=== PATIENT | male | born 1935 | race Caucasian/White ===

== ENCOUNTER → 2021-02-06 10:14 | Outpatient (BNVA) | payer MEDICARE, SELFPAY | PROVIDERS: PCP Family Medicine; Visit Provider Hospitalist | DX: R13.10 Dysphagia, unspecified (principal); J96.11 Chronic respiratory failure with hypoxia; J41.8 Mixed simple and mucopurulent chronic bronchitis; R05 Cough | CPT/HCPCS: 99212 ==

== ENCOUNTER 2021-02-11 14:02 | Outpatient (REF) | payer MEDICARE, SELFPAY ==
--- NOTE | ~2021-02-11 | FL_ITS ---
EXAMINATION: XR BARIUM SWALLOW CLINICAL INFORMATION: Dysphagia COMPARISON: None TECHNIQUE: Fluoroscopic guidance was provided for modified barium swallow performed by the speech and hearing department. FINDINGS: There is penetration seen in the larynx with liquids. There is no aspiration or penetration seen with honey consistency or solid food mixed with barium. There is retention in the vallecula with multiple media. FLUOROSCOPY TIME: 1.4 DOSE AREA PRODUCT: 2.5 carrear per centimeter squared. 1 saved fluoroscopic image. FL/FL barium swallow modified IMPRESSION: Fluoroscopy guidance for modified barium swallow performed by the speech and hearing department. Penetration seen larynx with liquids.
--- NOTE | 2021-02-15 14:54 | MHC.SL.IMP ---
Date of Plan of Treatment: 02/11/21 Onset of Symptoms/Illness: 02/11/21 Date Treatment Started: 02/11/21 Admitting Diagnosis: COPD, CAD status post CABG, chronic respiratory failure, cough, dysphagia Primary Speech & Language Diagnosis: R13.12 Oropharyngeal Phase Dysphagia Reason for Today's Visit: 13874 Modified Barium Swallow Study Pre-evaluation Dietary Consistencies: Regular Pre-evaluation Liquid Consistency: Thin Pre-evaluation Medication Administration: Whole with Liquid Medical History: Modified Barium Swallow Study Fluoroscopic Evaluation of Swallowing Function CPT Code 89233 Evaluation Year: 2020 Reason for Study: Patient displays overt s/s of aspiration. Referring Physician: Miguel Shea M.D. Evaluating Clinician: Selena Acosta M.A., CCC-EDUCATIONAL DIRECTOR Study Number: 1 Patient Name: Status: Outpatient, Wheelchair Age: 85 Gender: Male MEDICAL HISTORY: Primary (admitting) Diagnosis: COPD Year of Onset or Diagnosis: 2020 Comorbidities: CAD status post CABG Chronic respiratory failure Cough Dysphagia Current (pre-evaluation) Intake/Diet: Route: PO Diet Grade: Regular Liquid Consistencies: Thin Pre-Study Functional Oral Intake Scale (FOIS): 6- Total oral intake with no special preparation, but must avoid specific foods or liquid items Pain: None reported at time of study Subjective: Patient is an 85 year old man with underlying conditions COPD and CAD. He is followed by his ict security specialist. Per documentation from ict security specialist, patient presents with cough bringing up white phlegm and difficulty expectorating sputum. Patient also presents with post-nasal drip and wheezing. Patient was recently hospitalized at [facility] for worsening respiratory symptoms. Patient was reported to be hypoxic and required 3L nasal cannula at that time. Chest x-ray from [facility] showed hypoexpansion of the lungs with some interstitial reticular changes primarily at the bases on 03/27/20. He has continued with respiratory therapy. Patient complains now of coughing when eating/drinking. Oral Motor Exam Facial Symmetry: Symmetrical Mouth Occlusion: Normal Oral-Facial Lip Pucker Description: Normal Oral-Facial Smile (Lips) Description: Normal Oral-Facial Puff Cheeks Description: Reduced Strength Tongue Size: Normal Tongue Frenum Length: Normal Tongue Excursion Description: Normal Tongue Range of Movement Description: Normal Tongue Speed of Movement Description: Reduced Tongue Strength of Movement (against opposing pressure): Reduced Tongue Movement Characteristics: Normal/Absent Is patient able to manage secretions?: Yes Is patient able to produce volitional cough?: Food and Liquid Trials: Oral Impairment: Lip Closure: 0=No labial escape Oral Impairment: Tongue Control During Bolus Hold: 3=Posterior escape of greater than half of bolus Oral Impairment: Bolus Preparation/Mastication: 1=Slow prolonged chewing/mashing with complete re-collection Oral Impairment: Bolus Transport/Lingual Motion: 3=Repetitive/disorganized tongue motion Oral Impairment: Oral Residue: 1=Trace residue lining oral structures Oral Impairment:Initiation of Pharyngeal Swallow: 3=Bolus head in pyriforms Pharyngeal Impairment: Soft Palate Elevation: 0=No bolus between soft palate (SP)/pharyngeal wall (PW) Pharyngeal Impairment: Laryngeal Elevation: 1=Partial thyroid cartilage/arytenoids to epiglottic petiole movement Pharyngeal Impairment: Anterior Hyoid Excursion: 1=Partial anterior movement Pharyngeal Impairment: Epiglottic Movement: 1=Partial inversion Pharyngeal Impairment: Laryngeal Vestibular Closure:: 1=Incomplete: narrow column air/contrast in laryngeal vestibule Pharyngeal Impairment: Pharyngeal Stripping Wave: 2=Absent Pharyngeal Impairment: Pharyngeal Contraction: Did not test Pharyngeal Impairment: Pharyngoesophageal Segment Openin=Complete distension and complete duration: no obstruction of flow Pharyngeal Impairment: Tongue Base (TB) Retraction: 3=Wide column of contrast/air between TB and posterior PW Pharyngeal Impairment: Pharyngeal Residue: 1=Trace residue within or on pharyngeal structures Pharyngeal Impairment: Esophageal Clearance Upright Position: Did not test Impressions and Recommendations Clinical Observations: OBJECTIVE: Time-out: performed at 02:45 Evaluation Start: 02:30; Stop: 02:40 Patient Positioning: Seated 70-90 degrees Viewing Planes: LATERAL ONLY Contrast: MBSImP? Standardized Protocol using commercially prepared, standardized Barium viscosities, including: Varibar? THIN LIQUID (40% w/v, <15 cps) , Varibar? NECTAR (40% w/v, <150-450 cps) , Varibar? THIN HONEY (40% w/v, <800-1800 cps) , 1/2 Shortbread Cookie (1 x1 x.25 ) MBSImP ID: [id number] MBSImP Results: Lip closure for intraoral bolus containment resulted in no labial escape. Tongue control during bolus hold allowed posterior escape of greater than half of the bolus. Bolus preparation and mastication resulted in slow, prolonged chewing/mashing but with complete re-collection. Bolus transport/lingual motion was with repetitive/disorganized motion of the tongue. Oral residue was a trace, lining oral structures. Initiation of the pharyngeal swallow occurred when the bolus head was in the pyriform sinuses. Soft palate elevation resulted in no bolus between the soft palate and the pharyngeal wall. Laryngeal elevation was decreased, with partial superior movement of the thyroid cartilage/partial approximation of the arytenoids to the epiglottic petiole. Anterior hyoid excursion demonstrated partial anterior movement. Epiglottic movement resulted in partial inversion. Laryngeal vestibular closure was incomplete, with a narrow column of air/contrast noted within the laryngeal vestibule at the height of the swallow. Pharyngeal stripping wave was absent. Pharyngeal contraction could not be determined due to logistical reasons not related to physiologic impairment. Pharyngoesophageal segment opening was completely distended for complete duration with no obstruction of bolus flow. Tongue base retraction allowed a wide column of contrast or air between the retracted tongue base and the posterior pharyngeal wall. Pharyngeal residue was a trace within or on pharyngeal structures. Esophageal clearance in the upright position could not be assessed due to logistical reasons not related to physiologic impairment. Oral Impairment Score: 10 Pharyngeal Impairment Score: 9 (absence of score, component 13) Esophageal Impairment Score: --- (absence of score, component 17) Laryngeal Penetration and Aspiration: Penetration was observed in today's study. [place]-thick, Thin Contrast entered the airway, contacted the vocal folds, and were ejected from the airway. ASSESSMENT: This exam was conducted by radiologist and speech-language pathologist. Patient was seated upright at optimal 90 degree position for lateral view only. Patient trialed the following liquid and solid consistencies: -thin liquid -nectar thick liquid -honey thick liquid -pureed solid (applesauce mixed with barium paste) -ground solid (chicken salad mixed with barium paste) -regular solid (An Doone cookie coated in barium paste) Patient displayed moderate oropharyngeal phase dysphagia characterized by impairments in the following components of swallow physiology: ORAL PHASE: -prior to initiation of pharyngeal swallow trigger, premature posterior escape of bolus with both solids and liquids- greater than 50% of bolus, which collected in valleculae prior to initiation of swallow trigger -prolonged mastication -repetitive posterior tongue movement -trace oral residue -delayed pharyngeal swallow trigger when bolus head reached pyriforms PHARYNGEAL PHASE: -partial superior movement of thyroid cartilage with partial anterior hyoid movement and partial epiglottic inversion -incomplete laryngeal vestibular closure resulting in episodes of penetration with liquids -absent pharyngeal stripping wave -reduced tongue base retraction -mild pharyngeal retention in valleculae which subsequently cleared. Evidence of deep penetration during the swallow when drinking thin liquids and nectar thick liquids, which spontaneously ejected. No cough response to penetration of liquids. No evidence of aspiration or penetration with honey thick liquids and solids. Posterior escape of bolus with both solids and liquids. Material collected in vallecular space before initiation of swallow trigger. Delayed pharyngeal swallow trigger. Retention in vallecular space subsequently cleared. Patient history with the following compensatory strategies is unknown. When employed during today's study, these strategies improved swallowing function: Honey-thick Liquid eliminated Penetration Rate of Ingestion Change decreased Oral Residue, Pharyngeal Residue Liquid Intake Recommendation: Honey Thick Liquid Intake Strategies: Small Sips No Straws Dietary Recommendations: Chopped/Advanced (NDD3) Medication Administration: Whole with Puree Compensatory Strategies Recommended: Sitting Upright (90 deg) Double Swallow No Straw Small Bites and Sips Alternate Liquids/Solids Rate of Ingestion Change Avoid Specific Foods Supervision during eating and or drinking: Total Supervision (1:1) Recommended Treatments: Base of Tongue Exercises Pharyngeal Resistive Exer Compens. Strategy Educat. Vocal Cord Adduction Exer Recommendation for Speech Therapy: Speech Therapy through [facility] Text Comment: Intake Recommendations: Route: PO Diet Grade: Chopped/Advanced (NDD3) solids ? Please refer to National Dysphagia Level 3 Liquid Consistencies: Honey Post-Study Functional Oral Intake Scale (FOIS): 5- Total oral intake of multiple consistencies requiring special preparation Evidence of deep penetration with thin liquid and nectar thick liquid. Noted premature posterior escape of bolus, delayed swallow trigger, and incomplete laryngeal elevation. Patient is at risk for aspiration. Recommend CHOPPED/ADVANCED (NATIONAL DYSPHAGIA LEVEL 3 NDD3) and HONEY THICK liquids with pills WHOLE or CRUSHED in PUREE. Food to be cut into small bite size pieces and served with sauce/gravy. Recommend avoid certain foods, such as tough foods, sticky foods, and mixed consistencies. Recommend close monitoring for any overt s/s of aspiration. Following precautions are recommended: -chew food well -take small bites, one bite at a time, clearing oral cavity before taking more bites -alternate bite of food with sip of liquid -small, individual sips -avoid ?chugging? or taking consecutive sips -avoid use of straws due to delay in pharyngeal swallow trigger -upright 90 degree position during PO intake and for at least 30 minutes afterwards -frequent oral care at least 4 times daily Recommend continue speech therapy through [facility] to provide supports for modified diet, compensatory strategy, and to trial pharyngeal strengthening exercises. Therapy Recommendations: Therapy will be initiated Frequency per Week: 1 Number of Weeks: 6 The following compensatory strategies and/or therapeutic exercises will be part of the upcoming therapy/management plan: Honey-thick Liquid Bolus Volume Change Rate of Ingestion Change Effortful Swallow Lou Maneuver Shaker Head Lifts Genny Maneuver Prognosis for Improvement: The prognosis for the patient to meet nutritional needs by mouth is fair based on degree of impairment. Eyelet Machine Operator Goals: ? The patient will tolerate the least restrictive diet with a safe/efficient swallow to maintain adequate nutrition and hydration. ? The patient and/or family will participate in further education for swallowing goals. Short Term Goals: ? Diet - The patient will tolerate a chopped/advanced (NDD3) diet with honey thick liquids without signs or symptoms of penetration/aspiration 100% of the time. - The patient will participate in therapeutic PO trials with the EDUCATIONAL DIRECTOR. ? Guidelines - The patient will comply with/recall the following guidelines/strategies 100% of the time with moderate cuing: Honey-thick Liquid, Bolus Volume Change, Rate of Ingestion Change, Additional Swallow(s) per Bolus, No Straws. ? Independent Home Exercise - The patient will perform 10 repetitions of the Effortful Swallow, Lou Maneuver, Shaker Head Lifts, Genny Maneuver 3 times a day with 100% accuracy and moderate cuing as part of a home exercise program. ? Structured Therapy - The patient will demonstrate 100% accuracy and require moderate cuing in structured swallowing therapy with the EDUCATIONAL DIRECTOR using the following exercises/therapy approaches and therapy assisted devices: Effortful Swallow, Lou Maneuver, Shaker Head Lifts, Genny Maneuver, . ? Education - The patient, family, caregiver will verbalize/demonstrate understanding of the results of this evaluation, the above recommendations, and the swallowing guidelines. Frequency/Duration: 1x weekly x 6 weeks Clinician - Supplemental, Miscellaneous Communication: It is important to note that MBSS objective studies are snapshots in time and patient function might vary with factors such as time of day or concomitant medical conditions. For this reason, the final treatment plan for this patient should rest with their medical care team. Additional recommendations should be considered with the totality of the patient in mind. Thank you for the opportunity to participate in the care of this patient. If you have any questions about the content of this report, please contact the [facility] at [facility]. Education: Education regarding findings from today's study and plans for therapy were provided to Patient and family/caregiver through Verbal Instruction. Understanding was expressed by the Patient and family/caregiver. Sensitizer Clinician/Clinical Fellow: No Supervisory Statement: N/A Speech Language Pathologist: Selena Acosta M.A., CCC-EDUCATIONAL DIRECTOR
== END 2021-02-11 14:03 | disposition home or self-care (01) ==
LOC: HO.XRAY 14:02
PROVIDERS: Visit Provider Hospitalist
DX: R13.10 Dysphagia, unspecified (principal)
CPT/HCPCS: 74230; 92611

== ENCOUNTER → 2021-05-08 10:44 | Outpatient (BNVA) | payer MEDICARE, SELFPAY | PROVIDERS: PCP Family Medicine; Visit Provider Hospitalist | DX: R13.10 Dysphagia, unspecified (principal); J96.11 Chronic respiratory failure with hypoxia; J41.8 Mixed simple and mucopurulent chronic bronchitis; R05 Cough | CPT/HCPCS: 99212 ==

== ENCOUNTER → 2022-01-22 10:43 | Outpatient (BNVA) | payer MEDICARE, SELFPAY | PROVIDERS: PCP Family Medicine; Visit Provider Hospitalist | DX: J96.11 Chronic respiratory failure with hypoxia (principal); J41.8 Mixed simple and mucopurulent chronic bronchitis; R13.10 Dysphagia, unspecified | CPT/HCPCS: 99212 ==

== ENCOUNTER → 2022-05-28 10:52 | Outpatient (BNVA) | payer MEDICARE, SELFPAY | PROVIDERS: PCP Family Medicine; Visit Provider Hospitalist | DX: J96.11 Chronic respiratory failure with hypoxia (principal); R13.10 Dysphagia, unspecified; J41.8 Mixed simple and mucopurulent chronic bronchitis; L08.9 Local infection of the skin and subcutaneous tissue, unspecified; R05.9 Cough, unspecified | CPT/HCPCS: 99212 ==

== ENCOUNTER → 2022-11-19 11:03 | Outpatient (BNVA) | payer MEDICARE, SELFPAY | PROVIDERS: PCP Family Medicine; Visit Provider Hospitalist | DX: J96.11 Chronic respiratory failure with hypoxia (principal); J41.8 Mixed simple and mucopurulent chronic bronchitis; R13.10 Dysphagia, unspecified | CPT/HCPCS: 99212 ==

== ENCOUNTER 2023-07-10 11:39 | Outpatient (AMB) | payer MEDICARE, SELFPAY ==
[2023-07-10 15:08] VITALS: BP 110/60; PULSE 71; O2SAT 88
--- NOTE | 2023-07-10 15:08 | A.OFFVIS_ITS ---
Intake Vital Signs 07/10/23 15:08 BP 110/60 Blood Pressure Location Lt brachial Position Sitting Pulse 71 Pulse Source Pulse Oximeter Pulse Oximetry (%) 88 L Oxygen Delivery Method Room Air Intake Visit Reasons: 6 Mins Walk Evaluation Allergies No Known Allergies Allergy (Verified 07/10/23 15:08) [facility] Medical History (Updated 12/30/22 @ 09:52 by Miguel Shea MD) Atelectasis Infection of scalp Dysphagia Abnormal chest x-ray Chronic respiratory failure COPD (chronic obstructive pulmonary disease) Cough Social History (Updated 02/06/21 @ 10:35 by LUCIA You) Patient Tobacco Use Status: Former Tobacco user Tobacco use type: Cigarette Years Smoked: 40 years Office Procedures 6 Minute Walk Time:: 11:30 SPO2 % at rest: 88 Pulse at rest: 71 Distance in yards walked: 0 Performance Observations:: Julián is non-ambulatory in a wheel chair. His SPO2 on room air was 88% O2 started at 2 lpm and was increased to 3 lpm his SPO2 recovered to 94%. 3 lpm continuous O2 needed to keep his SPO2 above 88%. 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
[2023-07-10 15:11] VITALS: PULSE 71; O2SAT 88
== END 2023-07-10 14:04 | disposition home or self-care (01) ==
PROVIDERS: PCP Family Medicine; Visit Provider Hospitalist
DX: J41.8 Mixed simple and mucopurulent chronic bronchitis (principal)
CPT/HCPCS: 94618

== ENCOUNTER → 2023-07-10 11:39 | Outpatient (BNVA) | payer MEDICARE, SELFPAY | PROVIDERS: PCP Family Medicine; Visit Provider Hospitalist | DX: J41.8 Mixed simple and mucopurulent chronic bronchitis (principal) | CPT/HCPCS: 94618; 99211 ==

== ENCOUNTER 2023-08-06 10:07 | Outpatient (AMB) | payer MEDICARE, SELFPAY ==
--- OUTSIDE RECORDS SUMMARY | 2023-08-06 10:09 | XMS_ITS | Continuity of Care Document ---
Author Name Unknown Organization [facility] ter Address [address] [place] [id number]- Care Team Providers Care Belt Back Operator Name Role Phone Arjun Hampton DO Primary Care Physician Encounter [facility] Date(s): 07/17/23 - 07/30/[address] [address]- Encounter Diagnosis Acute on chronic respiratory failure with hypoxia(Final) - 07/17/23 Pulmonary embolism(Final) - 07/17/23 Hypernatremia(Final) - 07/17/23 Dysphagia(Final) - 07/27/23 Discharge Disposition: A-D/C Home Attending Physician: Tova DSOUZA, Bri Draper Admitting Physician: Janina DSOUZA, Ramana Referring Physician: Not on Staff, Referring MD Allergies, Adverse Reactions, Alerts No Known Allergies Immunizations Given and Recorded Vaccine Date Status Refusal Reason influenza virus vaccine, inactivated 06/22/23 Give n influenza virus vaccine, inactivated 07/23/22 Christian rded influenza virus vaccine, inactivated 06/03/21 Christian rded influenza virus vaccine, inactivated 05/16/20 Christian rded influenza virus vaccine, inactivated 05/25/19 Christian rded influenza virus vaccine, inactivated 07/29/18 Give n influenza virus vaccine, inactivated 05/28/18 Christian rded influenza virus vaccine, inactivated 06/11/17 Christian rded influenza virus vaccine, inactivated 05/23/16 Christian rded SARS-CoV-2 (COVID-19) mRNA BNT-162b2 vac 06/26/21 Recorded SARS-CoV-2 (COVID-19) mRNA BNT-162b2 vac 10/31/20 Recorded SARS-CoV-2 (COVID-19) mRNA BNT-162b2 vac 10/10/20 Recorded Influenza Virus Vaccine (oldterm) 06/08/19 Recorde d pneumococcal 13-valent vaccine 07/29/18 Given tetanus/diphtheria/pertussis, acel(Tdap) 04/15/18 Given pneumococcal 23-valent vaccine 1 08/04/14 Recorded 1Result Comment: [id number] Medications albuterol-ipratropium 3 mg-0.5 mg/3 ml inhalation solution 3 mL, Inhalation, 4 times a day, # 30 each, 0 Refills, Maintenance, 03/27/20 21:59:00 EDT, Solution Start Date: 03/27/20 Status: Ordered allopurinol 300 mg oral tablet 300 mg, 1, tablet, By Mouth, Daily, # 30 tablet, Refills 0, Maintenance, 03/27/20 21:58:00 EDT Start Date: 03/27/20 Status: Ordered ammonium lactate 12% topical lotion See Instructions, APPLY TOPICALLY DAILY TO THE LEGS DIREDTED, # 225 mL, 0 Refills, [id number], 20, APPLY TOPICALLY DAILY TO THE LEGS DIREDTED, 180, cm, 01/29/22 10:46:00 EDT, Height Start Date: 02/18/22 Status: Ordered apixaban 5 mg oral tablet = 5 mg, G Tube, 2 times a day, # 60 tablet, 0 Refills, Maintenance, 07/29/23 15:38:00 EST, Tablet, [facility], Partial fill upon patient request if the prescription is for a schedule IIopioid drug., 180, cm, 07/28/23 20:49:00 EST, Carla... Start Date: 07/29/23 Status: Ordered atorvastatin 80 mg oral tablet 1 tablet = 80 mg, By Mouth, Daily, # 30 tablet, 0 Refills, Maintenance, 03/27/20 21:57:00 EDT, Tablet Start Date: 03/27/20 Status: Ordered Basaglar KwikPen 100 units/mL subcutaneous solution See Instructions, INJECT 10 UNITS SUBCUTANEOUSLY DAILY AT BEDTIME, # 15 Unknown, 1 Refills, 07/10/22 6:58:00 EST, [facility]/pharmacy #[id number], 180, cm, 04/18/22 11:39:00 EDT, Height Start Date: 07/10/22 Status: Ordered benzonatate 200 mg oral capsule 1 capsule = 200 mg, By Mouth, 3 times a day, PRN as needed for cough, # 30 capsule, 0 Refills, Maintenance, 03/27/20 21:58:00 EDT, Capsule Start Date: 03/27/20 Status: Ordered budesonide 0.5 mg/2 mL inhalation suspension 0.5 mg, 2, mL, Neb, 2 times a day, # 120 mL, Refills 0, Maintenance, 03/27/20 21:57:00 EDT, Suspension Start Date: 03/27/20 Status: Ordered carvedilol 3.125 mg oral tablet 3.125 mg, By Mouth, 2 times a day, # 30 tablet, Refills 0, Tot. Refills 0, Maintenance, 05/16/23 9:38:00 EDT, Route to Pharmacy Electronically, [facility]/pharmacy #[id number], Partial fill upon patient request if the prescription is for a schedule II opioid drug.... Start Date: 05/16/23 Stop Date: 06/15/23 Status: Ordered carvedilol 3.125 mg oral tablet 3.125 mg, Tablet, By Mouth, 07/29/23 21:00:00 EST Start Date: 07/29/23 Stop Date: 07/29/23 Status: Completed carvedilol 3.125 mg oral tablet 3.125 mg, Tablet, By Mouth, 07/30/23 9:00:00 EST Start Date: 07/30/23 Stop Date: 07/30/23 Status: Completed Claritin 10 mg oral tablet 10 mg, 1, tablet, By Mouth, Daily, Refills 0, Maintenance, 11/23/18 10:33:45 EDT Start Date: 11/23/18 Status: Ordered Dakins Half Strength 0.25% topical solution See Instructions, Use for dressing changes as directed, # 473 mL, 0 Refills, Maintenance, 09/11/22 7:42:00 EST, [facility]/pharmacy #[id number], Partial fill upon patient request if the prescription is for a schedule II opioid drug., Use for dressing changes as di... Start Date: 09/11/22 Status: Ordered docusate sodium 150 mg/15 ml oral liquid 10 mL = 100 mg, By Mouth, 2 times a day, # 600 mL, 0 Refills, Maintenance, 07/29/23 15:38:00 EST, Liquid, [facility], Partial fill upon patient request if the prescription is for a schedule II opioid drug., 180, cm, 07/28/23 20:49:00 EST... Start Date: 07/29/23 Status: Ordered fluticasone 50 mcg/inh nasal spray 2 sprays, Nares, Both, Daily in AM, 0 Refills, Maintenance, 03/27/20 21:59:00 EDT, [place] Start Date: 03/27/20 Status: Ordered Lasix 20 mg oral tablet 20 mg, By Mouth, Daily, Refills 0, Maintenance, 05/16/23 9:39:00 EDT, Partial fill upon patient request if the prescription is for a schedule II opioid drug. Start Date: 05/16/23 Status: Ordered levothyroxine 0.05 mg oral tablet See Instructions, 1 tablet By Mouth Thursday-Thursday 2 tabs po Thu-Thursday, # 90 tablet, 1 Refills, 05/19/23 11:42:00 EDT, [facility]/pharmacy #[id number], 183, cm, 05/16/23 8:59:00 EDT, Height, 83.6, kg, 05/13/23 23:00:00 EDT, Dry Weight Start Date: 05/19/23 Status: Ordered NOVOFINE AUTOCOVER 30G NEEDLE NOVOFINE AUTOCOVER 30G NEEDLE, 0 Refills, Maintenance, 06/29/23 13:21:00 EST Start Date: 06/29/23 Status: Ordered omeprazole 20 mg oral tablet, disintegrating, delayed release = 40 mg, By Mouth, Daily, # 60 tablet, 0 Refills, Maintenance, 07/29/23 16:00:00 EST, [facility], Partial fill upon patient request if the prescription is for a schedule II opioid drug., 180, cm, 07/28/23 20:49:00 EST, Height, 73, kg, 11... Start Date: 07/29/23 Status: Ordered SilvaSorb 1 applicator, Topically, Daily, 0 Refills, Maintenance, 06/07/23 12:13:00 EDT, Gel, Partial fill upon patient request if the prescription is for a schedule II opioid drug. 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 Benign essential hypertension Confirmed Active Chronic hypoxemic respiratory failure Confirmed Active Chronic obstructive lung disease Confirmed Active Chronic respiratory failure, unspecified whether with hypoxia or hypercapnia 1 Confirmed Active Coronary atherosclerosis 2 Confirmed Active COVID-19 3 Confirmed 05/16/23 Active Ischemic cardiomyopathy Confirmed Active Gout Confirmed Active H/O: Deep vein thrombosis Confirmed Active H/O: pulmonary embolus Confirmed Active Alta's thyroiditis Confirmed Active Hemiparesis affecting right side as late effect of cerebrovascular accident 4 Confirmed Active Hypercholesterolemia Confirmed Active Hyperlipidemia Confirmed Active Hypernatremia Confirmed Active Acute kidney injury Confirmed Active Abnormal LFTs Confirmed Active Patent foramen ovale Confirmed Active Encounter for annual wellness visit (AWV) in Medicare patient Confirmed Active Neuropathy, peripheral 5 Confirmed 02/06/15 Active Peripheral vascular disease 6 Confirmed Active Pulmonary embolism Confirmed Active Troponin level elevated Confirmed Active Recurrent coronary arteriosclerosis after percutaneous transluminal coronary angioplasty Confirmed Active Right homonymous hemianopsia Confirmed Active 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 Taveras Procedures Procedure Date Related Diagnosis Body Site Status PEG - Percutaneous endoscopi c gastrostomy 07/27/23 Completed Results Orders for Microbiology Reports Name Date Blood Culture 07/17/23 Blood Culture #2 07/17/23 Microbiology Reports TEST:Blood Culture, Second Order STATUS:Auth (Verified) BODY SITE: SOURCE:Blood COLLECTED DATE/TIME:07/17/23 11:26 AM Blood Culture, Second Order SPECIMEN DESCRIPTION : BLOOD NO SITE SPECIAL REQUESTS : NONE CULTURE : NO GROWTH 5 DAYS. REPORT STATUS : FINAL 07/22/2023 TEST:Blood Culture STATUS:Auth (Verified) BODY SITE: SOURCE:Blood COLLECTED DATE/TIME:07/17/23 10:45 AM Blood Culture SPECIMEN DESCRIPTION : BLOOD NO SITE SPECIAL REQUESTS : NONE CULTURE : NO GROWTH 5 DAYS. REPORT STATUS : FINAL 07/22/2023 Radiology Reports * Exam Date Time Procedure Performing Provider Status 07/25/23 5:14 PM Chest Portable Lois Rm; Alejandrina (Ve rified) Notes: (Chest Portable) Reason For Exam: Line Placement RESULT: Chest Portable Chest Portable Reason: Line Placement; COMPARISON: Earlier today and yesterday FINDINGS: LINES AND TUBES: Right jugular Port-A-Cath and NG tube remain in good position. LUNGS AND PLEURA: Unchanged dense consolidation of the lower half of the left lung with laterally tracking pleural effusion. Unchanged small right pleural effusion. Clear right lung without edema. No pneumothorax. HEART, MEDIASTINUM AND ARELIS: Cardiac borders are partially obscured but grossly unchanged. BONES AND SOFT TISSUES: No acute abnormality. IMPRESSION: 1. Line and tube in good position. 2. Unchanged effusions and extensive left basilar consolidation. WSN: [id number] Ordering Physician: Charissa Coy Dictated By: Crow Shepard MD Dictated Date/Time: 07/25/23 6:33 pm Reviewed By: Crow Shepard MD Signed By: Crow Shepard MD Signed Date/Time: 07/25/23 6:33 pm Transcribed By: ANGELA Transcribed Date/Time: 07/25/23 6:31 pm * Exam Date Time Procedure Performing Provider Status 07/25/23 3:55 PM Chest Portable Alma Rosa Mancera; Alejandrina ( Verified) Notes: (Chest Portable) Reason For Exam: Line Placement RESULT: Chest Portable AP upright portable chest dated July 25, 2023. Comparison films are from July 24, 2023. HISTORY: Line placement. FINDINGS: The cardiac silhouette is mildly increased in size and unchanged. Mural calcifications are present in the aorta. A nasogastric tube is present extending into the left upper quadrant. The tip is distal to the EG junction region. The sidehole is at the level of the EG junction. This could be advanced 2 cm for more optimal positioning. A CT Port-A-Cath is noted on the right. Using a jugular approach, the tip of the catheter overlies the mid SVC. No pneumothorax is seen. There is significant opacity noted in the left mid and lower lung consistent with effusion, atelectasis, pneumonia, or any combination. There is a minimal right pleural effusion. The patient is status post median sternotomy. IMPRESSION: Interval placement of a nasogastric tube. This could be advanced 2 cm for more optimal positioning.Otherwise, no significant interval change. Examination 78414. Thank you for allowing me to participate in the care of this patient. IMPRESSION: WSN: [id number] Ordering Physician: Charissa Coy Dictated By: Saleem Rick MD Dictated Date/Time: 07/25/23 4:13 pm Reviewed By: Saleem Rick MD Signed By: Saleem Rick MD Signed Date/Time: 07/25/23 4:13 pm Transcribed By: ANGELA Transcribed Date/Time: 07/25/23 4:13 pm * Exam Date Time Procedure Performing Provider Status 07/24/23 4:04 PM Modified Barium Swal low W/ Speech (Radio Mancera , Alma Rosa; Auth (Verified) Notes: (Modified Barium Swallow W/ Speech (Radio) Reason For Exam: Dysphagia RESULT: Modified Barium Swallow W/ Speech (Radio Modified Barium Swallow WITH SPEECH PATHOLOGY CLINICAL INDICATION: Reason: Dysphagia; Clinical Question(s): Aspiration; Order Comment: Modified Barium Swallow W Speech (Radiology) Prep COMPARISON: None Technique: Lateral cine-videofluoroscopy was performed during the oral administration of various barium containing consistencies, as described below. Fluoroscopic imaging provided by Rober Gardner PA-C Pulsed fluoroscopy time: 2.3 minutes Dose Area Product (DAP): 128.5 uGy*m2 Findings: Honey, applesauce, nectar, and thin barium consistencies were tested. Mason subglottic aspiration not prompting cough response was seen with nectar consistency. Deep laryngeal penetration not clearing with cued cough was appreciated with thin honey and puree consistencies Significant vallecular and piriform residuals were appreciated with all tested consistencies. IMPRESSION: Silent aspiration, laryngeal penetration, and residuals as described. For dietary concerns or recommendations, please refer to speech pathologist report. By undersigning and finalizing the report, the attending radiologist confirms he/she has personallyreviewed and interpreted the images and agrees with the description of the findings. I have personally reviewed the images and I agree with this report. WSN: [id number] Ordering Physician: Charissa Coy Dictated By: Agusto Chand Dictated Date/Time: 07/24/23 3:24 pm Reviewed By: Roman Mike MD, V Signed By: Roman Mike MD, V Signed Date/Time: 07/24/23 3:29 pm Transcribed By: ANGELA Transcribed Date/Time: 07/24/23 2:51 pm * Exam Date Time Procedure Performing Provider Status 07/24/23 9:42 AM Chest Portable Flaquita Cardona (Verified) Notes: (Chest Portable) Reason For Exam: CHF RESULT: Chest Portable Chest Portable Reason: CHF; Clinical Question(s): CHF COMPARISON: 07/17/2023 FINDINGS: LINES AND TUBES: Right-sided chest port tip is in the area of the low SVC LUNGS AND PLEURA: Diffuse pulmonary opacities with perihilar and basilar predominance and also seen layering small tomoderate left and trace to small right pleural effusion No pneumothorax. HEART, MEDIASTINUM AND ARELIS: Unchanged cardiomegaly. Postsurgical changes the mediastinum. Aortic atherosclerosis BONES AND SOFT TISSUES: No acute abnormality. Prior median sternotomy. IMPRESSION: Increased pulmonary edema. WSN: [id number] Ordering Physician: Charissa Coy Dictated By: Kemi Dodd MD Dictated Date/Time: 07/24/23 9:46 am Reviewed By: Kemi Dodd MD Signed By: Kemi Dodd MD Signed Date/Time: 07/24/23 9:46 am Transcribed By: ANGELA Transcribed Date/Time: 07/24/23 9:45 am * Exam Date Time Procedure Performing Provider Status 07/19/23 10:43 AM US Liver Concha Armendariz; Alejandrina (Verified) Notes: (US Liver) Reason For Exam: abnormal LFT;Other: RESULT: US Liver US Liver Reason: Other:; abnormal LFT; Clinical Question(s): Choledocholithiasis COMPARISON: 12/24/2022. IMAGING TECHNIQUE: Grayscale and color Doppler ultrasound examination of the liver. senior cytotechnologist noted that the study was technically difficult due to overlying bowel gas and patient's inability to hold breath. FINDINGS: Liver: Coarse hepatic echotexture. No suspicious lesion. Smooth hepatic contour. Main portal vein patent with normal hepatopetal direction of flow. Biliary Tree: No intrahepatic or extrahepatic bile duct dilation is identified. Common duct: 0.5 cm. IMPRESSION: Coarse hepatic echotexture likely due to underlying hepatocellular disease. No suspicious lesion. WSN: [id number] Ordering Physician: Marcello Rowe Dictated By: Saravanan Iniguez MD Dictated Date/Time: 07/19/23 4:21 pm Reviewed By: Saravanan Iniguez MD Signed By: Saravanan Iniguez MD Signed Date/Time: 07/19/23 4:21 pm Transcribed By: ANGELA Transcribed Date/Time: 07/19/23 4:20 pm * Exam Date Time Procedure Performing Provider Status 07/19/23 10:43 AM US Retroperitoneum Comp Geoff Armendariz; Auth (Verified) Notes: (US Retroperitoneum Comp) Reason For Exam: acute kidney injury;Other: RESULT: US Retroperitoneum Comp US Retroperitoneum Comp Reason: Other:; acute kidney injury; Clinical Question(s): Renal Obstruction; COMPARISON: None. FINDINGS: Right kidney: 11.0 cm in length. No hydronephrosis. Increased parenchymal echogenicity. No stones. No suspicious mass. Few simple cysts, largest measuring 2 x 1.8 cm in the upper pole. Left kidney: 10.3 cm in length. No hydronephrosis. Increased parenchymal echogenicity. No stones. No suspicious mass. Few simple cysts, largest measuring 4.2 x 5 cm in the upper pole. Urinary bladder: Incompletely distended, but no evidence of stone, mass or debris. IMPRESSION: Echogenic kidneys likely representing medical renal disease. Bilateral renal cysts. WSN: [id number] Ordering Physician: Marcello Rowe Dictated By: Saravanan Iniguez MD Dictated Date/Time: 07/19/23 4:19 pm Reviewed By: Saravanan Iniguez MD Signed By: Saravanan Iniguez MD Signed Date/Time: 07/19/23 4:19 pm Transcribed By: ANGELA Transcribed Date/Time: 07/19/23 4:17 pm * Exam Date Time Procedure Performing Provider Status 07/17/23 3:[address] Angio Chest Soo Mcnamara; Auth (Verified) Notes: (CT Angio Chest) Reason For Exam: PE suspected, Intermediate prob, positive D-dimer,;Other: RESULT: CT Angio Chest EXAMINATION: CT Angio Chest INDICATION: Reason: Other:; PE suspected, Intermediate prob, positive D-dimer,; Clinical Question(s): Pulmonary Embolism; Order Comment: TECHNIQUE: Spiral CTA of the chest was performed after rapid IV contrast administration without cardiac gating, triggered by an HENRI on the main pulmonary artery. Images are formatted in multiple planes using 2-D multiplanar and 3-D maximum intensity projection. 72 cc of Omnipaque 300 was administered intravenously. Weight-based protocol using automatic tube modulation was used to optimize exposure parameters. CTDIvol Body: 16.13 mGy, DLP Body: 511 mGy*cm. COMPARISONS: None. ANGIOGRAPHIC FINDINGS: Positive exam for acute bilateral pulmonary thromboembolism with branching thrombus seen in the lobar pulmonary artery to segmentally and the right upper lobe, eccentrically to centrally in the left lower lobe lobar pulmonary artery and segmentally in the left upper lobe. There is no enlargement of the main pulmonary artery. No straightening of the intraventricular septum or other evidence of right heart strain. Thoracic aorta is nonaneurysmal. There is moderate arch and descending thoracic aortic atherosclerosis without acute dissection within the limitations of this exam. NON-ANGIOGRAPHIC FINDINGS: Door Hanger View Findings, Lines and Tubes: There is a chest port terminating at the low SVC Trachea and Airways: Moderate motion artifact and expiratory appearance of the trachea. Lungs and Pleura: Evaluation of the lungs is limited by degree of motion artifact. There is severe upper lung emphysema. Groundglass opacity present in the left upper lung on series 401 image 38 and consolidative opacities in the lower lungs, left greater than right with air bronchograms and also component of atelectasis of nearly the entire left lower lobe. There is a small left pleural effusion. No pneumothorax. The degree of motion artifact on this exam along with acute pulmonary findings greatly limits evaluation for chronic pulmonary nodules, with several nodules seen for example on series 401 image 16 and image 29 which could relate to infection as well as in the superior segment of the right lower lobe at series 401 image 48 measuring 7 mm. Mediastinum and arelis: Limited evaluation due to motion. There are small mediastinal lymph nodes, for example right paratracheal and series 401 image 23 measuring up to 5 to 6 mm and small subcarinal lymph node. No adenopathy. No mediastinal mass or fluid collection. Patulous fluid-filled esophagus. Heart: Heart size is enlarged with left ventricular enlargement and also left ventricular hypertrophy. There are postsurgical changes of coronary artery bypass grafting with severe galena vessel atherosclerosis. No pericardial effusion. Chest Wall Soft Tissues: No acute abnormality. Minimal gynecomastia. Diaphragm and upper abdomen: No acute abnormality. Hepatic steatosis, partially seen. Bones: Prior median sternotomy. Bones are osteopenic. Contiguous osteophytosis at the midthoracic spine. No acute osseous abnormality. IMPRESSION: Positive exam for acute bilateral pulmonary thromboembolism. No evidence for right heart strain. Atelectasis of the left lower lung, nearly complete. Concomitant basilar consolidative opacities and small focal opacity in the left upper lung, suspicious for infection. Consider aspiration etiology. Small left pleural effusion. Cardiomegaly and coronary artery atherosclerosis with postsurgical changes of coronary artery bypass grafting. Result of positive exam for acute pulmonary thromboembolism was given to Dr. Horan at 1601 on day of exam. WSN: [id number] Ordering Physician: Adal Horan Dictated By: Kemi Dodd MD Dictated Date/Time: 07/17/23 4:04 pm Reviewed By: Kemi Dodd MD Signed By: Kemi Dodd MD Signed Date/Time: 07/17/23 4:04 pm Transcribed By: ANGELA Transcribed Date/Time: 07/17/23 3:59 pm * Exam Date Time Procedure Performing Provider Status 07/17/23 12:[address] Head/Brain W/O Contrast Shira Hodgson i; Alejandrina (Verified) Notes: (CT Head/Brain W/O Contrast) Reason For Exam: AMS, progressive lethargy;Behavior Problem RESULT: CT Head/Brain W/O Contrast CT Head/Brain W/O Contrast INDICATION: Hx of Present Illness: pt from [facility], per service captain pt has been altyered ongoing 2 days, found hypoxic to 70s on at home 2L O2, also reports poor po intake and changes in speech; Reason: Behavior Problem; AMS, progressive lethargy; Clinical Question(s): Infarction; Order Comment: TECHNIQUE: Noncontrast head CT using axial technique and reconstructed in axial and coronal planes.Iterative reconstruction techniques are used to optimize dose and image quality. CTDIvol Head: 48.30 mGy, DLP Head: 773 mGy*cm. COMPARISON: 06/06/2023 FINDINGS: Door Hanger view findings, lines and tubes: None. BRAIN AND EXTRA-AXIAL SPACES: No parenchymal hemorrhage, midline shift, or mass effect. Henry-white matter differentiation is wellpreserved. Unchanged bifrontal encephalomalacia, left more than right. Unchanged cerebellar infarcts. No acute infarct. Moderate prominence of the ventricles and sulci consistent with parenchymal volume loss. Moderate low-density white matter changes. No subarachnoid hemorrhage. No subdural or epidural collection. CALVARIUM, SKULL BASE, AND SOFT TISSUES: No fracture. Unchanged postoperative findings in the calvarium. Small amount of fluid in the left maxillary sinus. Status-post bilateral lens extraction. The extracranial soft tissues are unremarkable. IMPRESSION: 1. No evidence of acute intracranial abnormality. 2. No evidence of acute fracture or dislocation of the cervical spine. WSN: [id number] Ordering Physician: Adal Horan Dictated By: Sulaiman Arrieta MD Dictated Date/Time: 07/17/23 12:44 p Reviewed By: Sulaiman Arrieta MD Signed By: Sulaiman Arrieta MD Signed Date/Time: 07/17/23 12:44 pm Transcribed By: ANGELA Transcribed Date/Time: 07/17/23 12:41 pm * Exam Date Time Procedure Performing Provider Status 07/17/23 11:13 AM Chest Portable Ciera Ronquillo; Aut h (Verified) Notes: (Chest Portable) Reason For Exam: Shortness of Breath RESULT: Chest Portable Chest Portable Hx of Present Illness: pt from [facility], per service captain pt has been altyered ongoing 2 days, found hypoxic to 70s on at home 2L O2, also reports poor po intake and changes in speech; Reason: Shortness ofBreath; Clinical Question(s): Pneumonia COMPARISON: 05/30/2023 FINDINGS: LINES AND TUBES: Right-sided chest port with tip at the mid SVC. LUNGS AND PLEURA: Enlarged central pulmonary arteries. This is unchanged. Small bilateral pleural effusions, left greater than right. Basilar atelectasis. Mild prominence of the interstitium which is seen at the right mid lung, for example. No pleural effusion. No pneumothorax. HEART, MEDIASTINUM AND ARELIS: Heart is normal in size. Postsurgical changes in the mediastinum. Aortic arch atherosclerosis. BONES AND SOFT TISSUES: No acute abnormality. IMPRESSION: Bilateral small pleural effusions, not significantly changed. Mild pulmonary edema. Lower lung atelectasis. WSN: [id number] Ordering Physician: Frank Landa Dictated By: Kemi Dodd MD Dictated Date/Time: 07/17/23 11:16 a Reviewed By: Kemi Dodd MD Signed By: Kemi Dodd MD Signed Date/Time: 07/17/23 11:16 am Transcribed By: ANGELA Transcribed Date/Time: 07/17/23 11:15 am Vital Signs Most recent to oldest [Reference Range]: 1 2 3 Height 180 cm (07/28/23 8:49 PM) 180 cm (07/27/23 7:18 AM) 180 cm (07/25/23 7:41 AM) Weight 73.0 kg (07/27/23 7:18 AM) 73.0 kg (07/18/23 4:07 AM) 74.3 kg (07/17/23 9:55 PM) Oxygen Saturation [94-100 %] 93 % *L* (07/30/23 8:00 AM) 97 % (07/29/23 8:00 PM) 100 % (07/29/23 8:00 AM) Pulse Rate [55-90 bpm] 85 bpm (07/30/23 10:28 AM) 88 bpm (07/30/23 8:00 AM) 98 bpm *H* (07/29/23 9:21 PM) Body Mass Index [18.5-24.99 kg/m2] 22.53 kg/m2 (07/27/23 7:18 AM) 22.93 kg/m2 (07/17/23 9:55 PM) Blood Pressure [90-138/55-84 mm Hg] 140/71mm Hg *H* (07/30/23 10:28 AM) 138/79mm Hg (07/30/23 8:00 AM) 164/94mm Hg *H* (07/29/23 9:21 PM) Respiratory Rate [16-30 br/min] 18 br/min (07/30/23 8:00 AM) 20 br/min (07/29/23 8:00 PM) 18 br/min (07/29/23 8:00 AM) Temperature [96.8-100.4 DegF] 98.9 DegF (07/30/23 8:00 AM) 97.8 DegF (07/29/23 8:00 PM) 98.1 DegF (07/29/23 8:00 AM) Liters per Minute 2 L/min (07/30/23 8:00 AM) 2 L/min (07/29/23 8:00 PM) 2 L/min (07/29/23 8:00 AM) Mode of Delivery (Oxygen) Nasal cannula (07/30/23 8:00 AM) Nasal cannula (07/29/23 8:00 PM) Nasal cannula (07/29/23 8:00 AM) Blood pressure sites Arm, left (07/30/23 8:00 AM) Arm, left (07/29/23 8:00 PM) Arm, left (07/29/23 8:00 AM) Temperature Route Axillary (07/30/23 8:00 AM) Oral (07/29/23 8:00 PM) Axillary (07/29/23 8:00 AM) Dry Weight 73.0 kg (07/18/23 4:07 AM) 74.3 kg (07/17/23 9:55 PM) Social History Social History Type Response Smoking Status Former smoker entered on: 09/23/15 Sex Consult note * Tana Khan MD: PERFORM Event Display: Consult Authored Date: Patient: ??GISELL, JENNIFER ? Age:??88 Years?Sex:??Male?:??1935?? Chief Complaint/Reason for Consult Gastrostomy tube placement History of Present Illness Patient is an 88-year-old male with past medical history significant for coronary artery disease status post CABG in 2016,??pulmonary emboli,??DVT, type 2 diabetes??who has had a previous stroke??with significant residual right-sided weakness??and expressive aphasia??with associated dysphagia.?? Hehas failed??recurrent??swallow evaluations??and had a barium swallow??on??07/24/2023??which was positive for aspiration.?? He has since been n.p.o.??with a soft??feeding tube placed for enteral access.?? General surgery was consulted for possible G-tube. ?? On examination??the patient is awake upright in bed.?? While he is unable to form words he does nod and shake his head appropriately to questions.?? The possibility of a feeding tube??had been discussed with both him and his family at length by his primary team??prior to our evaluation.?? We rediscussed??that possibility??to which he still expressed??interest. ??His family was not at bedside at the time of our evaluation. ??He has remote history of CABG in 2016??with his most recent??echo [id number] showing an ejection fraction of 45 to 50%.?? His abdominal surgical history is remarkable onlyfor??what appears to be a laparoscopic umbilical hernia repair.?? There is evidence of laparoscopicscar sites on his abdomen and record of an umbilical hernia repair however we do not have that operative report,??unable to determine if mesh was placed.?? His last dose of apixaban??was 07/24/2023.??He is currently on a heparin drip??for appropriate anticoagulation.?? Overall his abdomen is soft, nontender, nondistended.?? He has no??current infectious signs or symptoms. Review of Systems Limited??due to patient's aphasia Physical Exam Vitals & Measurements T:??97.7?F?? HR:??81??(Peripheral)?? RR:??19?? BP:??148/71?? SpO2:??100%?? HT:??180??cm?? WT:??73.0??kg?? BMI:??22.93?? General appearance: No apparent distress, appears stated age, well developed. Head: Normocephalic, atraumatic. Cardiac: RRR, no murmurs or gallops. Respiratory: Clear to auscultation bilaterally. Abdomen: Soft, nontender, nondistended. No guarding or rebound. No palpable mass. Faint, well-healed laparoscopic surgical sites Extremities: Right sided weakness and contraction. Warm and well perfused. Neurologic status: Alert, nods and shakes head appropriately to questions. Assessment/Plan Patient is an 88-year-old male with right-sided??deficits status post cerebrovascular accident??with recurrent episodes??of aspiration??and failed barium swallow.?? He and his family wish to proceed with??surgical feeding access.?? He has a history??of an umbilical hernia repair??and is on anticoagu lation for prior??DVTs.?? His last dose of apixaban was on 07/24/2023??and was subsequently transitioned to a heparin drip pending his possible surgical intervention.?? At this time would recommend ongoing??enteral feeds via his soft feeding tube,??holding apixaban, with plans for??OR Thursday at the earliest??as the effects of the apixaban wane. ?? Recommendations: Ongoing feeds via NG tube Hold apixaban.?? Okay for heparin drip pending OR OR??Thursday at the earliest for PEG, will continue to follow ?[place] [phone] with any questions or concerns ?Plan discussed with??Dr. 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 Hypercholesterolemia Hyperlipidemia Hypernatremia Ischemic cardiomyopathy Neuropathy, peripheral Patent foramen ovale Peripheral vascular disease Pulmonary embolism Recurrent coronary arteriosclerosis after percutaneous transluminal coronary angioplasty 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 Tremor Troponin level elevated Type 2 diabetes mellitus with insulin therapy Type 2 diabetes with nephropathy Procedure/Surgical History Craniotomy: 05/24/18 Endoscopy abnormal: 09/03/16 History of Treatment Of Foot Fracture History of Umbilical Hernia Repair Unknown Home Medications Albuterol/Ipratropium: 3 mL, Inhalation, 4 times a day Allopurinol: 300 mg = 1 tablet, By Mouth, Daily Ammonium Lactate 12%: See Instructions, APPLY TOPICALLY DAILY TO THE LEGS DIREDTED Aspirin: 81 mg = 1 tablet, By Mouth, Daily Atorvastatin: 80 mg = 1 tablet, By Mouth, Daily Benzonatate: 200 mg = 1 capsule, By Mouth, 3 times a day, PRN (as needed for cough) Budesonide: 0.5 mg = 2 mL, Neb, 2 times a day Carvedilol: 3.125 mg, By Mouth, 2 times a day Cholecalciferol: 1,000 International_Units = 1 tablet, By Mouth, Daily Docusate: 100 mg = 10 mL, By Mouth, 2 times a day Fluticasone Nasal: 2 sprays, Nares, Both, Daily in AM Furosemide: 20 mg, By Mouth, Daily Gabapentin: 200 mg = 2 capsule, By Mouth, 3 times a day Insulin Glargine: See Instructions, INJECT 10 UNITS SUBCUTANEOUSLY DAILY AT BEDTIME Levothyroxine: See Instructions, 1 tablet By Mouth Thursday-Thursday2 tabs po Thu-Thursday Loratadine: 10 mg = 1 tablet, By Mouth, Daily Miscellaneous Rx (NOVOFINE AUTOCOVER 30G NEEDLE) Multivitamin: 1 tab, By Mouth, Daily [place]-3 Polyunsaturated Fatty Acids: 1,000 mg = 1 capsule, By Mouth, Daily Omeprazole: 40 mg = 1 capsule, By Mouth, Daily Primidone: 100 mg = 2 tablet, By Mouth, 3 times a day silver topical: 1 applicator, Topically, Daily Sodium Hypochlorite Topical: See Instructions, Use for dressing changes as directed Sucralfate: 1 Gm = 1 tablet, By Mouth, 2 times a day Tamsulosin: 0.4 mg = 1 capsule, By Mouth, Daily Thiamine: 100 mg, By Mouth, Daily Triamcinolone Topical: 1 application, Topically, 3 times a day, apply a thin filmto affected area Ubiquinone: 100 mg, By Mouth, Daily Allergies NKA Social History Alcohol Use: Never. Electronic Cigarette/Vaping Electronic Cigarette Use: Never. Employment/School Status: Retired. Exercise Self assessment: Fair condition. Home/Environment Living situation: Home/Independent. Lives with: Spouse. Nutrition/Health Diet: Regular. Tobacco Former smoker Family History No family history recorded. Lab Results Labs Last 24 Hours BLOOD COUNT & DIFF ? Event Name?? Event Result?? Date/Time?? WBC 4.3 k/mm3 07/25/23 11:52:00 RBC 3.69 m/mm3??Low 07/25/23 11:52:00 Hgb 9.6 Gm/dL??Low 07/25/23 11:52:00 Hct 32.2 %??Low 07/25/23 11:52:00 MCV 87.3 femtoliters 07/25/23 11:52:00 MCH 26 pg??Low 07/25/23 11:52:00 MCHC 29.8 g/dL??Low 07/25/23 11:52:00 Platelet Count 313 k/mm3 07/25/23 11:52:00 MPV 10.2 femtoliters 07/25/23 11:52:00 Nucleated RBC (Automated) 0 #/100 WBC'S 07/25/23 11:52:00 ? COAG ? Event Name?? Event Result?? Date/Time?? APTT 169.4 seconds??Critical 07/25/23 14:21:00 ? CHEM GENERAL ? Event Name?? Event Result?? Date/Time?? Sodium 144 mmol/L 07/25/23 11:55:00 Chloride 112 mmol/L??High 07/25/23 11:55:00 Bicarbonate Level 24 mmol/L 07/25/23 11:55:00 Anion Gap 8 07/25/23 11:55:00 BUN 11 mg/dL 07/25/23 11:55:00 Creatinine-Blood 0.7 mg/dL 07/25/23 11:55:00 Phosphorus 3.6 mg/dL 07/25/23 11:55:00 Magnesium 1.7 mg/dL 07/25/23 11:55:00 Alkaline Phosphatase 194 units/L??High 07/25/23 11:55:00 AST (SGOT) 60 units/L??High 07/25/23 11:55:00 ALT (SGPT) 38 units/L 07/25/23 11:55:00 Bilirubin, Total 0.2 mg/dL 07/25/23 11:55:00 Bilirubin, Direct <0.2 07/25/23 11:55:00 Bilirubin, Indirect Direct bilirubin is less than the measureable limit. Therefore, indirect 07/25/23 11:55:00 ? * Nelson DSOUZA, Kami: PERFORM Event Display: Consult Authored Date: Attending attestation: Patient??seen and examined by me on date of service, and??all pertinent labs and imaging reviewed. The??patient was discussed with the resident/PA. I agree with the findings and plan as documented inthis note. * Gene JONES, Na Portillo: PERFORM, MODIFY Event Display: Consultation Note Authored Date: [id number] Patient: ??JENNIFER RODAS ? Age:??88 Years?Sex:??Male?:??1935?? Chief Complaint pt from [facility], per service captain pt has been altyered ongoing 2 days, found hypoxic to 70s on at home 2L O2, also reports poor po intake and changes in speech Lower extremity wound Reason for Consultation Lower extremity wound History of Present Illness Patient is a 88-year-old male seen at the request of the medical service for evaluation of lower extremity wound. ??Patient was admitted on 07/17??for AMS with hypoxemia. HPI obtained from chart review??due to patient's decreased verbal status.?? Family member at bedside??who provides limited??HPI.??Patient with wound to anterior LLE??with no known trauma/injury;??family member??states?? he always has wounds??to his legs. ??I think that is??chronic but I am not sure . ??Patient able to answer yes/no questions with head nodding; denies??pain to LLE. ?? 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 PSH: Craniotomy,??umbilical hernia repair,??percutaneous transluminal coronary??angioplasty ?? Social Hx:??No history of drug??or alcohol use; former nicotine use; chart reviewed ?? FMH:??No pertinent??FMH; chart reviewed Review of Systems Limited ROS due to pt's decreased ability to verbally communicate Musculoskeletal:??See HPI Skin:??See HPI Physical Exam Vitals & Measurements T:??98.7?F?? TMIN:??98.7?F?? TMAX:??99.2?F?? HR:??75??(Peripheral)?? RR:??18?? BP:??102/56?? SpO2:??95%?? Constitutional:??WD/WN male??in no distress. Mental Status:??Alert/awake; unable to assess if patient is oriented to person place or time??due to patient's decreased ability to communicate verbally??at baseline Head: Normocephalic. Cardiac: RRR, +S1/S2. No murmur, rub, gallop. Respiratory: Unlabored breathing; on O2 via??mask.??Lungs equal/clear to auscultation. Gastrointestinal: Abdomen soft, non-tender, +bowel sounds, protuberant. Neurologic: No independent movement noted??to all extremities x4. ??Nonverbal at baseline Skin: Warm, pink dry. ??Scattered light brown??dry raised lesions??to??extremities. ??Intact dressing covering scalp.?? Musculoskeletal: No cyanosis or clubbing. Extremities:??unable to palpate dorsalis pedis or posterior tibial pulses bilaterally; cool skin tobilateral feet. ??Superficial ulcer to anterior??LLE measuring approximate 1.8 x 1.2 x 0.2??cm with??slightly reddish-pink wound bed; biofilm??and scant amount of fibrinous exudate present.?? Dry dark brown drainage to periwound and surrounding area.?? Dark brown dry scab eschar??proximal to ulcer.??No point tenderness??or erythema noted Psychiatric:??Euthymic mood, normal affect. 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 ?? Peripheral vascular disease (I73.9):??diminished distal peripheral pulses; sharp debridement deferred ?? 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 Non-pressure chronic ulcer left lower leg, limited to breakdown skin (L97.921):??recommend routine dressing changes and wound care w/Xeroform; order placed -sharp debridement is not medically necessary at this time ?? Discharge Planning:??recommend pt resume routine f/u w/[facility] upon discharge for wound/ulcer management ? Please re-consult wound care MD/WALKER for deterioration in wound/skin status. ?? 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 Thank you for allowing me to participate in the care of this patient,??I appreciate the opportunity to assist??in management. My assessment and??all recommendations??have been communicated??to the patient's primary team via this documentation. Please??feel free to reach out with any??concerns??or questions. 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 Hypercholesterolemia Hyperlipidemia Hypernatremia Ischemic cardiomyopathy Neuropathy, peripheral Patent foramen ovale Peripheral vascular disease Pulmonary embolism Recurrent coronary arteriosclerosis after percutaneous transluminal coronary angioplasty 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 Tremor Troponin level elevated Type 2 diabetes mellitus with insulin therapy Type 2 diabetes with nephropathy Procedure/Surgical History ???Craniotomy (05/24/2018)???Endoscopy abnormal (09/03/2016)???History of Treatment Of Foot Fracture???History of Umbilical Hernia Repair???Unknown Medications Inpatient Albuterol 0.083% inhalation chana, 2.5 mg= 3 mL, BAND Nebulizer, 4 times a day Atrovent 0.02% inhalation chana, 0.5 mg= 2.5 mL, BAND Nebulizer, 4 times a day budesonide 0.25 mg/2 mL inhalation suspension, 0.25 mg= 2 mL, BAND Nebulizer, 2 times a day Ceftriaxone Inj, 1 Gm, IVPB, Every 24 hours D5%/LR 1,000 mL, 1000 mL, IV Infusion Dextrose 50% Inj Syringe (25Gm), 12.5 Gm, IV Push Slowly, Every 20 minutes, PRN Dextrose 50% Inj Syringe (25Gm), 25 Gm, IV Push Slowly, Every 15 minutes, PRN Docusate Sodium Capsule, 100 mg= 1 capsule, By Mouth, 2 times a day, PRN Glucagon Inj, 1 mg, Intramuscular, Once, PRN Glucose Gel, 15 Gm, By Mouth, Every 20 minutes, PRN Glucose Gel, 30 Gm, By Mouth, Every 20 minutes, PRN Heparin 25,000 units in 250 mL Premix 57664 units [10 units/kg/hr] + D5%W Premixed IV 250 mL Heparin Flush 100 units/mL Inj, 500 units= 5 mL, IV Push Slowly, Chemo To Be Scheduled, PRN Insulin LISPRO Sliding Scale, 2-10 units, Subcutaneous Injection, Every 6 hours Lantus Inj, 10 units= 0.1 mL, Subcutaneous Injection, Daily at bedtime Melatonin Tablet, 3 mg, By Mouth, Daily at bedtime, PRN MiraLax Powder, 17 Gm= 1 pack/packet, By Mouth, Daily, PRN NaCL 0.9% Flush, 3 mL, IV Push, Every 8 hours NaCL 0.9% Flush, 3 mL, IV Push, Every 8 hours, PRN Pantoprazole Inj, 40 mg, IV Push Slowly, Every 12 hours Robitussin DM Liquid, 10 mL, By Mouth, Every 4 hours, PRN Senna Tablet, 8.6 mg= 1 tablet, By Mouth, 2 times a day, PRN Simethicone Tablet, 80 mg, Chew, 3 times a day, PRN Tylenol Supp, 650 mg, Rectally, Every 4 hours, PRN Home albuterol-ipratropium 3 mg-0.5 mg/3 ml inhalation solution, 3 mL, Inhalation, 4 times a day allopurinol 300 mg oral tablet, 300 mg= 1 tablet, By Mouth, Daily ammonium lactate 12% topical lotion, See Instructions aspirin 81 mg oral tablet, 81 mg= 1 tablet, By Mouth, Daily atorvastatin 80 mg oral tablet, 80 mg= 1 tablet, By Mouth, Daily Basaglar KwikPen 100 units/mL subcutaneous solution, See Instructions, 1 refills benzonatate 200 mg oral capsule, 200 mg= 1 capsule, By Mouth, 3 times a day, PRN budesonide 0.5 mg/2 mL inhalation suspension, 0.5 mg= 2 mL, Neb, 2 times a day carvedilol 3.125 mg oral tablet, 3.125 mg, By Mouth, 2 times a day Claritin 10 mg oral tablet, 10 mg= 1 tablet, By Mouth, Daily Co Q-10, 100 mg, By Mouth, Daily Dakins Half Strength 0.25% topical solution, See Instructions docusate sodium 150 mg/15 ml oral liquid, 100 mg= 10 mL, By Mouth, 2 times a day Fish Oil 1000 mg oral capsule, 1000 mg= 1 capsule, By Mouth, Daily fluticasone 50 mcg/inh nasal spray, 2 sprays, Nares, Both, Daily in AM gabapentin 100 mg oral capsule, 200 mg= 2 capsule, By Mouth, 3 times a day Lasix 20 mg oral tablet, 20 mg, By Mouth, Daily levothyroxine 0.05 mg oral tablet, See Instructions, 1 refills Multivitamin, 1 tab, By Mouth, Daily NOVOFINE AUTOCOVER 30G NEEDLE omeprazole 40 mg oral enteric coated capsule, 40 mg= 1 capsule, By Mouth, Daily primidone 50 mg oral tablet, 100 mg= 2 tablet, By Mouth, 3 times a day SilvaSorb, 1 applicator, Topically, Daily sucralfate 1 gm oral tablet, 1 Gm= 1 tablet, By Mouth, 2 times a day tamsulosin 0.4 mg oral capsule, 0.4 mg= 1 capsule, By Mouth, Daily Thiamine, 100 mg, By Mouth, Daily triamcinolone 0.1% topical cream, 1 application, Topically, 3 times a day, 2 refills Vitamin D3 1000 intl units oral tablet, 1000 International_Units= 1 tablet, By Mouth, Daily Allergies NKA Social History Alcohol Use: Never. Electronic Cigarette/Vaping Electronic Cigarette Use: Never. Employment/School Status: Retired. Exercise Self assessment: Fair condition. Home/Environment Living situation: Home/Independent. Lives with: Spouse. Nutrition/Health Diet: Regular. Tobacco Former smoker Immunizations Vaccine Date Status influenza virus vaccine, inactivated 06/22/2023 Given influenza virus vaccine, inactivated 07/23/2022 Recorded SARS-CoV-2 (COVID-19) mRNA BNT-162b2 vac 06/26/2021 Recorded influenza virus vaccine, inactivated 06/03/2021 Recorded SARS-CoV-2 (COVID-19) mRNA BNT-162b2 vac 10/31/2020 Recorded SARS-CoV-2 (COVID-19) mRNA BNT-162b2 vac 10/10/2020 Recorded influenza virus vaccine, inactivated 05/16/2020 Recorded Influenza Virus Vaccine (oldterm) 06/08/2019 Recorded influenza virus vaccine, inactivated 05/25/2019 Recorded pneumococcal 13-valent vaccine 07/29/2018 Given influenza virus vaccine, inactivated 07/29/2018 Given influenza virus vaccine, inactivated 05/28/2018 Recorded tetanus/diphtheria/pertussis, acel(Tdap) 04/15/2018 Given influenza virus vaccine, inactivated 06/11/2017 Recorded influenza virus vaccine, inactivated 05/23/2016 Recorded pneumococcal 23-valent vaccine 08/04/2014 Recorded Comments : [id number] Images LLE LLE * Lorenzo DSOUZA, Lars: PERFORM, MODIFY Event Display: Consultation Note Authored Date: [id number] Patient: ??GISELL, JENNIFER ? Age:??88 Years?Sex:??Male?:??1935?? Reason for Consult/Visit concern for ICI induced hepatotoxicity Requesting Physician Charissa Coy MD Primary Oncologist Dr. Carty Hematology/Oncology History 88-year-old man with history of hypertension, hyperlipidemia, diabetes mellitus, hypothyroidism, coronary artery disease status post coronary artery bypass graft, ischemic cardiomyopathy/heart failure with reduced ejection fraction, peripheral artery disease (non-healing infected left 2nd and 3rd toes wound - on doxycycline), cerebrovascular accident and intracranial hemorrhage (with residual right side weakness - bedbound, dysarthria with limited ability to communicate/nonverbal, and dysphagiawith recurrent aspiration), chronic obstructive pulmonary disease, chronic hypoxic respiratory failure on 2 L of supplemental O2 at home,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 C8D1 on 07/10/2023.?? Patient presented with altered mental status and was found to have acute hypoxic respiratory failure with newly found acute bilateral pulmonary embolus.?? CT angio of the chest also shows Concomitant basilar consolidative opacities and s mall focal opacity in the left upper lung concerning for aspiration pneumonia.?? Acute on chronic hypoxic respiratory failure is thought to be secondary to acute PE and aspiration pneumonia.?? Patient is started on ceftriaxone and vancomycin and is on heparin drip for PE.?? On presentation he was also found to have RUPERTO likely secondary to prerenal which is improved with hydration.?? He was also fo und to have elevated LFTs with alk phos 188, AST 224, ALT 140 and normal total bili of 0.3.?? LFTs downtrending yesterday.?? Patient had normal LFTs in May. we are consulted for concerning for ICI indued hepatotoxicity. ?? Saw patient at bedside accompanied by his?? and his daughter.?? He was sleeping??for the whole??duration of our visit. ??As per??his family??he is sleeping most of the time??and he has no changesin??his mental status.?? He has no complaints and his??breathing on oxygen requirement has improved.?? He has not been complaining of??abdominal pain, nausea or vomiting. 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 ?? THERAPY: cemiplimab C1D1 on 01/14/2023. C8D1 on 07/10/2023.? 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 FAMILY HISTORY: Noncontributory ?? SOCIAL HISTORY: The patient lives with his who does most of his care. ??He is generally sedentary but is able to sit up during the day and with assistance walk short distances in the house. ??He stopped smokingcigarettes 45 years ago. Review of Systems All other systems were reviewed and are negative except for the ones mentioned above. ? 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 Hypercholesterolemia Hyperlipidemia Hypernatremia Ischemic cardiomyopathy Neuropathy, peripheral Patent foramen ovale Peripheral vascular disease Pulmonary embolism Recurrent coronary arteriosclerosis after percutaneous transluminal coronary angioplasty 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 Electronic Cigarette/Vaping Electronic Cigarette Use: Never. Employment/School Status: Retired. Exercise Self assessment: Fair condition. Home/Environment Living situation: Home/Independent. Lives with: Spouse. Nutrition/Health Diet: Regular. Tobacco Former smoker Allergies NKA Medications Inpatient Acetaminophen Tablet, 650 mg, By Mouth, Every 8 hours, PRN Albuterol 0.083% inhalation chana, 2.5 mg= 3 mL, BAND Nebulizer, 4 times a day Atrovent 0.02% inhalation chana, 0.5 mg= 2.5 mL, BAND Nebulizer, 4 times a day budesonide 0.25 mg/2 mL inhalation suspension, 0.25 mg= 2 mL, BAND Nebulizer, 2 times a day Ceftriaxone Inj, 1 Gm, IVPB, Every 24 hours D5%/NaCl 0.45% 1000 mL, 1000 mL, IV Infusion Docusate Sodium Capsule, 100 mg= 1 capsule, By Mouth, 2 times a day, PRN Heparin 25,000 units in 250 mL Premix 25,000 units [13 units/kg/hr] + D5%W Premixed IV 250 mL Heparin Flush 100 units/mL Inj, 500 units= 5 mL, IV Push Slowly, Chemo To Be Scheduled, PRN Insulin LISPRO Sliding Scale, 2-10 units, Subcutaneous Injection, Every 6 hours Lantus Inj, 10 units= 0.1 mL, Subcutaneous Injection, Daily at bedtime Melatonin Tablet, 3 mg, By Mouth, Daily at bedtime, PRN MiraLax Powder, 17 Gm= 1 pack/packet, By Mouth, Daily, PRN NaCL 0.9% Flush, 3 mL, IV Push, Every 8 hours NaCL 0.9% Flush, 3 mL, IV Push, Every 8 hours, PRN Pantoprazole Inj, 40 mg, IV Push Slowly, Every 12 hours Robitussin DM Liquid, 10 mL, By Mouth, Every 4 hours, PRN Senna Tablet, 8.6 mg= 1 tablet, By Mouth, 2 times a day, PRN Simethicone Tablet, 80 mg, Chew, 3 times a day, PRN Home albuterol-ipratropium 3 mg-0.5 mg/3 ml inhalation solution, 3 mL, Inhalation, 4 times a day allopurinol 300 mg oral tablet, 300 mg= 1 tablet, By Mouth, Daily ammonium lactate 12% topical lotion, See Instructions aspirin 81 mg oral tablet, 81 mg= 1 tablet, By Mouth, Daily atorvastatin 80 mg oral tablet, 80 mg= 1 tablet, By Mouth, Daily Basaglar KwikPen 100 units/mL subcutaneous solution, See Instructions, 1 refills benzonatate 200 mg oral capsule, 200 mg= 1 capsule, By Mouth, 3 times a day, PRN budesonide 0.5 mg/2 mL inhalation suspension, 0.5 mg= 2 mL, Neb, 2 times a day carvedilol 3.125 mg oral tablet, 3.125 mg, By Mouth, 2 times a day Claritin 10 mg oral tablet, 10 mg= 1 tablet, By Mouth, Daily Co Q-10, 100 mg, By Mouth, Daily Dakins Half Strength 0.25% topical solution, See Instructions docusate sodium 150 mg/15 ml oral liquid, 100 mg= 10 mL, By Mouth, 2 times a day Fish Oil 1000 mg oral capsule, 1000 mg= 1 capsule, By Mouth, Daily fluticasone 50 mcg/inh nasal spray, 2 sprays, Nares, Both, Daily in AM gabapentin 100 mg oral capsule, 200 mg= 2 capsule, By Mouth, 3 times a day Lasix 20 mg oral tablet, 20 mg, By Mouth, Daily levothyroxine 0.05 mg oral tablet, See Instructions, 1 refills Multivitamin, 1 tab, By Mouth, Daily NOVOFINE AUTOCOVER 30G NEEDLE omeprazole 40 mg oral enteric coated capsule, 40 mg= 1 capsule, By Mouth, Daily primidone 50 mg oral tablet, 100 mg= 2 tablet, By Mouth, 3 times a day SilvaSorb, 1 applicator, Topically, Daily sucralfate 1 gm oral tablet, 1 Gm= 1 tablet, By Mouth, 2 times a day tamsulosin 0.4 mg oral capsule, 0.4 mg= 1 capsule, By Mouth, Daily Thiamine, 100 mg, By Mouth, Daily triamcinolone 0.1% topical cream, 1 application, Topically, 3 times a day, 2 refills Vitamin D3 1000 intl units oral tablet, 1000 International_Units= 1 tablet, By Mouth, Daily Physical Exam Vitals & Measurements T:??97.9?F?? TMIN:??97.8?F?? TMAX:??98.7?F?? HR:??91??(Peripheral)?? RR:??18?? BP:??112/68?? SpO2:??100%?? General: Patient in no apparent distress, sleeping comfortably on bed?? Head: dressing over the SCC of the scalp. Cardiac: S1, S2 heard; No mrg, Regular rate and rhythm. Respiratory: clear breath sounds bilaterally GI: Soft, non tender, bowel sounds heard; no organomegaly Extremities: No edema, small abrasion over the left ceballos Lab Results/Pathology CBC?? CMP?? Coag?? Abs. NRBC: 0 k/mm3 (07/19/23 02:34:00) AG Ratio: 0.9 (07/17/23 12:19:00) APTT:??107.5 seconds??Critical (07/19/23 02:34:00) Hct:??33.7 %??Low (07/19/23 02:34:00) Alkaline Phosphatase:??178 units/L??High (07/18/23 11:16:00) D-Dimer:??20.8 mg/L FEU??High (07/17/23 13:38:00) Nucleated RBC (Automated): 0 #/100 WBC'S (07/19/23 02:34:00) ALT (SGPT):??107 units/L??High (07/18/23 11:16:00) INR:??1.3??High (07/17/23 21:19:00) RBC:??3.79 m/mm3??Low (07/19/23 02:34:00) Anion Gap: 12 (07/19/23 02:34:00) Protime (PT):??13.3 seconds??High (07/17/23 21:19:00) RDW-SD:??53.9 femtoliters??High (07/19/23 02:34:00) AST (SGOT):??164 units/L??High (07/18/23 11:16:00) ?? WBC: 8.6 k/mm3 (07/19/23 02:34:00) Bicarbonate Level: 24 mmol/L (07/19/23 02:34:00) ? Bilirubin, Total: 0.2 mg/dL (07/18/23 11:16:00) ? BUN:??53 mg/dL??High (07/19/23 02:34:00) ? Calcium:??8.3 mg/dL??Low (07/19/23 02:34:00) ? Chloride:??112 mmol/L??High (07/19/23 02:34:00) ? Creatinine-Blood: 1.2 mg/dL (07/19/23 02:34:00) ? Estimated GFR Creatinine: 61 ML/MIN/1.73 M2 (07/19/23 02:34:00) ? Glucose Level:??182 mg/dL??High (07/19/23 02:34:00) ? Potassium: 3.7 mmol/L (07/19/23 02:34:00) ? Protein, Total:??6.1 Gm/dL??Low (07/18/23 11:16:00) ? Sodium:??148 mmol/L??High (07/19/23 02:34:00) ?? 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 Patient presented with altered mental status and was found tohave acute hypoxic respiratory failure with newly found acute bilateral pulmonary embolus.??Acute on chronic hypoxic respiratory failure is thought to be secondary to acute PE and aspiration pneumonia.?? Patient is started on ceftriaxone and vancomycin and is on heparin drip for PE.?? On presentation he was also found to have RUPERTO likely secondary to prerenal which is improved with hydration.?? Hewas also found to have elevated LFTs with alk phos 188, AST 224, ALT 140 and normal total bili of 0.3.?? LFTs downtrending yesterday.?? Patient had normal LFTs in May. we are consulted for concerning for ICI indued hepatotoxicity. ?? LFTs are downtrending and although it is possible that patient had ICI induced hepatotoxicity??but it is more likely that??this was??secondary to??hepatic hypoperfusion, the same process that likely??caused RUPERTO.?? Recommend continue to monitor??LFTs??and monitor patient clinically.?? If he continues to improve??no??need for??steroids.?? We will follow-up outpatient in clinic??and evaluated??if resumption of??immunotherapy??is??indicated. ?? For acute pulmonary embolism??patient is currently on??heparin drip.?? Since??acute PE developed inthe setting of??underlying active malignancy??he would require lifelong??anticoagulation.?? When heis clinically stable??he can??be started on??DOACs such as Eliquis. ??If he is not??clear by speech therapy??for swallowing??by the time of discharge??Lovenox can be considered for anticoagulation. ?? Patient was seen and discussed with Dr. Mina. ?? Lars Ventura MD, MPH, PGY4 Hematology and Oncology Fellow * hCris Mina MD: PERFORM Event Display: Consultation Note Authored Date: I saw and evaluated the patient. I reviewed the fellow's note and agree with their history, findings and recommendations * Brent Payan: SIGN Brent Payan: SIGN, VERIFY Brent Payan: VERIFY, PERFORM Brent Payan: PERFORM, SIGN Event Display: Consultation Note Authored Date: Patient: JENNIFER RODAS Age: 88 years Sex: Male : 1935 Associated Diagnoses: None Author: Brent Payan [facility] Inpatient Nephrology Consultation Note Requesting Provider: Christopher Paiz MD Reason for Consult: Hypernatremia / RUPERTO History of Present Illness Jennifer Rodas is an 88-year-old male patient with extensive medical history including hypertension, hyperlipidemia, diabetes mellitus, hypothyroidism, coronary artery disease status post coronary artery bypass graft, ischemic cardiomyopathy/heart failure with reduced ejection fraction, peripheral artery disease (non-healing infected left 2nd and 3rd toes wound - on doxycycline), cerebrovascular accident and intracranial hemorrhage (with residual right side weakness - bedbound, dysarthria with limited ability to communicate/nonverbal, and dysphagia with recurrent aspiration), ? history of pulmonary embolism, chronic obstructive pulmonary disease, chronic hypoxic respiratory failure on 2 L of supplemental O2 at home, locally advanced squamous cell carcinoma of skin on cemiplimab who presentedto the ED 07/17/2023 for evaluation of lethargy, decrease PO intake, and increasing O2 requirement. Apparently patient is bed bound - does not communicate and sleeping 80% of the time per HCP. He wasin his usual state of health till 2 to 3 days ago when he started having decreased oral intake, andappears more somnolent. Yesterday he has increase O2 requirement to 4 L. Patient himself is somnolent, wakes up to sensory and verbal stimuli, shakes his head with no for pain or SOB. In the ED, he was afebrile and hemodynamically stable, requiring 3-4 L of O2 to maintain O2 saturation above 90%. Labs were significant for stable anemia with hemoglobin of 11.1 g/dl, acute kidney injury with creatinine of 1.1- 1.2 mg/dl and BUN of 52, hypernatremia with sodium of 150, elevated transaminases (AST/ALT 224/140) and alkaline phosphatase of 188. He also has elevated D-dimer of 20, elevated stable troponin of 98 and elevated proBNP of 1971. CT head and neck with no acute intracranial abnormality. CXR with small bilateral pleural effusion and mild pulmonary edema. CT angiogram showed bilateral pulmonary thromboembolism with no evidence of right heart strain. He was given 500 cc of LR and started on therapeutic Lovenox and being admitted for further management. On my assessment, patient is resting comfortably in bed. He is currently on 5 L NC. He has dysarthria with limited ability to communicate at baseline but shakes his head yes and no. He denies shortness of breath. He is currently NPO. Sodium remains 150 and creatinine is up t 1.4mg/dL today from 1.2mg/dL yesterday. 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 Benign essential hypertension Chronic hypoxemic respiratory failure Chronic obstructive lung disease Chronic respiratory failure, unspecified whether with hypoxia or hypercapnia Coronary atherosclerosis Encounter for annual wellness visit (AWV) in Medicare patient Gout H/O: Deep vein thrombosis H/O: pulmonary embolus 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 Hypercholesterolemia Hyperlipidemia Hypernatremia Ischemic cardiomyopathy Patent foramen ovale Peripheral vascular disease Pulmonary embolism Recurrent coronary arteriosclerosis after percutaneous transluminal coronary angioplasty 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 Tremor Troponin level elevated Type 2 diabetes mellitus with insulin therapy Type 2 diabetes with nephropathy Medications: Albuterol/Ipratropium (albuterol-ipratropium 3 mg-0.5 mg/3 ml inhalation solution) 3 Milliliter Inhalation 4 times a day Allopurinol (allopurinol 300 mg oral tablet) 300 Milligram 1 tablet By Mouth Daily Ammonium Lactate 12% (ammonium lactate 12% topical lotion) See Instructions APPLY TOPICALLY DAILY TO THE LEGS DIREDTED Aspirin (aspirin 81 mg oral tablet) 1 tab(s) 81 Milligram By Mouth Daily Atorvastatin (atorvastatin 80 mg oral tablet) 1 tab(s) 80 Milligram By Mouth Daily Benzonatate (benzonatate 200 mg oral capsule) 1 capsule 200 Milligram By Mouth 3 times a day as needed as needed for cough Budesonide (budesonide 0.5 mg/2 mL inhalation suspension) 0.5 Milligram Neb 2 times a day Carvedilol (carvedilol 3.125 mg oral tablet) 3.125 Milligram By Mouth 2 times a day for 30 Days Cholecalciferol (Vitamin D3 1000 intl units oral tablet) 1 tab(s) 1,000 International Unit By MouthDaily Docusate (docusate sodium 150 mg/15 ml oral liquid) 10 Milliliter 100 Milligram By Mouth 2 times a day Fluticasone Nasal (fluticasone 50 mcg/inh nasal spray) 2 spray(s) Nares, Both Daily in AM Furosemide (Lasix 20 mg oral tablet) 20 Milligram By Mouth Daily Gabapentin (gabapentin 100 mg oral capsule) 200 Milligram 2 capsule By Mouth 3 times a day Insulin Glargine (Basaglar KwikPen 100 units/mL subcutaneous solution) See Instructions INJECT 10 UNITS SUBCUTANEOUSLY DAILY AT BEDTIME Levothyroxine (levothyroxine 0.05 mg oral tablet) See Instructions 1 tablet By Mouth Thursday-[id number] po Thu-Thursday Loratadine (Claritin 10 mg oral tablet) 10 Milligram 1 tablet By Mouth Daily Multivitamin 1 tab By Mouth Daily [place]-3 Polyunsaturated Fatty Acids (Fish Oil 1000 mg oral capsule) 1 capsule 1,000 Milligram By Mouth Daily Omeprazole (omeprazole 40 mg oral enteric coated capsule) 1 capsule 40 Milligram By Mouth Daily Primidone (primidone 50 mg oral tablet) 100 Milligram 2 tablet By Mouth 3 times a day silver topical (SilvaSorb) 1 applicator Topically Daily Sodium Hypochlorite Topical (Dakins Half Strength 0.25% topical solution) See Instructions Use for dressing changes as directed Sucralfate (sucralfate 1 gm oral tablet) 1 gram 1 tablet By Mouth 2 times a day Tamsulosin (tamsulosin 0.4 mg oral capsule) 0.4 Milligram 1 capsule By Mouth Daily Thiamine 100 Milligram By Mouth Daily Triamcinolone Topical (triamcinolone 0.1% topical cream) 1 walker Topically 3 times a day apply a thinfilmto affected area Ubiquinone (Co Q-10) 100 Milligram By Mouth Daily Social History: Alcohol Details: Use: Never. Employment/School Details: Status: Retired. Exercise Details: Self assessment: Fair condition. Home/Environment Details: Living situation: Home/Independent. Lives with: Spouse. Nutrition/Health Details: Diet: Regular. Tobacco Details: Former smoker Electronic Cigarette/Vaping Details: Electronic Cigarette Use: Never. Family History: No family history recorded. Physical Examination Temperature 98.2 (07:32) Systolic Blood Pressure 103 (07:32) Diastolic Blood Pressure 56 (07:32) Pulse 89 (07:32) SpO2 94 (07:32) Respiratory Rate 16 (07:32) General: No acute distress HEENT: Dry mucous membranes CV: Regular rate and rhythm Respiratory: CTAB Abdominal: Soft Extremities: No peripheral edema Skin: No rashes Results Review General results Today's results 07/18/2023 3:04 EST WBC 10.4 k/mm3 RBC 4.10 m/mm3 L Hgb 10.6 Gm/dL L Hct 36.6 % L MCV 89.3 femtoliters MCH 25.9 pg L MCHC 29.0 g/dL L Platelet Count 295 k/mm3 RDW-SD 54.2 femtoliters H MPV 10.5 femtoliters Nucleated RBC (Automated) 0.0 #/100 WBC'S Abs. NRBC 0.0 k/mm3 APTT 31.3 seconds Sodium 150 mmol/L H Potassium 5.1 mmol/L Chloride 110 mmol/L H Bicarbonate Level 23 mmol/L Anion Gap 17 Glucose Level 160 mg/dL H BUN 55 mg/dL H Creatinine-Blood 1.2 mg/dL Estimated GFR Creatinine 57 ML/MIN/1.73 M2 Calcium 9.0 mg/dL Protein, Total 6.4 Gm/dL Albumin 2.7 Gm/dL L Alkaline Phosphatase 184 units/L H AST (SGOT) 180 units/L H ALT (SGPT) 124 units/L H Bilirubin, Total 0.3 mg/dL Bilirubin, Direct <0.2 mg/dL Bilirubin, Indirect Direct bilirubin is less than the measureable limit. Therefore, indirect mg/dL Impression and Plan Jennifer Rodas is an 88-year-old male patient with extensive medical history including hypertension, hyperlipidemia, diabetes mellitus, hypothyroidism, coronary artery disease status post coronary artery bypass graft, ischemic cardiomyopathy/heart failure with reduced ejection fraction, peripheral artery disease (non-healing infected left 2nd and 3rd toes wound - on doxycycline), cerebrovascular accident and intracranial hemorrhage (with residual right side weakness - bedbound, dysarthria with limited ability to communicate/nonverbal, and dysphagia with recurrent aspiration), ? 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 1. Hypernatremia Sodium 150 in the setting of poor PO intake Free water deficit of 2.6 liters 2. RUPERTO Creatinine 1.4mg/dL (baseline 0.7mg/dL) RUPERTO most likely pre-renal in the setting of poor PO intake. Post-renal obstruction also being considered. U/A is bland and does not raise suspicion for GN or AIN. Plan - Increase IVF rate to 125mL/hr (no need to worry about overcorrection in hypernatremia) - Monitor I/O's - Bladder scan every shift (Vyas for > 350mL) - Follow-up renal ultrasound - Watch for delayed recovery as patient received IV contrast on 07/17 - Avoid nephrotoxins - Daily renal panel Thank you for the courtesy of this consult, RTANE will continue monitoring the patient along with you. Please do not hesitate to call us with any further questions. Brent Jasso PA-C [facility] [address], [address] Available by [facility] RENAL ATTENDING KEANU: I have seen and evaluated this patient. I have discussed the case and its management with the resident/team as documented in the resident/team note on the day of service. The details of the case including pertinent labs and clinical findings were confirmed by me. The plan was formulated with the student/resident/fellow/PA/[employer] as outlined above. Mahesh Jj MD. Admission evaluation note * Jae DSOUZA, Marcello Paz: MODIFY, PERFORM, MODIFY Event Display: Admission Note Authored Date: [id number] Patient: ??JENNIFER RODAS ? Age:??88 Years?Sex:??Male?:??1935?? Chief Complaint/Reason for Consultation Patient was brought to ED for evaluation of hypoxia and low PO intake. History of Present Illness History is limited due to the patient's ability to communicate and somnolence - History is obtainedfrom medical chart and calling the HCP Scarlett Rodas at [phone]. ?? 88-year-old male patient with extensive medical history including hypertension, hyperlipidemia, diabetes mellitus, hypothyroidism, coronary artery disease status post coronary artery bypass graft, ischemic cardiomyopathy/heart failure with reduced ejection fraction, peripheral artery disease (non-healing infected left 2nd and 3rd toes wound - on doxycycline),??cerebrovascular accident??and intracranial hemorrhage (with residual right side weakness - bedbound, dysarthria with limited ability to communicate/nonverbal, and dysphagia with recurrent aspiration), ? 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 ?? Apparently patient is bed bound - does not communicate and sleeping 80% of the time per HCP. He wasin his usual state of health till??2 to 3 days ago??when he started having decreased??oral intake, and appears more somnolent. Yesterday he has increase O2 requirement to 4 L. Patient himself is somnolent, wakes up to sensory and verbal stimuli, shakes his head with no for pain or SOB. ?? In the emergency department he was afebrile and hemodynamically stable, requiring 3-4 L of O2 tomaintain O2 saturation above 90%. Labs were significant for stable anemia with hemoglobin of 11.1 g/dl, acute kidney injury with creatinine of 1.1- 1.2 mg/dl and BUN of 52, hypernatremia with sodium of 150, elevated transaminases (AST/ALT 224/140) and alkaline phosphatase of 188. He also has elevated D-dimer of 20, elevated stable troponin of 98 and elevated proBNP of 1971. CT head and neck with no acute intracranial abnormality. CXR with small bilateral pleural effusion and mild pulmonary edema. CT angiogram showed bilateral pulmonary with no evidence of right heart strain. He was given 500 cc of LR and started on therapeutic??Lovenox and being admitted for further management. Review of Systems Unobtainable. Objective Vital Signs?? Temperature: 98 DegF (07/17/23 16:01:00) Temperature Route: Axillary (07/17/23 16:01:00) Pulse Rate:??94 bpm??High (07/17/23 17:41:00) Respiratory Rate: 25 br/min (07/17/23 17:41:00) Systolic Blood Pressure: 114 mm Hg (07/17/23 17:41:00) Diastolic Blood Pressure: 62 mm Hg (07/17/23 17:41:00) Blood pressure sites: Arm, right (07/17/23 17:41:00) Mean Arterial Pressure: 92 mm Hg (07/17/23 16:01:00) Pulse Pressure: 25 mm Hg (07/17/23 16:01:00) Oxygen Saturation: 94 % (07/17/23 17:41:00) Liters per Minute: 4 L/min (07/17/23 17:41:00) Mode of Delivery (Oxygen): Nasal cannula (07/17/23 17:41:00) Early Warning Score: 7 (07/17/23 17:42:09) ? Physical Exam Constitutional: somnolent, wakes up to sensory and verbal stimuli, shakes his head for some yes or no questions, in no acute distress. Head: Has scalp lesion covered with dressing Eyes: Pupils are equal, round and reactive to light. unable to examine??Extraocular muscles movement. Ear, Nose and Throat: mucous membranes dry. Ears and nose - no obvious deformities. Neck: No JVD or bruits. Respiratory:??Clear to auscultation. No wheezing or rhonchi.??No use of accessory muscles. No tactile fremitus.?? Cardiovascular:??S1 S2 regular. No murmurs, rubs or gallops. Gastrointestinal:??Abdomen soft, non-tender, non-distended. Extremities: No lower extremity pitting edema. No cyanosis or clubbing. Neurologic: wakes up to sensory and verbal stimuli, shakes his head for some yes or no questions,??no facial droop. unable to examine motor function properly.?? Musculoskeletal:??No gross deformities on inspection. Skin: bilateral superficial leg skin ulcers, no erythema Psychiatric: Normal mood and affect. Assessment/Plan 88-year-old male patient with extensive medical history including hypertension, hyperlipidemia, diabetes mellitus, hypothyroidism, coronary artery disease status post coronary artery bypass graft, ischemic cardiomyopathy/heart failure with reduced ejection fraction, peripheral artery disease (non-healing infected left 2nd and 3rd toes wound - on doxycycline),??cerebrovascular accident??and intracranial hemorrhage (with residual right side weakness - bedbound, dysarthria with limited ability to communicate/nonverbal, and dysphagia with recurrent aspiration), ? 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 ?? Diagnoses 1. ??Chronic hypoxemic respiratory failure ??(J96.11) 2. ??Acute on chronic respiratory failure with hypoxia ??(J96.21) 3. ??Chronic obstructive lung disease ??(J44.9) 4. ??H/O: pulmonary embolus ??(Z86.711) 5. ??H/O: Deep vein thrombosis ??(Z86.718) 6. ??Pulmonary embolism ??(I26.99) 6. ??Pulmonary embolism ??(I26.99) 7. ??Acute kidney injury ??(N17.9) 8. ??Hypernatremia ??(E87.0) 8. ??Hypernatremia ??(E87.0) 9. ??Abnormal LFTs ??(R79.89) 10. ??Troponin level elevated ??(R77.8) 11. ??Anemia ??(D64.9) 12. 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 ??Benign essential hypertension ??(I10) 14. ??Coronary atherosclerosis ??(I25.10) 15. ??Gout ??(M10.9) 16. ??Hypercholesterolemia ??(E78.00) 17. ??Hyperlipidemia ??(E78.5) 18. ??Ischemic cardiomyopathy ??(I25.5) 19. ??Peripheral vascular disease ??(I73.9) 20. ??Type 2 diabetes with nephropathy ??(E11.21) 21. ??Squamous cell carcinoma of scalp ??(C44.42) 22. ??Hemiparesis affecting right side as late effect of cerebrovascular accident ??(I69.351) ?? Chronic hypoxemic respiratory failure (J96.11):??- Acute on chronic respiratory failure with hypoxia (J96.21):??- Chronic obstructive lung disease (J44.9):??- H/O: pulmonary embolus (Z86.711):??- H/O: Deep vein thrombosis (Z86.718):??- ??Pulmonary embolism (I26.99):?? 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 head and neck with no acute intracranial abnormality. CXR with small bilateral pleural effusion and mild pulmonary edema. CT angiogram showed bilateralpulmonary with no evidence of right heart strain. He was given 500 cc of LR and started on therapeutic Lovenox. - Discontinue lovenox and start heparin drip in AM given RUPERTO (no heparin boluses given history of intracranial bleed). - Does not appear to be in COPD exacerbation - holding off steroid for now. - No evidence of pneumonia - holding off antibiotic for now. - Continue albuterol, budesonide, and ipratropium inhalers. - keep NPO for now - speech and swallow evaluation in AM. ?? Acute kidney injury (N17.9):??Baseline creatinine 0.7 - creatinine today 1.2 mg/dl - likely pre-renal in setting of decreased PO intake - received 500 cc of LR. - 1 L of D5 1/2 NS - renal US to rule out obstruction. - monitor kidney function ?? Hypernatremia (E87.0):??in setting of poor PO intake - Water deficit 3.6 L - received 500 cc of LR. - 1 L of D5 1/2 NS - monitor sodium. ?? Abnormal LFTs (R79.89):??likely due to hypoperfusion - Monitor Liver biochemical profile. - RUQ US. ?? Troponin level elevated (R77.8):??likely type II NSTEMI in setting of RUPERTO and PE - repeat troponin down trending - EKG with no acute ischemic changes. ?? Benign essential hypertension (I10):??- Hypercholesterolemia (E78.00):??- Coronary atherosclerosis (I25.10):??- Ischemic cardiomyopathy (I25.5):?? On ASA, statin, carvedilol and Lasix at home. - hold PO medication given NPO until speech and swallow evaluation. - hold blood pressure medications given normal low blood pressure. - hold lasix given dehydration and acute kidney injury. ?? Anemia (D64.9):??No sign of active bleeding, H/H stable. - monitor H/H ?? 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 ?? Gout (M10.9):??hold allopurinol given NPO status ?? Peripheral vascular disease (I73.9) with infected lower extremity wound on 6 weeks doxycycline??- 2days remaining by his HCP. - can give??2 doses of doxycycline tomorrow??orally of cleared by??speech therapist to have PO intake otherwise??can give IV. - wound care consult. ?? Type 2 diabetes with nephropathy (E11.21):??- Lantus 10 units daily and insulin sliding scale. ?? Squamous cell carcinoma of scalp (C44.42):??Per most recent hem/Onc clinic note: The patient also has a lesion on his??right??upper outer??arm??that is now bleeding.?? This was biopsied in the hospital and the results were??indeterminate but they were told that this is most likely squamous cell??aswell. ??He has an appointment with his plastic surgeon Dr. Ibrahim??in June??to discuss??treatment.?? 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 VTE Prophylaxis:??on therapeutic anticoagulation ?VTE Prophylaxis Assessment:??Excluded from VTE prophylaxis measure ?? Code Status:??OK for CPR - no intubation (confirmed with HCP) ?Order Code Status:??Code Status Ordered ? Histories Allergies Allergies ?(Active and Proposed Allergies Only) NKA? (Severity: Unknown severity, Onset: Unknown) ? 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 Past Surgical History Craniotomy: 05/24/18 Endoscopy abnormal: 09/03/16 History of Treatment Of Foot Fracture History of Umbilical Hernia Repair Unknown ? Social History Alcohol Details:??Use: Never. Employment/School Details:??Status: Retired. Exercise Details:??Self assessment: Fair condition. Home/Environment Details:??Living situation: Home/Independent. ??Lives with: Spouse. Nutrition/Health Details:??Diet: Regular. Tobacco Details:??Former smoker Electronic Cigarette/Vaping Details:??Electronic Cigarette Use: Never. ? Family History No family history recorded. ? Medications Home Medications Albuterol/Ipratropium (albuterol-ipratropium 3 mg-0.5 mg/3 ml inhalation solution)?3?Milliliter?Inhalation?4 times a day Allopurinol (allopurinol 300 mg oral tablet)?300?Milligram?1?tablet?By Mouth?Daily Ammonium Lactate 12% (ammonium lactate 12% topical lotion)?See Instructions?APPLY TOPICALLY DAILY TO THE LEGS DIREDTED Aspirin (aspirin 81 mg oral tablet)?1?tab(s)?81?Milligram?By Mouth?Daily Atorvastatin (atorvastatin 80 mg oral tablet)?1?tab(s)?80?Milligram?By Mouth?Daily Benzonatate (benzonatate 200 mg oral capsule)?1?capsule?200?Milligram?By Mouth?3 times a day?as needed?as needed for cough Budesonide (budesonide 0.5 mg/2 mL inhalation suspension)?0.5?Milligram?Neb?2 times a day Carvedilol (carvedilol 3.125 mg oral tablet)?3.125?Milligram?By Mouth?2 times a day?for 30?Days Cholecalciferol (Vitamin D3 1000 intl units oral tablet)?1?tab(s)?1,000?International Unit?By Mouth?Daily Docusate (docusate sodium 150 mg/15 ml oral liquid)?10?Milliliter?100?Milligram?By Mouth?2 times a day Fluticasone Nasal (fluticasone 50 mcg/inh nasal spray)?2?spray(s)?Nares, Both?Daily in AM Furosemide (Lasix 20 mg oral tablet)?20?Milligram?By Mouth?Daily Gabapentin (gabapentin 100 mg oral capsule)?200?Milligram?2?capsule?By Mouth?3 times a day Insulin Glargine (Basaglar KwikPen 100 units/mL subcutaneous solution)?See Instructions?INJECT 10 UNITS SUBCUTANEOUSLY DAILY AT BEDTIME Levothyroxine (levothyroxine 0.05 mg oral tablet)?See Instructions?1 tablet By Mouth Thursday-Thursday2 tabs po Thu-Thursday Loratadine (Claritin 10 mg oral tablet)?10?Milligram?1?tablet?By Mouth?Daily Multivitamin?1 tab?By Mouth?Daily [place]-3 Polyunsaturated Fatty Acids (Fish Oil 1000 mg oral capsule)?1?capsule?1,000?Milligram?By Mouth?Daily Omeprazole (omeprazole 40 mg oral enteric coated capsule)?1?capsule?40?Milligram?By Mouth?Daily Primidone (primidone 50 mg oral tablet)?100?Milligram?2?tablet?By Mouth?3 times aday silver topical (SilvaSorb)?1?applicator?Topically?Daily Sodium Hypochlorite Topical (Dakins Half Strength 0.25% topical solution)?See Instructions?Use for dressing changes as directed Sucralfate (sucralfate 1 gm oral tablet)?1?gram?1?tablet?By Mouth?2 times a day Tamsulosin (tamsulosin 0.4 mg oral capsule)?0.4?Milligram?1?capsule?By Mouth?Daily Thiamine?100?Milligram?By Mouth?Daily Triamcinolone Topical (triamcinolone 0.1% topical cream)?1?walker?Topically?3 times a day?apply a thin filmto affected area Ubiquinone (Co Q-10)?100?Milligram?By Mouth?Daily ? Results Recent Labs BLOOD COUNT & DIFF WBC 8.7 k/mm3 ()?? 07/17/2023 10:45 RBC 4.18 m/mm3 (Low)?? 07/17/2023 10:45 Hgb 11.1 Gm/dL (Low)?? 07/17/2023 10:45 Hct 37.5 % (Low)?? 07/17/2023 10:45 MCV 89.7 femtoliters ()?? 07/17/2023 10:45 MCH 26.6 pg (Low)?? 07/17/2023 10:45 MCHC 29.6 g/dL (Low)?? 07/17/2023 10:45 Platelet Count 279 k/mm3 ()?? 07/17/2023 10:45 RDW-SD 54.4 femtoliters (High)?? 07/17/2023 10:45 MPV 10.7 femtoliters ()?? 07/17/2023 10:45 Nucleated RBC (Automated) 0.0 #/100 WBC'S ()?? 07/17/2023 10:45 Abs. NRBC 0.0 k/mm3 ()?? 07/17/2023 10:45 Abs. Neut 6.5 k/mm3 ()?? 07/17/2023 10:45 Abs. Lymph 1.1 k/mm3 ()?? 07/17/2023 10:45 Abs. [place] 1.0 k/mm3 ()?? 07/17/2023 10:45 Abs. Eo 0.1 k/mm3 ()?? 07/17/2023 10:45 Abs. Baso 0.0 k/mm3 ()?? 07/17/2023 10:45 Neut % 75.1 % ()?? 07/17/2023 10:45 Lymph % 12.1 % (Low)?? 07/17/2023 10:45 [place] % 11.1 % (High)?? 07/17/2023 10:45 Eos % 0.7 % ()?? 07/17/2023 10:45 Baso % 0.5 % ()?? 07/17/2023 10:45 Hemoglobin (POC) POC Cartridge 11.9 Gm/dL (Low)?? 07/17/2023 10:35 Hematocrit (POC) POC Cartridge 35 % (Low)?? 07/17/2023 10:35 Imm Gran 0.5 % ()?? 07/17/2023 10:45 Abs. Imm Gran 0.0 k/mm3 ()?? 07/17/2023 10:45 ?? BLOOD GAS pH Venous (POC) POC Cartridge 7.51 (High)?? 07/17/2023 10:35 pCO2 Venous (POC) POC Cartridge 35.9 mm Hg (Low)?? 07/17/2023 10:35 pO2 Venous (POC) POC Cartridge 24 mm Hg (Low)?? 07/17/2023 10:35 Est Bicarbonate (POC) POC Cartridge 28.7 mmol/L ()?? 07/17/2023 10:35 % O2 Sat Venous (POC) POC Cartridge 50 ()?? 07/17/2023 10:35 Base Excess (POC) POC Cartridge 6 ()?? 07/17/2023 10:35 Specimen Type - Blood Gas VENOUS ()?? 07/17/2023 10:35 ?? CARDIAC Nt-Probnp 1971 pg/mL (High)?? 07/17/2023 10:45 High Sensitivity Troponin (HSTnT) 79 ng/L (Critical)?? 07/17/2023 15:39 ?? CHEM GENERAL Sodium 150 mmol/L (High)?? 07/17/2023 12:19 Potassium 4.5 mmol/L ()?? 07/17/2023 12:19 Chloride 110 mmol/L (High)?? 07/17/2023 12:19 Bicarbonate Level 25 mmol/L ()?? 07/17/2023 12:19 Anion Gap 15 ()?? 07/17/2023 12:19 Sodium (POC) POC Cartridge 145 mmol/L ()?? 07/17/2023 10:35 Potassium (POC) POC Cartridge 4.9 mmol/L ()?? 07/17/2023 10:35 Glucose Level 170 mg/dL (High)?? 07/17/2023 12:19 Glucose (POC) POC Cartridge 152 (High)?? 07/17/2023 10:35 Glucose, POC 186 mg/dL (High)?? 07/17/2023 10:26 BUN 52 mg/dL (High)?? 07/17/2023 12:19 Creatinine-Blood 1.2 mg/dL ()?? 07/17/2023 12:19 Estimated GFR Creatinine 59 ML/MIN/1.73 M2 ()?? 07/17/2023 12:19 Calcium 9.3 mg/dL ()?? 07/17/2023 12:19 Ionized Calcium (POC) POC Cartridge 1.06 mmol/L (Low)?? 07/17/2023 10:35 Phosphorus HEMOLYZED mg/dL ()?? 07/17/2023 10:45 Magnesium 2.6 mg/dL (High)?? 07/17/2023 10:45 Protein, Total 6.3 Gm/dL ()?? 07/17/2023 12:19 Albumin 2.9 Gm/dL (Low)?? 07/17/2023 12:19 AG Ratio 0.9 ()?? 07/17/2023 12:19 Alkaline Phosphatase 188 units/L (High)?? 07/17/2023 12:19 AST (SGOT) 224 units/L (High)?? 07/17/2023 12:19 ALT (SGPT) 140 units/L (High)?? 07/17/2023 12:19 Bilirubin, Total 0.3 mg/dL ()?? 07/17/2023 12:19 Lactate 2.1 mmol/L ()?? 07/17/2023 12:19 ?? COAG D-Dimer 20.80 mg/L FEU (High)?? 07/17/2023 13:38 ?? UA/URINALYSIS Appear/Color, Urine YELLOW ()?? 07/17/2023 10:58 Specific [employer], Urine 1.017 ()?? 07/17/2023 10:58 pH, Urine 6.5 ()?? 07/17/2023 10:58 Albumin, Urine 1+ (Abnormal)?? 07/17/2023 10:58 Glucose, Urine NEGATIVE ()?? 07/17/2023 10:58 Ketones, Urine NEGATIVE ()?? 07/17/2023 10:58 Bilirubin, Urine NEGATIVE ()?? 07/17/2023 10:58 Hemoglobin, Urine NEGATIVE ()?? 07/17/2023 10:58 Nitrite, Urine NEGATIVE ()?? 07/17/2023 10:58 Leukocyte, Urine NEGATIVE ()?? 07/17/2023 10:58 Urobilinogen NORMAL mg/dL ()?? 07/17/2023 10:58 WBC's, Urine <1 /HPF ()?? 07/17/2023 10:58 RBC's, Urine 1 /HPF ()?? 07/17/2023 10:58 Hyaline Cast 1 LPF ()?? 07/17/2023 10:58 Hold Urine Culture Testing available 48 hours from time of collection. ()?? 07/17/2023 10:58 ? EKG study * Event Display: ECG 12-Lead Authored Date: Please click on pdf link to open report * Event Display: ECG 12-Lead Authored Date: Ventricular Rate: 80 BPM Atrial Rate: 80 BPM P-R Interval: 172 ms QRS Duration: 138 ms Q-T Interval: 412 ms QTC Calculation(Bazett): 475 ms P Steele: 46 degrees R Steele: -1 degrees T Steele: 104 degrees Normal sinus rhythm Non-specific intra-ventricular conduction block Nonspecific ST and T wave abnormality Cannot rule out Anterior infarct Abnormal ECG When compared with ECG of 30-MAY-2023 10:39, T wave inversion no longer evident in Lateral leads Confirmed by OSKAR DSOUZA, RADHA ([id number]) on 07/23/2023 10:52:13 AM [place]: OSKAR DSOUZA,[facility] [place] Progress note * Adelina Morgan: PERFORM, SIGN, VERIFY Event Display: Progress Note Hospital Authored Date: Patient: JENNIFER RODAS Age: 88 years Sex: Male : 1935 Associated Diagnoses: None Author: Adelina Morgan Findings Narrative/Incidental Pt sent home with discharge notes/instructions. Pt unable to understand teaching, family not present. Put MOLST in pt's discharge packet. . * Juma Nieto RN: PERFORM, SIGN, VERIFY Event Display: Progress Note Hospital Authored Date: Patient: JENNIFER RODAS Age: 88 years Sex: Male : 1935 Associated Diagnoses: None Author: Juma Nieto RN Findings Problem Related to Alteration in Integumentary : Alteration in Integumentary/new 07/30/2023 3:00 EST Alteration in Integumentary Related to Stage I, Stage II, Unstageable Goals & Outcomes, Integumentary Nutritional intake is adequate for metabolic needs, Pt will maintain adequate fluid & nutritional balance, Pt will maintain intact skin integrity, Wound will progress towards healing Interventions, Integumentary Cleanse all wounds with Normal Saline, Consult Wound Care as needed for further interventions, Encourage & assist pt to change position frequently, Encourage family participation in pt's care as they are able, Ensure relief modes are on mattress surface & utilized, Keep linen clean, dry and wrinkle free, Keep skin clean & dry, Minimize friction, shear and m oisture, Relieve pressure off bony areas, Teach Pt/caregiver s/s of infection BH Goals/Interventions, Integumentary Yes Integumentary, Problem Start 07/29/2023 8:28 Reviewed plan with, Integumentary Patient Patient Progression, Integumentary Pt progressing according to plan . Alteration in Neurological : Alteration in Neurological Function/new 07/30/2023 3:00 EST Alteration in Neuro status Related to Other: S/P CVA Accident with recurrent episode of Aspiration and failed Swallow Goals & Outcomes, Neurological Lab studies/diagnostic tests within pt specific limits, Pt will maintain intact skin integrity, Pt will state importance of adhering to medication regime, Pt/caregiver will state understanding aspiration precautions, Pt/caregiver will state understanding dietary modifications, Pt/caregiver will state understanding of disease process Interventions, Neurological Assess/monitor neurologic status, Call/Report variances in assessments to provider, Keep patient's head & body in good alignment, Maintain HOB at least 30 deg, MonitorFluid & Electrolytes, Serum Osmolarity, Provide emotional support to Pt/caregiver, Teach & encourage deep breath & cough exercises, Teach pt/caregiver on plan of care, treatment, s/s & meds, Elevate HOB & keep head midline in sniffing position, Minimize neuro stimulation BH Goals/Interventions, Neurological Yes Neurological, Problem Start 07/26/2023 6:49 Reviewed plan with, Neurological Patient Patient Progression, Neurological Pt progressing according to plan . Nursing Data Gastrointestinal Data. : Gastrointestinal Data. 07/29/2023 21:00 EST Abdomen Soft, Non-tender Bowel Sounds LUQ Present Bowel Sounds RUQ Present Bowel Sounds LLQ Present Bowel Sounds RLQ Present Gastric tube present Yes Gastric Tube Type G-Tube GI WNL except Normal Bowel Pattern Daily . Neurological Data. : Neurological Data. 07/29/2023 21:00 EST Tongue Disposition Midline Neurological Symptoms Lack of coordination, Tremors, Weakness or loss of muscle strength Level of Consciousness Full Consciousness Orientated to person, place, time Person, Place, Time Hallucinations None Facial Symmetry Intact Strength LUE 3-Active movement against gravity Strength RUE 3-Active movement against gravity Strength LLE 3-Active movement against gravity Strength RLE 3-Active movement against gravity Tone LUE Normal Tone RUE Normal Tone LLE Normal Tone RLE Normal Sensation LUE Diminished, Intact Sensation RUE Diminished, Intact Sensation LLE Diminished, Intact Sensation RLE Diminished, Intact Movement LUE To command Movement RUE To command Movement LLE Flexes to pain Movement RLE Flexes to pain Gait Unable to assess Response Eye Opening To voice Motor Response-Adult Obeys commands Verbal Response-Adult Oriented and converses Natalia Coma Score 14 Neuro WNL except Corneal/Blink Reflex Intact right, Intact left Eyes and Movements Conjugate gaze: Move in same direction at same speed Memory Intact . Respiratory/Pulmonary Data. : Respiratory/Pulmonary Data. 07/29/2023 21:00 EST Respiratory Symptoms None Respiratory effort Unlabored Chest expansion Symmetrical Accessory Muscles use No Upper Airway Diminished Left Upper Lobe Breath Sounds Diminished Right Upper Lobe Breath Sounds Diminished Right Middle Lobe Breath Sounds Diminished Left Lower Lobe Breath Sounds Diminished Right Lower Lobe Breath Sounds Diminished Respiratory distress None Respiratory Treatment(s) Cough and deep breathe Respiratory Treatment(s) Cough and deep breathe Tracheostomy/tracheal device present No Respiratory WNL except . Narrative/Incidental Shift Review: Patient alert and oriented, non verbal at baseline. Denies pain. Nods in response to questions and directions. Medicated as ordered with good effect.Bedfast for this shift. Tube feeds tolerated well at a goal of 55mls/hr. Call lopez in reach and bed in low position. Wound dressings C/D/I. See further assessment and documentation. Continue with plan of care.. . Discharge Information Case Management Discharge Plan : Case Management Discharge Plan Data 07/29/2023 10:09 EST Discharge Level of Care at Discharge Homehealth/VNA Discharge VNA/Hospice/Home Care [facility] Discharge [employer] [place] Discharge Transportation Arranged [facility] [address] [facility] [phone] Mode of Transportation Arranged Ambulance Name of Agency #1 [facility] #[facility] admissions Service Categories #1 G-tube feeds, Infusion pump, Physical Therapy, Group Home Service Comments #1 Tube feeds/supplies by [facility] 07/29/2023 10:01 EST Discharge Level of Care at Discharge Homehealth/VNA Discharge VNA/Hospice/Home Care [facility] [phone] Discharge Transportation Arranged [facility] [address] [facility] [id number] [phone] Mode of Transportation Arranged Ambulance Name of Agency #1 In Error (In Error) Agency [facility] #1 admissions Service Categories #1 G-tube feeds, Hospital bed, Infusion pump, Group Home Service Comments #1 Feeds to be provided by [facility] * Jacklyn Fernandez DO: PERFORM Event Display: Progress Note Hospital Authored Date: Patient: ??KEERY, JENNIFER ? Age:??88 Years?Sex:??Male?:??1935?? Subjective No acute events overnight. Nods no to any chest pain, shortness of??breath, abdominal pain or pain near G tube site.?? Let patient know that things are looking much better and he will likely go home tomorrow.?? updated and aware of plan for discharge tomorrow; script for hospital bed filled, plan for feed deliveries tonight and bed delivery tomorrow. Review of Systems limited due??to baseline status. Objective Vital Signs?? Temperature: 98.1 DegF (07/29/23 08:00:00) Temperature Route: Axillary (07/29/23 08:00:00) Pulse Rate: 81 bpm (07/29/23 09:25:00) Respiratory Rate: 18 br/min (07/29/23 08:00:00) Systolic Blood Pressure:??156 mm Hg??High (07/29/23 09:25:00) Diastolic Blood Pressure: 69 mm Hg (07/29/23 09:25:00) Blood pressure sites: Arm, left (07/29/23 08:00:00) Mean Arterial Pressure: 89 mm Hg (07/28/23 20:49:00) Pulse Pressure: 87 mm Hg (07/29/23 08:00:00) Oxygen Saturation: 100 % (07/29/23 08:00:00) Liters per Minute: 2 L/min (07/29/23 08:00:00) Mode of Delivery (Oxygen): Nasal cannula (07/29/23 08:00:00) Early Warning Score: 0 (07/29/23 13:16:51) ? Intake/Output? 07/17 15:21 07/29 07:00 07/28 07:00 07/27 07:00 12 07:00 ?? 07/29 13:52 07/29 13:52 07/29 06:59 07/28 06:59 07/27 06:59 Intake ? 9811.5 ? 90 ? 1740 ? 1146.4 ?722.6 Output ?36991 ?500 ? 1870 ?600 ?650 Net Total ?-1958.5 ? -410 ? -130 ?546.4 ? 72.6 ? Urine Count ?1 ?0 ?0 ?0 ?0 Diaper Count ?4 ?0 ?2 ?0 ?1 ? Physical Exam Constitutional: alert, no acute distress, laying in bed HEENT: Normocephalic. Moist mucous membranes. Respiratory: Clear to auscultation. No wheezing, rales or rhonchi. Cardiovascular: S1 S2 regular. No murmurs, rubs or gallops. Gastrointestinal: Abdomen soft, non-tender, non-distended. G??tube??site??w/o erythema Skin: No rashes or lesions. _ Inpatient Medications Medications (31) Active SCHEDULED: (16) Albuterol/Ipratropium Inhalation Chana 3mL (Duoneb Inhalation Solution) ??1 vials, BAND Nebulizer, 4 times a day Allopurinol 300 mg Tablet (allopurinol 300 mg oral tablet) ??300 mg, By Mouth, Daily Apixaban 5 mg Tablet (Apixaban Tablet) ??10 mg, By Mouth, 2 times a day Apixaban 5 mg Tablet (Apixaban Tablet) ??5 mg, By Mouth, 2 times a day Atorvastatin 80 mg Tablet (atorvastatin 80 mg oral tablet) ??80 mg, By Mouth, Daily Budesonide 0.5 mg/ 2 mL Inhalation Susp (budesonide 0.5 mg/2 mL inhalation suspension) ??0.5 mg 2 mL, Neb, 2 times a day Carvedilol 3.125 mg Tablet (carvedilol 3.125 mg oral tablet) ??3.125 mg, By Mouth, 2 times a day Furosemide 20 mg Tablet (Lasix 20 mg oral tablet) ??20 mg, By Mouth, Daily Insulin Glargine 100 units/mL Inj (Insulin Glargine Inj) ??5 units 0.05 mL, Subcutaneous Injection,Daily at bedtime Insulin Lispro 100 units/mL Inj (3mL) (Insulin LISPRO Sliding Scale) ??2-10 units, Subcutaneous Injection, Every 6 hours Levothyroxine 25 mcg Tablet (levothyroxine 0.025 mg oral tablet) ??0.05 mg, Nasogastric Tube, EveryThursday and Thursday Levothyroxine 25 mcg Tablet (levothyroxine 0.025 mg oral tablet) ??0.05 mg, Nasogastric Tube, Daily NaCl 0.9% Flush 3ml (NaCL 0.9% Flush) ??3 mL, IV Push, Every 8 hours Pantoprazole 40 mg Inj (Pantoprazole Inj) ??40 mg, IV Push Slowly, Daily Tamsulosin 0.4 mg Capsule (tamsulosin 0.4 mg oral capsule) ??0.4 mg, By Mouth, Daily Thiamine 100 mg Tablet (thiamine 100 mg oral tablet) ??100 mg, By Mouth, Daily CONTINUOUS: (0) PRN: (15) Acetaminophen 650 mg Suppository (Tylenol Supp) ??650 mg, Rectally, Every 4 hours Benzonatate 100 mg Capsule (benzonatate 100 mg oral capsule) ??200 mg, By Mouth, 3 times a day Dextromethorphan-Guaifenesin 20 mg-200 mg/10 mL Liqu UD (Robitussin DM Liquid) ??10 mL, By Mouth, Every 4 hours Dextrose Inj Syringe (Dextrose 50% Inj Syringe (25Gm)) ??12.5 Gm, IV Push Slowly, Every 20 minutes Dextrose Inj Syringe (Dextrose 50% Inj Syringe (25Gm)) ??25 Gm, IV Push Slowly, Every 15 minutes Docusate Sodium 100 mg Capsule (Docusate Sodium Capsule) ??100 mg 1 capsule, By Mouth, 2 times a day Glucagon 1 mg Inj (Glucagon Inj) ??1 mg, Intramuscular, Once Glucose 40% Gel (15 Gm) (Glucose Gel) ??15 Gm, By Mouth, Every 20 minutes Glucose 40% Gel (15 Gm) (Glucose Gel) ??30 Gm, By Mouth, Every 20 minutes Melatonin 3 mg Tablet (Melatonin Tablet) ??3 mg, By Mouth, Daily at bedtime NaCl 0.9% Flush 3ml (NaCL 0.9% Flush) ??3 mL, IV Push, Every 8 hours nalOXONE ??400mcg/mL Inj (nalOXONE Inj) ??0.04 mg 0.1 mL, IV Push, Every 5 minutes Polyethylene Glycol 17 Gm Powder (MiraLax Powder) ??17 Gm 1 pack/packet, By Mouth, Daily Senna Tablet ??8.6 mg 1 tablet, By Mouth, 2 times a day Simethicone 80 mg Chewable Tablet (Simethicone Tablet) ??80 mg, Chew, 3 times a day ? Results Recent Labs BLOOD COUNT & DIFF WBC 6.2 k/mm3 ()?? 07/28/2023 05:53 RBC 3.32 m/mm3 (Low)?? 07/28/2023 05:53 Hgb 8.7 Gm/dL (Low)?? 07/28/2023 05:53 Hct 28.6 % (Low)?? 07/28/2023 05:53 MCV 86.1 femtoliters ()?? 07/28/2023 05:53 MCH 26.2 pg (Low)?? 07/28/2023 05:53 MCHC 30.4 g/dL (Low)?? 07/28/2023 05:53 Platelet Count 278 k/mm3 ()?? 07/28/2023 05:53 RDW-SD 53.1 femtoliters (High)?? 07/28/2023 05:53 MPV 10.2 femtoliters ()?? 07/28/2023 05:53 Nucleated RBC (Automated) 0.0 #/100 WBC'S ()?? 07/28/2023 05:53 Abs. NRBC 0.0 k/mm3 ()?? 07/28/2023 05:53 ?? CHEM GENERAL Sodium 141 mmol/L ()?? 07/28/2023 05:53 Potassium 3.8 mmol/L ()?? 07/28/2023 05:53 Chloride 109 mmol/L (High)?? 07/28/2023 05:53 Bicarbonate Level 25 mmol/L ()?? 07/28/2023 05:53 Anion Gap 7 ()?? 07/28/2023 05:53 Glucose Level 133 mg/dL (High)?? 07/28/2023 05:53 Glucose, POC 239 mg/dL (High)?? 07/29/2023 11:51 BUN 15 mg/dL ()?? 07/28/2023 05:53 Creatinine-Blood 0.6 mg/dL (Low)?? 07/28/2023 05:53 Estimated GFR Creatinine 92 ML/MIN/1.73 M2 ()?? 07/28/2023 05:53 Calcium 8.2 mg/dL (Low)?? 07/28/2023 05:53 Phosphorus 2.5 mg/dL ()?? 07/28/2023 05:53 Magnesium 1.6 mg/dL ()?? 07/28/2023 05:53 Protein, Total 4.9 Gm/dL (Low)?? 07/28/2023 05:53 Albumin 2.1 Gm/dL (Low)?? 07/28/2023 05:53 AG Ratio 0.8 ()?? 07/28/2023 05:53 Alkaline Phosphatase 176 units/L (High)?? 07/28/2023 05:53 GGTP 255 units/L (High)?? 07/28/2023 05:53 AST (SGOT) 51 units/L (High)?? 07/28/2023 05:53 ALT (SGPT) 31 units/L ()?? 07/28/2023 05:53 Bilirubin, Total 0.2 mg/dL ()?? 07/28/2023 05:53 ? Microbiology ?? Blood Culture?? Completed?? Source: Blood Body Site: ?? Collected Dt/Tm: 07/17/2023 10:45 Last Updated Dt/Tm: 07/17/2023 10:26 ?SPECIMEN DESCRIPTION : BLOOD NO SITESPECIAL REQUESTS : NONECULTURE : NO GROWTH 5 DAYS.REPORT STATUS : FINAL 07/22/2023 Blood Culture #2?? Completed?? Source: Blood Body Site: ?? Collected Dt/Tm: 07/17/2023 10:45 Last Updated Dt/Tm: 07/17/2023 10:26 ?SPECIMEN DESCRIPTION : BLOOD NO SITESPECIAL REQUESTS : NONECULTURE : NO GROWTH 5 DAYS.REPORT STATUS : FINAL 07/22/2023 ? Assessment/Plan Mr. 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 Admitted for management of acute on chronic hypoxic respiratory failure secondary to bilateral pulmonary thromboembolism with superimposed aspiration pneumonia as well as acute kidney injury and transaminitis.?? Patient is s/p PEG tube placement 07/27, now on tube feeds per nutrition recs. He is medically stable ready for discharge tomorrow after delivery of feeds/hospital bed. ?? Acute on chronic hypoxemic respiratory failure Bilateral pulmonary thromboembolism Aspiration pneumonia COPD??(2L NC baseline) Presented with increasing O2 requirements at home, lethargy/AMS, temp to 100.2. CT 07/17: Acute bilateral pulmonary thromboembolism, concomitant basilar consolidative opacities and small focal opacity in left upper lung, suspicious for infection. No evidence R heart strain. Atelectasis of left lower lung, nearly complete. Small left pleural effusion. MRSA swab negative vancomycin d/c 07/19 Completed 5 day course ceftriaxone 07/23 Etiology: bilateral pulmonary thromboembolism likely secondary to malignancy, superimposed aspiration pneumonia, possible COPD exacerbation contribution. He has been breathing comfortably on home settings ?? Plan: ?Continue eliquis ??? continue PEG tube feedings per nutrition recs ??? Continue albuterol, budesonide, and ipratropium inhalers ?? Acute on Chronic Oropharyngeal Dysphagia CVA (2008) complicated by intracranial hemorrhage with residual deficits: Hypernatremia, resolving Currently close to baseline mental status per family, baseline neurological deficits (per HCP baseline bedbound, sleeping 80% of time, R homonymous hemianopsia, dysarthria and dysphagia with recurrent aspiration). Was eating pureed diet at home 1:1 with . At least 6 months of progressive worsening of swallow with recurrent aspirations. CT non con negative for acute intracranial pathologies at admission. Modified barium swallow was performed and resulted in??severe swallowing difficulty. ??Therefore,??strict NPO. ?? Plan: ??? Strict??NPO as modified barium swallow showed severe double swallowing difficulty ??? C/w PEG feedings as above ?? Benign essential hypertension Hypercholesterolemia CAD s/p CABG Ischemic cardiomyopathy HFrEF (30-35%) ?? Plan: ??? Hold aspirin while on anticoagulation ??? continue statin,??carvedilol, furosemide ?? Acute kidney injury - resolved Etiology: multifactorial, most likely prerenal from poor oral intake / dehydration, possible contribution of CODY from contrast for CT chest, obstruction Status 07/24: Stable. Clinically euvolemic, Cr 0.6 (down from peak 1.4) Renal US 07/19: no hydronephrosis, increased parenchymal echogenicity, no stones, no suspicious mass, few simple cysts bilaterally RTANE consulted + signed off, appreciate recs 07/22 bladder scan 363, straight cath, drained 250mL urine 07/29 bladder scan w/ residual of 321, required striaght cath ?? Plan: ??? continue primafit draining urine, bladder scans q shift ?? Squamous cell carcinoma of scalp Followed by heme/onc outpatient, on cemiplimab Heme/Onc consulted, appreciate recs ?? Plan: ??? f/u heme/onc and dermatology outpatient ??? f/u plastic surgery outpatient (Dr. Ibrahim) ?? Peripheral vascular disease Non-pressure chronic ulcer left lower leg, limited to breakdown skin. Left 2nd and 3rd Toe Wound, S/p course of doxycycline Status 07/23: improving from previous photos, no erythema, some tenderness. blood cultures negative Wound care consulted, sharp debridement deferred, appreciate recs ? Plan: ??? Routine dressing changes and wound care w/ Xeroform per wound care recs ??? Monitor clinically ??? F[facility]u with [facility] outpatient ?? Abnormal LFTs - resolved Etiology: hypoperfusion vs secondary to SCC ICI treatment US Liver 07/19: Coarse hepatic echotexture likely due to underlying hepatocellular disease, no suspicious lesions Per heme/onc more likely hypoperfusion rather than side effect of ICI. Continuing to downtrend. ?? Plan: ??? continue to monitor ?? Chronic normocytic anemia - stable Etiology: anemia of chronic disease vs hypothyroidism vs dilutional from IVF Baseline Hgb 9-11 in past year. ? Plan -continue to monitor H&H ?? 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 Plan: -will give 7 units tonight and reassess glucose control in AM -C/w insulin sliding scale -Hypoglycemia protocol -POC glucose q6 ? 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 BPH:??C/w??tamsulosin?? Hypothyroidism: Continue levothyroxine 0.05mg Essential Tremor: Discussed discontinuing primidone in setting of eliquis use ?? QM VTE Prophylaxis??- Heparin gtt and transitioning to Eliquis Diet??- Tube feeds Code??-?? DNI, ok for resuscitation, as clarified on 07/27 ?? Jacklyn Fernandez, [place] Med/Peds PGY [address] [place] [id number] ?? Patient seen and discussed with attending Dr. Bernardo * Tova DSOUZA, Bri Draper: PERFORM Event Display: Progress Note Hospital Authored Date: Attending Attestation:??I have seen and evaluated this patient.?I have discussed the case and its management with the resident and agree with the findings and plan as documented in the resident???s note except where modified. ?? Bri Bernardo MD Note * Adelina Morgan: PERFORM Event Display: Discharge/Transfer Note Hospital Authored Date: Nursing Discharge Note Entered On: 07/30/2023 12:05 EST Performed On: 07/30/2023 12:05 EST by Adelina Morgan Nursing Discharge Note 2 Discharge Time : 07/30/2023 12:03 EST Discharge Level of Care at Discharge : Homehealth/VNA Discharge VNA/Hospice/Home Care(v001) : [facility] Nurse association Discharge Medical Equ[employer] Companies(v001) : Rodney Floyd Patient Left Unit Via : Ambulance Patient Accompanied Off Unit with : Ambulance/Chair Van Personnel Handover Given to Transport Personnel : Yes DC Instructions Provided & Signed by Pt : Unable Patient Understands D/C Instructions : Unable Patient Instructions Discharge Signed : Yes Did Pt have Specialty Bed or Wound Vac : No Adelina Morgan - 07/30/2023 12:05 EST * Jacklyn Fernandez DO: PERFORM Jacklyn Fernandez DO: PERFORM Event Display: Discharge/Transfer Note Hospital Authored Date: [id number] Patient: ??JENNIFER RODAS ? Age:??88 Years?Sex:??Male?:??1935?? 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 _ Discharge Medications ?? ALL MEDICATIONS LISTED BY MOUTH AT HOME??SHOULD NOW BE GIVEN VIA G TUBE Albuterol/Ipratropium (albuterol-ipratropium 3 mg-0.5 mg/3 ml inhalation solution)?3?Milliliter?Inhalation?4 times a day Allopurinol (allopurinol 300 mg oral tablet)?300?Milligram?1?tablet?By??G tube?Daily Ammonium Lactate 12% (ammonium lactate 12% topical lotion)?See Instructions?APPLY TOPICALLY DAILY TO THE LEGS DIREDTED apixaban (apixaban 5 mg oral tablet)?5?Milligram?G Tube?2 times a day Atorvastatin (atorvastatin 80 mg oral tablet)?1?tab(s)?80?Milligram?By??G tube?Daily Benzonatate (benzonatate 200 mg oral capsule)?1?capsule?200?Milligram?By Mouth?3 times a day?as needed?as needed for cough Budesonide (budesonide 0.5 mg/2 mL inhalation suspension)?0.5?Milligram?Neb?2 times a day Carvedilol (carvedilol 3.125 mg oral tablet)?3.125?Milligram?By??G Tube?2 times a day?for 30?Days Docusate (docusate sodium 150 mg/15 ml oral liquid)?10?Milliliter?100?Milligram?By??G Tube?2 times a day Fluticasone Nasal (fluticasone 50 mcg/inh nasal spray)?2?spray(s)?Nares, Both?in AM Furosemide (Lasix 20 mg oral tablet)?20?Milligram?By??G Tube??Daily Insulin Glargine (Basaglar KwikPen 100 units/mL subcutaneous solution)?See Instructions?INJECT 10 UNITS SUBCUTANEOUSLY DAILY AT BEDTIME Levothyroxine (levothyroxine 0.05 mg oral tablet)?See Instructions?1 tablet By Mouth Thursday-Thursday2 tabs??by G tube??Thu-Thursday Loratadine (Claritin 10 mg oral tablet)?10?Milligram?1?tablet?By??G Tube?Daily Omeprazole (omeprazole 20 mg oral tablet, disintegrating, delayed release)?40?Milligram??By??G Tube?Daily silver topical (SilvaSorb)?1?applicator?Topically?Daily Sodium Hypochlorite Topical (Dakins Half Strength 0.25% topical solution)?See Instructions?Use for dressing changes as directed Tamsulosin (tamsulosin 0.4 mg oral capsule)?0.4?Milligram?1?capsule?By??G Tube?Daily Thiamine?100?Milligram?By??G Tube?Daily Medications Started apixaban (apixaban 5 mg oral tablet)?5?Milligram?G Tube?2 times a day Medications Discontinued Vitamins except thiamine??were HELD until discussion with PCP or nutrition to determine compatibility with Gtube or if they are needed with tube feeds Gabapentin--- this was HELD due to 's preference??(it needs to be a liquid to be given by G tube, but this is what we would recommend if you decide to continue use at home - Gabapentin (gabapentin 250 mg/5 mL oral solution)?4?Milliliter?200?Milligram?G Tube?3 times a day?for 30?Days Aspirin was STOPPED when apixaban was started, this should be discussed with PCP or life sciences manager before resuming Sucralfate was STOPPED because it is not G tube compatible, alternatives should be discussed with PCP Primidone was STOPPED because of a contraindication with apixaban, alternatives should be discussedwith PCP if needed Doses Changed Omeprazole (omeprazole 20 mg oral tablet, disintegrating, delayed release)?40?Milligram?ByMouth?Daily --- this is the same dose but was changed to a disintegrating tablet to be G tube compatible Docusate (docusate sodium 150 mg/15 ml oral liquid)?10?Milliliter?100?Milligram?By??G Tube?2 times a day ---- this was changed to a liquid form Allergies Allergies ?(Active and Proposed Allergies Only) NKA? (Severity: Unknown severity, Onset: Unknown) ? PCP Follow-Up/Heads-Up Please follow up within a week ?? Please follow up about above medication changes ?? He required straight catheterization a few times throughout his admission but for the most part wasvoiding spontaneously, please monitor for urinary retention. ?? He requires some follow up labs as below including monitoring his anemia, electrolytes, and transaminitis which has been improved but should be monitored Future Appointments Thursday 10:20 AM EST ?? With: Emerson Ibrahim MD Where: [facility] Plastic Surgery [address] [place] [id number]- Status: Pending Hospital Course Mr. 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 Admitted for management of acute on chronic hypoxic respiratory failure secondary to bilateral pulmonary thromboembolism with superimposed aspiration pneumonia as well as acute kidney injury and transaminitis. Patient is now s/pPEG tube placement 07/27, now on tube feeds per nutrition recs. Transitioned to eliquis for PEs. Back to baseline home oxygen requirements and ready for discharge home with services. ?? Acute on chronic hypoxemic respiratory failure Bilateral pulmonary thromboembolism Aspiration pneumonia COPD (2L NC baseline) Presented with increasing O2 requirements at home, lethargy/AMS, temp to 100.2. CT 07/17: Acute bilateral pulmonary thromboembolism, concomitant basilar consolidative opacities and small focal opacity in left upper lung, suspicious for infection. No evidence R heart strain. Atelectasis of left lower lung, nearly complete. Small left pleural effusion. Etiology: bilateral pulmonary thromboembolism likely secondary to malignancy/ bedbound status,??superimposed aspiration pneumonia. Treatment: Sp abx for??aspiration pneumonia. Started on heparin drip then transitioned to eliquis for PEs. Now back on home oxygen settings ?? Recommendations: ??? Continue eliquis 5mg BID indefinitely ??? continue PEG tube feedings per nutrition recs, feeds ordered and sent to home ??? Continue albuterol, budesonide, and ipratropium inhalers ??? Continue home 2L NC ?? 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 Was eating pureed diet at home 1:1 with . At least 6 months of progressive worsening of swallow with recurrent aspirations. CT non con negative for acute intracranial pathologies at admission. modified barium swallow was performed and resulted in severe swallowing difficulty. Therefore, strict NPO. G tube placed on 07/27 Final nutrition recs: ??Continue TF of the following via GT: ??Discussed with MD Bernardo and RN ? - Jevity 1.2 fiber formula with new goal of 55mL/hr over 22 hours. ??Hold for one hour pre and post administration of levothyroxine ??- provides 1452 lake, 67 g PRO, 977 ml H20 ? - 2 protein packets BID (4 total) (6g protein, 25kcal, each) ? - TF + Protein will provide 1552kcal, 91g protein, 1217mL free H2O ? - 50mL water flushes Q4h or per MD ? Recommendations: ??? Strict NPO as modified barium swallow showed severe double swallowing difficulty ??? C/w PEG feedings as above ?? Benign essential hypertension Hypercholesterolemia CAD s/p CABG Ischemic cardiomyopathy HFrEF (30-35%) ?? Appeared euvolemic throughout admission. Continued on home meds once enteral access obtained. ?? Recommendations: ??? Hold aspirin while on anticoagulation, discuss with outpatient life sciences manager ??? continue statin, carvedilol, furosemide -- patient??should follow up with his life sciences manager ?? Urinary Retention Intermittently required straight catheterization during admission however for most part voiding spontaneously. Continues on flomax. No hydronephrosis on MARYLU to suggest obstructive uropathy. ?? Recommendations: -- continue to monitor UOP at home, if showing signs obstruction recommend outpatient urology eval ?? Acute kidney injury - resolved Etiology: multifactorial, most likely prerenal from poor oral intake / dehydration, possible contribution of CODY from contrast for CT chest, obstruction Renal US 07/19: no hydronephrosis, increased parenchymal echogenicity, no stones, no suspicious mass, few simple cysts bilaterally ? Squamous cell carcinoma of scalp Followed by heme/onc outpatient, on cemiplimab ??Heme/Onc consulted, appreciate recs ? Recommendations: ??? f/u heme/onc and dermatology outpatient ??? f/u plastic surgery outpatient (Dr. Ibrahim) ? Peripheral vascular disease Non-pressure chronic ulcer left lower leg, limited to breakdown skin. Left 2nd and 3rd Toe Wound, S/p course of doxycycline Wound care consulted, sharp debridement deferred ? Recommendations: ??? Routine dressing changes and wound care w/ Xeroform per wound care recs ??? Monitor clinically ??? F/u with [facility] outpatient ?? Abnormal LFTs - resolved Etiology: hypoperfusion vs secondary to SCC ICI treatment US Liver 07/19: Coarse hepatic echotexture likely due to underlying hepatocellular disease, no suspicious lesions Per heme/onc more likely hypoperfusion rather than side effect of ICI. Downtrended. ?? Recommendations: ??? would??repeat with PCP ?? Chronic normocytic anemia - stable Etiology: anemia of chronic disease vs hypothyroidism vs dilutional from IVF Baseline Hgb 9-11 in past year - PCP to continue to monitor ? 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 Recommendations: - continue home 10 units glargine at bedtime ?? Elevated troponin: HsTNT??98 to 79 on presentation likely type II NSTEMI in setting of RUPERTO and PE -EKG with no acute ischemic changes. ?? Goals of care CODE STATUS confirmed with HCP : DNI ok for resuscitation.??Did discuss that in case of respiratory arrest if unable to secure an airway,??CPR will be futile however she would??still like to try.MOLST completed and scanned, original provided to patient on discharge??(old??MOLST scanned illegible and reports she never received a copy). ? 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 Objective Vital Signs?? Temperature: 97.8 DegF (07/29/23 20:00:00) Temperature Route: Oral (07/29/23 20:00:00) Pulse Rate:??98 bpm??High (07/29/23 21:21:00) Respiratory Rate: 20 br/min (07/29/23 20:00:00) Systolic Blood Pressure:??164 mm Hg??High (07/29/23 21:21:00) Diastolic Blood Pressure:??94 mm Hg??High (07/29/23 21:21:00) Blood pressure sites: Arm, left (07/29/23 20:00:00) Pulse Pressure: 70 mm Hg (07/29/23 20:00:00) Oxygen Saturation: 97 % (07/29/23 20:00:00) Liters per Minute: 2 L/min (07/29/23 20:00:00) Mode of Delivery (Oxygen): Nasal cannula (07/29/23 20:00:00) Early Warning Score: 2 (07/30/23 05:56:48) ? . Physical Exam Constitutional: alert, no acute distress, laying in bed, nonverbal at baseline but nods yes HEENT: Normocephalic. Moist mucous membranes. Respiratory: Clear to auscultation. No wheezing, rales or rhonchi. Cardiovascular: S1 S2 regular. No murmurs, rubs or gallops. Gastrointestinal: Abdomen soft, non-tender, non-distended. G tube site clean, dry, no surrounding erythema Surgical Procedures Insertion Percutaneous Endoscopic Gastro 07/27/2023 07:54 Consultants Hematology/Oncology Surgery Wound Care Pending Results None Patient Education Titles Apixaban Oral Tablet?? Pulmonary Embolism (PE)?? Discharge Instructions: Flushing Your Feeding Tube?? Taking Medicine Through a Feeding Tube?? Understanding PEG Tube Placement?? Discharge Instructions: Caring for Your Gastrostomy Tube (G-Tube)?? Follow-Up Appointments Added Follow Up ?Time Frame ?Comments Memo LISA, Arjun Nieves?Within one week Patient Instructions You were admitted to [facility] for concern of??increasing oxygen requirements and confusion due to??blood clots in??your lungs??as??well as pneumonia due to aspiration. Your pneumonia was treated with antibiotics, and has resolved, and you were started on a blood thinner for the bloodclots.??You had tests done which showed a lot of difficulty with swallowing and concern of breathing in things you were swallowing. For this reason you had a procedure to place a G-tube, which you will receive??your feeds and medications through. For this reason, some of your medications have changed as outlined below. It will also be very important to follow up with your primary care provider (PCP) and outpatient specialists after you leave the hospital.? You will go home with the following NEW medications: -?Apixaban 5 mg twice??a day (this is the blood thinner) ?? The following medications were CHANGED or STOPPED: -?In general, all of your medications should be given through your Gtube from now on -?Your gabapentin and docusate (Colace) were CHANGED to a??liquid form to take through your G tube -?Your omeprazole was also CHANGED to a disintegrating tablet which can also be given through your G tube -?Your aspirin was STOPPED due to starting the blood thinner. You should discuss this with yourcardiologist or primary care provider??before restarting -?Your sucralfate was STOPPED because it cannot be given via G tube, please discuss with your PCP or GI provider if you have concerns -?Your primidone was STOPPED because of an interaction with the blood thinner. You should discuss other options with your PCP -?You should discuss??your home vitamins (multivitamin, vitamin D, ubiquinone, omega fatty acids)??with your primary care provider or nutrition before continuing. These were HELD and will not appear on your Med List. ?? What you should do when you leave??the hospital: -?? Please call your PCP to schedule follow up within a week. -?? You should keep an eye on his urine output and make sure he is peeing regularly and not uncomfortable. While he was in the hospital he required a catheter because of retaining some urine. As longas he is urinating regularly and is comfortable this should not be a problem and is likely normal for him, however if he is urinating less often than normal or has discomfort in his abdomen, you should discuss this more with your primary care provider for further workup. -?Restrictions in your diet: You will start tube feeds as recommended by the recreation attendant. Thesewere ordered through them and will be delivered to your home.?? -?Wound care: You were noted to have a wound on your leg which should have routine dressing changes and wound care with Xeroform. Your VNA services should help and you have been referred to??our outpatient wound clinic.? Reasons to immediately return to the emergency room or call 911: - You have worsening shortness of breath again,??you are spiking fevers of >100.4, you have any severe redness or pain at the G tube site, you lose consciousness or??become very confused again, you develop diarrhea or vomiting and cannot keep down enough liquids to stay hydrated - You have any other concerns that you think require emergency management Post Discharge Care -?Restrictions in your diet: You will start tube feeds as recommended by the recreation attendant. Thesewere ordered through them and will be delivered to your home.?? -?Wound care: You were noted to have a wound on your leg which should have routine dressing changes and wound care with Xeroform. Your VNA services should help and you have been referred to??our outpatient wound clinic.?? -?? Activity: Bed bound at baseline -?? Code status was reviewed with HCP: attempt resuscitation with compressions/shocks, but no intubation. MOLST completed 07/30/23 with witness. Home Health Face to Face *Denotes mandatory velasquez ?? *I certify that this patient is under my care and that I or an allowed non- physician working with me had a face to face encounter with the patient on this date:??07/30/2023 10:17 ?? 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 *Select the indications for the discipline/s that are being arranged for this patient. Nursing (select all that apply): [_] None [x_] Medication management (reconciliation, teaching)?? [x_] Chronic disease management?? [x_] Wound care and treatment?? [_] Home safety evaluation [_] Administer SQ/IM/IV medications?? [_] Cath care?? [_] Drain care?? [x_] GT care?? Other Occupation Therapy (select all that apply): [_] None [_] ADL Management [_] Fall prevention training [_] Energy conservation [_] Cognitive training Other _ Physical Therapy (select all that apply): [_] None [_] Functional mobility training [_] Home exercise program to strengthen [_] Increase ROM?? [_] Falls prevention training [_] Home maintenance program for chronic disease Other _ Speech Therapy (select all that apply): [_] None [_] Swallow evaluation and training [_] Speech and language training [_] Cognitive training to process, organize, and/or recall information Other _ ? *Homebound due to (select all that apply): [X] Inability to leave home without assistance/supervision [X] Inability to ambulate without assistance [_] Pain [_] Decreased strength and endurance [_] Unsteady gait [_] Severe SOB and fatigue [_] Impaired transfers [_] Inability to negotiate stairs [_] Limited weight bearing [_] Mental status change? *Physician Signature:??Jacklyn Fernandez, DO ?? *By signing this, I certify that I have personally evaluated the patient and agree with the findings and recommendations as documented above. ? Results Discharge Labs BACTERIOLOGY MRSA PCR Result Negative, MRSA target DNA not detected. ()?? 07/18/2023 18:25 S Aureus ??PCR Result Negative, SA target DNA not detected. ()?? 07/18/2023 18:25 ?? BLOOD COUNT & DIFF WBC 6.2 k/mm3 ()?? 07/28/2023 05:53 RBC 3.32 m/mm3 (Low)?? 07/28/2023 05:53 Hgb 8.7 Gm/dL (Low)?? 07/28/2023 05:53 Hct 28.6 % (Low)?? 07/28/2023 05:53 MCV 86.1 femtoliters ()?? 07/28/2023 05:53 MCH 26.2 pg (Low)?? 07/28/2023 05:53 MCHC 30.4 g/dL (Low)?? 07/28/2023 05:53 Platelet Count 278 k/mm3 ()?? 07/28/2023 05:53 RDW-SD 53.1 femtoliters (High)?? 07/28/2023 05:53 MPV 10.2 femtoliters ()?? 07/28/2023 05:53 Nucleated RBC (Automated) 0.0 #/100 WBC'S ()?? 07/28/2023 05:53 Abs. NRBC 0.0 k/mm3 ()?? 07/28/2023 05:53 Abs. Neut 2.6 k/mm3 ()?? 07/25/2023 11:52 Abs. Lymph 1.2 k/mm3 ()?? 07/25/2023 11:52 Abs. [place] 0.5 k/mm3 ()?? 07/25/2023 11:52 Abs. Eo 0.0 k/mm3 ()?? 07/25/2023 11:52 Abs. Baso 0.0 k/mm3 ()?? 07/25/2023 11:52 Neut % 59.6 % ()?? 07/25/2023 11:52 Lymph % 26.8 % ()?? 07/25/2023 11:52 [place] % 11.7 % (High)?? 07/25/2023 11:52 Eos % 0.7 % ()?? 07/25/2023 11:52 Baso % 0.7 % ()?? 07/25/2023 11:52 Hemoglobin (POC) POC Cartridge 11.9 Gm/dL (Low)?? 07/17/2023 10:35 Hematocrit (POC) POC Cartridge 35 % (Low)?? 07/17/2023 10:35 Imm Gran 0.5 % ()?? 07/25/2023 11:52 Abs. Imm Gran 0.0 k/mm3 ()?? 07/25/2023 11:52 ?? BLOOD GAS pH Venous (POC) POC Cartridge 7.51 (High)?? 07/17/2023 10:35 pCO2 Venous (POC) POC Cartridge 35.9 mm Hg (Low)?? 07/17/2023 10:35 pO2 Venous (POC) POC Cartridge 24 mm Hg (Low)?? 07/17/2023 10:35 Est Bicarbonate (POC) POC Cartridge 28.7 mmol/L ()?? 07/17/2023 10:35 % O2 Sat Venous (POC) POC Cartridge 50 ()?? 07/17/2023 10:35 Base Excess (POC) POC Cartridge 6 ()?? 07/17/2023 10:35 Specimen Type - Blood Gas VENOUS ()?? 07/17/2023 10:35 ? CARDIAC Nt-Probnp 1971 pg/mL (High)?? 07/17/2023 10:45 High Sensitivity Troponin (HSTnT) 79 ng/L (Critical)?? 07/17/2023 15:39 ?? CHEM GENERAL Sodium 141 mmol/L ()?? 07/28/2023 05:53 Potassium 3.8 mmol/L ()?? 07/28/2023 05:53 Chloride 109 mmol/L (High)?? 07/28/2023 05:53 Bicarbonate Level 25 mmol/L ()?? 07/28/2023 05:53 Anion Gap 7 ()?? 07/28/2023 05:53 Sodium (POC) POC Cartridge 145 mmol/L ()?? 07/17/2023 10:35 Potassium (POC) POC Cartridge 4.9 mmol/L ()?? 07/17/2023 10:35 Glucose Level 133 mg/dL (High)?? 07/28/2023 05:53 Glucose (POC) POC Cartridge 152 (High)?? 07/17/2023 10:35 Glucose, POC 174 mg/dL (High)?? 07/30/2023 05:53 BUN 15 mg/dL ()?? 07/28/2023 05:53 Creatinine-Blood 0.6 mg/dL (Low)?? 07/28/2023 05:53 Estimated GFR Creatinine 92 ML/MIN/1.73 M2 ()?? 07/28/2023 05:53 Calcium 8.2 mg/dL (Low)?? 07/28/2023 05:53 Ionized Calcium (POC) POC Cartridge 1.06 mmol/L (Low)?? 07/17/2023 10:35 Phosphorus 2.5 mg/dL ()?? 07/28/2023 05:53 Magnesium 1.6 mg/dL ()?? 07/28/2023 05:53 Protein, Total 4.9 Gm/dL (Low)?? 07/28/2023 05:53 Albumin 2.1 Gm/dL (Low)?? 07/28/2023 05:53 AG Ratio 0.8 ()?? 07/28/2023 05:53 Alkaline Phosphatase 176 units/L (High)?? 07/28/2023 05:53 GGTP 255 units/L (High)?? 07/28/2023 05:53 AST (SGOT) 51 units/L (High)?? 07/28/2023 05:53 ALT (SGPT) 31 units/L ()?? 07/28/2023 05:53 Bilirubin, Total 0.2 mg/dL ()?? 07/28/2023 05:53 Bilirubin, Direct <0.2 mg/dL ()?? 07/25/2023 11:55 Bilirubin, Indirect Direct bilirubin is less than the measureable limit. Therefore, indirect mg/dL ()?? 07/25/2023 11:55 Lactate 1.6 mmol/L ()?? 07/19/2023 02:34 ?? COAG INR 1.3 (High)?? 07/17/2023 21:19 Protime (PT) 13.3 seconds (High)?? 07/17/2023 21:19 APTT 168.9 seconds (Critical)?? 07/27/2023 00:10 D-Dimer 20.80 mg/L FEU (High)?? 07/17/2023 13:38 ?? ENDOCRINE/TUMOR MARKER Cortisol Level 32.6 ??g/dL ()?? 07/18/2023 03:04 ? MISC. CHEMISTRY Hold Gel Top SPECIMEN DISCARDED AFTER 1 WEEK ()?? 07/25/2023 11:52 ? UA/URINALYSIS Appear/Color, Urine YELLOW ()?? 07/17/2023 10:58 Specific [employer], Urine 1.017 ()?? 07/17/2023 10:58 pH, Urine 6.5 ()?? 07/17/2023 10:58 Albumin, Urine 1+ (Abnormal)?? 07/17/2023 10:58 Glucose, Urine NEGATIVE ()?? 07/17/2023 10:58 Ketones, Urine NEGATIVE ()?? 07/17/2023 10:58 Bilirubin, Urine NEGATIVE ()?? 07/17/2023 10:58 Hemoglobin, Urine NEGATIVE ()?? 07/17/2023 10:58 Nitrite, Urine NEGATIVE ()?? 07/17/2023 10:58 Leukocyte, Urine NEGATIVE ()?? 07/17/2023 10:58 Urobilinogen NORMAL mg/dL ()?? 07/17/2023 10:58 WBC's, Urine <1 /HPF ()?? 07/17/2023 10:58 RBC's, Urine 1 /HPF ()?? 07/17/2023 10:58 Hyaline Cast 1 LPF ()?? 07/17/2023 10:58 Hold Urine Culture Testing available 48 hours from time of collection. ()?? 07/17/2023 10:58 ? URINE OTHER Creatinine, Urine Random 94.7 mg/dL ()?? 07/18/2023 16:02 Sodium, Urine Random 29 mmol/L ()?? 07/18/2023 16:02 Osmolality, Urine Random 481 mOsm/kg ()?? 07/18/2023 16:02 Est Creatinine Clearance 91.25 mL/min ()?? 07/27/2023 02:01 ? Microbiology ?? Blood Culture?? Completed?? Source: Blood Body Site: ?? Collected Dt/Tm: 07/17/2023 10:45 Last Updated Dt/Tm: 07/17/2023 10:26 ?SPECIMEN DESCRIPTION : BLOOD NO SITESPECIAL REQUESTS : NONECULTURE : NO GROWTH 5 DAYS.REPORT STATUS : FINAL 07/22/2023 Blood Culture #2?? Completed?? Source: Blood Body Site: ?? Collected Dt/Tm: 07/17/2023 10:45 Last Updated Dt/Tm: 07/17/2023 10:26 ?SPECIMEN DESCRIPTION : BLOOD NO SITESPECIAL REQUESTS : NONECULTURE : NO GROWTH 5 DAYS.REPORT STATUS : FINAL 07/22/2023 ? 50??minutes spent on discharge ?? Jacklyn Fernandez, DO Med/Peds PGY 2 [place] [id number] ?? Patient seen and discussed with attending Dr. Bernardo * Tova DSOUZA, Bri Draper: PERFORM Event Display: Discharge/Transfer Note Hospital Authored Date: Attending Attestation:??I have seen and evaluated this patient.?I have discussed the case and its management with the resident and agree with the findings and plan as documented in the resident???s note except where modified. ? Bri Bernardo MD * Event Display: Discharge/Transfer Note Hospital Authored Date: * Adelina Morgan: PERFORM Event Display: Patient Education/Instruction Authored Date: Inpatient Adult Discharge Instructions [address] [address] Name: JENNIFER RODAS : 1935 Visit: 07/17/2023 15:21:00 Current Date: 07/30/2023 11:35 Account: [id number] Inpatient Adult Discharge Instructions We would like to thank you for allowing us to assist you with your healthcare needs. The following includes patient education materials and information regarding your injury/illness. Our entire staffstrives to provide an excellent experience for our patients and their families. PLEASE ENSURE YOU FOLLOW-UP PER THE INSTRUCTIONS BELOW! ?? YOUR OPINION IS IMPORTANT TO US! Please complete the survey you may receive by mail or email. Your feedback will be used to make improvements to the healthcare experiences of our patients and their families. Surveys are administered by [employer] ?? If further treatment with your primary care physician or another doctor is recommended, it is important for you to keep the appointment. Call your primary care physician or return to the Emergency Department immediately if your condition worsens, fails to improve, or new symptoms develop. If you need to find a doctor, you can call [facility] Link for a referral at [phone] or toll free at [phone] or log in to [email or web address].. ?? [facility], in keeping with [facility] guidance, no longer requires face masks for staff, patientsor visitors in most situations. Similiar to time spent indoors at other locations, there is the chance that you were exposed to repiratory viruses during your time with us (such as flu or COVID-19). If you develop symptoms concerning for a viral respiratory infection, please seek testing (and treatment if indicated) from your medical provider or home test kit. ?? You can view and manage your care through the patient portal or by using a health care walker of your choosing. [employer] is a website that allows you to securely view your medical information including your hospital discharge summary, office visit summaries, medications and follow-up visits. You can also request appointments, renew medications, and request access to your medical information using a health care walker of your choosing, or just ask a question. You can enroll at [email or web address] or register during your next office visit. You have been discharged from [facility], Patient Care Unit: D6B. If you have any questions regarding these instructions after you leave, please call us and we will be happy to assist you. [facility] Your Care Team Attending Physician Tova DSOUZA, Bri Draper Consulting Providers Анна DSOUZA, Mahesh; Chencho DSOUZA, Christopher Discharging Providers Jacklyn Fernandez DO Reason for Admission pt from [facility], per service captain pt has been altyered ongoing 2 days, found hypoxic to 70s on at home 2L O2, also reports poor po intake and changes in speech Your Diagnosis Acute on chronic respiratory failure with hypoxia Pulmonary embolism Hypernatremia Chronic hypoxemic respiratory failure Chronic obstructive lung disease H/O: pulmonary embolus H/O: Deep vein thrombosis Pulmonary embolism Acute kidney injury Hypernatremia Abnormal LFTs Troponin level elevated Anemia Stepehns's esophagus Benign essential hypertension Coronary atherosclerosis Gout Hypercholesterolemia Hyperlipidemia Ischemic cardiomyopathy Peripheral vascular disease 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 You may have had other tests and procedures not included in this list. Please discuss all test results with your provider. Albumin Level Alk Phos ALT AST BASE EXCESS POC CARTRIDGE Basic Metabolic Panel Bilirubin Total + Direct BUN CALCIUM IONIZED POC CART CBC CBC w/ Differential Comprehensive Metabolic Panel CORTISOL Creatinine D Dimer Electrolytes GGT GLUCOSE POC GLUCOSE POC CARTRIDGE HEMATOCRIT POC CARTRIDGE HEMOGLOBIN POC CARTRIDGE HEPATIC FUNCTION PANEL High??Sensitivity??Troponin T HOLD GEL TUBE INR Lactate Level LFT's Liver Function Panel MAGNESIUM Mg Level MRSA PCR Nasal Swab PHOSPHORUS POTASSIUM POC CARTRIDGE ProBNP PTT SODIUM POC CARTRIDGE Total Protein Troponin T, High Sensitivity Urinalysis w/hold for Urine Culture Urine Creatinine Urine Osmolality Urine Sodium VBG POC CARTRIDGE CT Angio Chest CT Head/Brain W/O Contrast CXR Portable US Liver US Renal Comp XR Modified Barium Swallow W/ Speech RAD Primary Care Provider Arjun aHmpton DO Advance Directive Health Care Proxy on File Yes - Health Care Proxy Yes - MOLST Discharge Vitals Temperature: 98.9 DegF Height: 180 cm Pulse Rate: 85 bpm Weight: 73 kg Respiratory Rate: 18 br/min Body Mass Index: 22.53 kg/m2 Systolic Blood Pressure:??140 mm Hg??High Body surface area: 1.91 Diastolic Blood Pressure: 71 mm Hg ?? Oxygen Saturation:??93 %??Low ?? Studies Pending All tests and labs ordered during this hospital stay have been completed unless listed below. Please discuss all pending results with your provider listed above in these instructions. ?? Add On Lab Order What to do next Instructions From Your Doctor You were admitted to [facility] for concern of??increasing oxygen requirements and confusion due to??blood clots in??your lungs??as??well as pneumonia due to aspiration. Your pneumonia was treated with antibiotics, and has resolved, and you were started on a blood thinner for the bloodclots.??You had tests done which showed a lot of difficulty with swallowing and concern of breathing in things you were swallowing. For this reason you had a procedure to place a G-tube, which you will receive??your feeds and medications through. For this reason, some of your medications have changed as outlined below. It will also be very important to follow up with your primary care provider (PCP) and outpatient specialists after you leave the hospital.? You will go home with the following NEW medications: -?Apixaban 5 mg twice??a day (this is the blood thinner) ?? The following medications were CHANGED or STOPPED: -?In general, all of your medications should be given through your Gtube from now on -?Your gabapentin and docusate (Colace) were CHANGED to a??liquid form to take through your G tube -?Your omeprazole was also CHANGED to a disintegrating tablet which can also be given through your G tube -?Your aspirin was STOPPED due to starting the blood thinner. You should discuss this with yourcardiologist or primary care provider??before restarting -?Your sucralfate was STOPPED because it cannot be given via G tube, please discuss with your PCP or GI provider if you have concerns -?Your primidone was STOPPED because of an interaction with the blood thinner. You should discuss other options with your PCP -?You should discuss??your home vitamins (multivitamin, vitamin D, ubiquinone, omega fatty acids)??with your primary care provider or nutrition before continuing. These were HELD and will not appear on your Med List. ?? What you should do when you leave??the hospital: -?? Please call your PCP to schedule follow up within a week. -?? You should keep an eye on his urine output and make sure he is peeing 2-3 times/day??and not uncomfortable.?If he is urinating less often than normal or has discomfort in his abdomen, you should discuss this more with your primary care provider for further workup. -?Restrictions in your diet: You will start tube feeds as recommended by the recreation attendant. Thesewere ordered through them and will be delivered to your home.?? -?Wound care: You were noted to have a wound on your leg which should have routine dressing changes and wound care with Xeroform. Your VNA services should help and you have been referred to??our outpatient wound clinic.? Reasons to immediately return to the emergency room or call 911: - You have worsening shortness of breath again,??you are spiking fevers of >100.4, you have any severe redness or pain at the G tube site, you lose consciousness or??become very confused again, you develop diarrhea or vomiting and cannot keep down enough liquids to stay hydrated - You have any other concerns that you think require emergency management Discharge Orders Scheduled Follow-Up Appointments Thursday 10:20 AM EST ?? With: Patrice DSOUZA, Emerson Schaefer Where: [facility] Plastic Surgery [address] [place] [address]- Status: Pending You Need to Schedule the Following Appointments Follow Up with??Arjun Hampton DO When:??Within Within one week Where: ?? Discharge Medications JENNIFER RODAS :1935 Visit Date:07/17/2023 Medications: Please continue your medications until treatment is completed or stopped by your provider. Medications not listed below should be discontinued. Discuss any questions related to medications with your provider. What How Much When Instructions Next Dose New apixaban (apixaban 5 mg oral tablet) 5 Milligram Gastrostomy/PEG Tube Twice a day Pickup at [facility] 3 07/30 @ 5pm Changed Omeprazole (omeprazole 20 mg oral tablet, disintegrating, delayed release) 40 Milligram Oral Daily Pickup at [facility] 3 07/31 @ 9am Unchanged Albuterol/ Ipratropium (albuterol-ipratropium 3 mg-0.5 mg/ 3 ml inhalation solution) 3 Milliliter Inhalation 4 times a day as needed Unchanged Allopurinol (allopurinol 300 mg oral tablet) 1 tab(s) Oral Daily 07/31?? @ 9am Unchanged Ammonium Lactate 12% (ammonium lactate 12% topical lotion) See instructions APPLY TOPICALLY DAILY TO THE LEGS DIREDTED ?? per instructions Unchanged Atorvastatin (atorvastatin 80 mg oral tablet) 1 tab(s) Oral Daily 07/31 @ 9am Unchanged Benzonatate (benzonatate 200 mg oral capsule) 1 capsule Oral 3 times a day as needed for as needed for cough as needed Unchanged Budesonide (budesonide 0.5 mg/ 2 mL inhalation suspension) 2 Milliliter Nebulized inhalation Twice a day as needed Unchanged Carvedilol (carvedilol 3.125 mg oral tablet) 3.125 Milligram Oral Twice a day Duration: 30 Days 12 @ 9pm Unchanged Docusate (docusate sodium 150 mg/ 15 ml oral liquid) 10 Milliliter Oral Twice a day Pickup at [facility] 3 as needed Unchanged Fluticasone Nasal (fluticasone 50 mcg/ inh nasal spray) 2 spray(s) Nares, Both Daily in the morning 07/31 @ 9am Unchanged Furosemide (Lasix 20 mg oral tablet) 20 Milligram Oral Daily 07/31 @ 9am Unchanged Insulin Glargine (Basaglar KwikPen 100 units/ mL subcutaneous solution) See instructions INJECT 10 UNITS SUBCUTANEOUSLY DAILY AT BEDTIME ?? 07/30 @ 9pm Unchanged Levothyroxine (levothyroxine 0.05 mg oral tablet) See instructions 1 tablet By Mouth Thursday-Thursday 2 tabs po Thu-Thursday ?? 12 @ 7am Unchanged Loratadine (Claritin 10 mg oral tablet) 1 tab(s) Oral Daily 07/31 @ 9am Unchanged Miscellaneous Rx (NOVOFINE AUTOCOVER 30G NEEDLE) Unchanged silver topical (SilvaSorb) 1 applicator Topically Daily as needed Unchanged Sodium Hypochlorite Topical (Dakins Half Strength 0.25% topical solution) See instructions Use for dressing changes as directed ?? per instructions Unchanged Tamsulosin (tamsulosin 0.4 mg oral capsule) 1 capsule Oral Daily 07/31 @ 9am Unchanged Thiamine 100 Milligram Oral Daily 07/31 @ 9am Pharmacy Information [facility] 3: [address], [place] [id number] [phone] ?? What How Much When Comments Stop Taking Aspirin (aspirin 81 mg oral tablet) 1 tab(s) Oral Daily Stop Taking Cholecalciferol (Vitamin D3 1000 intl units oral tablet) 1 tab(s) Oral Daily Stop Taking Gabapentin (gabapentin 100 mg oral capsule) 2 capsule Oral 3 times a day Stop Taking Multivitamin 1 tab Oral Daily Stop Taking [place]-3 Polyunsaturated Fatty Acids (Fish Oil 1000 mg oral capsule) 1 capsule Oral Daily Stop Taking Primidone (primidone 50 mg oral tablet) 2 tab(s) Oral 3 times a day Stop Taking Sucralfate (sucralfate 1 gm oral tablet) 1 tab(s) Oral Twice a day Stop Taking Ubiquinone (Co Q-10) 100 Milligram Oral Daily Test Results Below is a partial list of the most recent Laboratory test results done prior to this discharge. You may have had other tests and procedures not included in this list. Please discuss all test resultswith your provider. Est Creatinine Clearance - 91.25 mL/min (07/27/2023) Albumin Level (07/18/2023) ???Albumin - 2.5 Gm/dL Alk Phos (07/18/2023) ???Alkaline Phosphatase - 178 units/L ALT (07/18/2023) ???ALT (SGPT) - 107 units/L AST (07/18/2023) ???AST (SGOT) - 164 units/L BASE EXCESS POC CARTRIDGE (07/17/2023) ???Base Excess (POC) POC Cartridge - 6 Basic Metabolic Panel (07/20/2023) ???Sodium - 142 mmol/L???Potassium - 3.5 mmol/L???Chloride - 108 mmol/L???Bicarbonate Level - 24 mmol/L???Anion Gap - 10???Glucose Level - 131 mg/dL???BUN - 34 mg/dL???Creatinine-Blood - 0.9 mg/dL???Estimated GFR Creatinine - 83 ML/MIN/1.73 M2???Calcium - 8.1 mg/dL Bilirubin Total + Direct (07/18/2023) ? ?Bilirubin, Total - 0.2 mg/dL? ?Bilirubin, Direct - <0.2 mg/dL? ?Bilirubin, Indirect - Direct bilirubin is less than the measureable limit. Therefore, indirect BUN (07/25/2023) ???BUN - 11 mg/dL CALCIUM IONIZED POC CART (07/17/2023) ???Ionized Calcium (POC) POC Cartridge - 1.06 mmol/L CBC (07/28/2023) ???WBC - 6.2 k/mm3???RBC - 3.32 m/mm3???Hgb - 8.7 Gm/dL???Hct - 28.6 %???MCV - 86.1 femtoliters???MCH - 26.2 pg???MCHC - 30.4 g/dL???Platelet Count - 278 k/mm3???RDW-SD - 53.1 femtoliters???MPV - 10.2 femtoliters???Nucleated RBC (Automated) - 0.0 #/100 WBC'S???Abs. NRBC - 0.0 k/mm3 CBC w/ Differential (07/25/2023) ???WBC - 4.3 k/mm3???RBC - 3.69 m/mm3???Hgb - 9.6 Gm/dL???Hct - 32.2 %???MCV - 87.3 femtoliters???MCH - 26.0 pg???MCHC - 29.8 g/dL???Platelet Count - 313 k/mm3???RDW-SD - 52.0 femtoliters???MPV - 10.2 femtoliters???Nucleated RBC (Automated) - 0.0 #/100 WBC'S???Abs. NRBC - 0.0 k/mm3???Abs. Neut - 2.6 k/mm3???Abs. Lymph - 1.2 k/mm3???Abs. [place] - 0.5 k/mm3???Abs. Eo - 0.0 k/mm3???Abs. Baso - 0.0 k/mm3???Neut % - 59.6 %???Lymph % - 26.8 %???[place] % - 11.7 %???Eos % - 0.7 %???Baso % - 0.7 %???Imm Gran - 0.5 %???Abs. Imm Gran - 0.0 k/mm3 Comprehensive Metabolic Panel (07/28/2023) ???Sodium - 141 mmol/L???Potassium - 3.8 mmol/L???Chloride - 109 mmol/L???Bicarbonate Level - 25 mmol/L???Anion Gap - 7???Glucose Level - 133 mg/dL???BUN - 15 mg/dL???Creatinine-Blood - 0.6 mg/dL???Estimated GFR Creatinine - 92 ML/MIN/1.73 M2???Calcium - 8.2 mg/dL???Protein, Total - 4.9 Gm/dL???[place]bu min - 2.1 Gm/dL???AG Ratio - 0.8???Alkaline Phosphatase - 176 units/L???AST (SGOT) - 51 units/L???ALT (SGPT) - 31 units/L???Bilirubin, Total - 0.2 mg/dL CORTISOL (07/18/2023) ???Cortisol Level - 32.6 ??g/dL Creatinine (07/25/2023) ???Creatinine-Blood - 0.7 mg/dL???Estimated GFR Creatinine - 91 ML/MIN/1.73 M2 D Dimer (07/17/2023) ???D-Dimer - 20.80 mg/L FEU Electrolytes (07/25/2023) ???Sodium - 144 mmol/L???Potassium - 4.1 mmol/L???Chloride - 112 mmol/L???Bicarbonate Level - 24 mmol/L???Anion Gap - 8 GGT (07/28/2023) ???GGTP - 255 units/L GLUCOSE POC (07/30/2023) ???Glucose, POC - 174 mg/dL GLUCOSE POC CARTRIDGE (07/17/2023) ???Glucose (POC) POC Cartridge - 152 HEMATOCRIT POC CARTRIDGE (07/17/2023) ???Hematocrit (POC) POC Cartridge - 35 % HEMOGLOBIN POC CARTRIDGE (07/17/2023) ???Hemoglobin (POC) POC Cartridge - 11.9 Gm/dL HEPATIC FUNCTION PANEL (07/19/2023) ???Protein, Total - 5.6 Gm/dL???Albumin - 2.5 Gm/dL???Alkaline Phosphatase - 171 units/L???AST (SGOT) - 130 units/L? ?ALT (SGPT) - 91 units/L? ?Bilirubin, Total - 0.2 mg/dL? ?Bilirubin, Direct - <0.2 mg/dL???Bilirubin, Indirect - Direct bilirubin is less than the measureable limit. Therefore, indirect High??Sensitivity??Troponin T (07/17/2023) ???High Sensitivity Troponin (HSTnT) - 98 ng/L HOLD GEL TUBE (07/25/2023) ???Hold Gel Top - SPECIMEN DISCARDED AFTER 1 WEEK INR (07/17/2023) ???INR - 1.3???Protime (PT) - 13.3 seconds Lactate Level (07/19/2023) ???Lactate - 1.6 mmol/L LFT's (07/20/2023) ???Protein, Total - 5.4 Gm/dL???Albumin - 2.4 Gm/dL???Alkaline Phosphatase - 164 units/L???AST (SGOT) - 80 units/L? ?ALT (SGPT) - 64 units/L? ?Bilirubin, Total - 0.2 mg/dL? ?Bilirubin, Direct - <0.2 mg/dL???Bilirubin, Indirect - Direct bilirubin is less than the measureable limit. Therefore, indirect Liver Function Panel (07/25/2023) ???Protein, Total - 5.0 Gm/dL???Albumin - 2.0 Gm/dL???Alkaline Phosphatase - 194 units/L???AST (SGOT) - 60 units/L? ?ALT (SGPT) - 38 units/L? ?Bilirubin, Total - 0.2 mg/dL? ?Bilirubin, Direct - <0.2 mg/dL???Bilirubin, Indirect - Direct bilirubin is less than the measureable limit. Therefore, indirect MAGNESIUM (07/28/2023) ???Magnesium - 1.6 mg/dL Mg Level (07/27/2023) ???Magnesium - 1.6 mg/dL MRSA PCR Nasal Swab (07/18/2023) ???MRSA PCR Result - Negative, MRSA target DNA not detected.???S Aureus PCR Result - Negative, SA target DNA not detected. PHOSPHORUS (07/28/2023) ???Phosphorus - 2.5 mg/dL POTASSIUM POC CARTRIDGE (07/17/2023) ???Potassium (POC) POC Cartridge - 4.9 mmol/L ProBNP (07/17/2023) ???Nt-Probnp - 1971 pg/mL PTT (07/27/2023) ???APTT - 168.9 seconds SODIUM POC CARTRIDGE (07/17/2023) ???Sodium (POC) POC Cartridge - 145 mmol/L Total Protein (07/18/2023) ???Protein, Total - 6.1 Gm/dL Troponin T, High Sensitivity (07/17/2023) ???High Sensitivity Troponin (HSTnT) - 79 ng/L Urinalysis w/hold for Urine Culture (07/17/2023) ???Appear/Color, Urine - YELLOW???Specific [employer], Urine - 1.017???pH, Urine - 6.5???Albumin, Urine - 1+???Glucose, Urine - NEGATIVE???Ketones, Urine - NEGATIVE???Bilirubin, Urine - NEGATIVE???Hemoglobin, Urine - NEGATIVE???Nitrite, Urine - NEGATIVE???Leukocyte, Urine - NEGATIVE???Urobilinogen - NORMAL? ?WBC's, Urine - <1 /HPF? ?RBC's, Urine - 1 /HPF? ?Hyaline Cast - 1 LPF? ?Hold Urine Culture - Testing available 48 hours from time of collection. Urine Creatinine (07/18/2023) ???Creatinine, Urine Random - 94.7 mg/dL Urine Osmolality (07/18/2023) ???Osmolality, Urine Random - 481 mOsm/kg Urine Sodium (07/18/2023) ???Sodium, Urine Random - 29 mmol/L VBG POC CARTRIDGE (07/17/2023) ???pH Venous (POC) POC Cartridge - 7.51???pCO2 Venous (POC) POC Cartridge - 35.9 mm Hg???pO2 Venous(POC) POC Cartridge - 24 mm Hg???Est Bicarbonate (POC) POC Cartridge - 28.7 mmol/L???% O2 Sat Venous (POC) POC Cartridge - 50???Specimen Type - Blood Gas - VENOUS Allergies (NKA means No Known Allergies) NKA Problems Active Problems??(32) Abnormal LFTs?? Acute kidney injury?? Anemia?? At high risk for fall?? 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 Benign essential hypertension?? Chronic hypoxemic respiratory failure?? Chronic obstructive lung disease?? Chronic respiratory failure, unspecified whether with hypoxia or hypercapnia?? Coronary atherosclerosis?? COVID-19?? Encounter for annual wellness visit (AWV) in Medicare patient?? Gout?? H/O: Deep vein thrombosis?? H/O: pulmonary embolus?? Alta's thyroiditis?? Hemiparesis affecting right side as late effect of cerebrovascular accident?? Hypercholesterolemia?? Hyperlipidemia?? Hypernatremia?? Ischemic cardiomyopathy?? Neuropathy, peripheral?? Patent foramen ovale?? Peripheral vascular disease?? Pulmonary embolism?? 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 Right homonymous hemianopsia?? Squamous cell carcinoma of scalp?? Tremor?? Troponin level elevated?? Type 2 diabetes mellitus with insulin therapy?? Type 2 diabetes with nephropathy?? Education Materials Below is the list of Educational Leaflet Providered with your Discharge Instructions. Apixaban Oral Tablet?? Pulmonary Embolism (PE)?? Discharge Instructions: Flushing Your Feeding Tube?? Taking Medicine Through a Feeding Tube?? Understanding PEG Tube Placement?? Discharge Instructions: Caring for Your Gastrostomy Tube (G-Tube)?? Valuables and Belongings I fully understand and agree that [facility] accepts no responsibility for all my personal property including clothing, toilet articles, radios, jewelry, dentures, hearing aids, rings, money, or any other property that is in my possession or is brought to me after admission. I understand certain valuables may be placed in a hospital safe for a short period of time. I understand that the hospital is not liable for loss or damage due to accident, fire, or other natural occurrence while said property is in the safe. I accept full responsibility for any personal property that I keep with me, and will not hold the hospital responsible in case of loss or disappearance. I acknowledge that i have been encouraged to send valuables and belongings home. ?? No Valuables/Belongings: No valuables/belongings present Review of Valuable and Belonging List: With family Date for Pt to Sign Valuables/Belongings: 07/18/23 05:49:00 ?? Other Discharge Information ?? Wound Assessment?? Wound Assessment?? Wound Location I: Head Wound Type I: Skin Tear Wound Location II: Leg, left lower Wound Type II: Skin Tear ?? Case Management Discharge Plan?? Discharge Plan?? Discharge Agency Information?? Discharge Level of Care at Discharge: Homehealth/VNA Name of Agency #1: [facility] Discharge Transportation Arranged: [facility] [address] [facility] [id number] [phone] Agency [facility] #1: admissions Mode of Transportation Arranged: Ambulance Service Categories #1: G-tube feeds, Infusion pump, Physical Therapy, Group Home Discharge VNA/Hospice/Home Care: [facility] Service Comments #1: Tube feeds/supplies by [facility] Discharge Medical Equipment Companies: [employer] ? Pulmonary Rehab Status?? Pulmonary Rehab Discharge Status?? Respiratory Rate: 18 br/min Discharge Medical Equipment Companies: [employer] ? Common Emergency Awareness Tips IS IT A STROKE? Act FAST and Check for these signs: FACE Does the face look uneven? ARM Does one arm drift down? SPEECH Does their speech sound strange? TIME Call at any sign of stroke ?? Heart Attack Signs Chest discomfort: Most heart attacks involve discomfort in the center of the chest and lasts more than a few minutes, or goes away and comes back. It can feel like uncomfortable pressure, squeezing, fullness or pain. Discomfort in upper body: Symptoms can include pain or discomfort in one or both arms, back, neck, jaw or stomach. Shortness of breath: With or without discomfort. Other signs: Breaking out in a cold sweat, nausea, or lightheaded. Remember, MINUTES DO MATTER. If you experience any of these heart attack warning signs, call to get immediate medical attention! ?? Smoking can increase your chances of developing chronic health problems and can cause harmful effects to other family members in your house. If you smoke, you are strongly encouraged to quit. Please call [facility] at [phone] or [phone] ([phone]) or log in to [email or web address] for referrals to smoking cessation programs. ?? 533 Suicide & Crisis Lifeline is available 16/03 if you or someone you know needs to find a reason to keep living. By calling 707 you'll be connected to a skilled, trained counselor at a crisis center in your area. INPATIENT DISCHARGE INSTRUCTIONS SIGNATURE PAGE JENNIFER RODAS Location:[facility] Registration Date and Time:07/17/2023 15:21 EST Primary Care Physician: Arjun Hampton DO, Attending Physician: Bri Bernardo MD, I JENNIFER RODAS, have received the above patient education materials/instructions and have verbalized understanding. If ambulance or transport services are being used I further acknowledge being givena choice of service. ?? If you need to contact me, please call me at this number: . Patient/Rn Training Name: Patient/Rn Training Signature: Relationship to Patient: Witness Name/Signature: Date: * Jacklyn Fernandez DO: PERFORM Event Display: Patient Education Leaflets Authored Date: [id number] Apixaban Oral Tablet ?? [id number] Apixaban Oral Tablet Brands: Eliquis Uses This medicine is used for the following purposes: ??? blood disorder ??? prevent blood clots ??? treatment of blood clots ??? blood clot ?? Instructions This medicine may be taken with or without food. This medicine will work best if you take it at about the same time every day. Store at room temperature away from heat, light, and moisture. Do not keep in the bathroom. It is important that you keep taking each dose of this medicine on time even if you are feeling well. If you forget to take a dose on time, take it as soon as you remember. If it is almost time for thenext dose, do not take the missed dose. Return to your normal schedule. Do not take 2 doses at one time. Drug interactions can change how medicines work or increase risk for side effects. Tell your healthcare providers about all medicines taken. Include prescription and krwb-ptn-[id number] medicines, vitamins, and herbal medicines. Speak with your doctor or pharmacist before starting or stopping any medicine. Talk to your doctor before taking other medicines, including aspirins and ibuprofen containing products. Speak to your doctor about which medicines are safe to use while you are on this medicine. It is very important that you follow your doctor's instructions for all blood tests. ?? Cautions This medicine may cause serious bleeding problems in patients taking blood thinner medications. Follow your doctor's instructions carefully to monitor your blood lab tests if you are on blood thinners. Tell your doctor and pharmacist if you ever had an allergic reaction to a medicine. This medicine may cause serious bleeding from the stomach or bowels. Stop this medicine and call your doctor immediately if you see any signs of bleeding. Bleeding can cause pain in the stomach, vomiting up liquid that looks like coffee grounds, and red or dark tarry stools. There is an increased risk of bleeding while on this medicine, please tell your doctor or nurse if you notice any excessive bleeding or bruising. Do not use the medication any more than instructed. Please check with your doctor before drinking alcohol while on this medicine. Do not breastfeed while on this medicine. This medicine can hurt a new baby in the womb. If you become while on this medicine, tell your doctor immediately. Your doctor may switch you to a different medicine. Do not take Ennis's wort while on this medicine. Do not share this medicine with anyone who has not been prescribed this medicine. Some patients have serious side effects from this medicine. Ask your pharmacist to show you the information from the Food and Drug Administration (FDA) and discuss it with you. Always refill this medicine before it runs out. ?? Side Effects The following is a list of some common side effects from this medicine. Please speak with your doctor about what you should do if you experience these or other side effects. ??? nosebleeds Call your doctor or get medical help right away if you notice any of these more serious side effects: ??? bleeding or bruising ??? coughing up blood or vomit that looks like coffee grounds ??? fainting??? numbness or tingling in hands and feet ??? severe or persistent headache ??? sudden leg pain, swelling, warmth or redness ??? loss of movement anywhere on the body ??? shortness of breath ??? bloody or dark, tarry stools ??? symptoms of stroke (such as one-sided weakness, slurred speech, confusion) ??? difficulty swallowing ??? unusual or unexplained tiredness or weakness ??? blood in urine ??? blurring or changes of vision A few people may have an allergic reaction to this medicine. Symptoms can include difficulty breathing, skin rash, itching, swelling, or severe dizziness. If you notice any of these symptoms, seek medical help quickly. ?? Extra Please speak with your doctor, nurse, or pharmacist if you have any questions about this medicine. ?? [email or web address] IMPORTANT NOTE: This document tells you briefly how to take your medicine, but it does not tell youall there is to know about it. Your doctor or pharmacist may give you other documents about your medicine. Please talk to them if you have any questions. Always follow their advice. There is a more complete description of this medicine available in Maldivian. Scan this code on your smartphone or tablet or use the web address below. You can also ask your pharmacist for a printout. If you have any questions, please ask your pharmacist. The display and use of this drug information is subject to Terms of Use. Copyright(c) 2022 [employer]. ?? [employer]. All rights reserved. This information is not intended as a substitute for professional medical care. Always follow your healthcare professional's instructions. ?? * Jacklyn Fernandez DO: PERFORM Event Display: Patient Education Leaflets Authored Date: [id number] Pulmonary Embolism (PE) ?? 16976 Pulmonary Embolism (PE) A pulmonary embolus is most often due to a blood clot that develops in a deep vein of the leg (deepvein thrombosis). If that clot breaks loose and travels to the lung, it's called a pulmonary embolism (PE). This can cut off blood flow in the lungs. A blood clot in the lungs is a medical emergency and may cause .?? Healthcare providers use the term??venous thromboembolism (VTE)??to describe these 2 conditions: deep vein thrombosis and??pulmonary embolism.??They use the term VTE because the 2 conditions are veryclosely linked. And because their prevention and treatment are also closely linked.?? A pulmonary embolism occurs when a blood clot forms in a vein and travels to the lungs. How is pulmonary embolism diagnosed? Your healthcare provider examines you and asks about your??symptoms and health history. You may also have one or more of the following: ??? Blood tests??to check for blood clotting or other problems ??? Imaging tests??to??look for clots in the veins or lung ??? Electrocardiography (ECG)??to test how well the heart is working ?? How is pulmonary embolism treated? Blood-thinning medicines (anticoagulants). These medicines thin the blood. They may be given as a pill,??as an injection, or through a tube into a vein??(intravenous or??IV). Blood thinners help prevent more blood clots from forming. They also help to??preventan existing clot from getting larger. ??? Thrombolysis. Thrombolytic medicines are??used to quicklydissolve a blood clot. A long, narrow tube (catheter) is used to deliver medicine directly to the clot.??Thrombolytic medicines increase the risk of bleeding. So they are used very carefully. ??? Inferior vena cava (IVC) filter surgery. The vena cava is the body???s largest vein. It carries blood from the body to the heart. A small filter traps blood clots in the lower body and prevents them fromtraveling to the lungs. The filter is inserted into the vein through a catheter. The filter may be used if??blood thinners can't be taken or if they don't work.? Pulmonary embolectomy. This is aprocedure to remove a blood clot in the lungs. It may be done with surgery or with a catheter inserted in the body. It may be done when other treatments aren't safe or don't work. ?? What are the long-term concerns? With treatment, blood clots are often dissolved or removed. Some treatments can even help prevent future clots. But??having a PE can put you at risk for another life-threatening blood clot. So, you will likely need to take anticoagulants to help keep blood clots from forming again. You may need to take this medicine for months or years. You may also need to make lifestyle changes. This may include getting more active and eating healthier.??You may??need to wear elastic (compression) stockings and take breaks on long trips. ?? Call 911 Call 911 or get emergency help if you have: ??? Heavy or uncontrolled bleeding ??? Symptoms of a blood clot that has traveled to the lungs, including: o Chest pain o Trouble breathing o Coughing (may cough up blood) o Fainting o Fast heartbeato Sweating ?? When to call your healthcare provider Call your healthcare provider if you have swelling or pain in your leg, arm, or other area. These are symptoms of a blood clot. You may have bleeding if you take medicine to help prevent blood clots. Call your provider if you have symptoms of bleeding. This includes: ??? Blood in your pee ??? Bleeding with your poop (stool or bowel movements) ??? Bleeding from the nose, gums, vagina, or a cut ?? Last Reviewed Date: 2022 ?? 5628-5552 [employer]. All rights reserved. This information is not intended as a substitute for professional medical care. Always follow your healthcare professional's instructions. ?? * Jacklyn Fernandez DO: PERFORM Event Display: Patient Education Leaflets Authored Date: [id number] Discharge Instructions: Flushing Your Feeding Tube ?? [address]9045 Discharge Instructions: Flushing Your Feeding Tube You are going home with a feeding tube in place. One of the things you must do is flush your tube to keep it from becoming clogged. You will flush your tube with warm water after each feeding, and before and after giving yourself any medicines. You were shown how to flush and care for your tube in the hospital. This sheet helps you remember the steps when you are at home. Ask for phone numbers to call if you need help. Healthcare provider phone number: Home health nurse phone number: [employer] phone number: Gather your supplies Wash your hands thoroughly with mild soap and clean, running water.??Or use a hand clinical program coordinator that contains 60% alcohol.?? Here are the supplies you will need: ??? 50 mL (cc) syringe or larger ??? Bowl of warm water ??? Medical tape ?? Flushing a tube for continuous feeding Flush the feeding tube with warm water and a clean syringe. Do this before the first daily feeding,after the last daily feeding, and at other times as instructed. Follow these steps: ??? Put the tipof the syringe in the water. ??? Draw up??the advised??amount??of water. ??? Turn off the pump. ???Not all tubes have clamps. Close the clamp on the feeding bag tubing if there is one. ??? Remove the tubing from the port. ??? Put the tip of the syringe in the feeding port. ??? Push the plunger down slowly. Use an even, gentle push. ??? Let the water run through the feeding tube. ??? Start your feeding or close the cap on the feeding port. ??? Tape the tube to your skin with medical tape. ?? Flushing a tube for single or special (bolus) feedings Depending on your healthcare provider's instructions, flush the feeding tube before and after each feeding, in between each medicine, and after medicines. Use a clean syringe and warm water. Follow these steps: ??? Fill a clean bowl with warm water. ??? Put the tip of the syringe in the water. ??? Draw up ___ mL (cc) of water. Follow your healthcare provider's specific instructions on how much water to use. The amount depends on your age, health condition, and your situation. ??? Open the cap on the feeding port. ??? Put the tip of the syringe in the feeding port. ??? Push down on the plungerslowly.??Use an even, gentle push. Let the water run through the tube. ??? Close the cap. ??? Tape the tube to your skin with medical tape. ?? Call 911 Call 911 if any of these occur: ??? You are choking ??? You have a large amount of bloody or coffee-colored drainage through the tube ??? You see a small amount of bloody or coffee-colored drainage through the tube. ?? When to call your healthcare provider Call your healthcare provider right away if you have any of the following: ??? Trouble breathing during feeding, flushing, or giving medicine ??? Tube that can???t be unclogged ??? Tube that falls out or trouble telling if the tube is in your stomach ??? Tube that is cracked or breaking down? Diarrhea that lasts for more than??3 loose stools ??? Constipation that lasts more than??48 hours ??? Upset stomach or vomiting ??? Redness, warmth, or soreness in the skin around the tube ??? Sudden weight loss or gain (more than??2 pounds in??24??hours) ??? Bloated or tight belly ??? Fever??of??100.4??F??(38??C) or higher, or as directed by your provider ??? Chills ?? Last Reviewed Date: 2021 ?? 4035-6243 [employer]. All rights reserved. This information is not intended as a substitute for professional medical care. Always follow your healthcare professional's instructions. ?? * Natasha Gutierrez RN: SIGN, PERFORM, VERIFY Event Display: Case Management Discharge Plan Authored Date: Patient: JENNIFER RODAS Age: 88 years Sex: Male : 1935 Associated Diagnoses: None Author: Natasha Gutierrez RN Discharge Plan Case Management Discharge Plan : Case Management Discharge Plan Data 07/29/2023 10:09 EST Discharge Level of Care at Discharge Homehealth/VNA Discharge VNA/Hospice/Home Care [facility] Nurse association Discharge Medical Equipment Companies [employer] [facility] Discharge Transportation Arranged [facility] [address] [facility] [phone] Mode of Transportation [facility] Name of Agency #1 [facility] #1 admissions Service Categories #1 G-tube feeds, Infusion pump, Physical Therapy, Group Home Service Comments #1 Tube feeds/supplies by [facility] 07/29/2023 10:01 EST Discharge Level of Care at Discharge Homehealth/VNA Discharge VNA/Hospice/Home Care [facility] [phone] Discharge Transportation [facility]anged [facility] [address] [facility] [phone] Mode of Transportation [facility] Name of Agency #1 In Error (In Error) Agency [facility] #1 admissions Service Categories #1 G-tube feeds, Hospital bed, Infusion pump, Group Home Service Comments #1 Feeds to be provided by [facility] Patient Care team information Care Team Personnel Name: Kelsi Marie RN Position: [facility] RN Member Role: Primary Care Nurse Name: Lucina Shah RN Position: [facility] SN RN Member Role: Primary Care Nurse Name: Isaias Aparicio RN Position: [facility] RN Member Role: Primary Care Nurse Name: Suyapa Schmitz RN Position: [facility] RN Member Role: Primary Care Nurse Name: Sabina Simpson RN Position: [facility] RN Member Role: Primary Care Nurse Name: Olimpia Wallis RN Position: [facility] SN RN Member Role: Primary Care Nurse Name: Deyanira Zapien RN Position: [facility] RN Member Role: Primary Care Nurse Name: Miguel Munoz MD Position: [facility] Renal MD Member Role: Lifetime Consulting Physician Address: Address: [address] [place] [address] [address] [place] [address]- Name: Naz Fleming MD Position: [facility] Physician - Primary Care Member Role: Lifetime Consulting Physician Address: Address: [address] [place] [address] [facility] [place] [address]- [place] Name: Gladys Garvin RN Position: [facility] RN Member Role: Primary Care Nurse Name: Juma Nieto RN Position: [facility] RN Member Role: Primary Care Nurse Name: Nayeli Quintana RN Position: S RN Member Role: Primary Care Nurse Name: Tamica Vernon RN Position: [facility] RN Member Role: Primary Care Nurse Name: Lucina Ugalde RN Position: [facility] RN Member Role: Primary Care Nurse Name: Deyanira Schwartz Position: [facility] [employer]ifter [employer] miller Member Role: Research Compliance Specialist Name: Erin Lamas RN Position: [facility] RN Member Role: Primary Care Nurse Name: Arjun Hampton DO Position: [facility] Physician - Primary Care Member Role: PCP Address: Address: [address] [place] [address] [place] [address]- Name: Tonya Watkins Position: [facility] RN Member Role: Primary Care Nurse Name: Aileen Tripp RN Position: [facility] RN Member Role: Primary Care Nurse Name: Jeromy Rivero RN Position: [facility] AMB Nurse Member Role: Primary Care Nurse Name: Deyanira Douglas RN Position: [facility] Onco RN Member Role: Primary Care Nurse Name: Brittney Sanchez RN Position: [facility] RN Member Role: Primary Care Nurse Name: Taisha Anguiano Position: [facility] AMB Nurse Member Role: Lifetime Consulting Physician Name: Tonya Burrows RN Position: [facility] RN Member Role: Primary Care Nurse Name: Rita Collado LPN Position: [facility] RN Member Role: Primary Care Nurse Name: Kali Roberts Jr Position: [facility] ED RN W/OE and Tasks Member Role: Primary Care Nurse Name: Melissa Jordan RN Position: [facility] RN Member Role: Primary Care Nurse Name: Blaine Cotter RN Position: [facility] RN Member Role: Primary Care Nurse Name: Erin Pagan RN Position: [facility] Hospital [employer] Teacher Member Role: Primary Care Nurse Name: Jeromy Estrella RN Position: [facility] RN Member Role: Primary Care Nurse Name: Angel Berry LPN Position: [facility] RN Member Role: Primary Care Nurse Name: Tea Solitario RN Position: [facility] RN Member Role: Primary Care Nurse Name: Nish Hawthorne MD Position: [facility] Renal MD Member Role: Lifetime Consulting Physician Address: Address: [address] [facility] [address] [facility] [place] [address]- [place] Name: Edmond Bingham RN Position: [facility] Onco RN Member Role: Primary Care Nurse Name: Moisés Cano RN Position: [facility] RN Member Role: Primary Care Nurse Name: Mitali Webb RN Position: [facility] RN Member Role: Primary Care Nurse Name: Jenifer Wiley RN Position: [facility] RN Member Role: Primary Care Nurse Name: Jacklyn Machado RN Position: [facility] AMB Nurse Member Role: Primary Care Nurse Name: Keyon Ceballos RN Position: [facility] RN Member Role: Primary Care Nurse Address: Address: [address] [place] [address]- Name: Jacklyn Perrin RN Position: [facility] RN Member Role: Primary Care Nurse Name: Sulma Garza LPN Position: [facility] RN Member Role: Primary Care Nurse Name: Cora Hernandez RN Position: [facility] Onco RN Member Role: Primary Care Nurse Name: Shadi Frazier RN Position: [facility] RN Member Role: Primary Care Nurse Name: Messi SMITH Attending Position: [facility] ED Medicine MD Name: Car Amador RN Position: [facility] ED RN W/OE and Tasks Member Role: Patient Care Provider Name: Ruthie Calvo Position: [facility] ED OA Charge Member Role: ED Associate Name: Adal Horan Position: [facility] Resident Member Role: Chart Review Address: Address: [address] [place] [id number]- Name: Carlos Alberto Garza Position: [facility] ED TA [facility] Member Role: Patient Care Provider Care Team Related Persons Name: HOUSTON THOMPSON Address: home [address] [place] [address] Name: SCARLETT RODAS Address: [address] [place] [address]
--- OUTSIDE RECORDS SUMMARY | 2023-08-06 10:09 | XMS_ITS | Continuity of Care Document ---
Author Name Unknown Organization [facility] ter Address [address] [place] [id number]- Care Team Providers Care Plug Paster Name Role Phone Arjun Hampton DO Primary Care Physician Encounter [facility] [place] Date(s): 05/13/23 - 05/16/[address] [id number]- Encounter Diagnosis CHF (congestive heart failure)(Final) - 05/13/23 Hypotension(Final) - 05/13/23 Discharge Disposition: A-Transfer VNA/Home Health Attending Physician: Emperatriz Contreras MD Admitting Physician: Stanley Mcmanus MD Referring Physician: Not on Staff, Referring MD Allergies, Adverse Reactions, Alerts No Known Allergies Immunizations Given and Recorded Vaccine Date Status Refusal Reason SARS-CoV-2 (COVID-19) mRNA BNT-162b2 vac 06/26/21 Recorded SARS-CoV-2 (COVID-19) mRNA BNT-162b2 vac 10/31/20 Recorded SARS-CoV-2 (COVID-19) mRNA BNT-162b2 vac 10/10/20 Recorded influenza virus vaccine, inactivated 06/03/21 Christian rded influenza virus vaccine, inactivated 05/16/20 Christian rded influenza virus vaccine, inactivated 05/25/19 Christian rded influenza virus vaccine, inactivated 07/29/18 Give n influenza virus vaccine, inactivated 05/28/18 Christian rded influenza virus vaccine, inactivated 06/11/17 Christian rded influenza virus vaccine, inactivated 05/23/16 Christian rded Influenza Virus Vaccine (oldterm) 06/08/19 Recorde d pneumococcal 13-valent vaccine 07/29/18 Given tetanus/diphtheria/pertussis, acel(Tdap) 04/15/18 Given pneumococcal 23-valent vaccine 1 08/04/14 Recorded 1Result Comment: [facility] Medications albuterol-ipratropium 3 mg-0.5 mg/3 ml inhalation [...] LEGS DIREDTED, # 225 mL, 0 Refills, [facility], 20, APPLY TOPICALLY DAILY TO THE LEGS DIREDTED, 180, cm, 01/29/22 10:46:00 EDT, Height Start Date: 02/18/22 Status: Ordered aspirin 81 mg oral tablet 1 tablet = 81 mg, By Mouth, Daily, # 30 tablet, 0 Refills, Maintenance, 07/28/18 21:42:36 EST, Tablet Start Date: 07/28/18 Status: Ordered atorvastatin 80 mg oral tablet 1 tablet = 80 mg, By Mouth, Daily, # 30 tablet, 0 Refills, Maintenance, 03/27/20 21:57:00 EDT, Tablet Start Date: 03/27/20 Status: Ordered Basaglar KwikPen 100 units/mL subcutaneous solution See Instructions, INJECT 10 UNITS SUBCUTANEOUSLY DAILY AT BEDTIME, # 15 Unknown, 1 Refills, 07/10/22 6:58:00 EST, [facility]/pharmacy #[id number], 180, cm, 04/18/22 11:39:00 EDT, Height [...] 05/16/23 9:38:00 EDT, Route to Pharmacy Electronically, [facility]/pharmacy #[id number], Partial fill upon patient request if the prescription is for a schedule II opioid drug.... Start Date: 05/16/23 Stop Date: 06/15/23 Status: Ordered carvedilol 3.125 mg oral tablet 3.125 mg, Tablet, By Mouth, Hold for: sys bp < 100, HR < 60, 05/16/23 9:00:00 EDT Start Date: 05/16/23 Stop Date: 05/16/23 Status: Completed Claritin 10 mg oral tablet 10 mg, 1, tablet, By Mouth, Daily, Refills 0, Maintenance, 11/23/18 10:33:45 EDT Start Date: 11/23/18 Status: Ordered clonazePAM 0.5 mg oral tablet 0.5 tablet = 0.25 mg, By Mouth, Daily, 0 Refills, Maintenance, 12/24/22 17:13:00 EDT, Tablet, Partial fill upon patient request if the prescription is for a schedule II opioid drug. Start Date: 12/24/22 Status: Ordered Co Q-10 = 100 mg, By Mouth, Daily, 0 Refills, Maintenance, 11/23/18 10:33:54 EDT Start Date: 11/23/18 Status: Ordered Dakins Half Strength 0.25% topical solution See Instructions, Use for dressing changes as directed, # 473 mL, 0 Refills, Maintenance, 09/11/22 7:42:00 EST, [facility]/pharmacy #[id number], Partial fill upon patient request if the prescription is for a schedule II opioid drug., Use for dressing changes as di... Start Date: 09/11/22 Status: Ordered diosmiplex 630 mg oral tablet 1 tablet = 630 mg, By Mouth, Daily, # 30 tablet, 0 Refills, Maintenance, 12/24/22 17:26:00 EDT, Tablet, Partial fill upon patient request if the prescription is for a schedule II opioid drug. Start Date: 12/24/22 Status: Ordered docusate sodium 150 mg/15 ml oral liquid 10 mL = 100 mg, By Mouth, 2 times a day, 0 Refills, Maintenance, 10/11/15 9:50:30, Liquid Start Date: 10/11/15 Status: Ordered Fish Oil 1000 mg oral capsule 1 capsule = 1,000 mg, By Mouth, Daily, 0 Refills, Maintenance, 07/28/18 21:41:44 EST Start Date: 07/28/18 Status: Ordered fluticasone 50 mcg/inh nasal spray 2 sprays, Nares, Both, Daily in AM, 0 Refills, Maintenance, 03/27/20 21:59:00 EDT, [place] Start Date: 03/27/20 Status: Ordered gabapentin 100 mg oral capsule 200 mg, 2, capsule, By Mouth, 3 times a day, # 180 capsule, Refills 0, Maintenance, 03/27/20 21:59:00 EDT Start Date: 03/27/20 Status: Ordered gabapentin 100 mg oral capsule 200 mg, Capsule, By Mouth, 05/16/23 9:00:00 EDT Start Date: 05/16/23 Stop Date: 05/16/23 Status: Completed Iodosorb 0.9% topical gel See Instructions, Apply to left toe ulcer every other day and cover with gauze dressing, # 40 Gm, 1Refills, Maintenance, 12/16/18 10:27:22 EDT, Apply to left toe ulcer every other day and cover withgauze dressing Start Date: 12/16/18 Status: Ordered Lasix 20 mg oral tablet 20 mg, By Mouth, Daily, Refills 0, Maintenance, 05/16/23 9:39:00 EDT, Partial fill upon patient request if the prescription is for a schedule II opioid drug. Start Date: 05/16/23 Status: Ordered levothyroxine 0.05 mg oral tablet See Instructions, 1 tablet By Mouth Thursday-Thursday 2 tabs po Thu-Thursday, # 90 tablet, 3 Refills, 04/17/22 17:59:00 EDT, [facility]/pharmacy #[id number], 180, cm, 02/21/22 11:07:00 EDT, Height Start Date: 04/17/22 Status: Ordered Multivitamin 1 tab, By Mouth, Daily, 0 Refills, Maintenance, 07/28/18 21:39:19 EST Start Date: 07/28/18 Status: Ordered omeprazole 40 mg oral enteric coated capsule 1 capsule = 40 mg, By Mouth, Daily, # 90 capsule, 0 Refills, Maintenance, 02/29/20 15:47:00 EDT, ECCapsule Start Date: 02/29/20 Status: Ordered ondansetron 4 mg oral tablet 1 tablet = 4 mg, By Mouth, Every 8 hours, PRN Nausea & Vomiting, # 30 tablet, 1 Refills, Maintenance, 01/13/23 14:16:00 EDT, [facility]/pharmacy #[id number], Partial fill upon patient request if the prescription is for a schedule II opioid drug., 180, cm, 12/26/22... Start Date: 01/13/23 Status: Ordered primidone 50 mg oral tablet TAKE 2 TABLETS BY MOUTH 3 TIMES A DAY Start Date: 12/26/22 Status: Ordered Silvadene 1% cream 1 application, Topically, 2 times a day, for 30 days, # 50 Gm, 0 Refills, Acute 06/15/23 9:39:00 EDT, 05/16/23 9:39:00 EDT, Cream, [facility]/pharmacy #[id number], Partial fill upon patient request if the prescription is for a schedule II opioid drug., 1 applicati... Start Date: 05/16/23 Stop Date: 06/15/23 Status: Ordered sucralfate 1 gm oral tablet 1 Gm, 1, tablet, By Mouth, 3 times a day before meals and bedtime, Refills 0, Maintenance, 11/23/1909:32:24 EDT Start Date: 11/23/18 Status: Ordered tamsulosin 0.4 mg oral capsule TAKE 1 CAPSULE BY MOUTH EVERY DAY Start Date: 12/26/22 Status: Ordered Thiamine 100 mg, By Mouth, Daily, Maintenance, 10/26/15 5:38:46 Start Date: 10/26/15 Status: Ordered triamcinolone 0.1% topical cream 1 application, Topically, 3 times a day, apply a thin film to affected area, # 80 Gm, 2 Refills, Maintenance, 02/17/23 14:19:00 EDT, Cream, [facility]/pharmacy #[id number], Partial fill upon patient request if the prescription is for a schedule II opioid drug., 1... Start Date: 02/17/23 Status: Ordered Vitamin D3 1000 intl units oral tablet 1 tablet = 1,000 International_Units, By Mouth, Daily, # 30 tablet, 0 Refills, Maintenance, 03/13/21 13:06:00 EDT, Tablet, Partial fill upon patient request if the prescription is for a schedule II opioid drug. 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 Nitin Results Orders for Microbiology Reports Name Date Blood Culture 05/13/23 Blood Culture #2 05/13/23 Microbiology Reports TEST:Blood Culture, Second Order STATUS:Unauthenticated BODY SITE: SOURCE:Blood COLLECTED DATE/TIME:05/13/23 11:45 AM Blood Culture, Second Order SPECIMEN DESCRIPTION : BLOOD L HAND SPECIAL REQUESTS : NONE CULTURE : NO GROWTH 3 DAYS REPORT STATUS : PRELIMINARY REPORT TEST:Blood Culture STATUS:Unauthenticated BODY SITE: SOURCE:Blood COLLECTED DATE/TIME:05/13/23 11:28 AM Blood Culture SPECIMEN DESCRIPTION : BLOOD NO SITE SPECIAL REQUESTS : NONE CULTURE : NO GROWTH 3 DAYS REPORT STATUS : PRELIMINARY REPORT Radiology Reports * Exam Date Time Procedure Performing Provider Status 05/14/23 4:30 PM Foot Min 3 Views Left Hui Frazierfabiana; Auth (Verified) Notes: (Foot Min 3 Views Left) Reason For Exam: Deformity RESULT: Foot Min 3 Views Left PROCEDURE: Foot Min 3 Views Left CLINICAL INDICATION: 88 years old Male with Reason: Deformity; Clinical Question(s): Osteomyelitis;Order Comment: COVID patient, RN needs to travel with ptCristiane NOLAND when ready @905am. TECHNIQUE: Three views of the LEFT foot are obtained. COMPARISONS: None. FINDINGS: Bones and joints: Severe osteopenia limiting the exam. No definite periosteal reaction or erosion to suggest acute osteomyelitis. 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 No definite acute fracture or dislocation. Mild degenerative changes of the 1st me tatarsophalangeal joint. Large plantar calcaneal spur and small Achilles tendon calcaneal spur. Soft Tissues: Moderate arterial calcifications. Venous calcifications noted posteriorly in the lower leg. No evidence of radiopaque foreign body. IMPRESSION: 1. Severe osteopenia limiting the exam. No definite evidence of osteomyelitis or of acute bony injuries. 2. Vascular calcifications. 3. Calcaneal spurs. Thank you for allowing me to participate in the care of this patient. WSN: [id number] Ordering Physician: Suzanne Gillespie Dictated By: Arnoldo Saleem MD Dictated Date/Time: 05/14/23 6:59 pm Reviewed By: Arnoldo Saleem MD Signed By: Arnoldo Saleem MD Signed Date/Time: 05/14/23 6:59 pm Transcribed By: ANGELA Transcribed Date/Time: 05/14/23 6:57 pm * Exam Date Time Procedure Performing Provider Status 05/13/23 1:[address] Head/Brain W/O Contrast Shira Wright; Auth (Verified) Notes: (CT Head/Brain W/O Contrast) Reason For Exam: altered mental status;Other: RESULT: CT Head/Brain W/O Contrast CT Head/Brain W/O Contrast INDICATION: Hx of Present Illness: See level one sheet; Reason: Other:; altered mental status; Clinical Question(s): Other:; mass TECHNIQUE: Noncontrast head CT using axial technique and reconstructed in axial and coronal planes.Iterative reconstruction techniques are used to optimize dose and image quality. CTDIvol Head: 48.30 mGy, DLP Head: 773 mGy*cm. COMPARISON: 04/29/2023 FINDINGS: Infusion Rn view findings, lines and tubes: None. BRAIN AND EXTRA-AXIAL SPACES: No parenchymal hemorrhage, midline shift, or mass effect. Henry-white matter differentiation is wellpreserved. No acute infarct. Large area of encephalomalacia within the left frontal lobe. Small area of encephalomalacia within the left frontal lobe. Area of encephalomalacia within the left occipital lobe. Ventricles, sulci, and basilar cisterns are normal. No white matter lesions. No subarachnoid hemorrhage. No subdural or epidural collection. CALVARIUM, SKULL BASE, AND SOFT TISSUES: No fractures or suspicious bony lesions. Status post right frontal craniectomy and craniotomy with multiple luna holes within the frontal skull bilaterally. The paranasal sinuses and mastoid air cells are clear. Visualized orbits and globes are intact. The extracranial soft tissues are unremarkable. IMPRESSION: No acute intracranial pathology. Status post right frontal craniotomy and craniectomy. Old bifrontal infarcts, left greater than right. Mild chronic small vessel ischemic changes. Old left occipital lobe infarct. WSN: [id number] Ordering Physician: Fina Baeza Dictated By: Ellen Quiroga MD Dictated Date/Time: 05/13/23 2:16 pm Reviewed By: Ellen Quiroga MD Signed By: Ellen Quiroga MD Signed Date/Time: 05/13/23 2:16 pm Transcribed By: ANGELA Transcribed Date/Time: 05/13/23 2:12 pm * Exam Date Time Procedure Performing Provider Status 05/13/23 11:10 AM Chest Portable Ciera Ronquillo; Auth (Verified) Notes: (Chest Portable) Reason For Exam: Fever RESULT: Chest Portable AP upright portable chest dated May 13, 2023 1105 hours. Comparison films are from a 2022. HISTORY: Fever. FINDINGS: The cardiac silhouette is mildly increased in size. The aortic arch shows mural calcification. Patient is status post median sternotomy and coronary artery bypass grafting. A CT [id number]-[id number] present on the right. Using a jugular approach, the tip of the catheter overlies the cavoatrial junction. No pneumothorax is seen. There is some minimal opacification of the right lateral costophrenic sulcus which may result in a minimal effusion versus pleural thickening. In addition, there is some very minimal opacity at the left lung base which may represent some atelectasis or scarring. It is improved when compared with the prior study. Degenerative changes are noted in the spine and shoulders. IMPRESSION: Question minimal right pleural effusion. Slight interval improvement in left basilar atelectasis. Interval placement of a CT Port-A-Cath. Examination [id number]. Thank you for allowing me to participate in the care of this patient. WSN: [id number] Ordering Physician: Jacklyn Posada Dictated By: Saleem Rick MD Dictated Date/Time: 05/13/23 11:15 a Reviewed By: Saleem Rick MD Signed By: Saleem Rick MD Signed Date/Time: 05/13/23 11:15 am Transcribed By: ANGELA Transcribed Date/Time: 05/13/23 11:15 am Vital Signs Most recent to oldest [Reference Range]: 1 2 3 Height 183 cm (05/16/23 8:59 AM) 183 cm (05/16/23 1:03 AM) 183 cm (05/15/23 9:20 PM) Weight 83.6 kg (05/13/23 10:40 PM) Oxygen Saturation [94-100 %] 97 % (05/16/23 8:59 AM) 95 % (05/16/23 1:03 AM) 100 % (05/15/23 9:20 PM) Pulse Rate [55-90 bpm] 75 bpm (05/16/23 9:34 AM) 75 bpm (05/16/23 8:59 AM) 73 bpm (05/16/23 1:03 AM) Body Mass Index [18.5-24.99 kg/m2] 24.96 kg/m2 (05/13/23 10:40 PM) Blood Pressure [90-138/55-84 mm Hg] 145/63mm Hg *H* (05/16/23 9:34 AM) 145/63mm Hg *H* (05/16/23 8:59 AM) 136/65mm Hg (05/16/23 1:03 AM) Respiratory Rate [16-30 br/min] 16 br/min (05/16/23 10:34 AM) 16 br/min (05/16/23 9:34 AM) 17 br/min (05/16/23 8:59 AM) Temperature [96.8-100.4 DegF] 97.8 DegF (05/16/23 8:59 AM) 97.3 DegF (05/16/23 1:03 AM) 97.3 DegF (05/15/23 9:20 PM) Liters per Minute 3 L/min (05/16/23 8:59 AM) 2 L/min (05/16/23 1:03 AM) 2 L/min (05/15/23 9:20 PM) Mode of Delivery (Oxygen) Nasal cannula (05/16/23 8:59 AM) Nasal cannula (05/16/23 1:03 AM) Nasal cannula (05/15/23 9:20 PM) Blood pressure sites Arm, left (05/16/23 8:59 AM) Arm, left (05/16/23 1:03 AM) Arm, right (05/15/23 9:20 PM) Temperature Route Oral (05/16/23 8:59 AM) Oral (05/16/23 1:03 AM) Oral (05/15/23 9:20 PM) Dry Weight 83.6 kg (05/13/23 10:40 PM) 90.3 kg (05/13/23 6:11 PM) 90.3 kg (05/13/23 6:02 PM) Weight Obtained Via Bed scale (05/13/23 10:40 PM) Dry Weight Obtained Via Bed scale (05/13/23 10:40 PM) Social History Social History Type Response Smoking Status Former smoker entered on: 09/23/15 Sex Admission evaluation note * Sonal DSOUZA, Smooth [place]: PERFORM Event Display: Admission Note Authored Date: [id number] Patient: ??GISELL, JENNIFER ? Age:??88 Years?Sex:??Male?:??1935?? Chief Complaint/Reason for Consultation pt is from home with fever cough sore thoat per pt is non verbal at baseline History of Present Illness Mr. 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 ?? Patient was found to be unresponsive when EMS was called.?? EMS found patient to have a blood pressure of 53/40 with a heart rate of 51.?? He was given 150 cc of IV fluids and started on dopamine dueto concern for hypotension with improvement in blood pressure to 60/40.?? Patient was awake and making direct eye contact but was not talking or responding.?? 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 At baseline he states his name but may not know the date.?? He appeared sick today and had congestion and felt warm to the touch and his and another family member havealso been sick.?? States that when EMS arrived patient had been unresponsive was slumped over for less than 5 minutes without any shaking activity.?? Last echo in 2018 showed EF 45-50%. ?? On arrival to the ER he was opening his eyes to voice and following commands intermittently including wiggling his toes but he was not communicating verbally.?? Initial vitals were heart rate 66, RR 31, BP 82/43, 95% on 4 L nasal cannula.?? Labs showed VBG 7.3 249/18, Hb 11, creatinine 1.4 (baseline 0.8), lactate 2.4, unremarkable urinalysis, COVID PCR positive.?? Chest x-ray showed enlarged cardiac silhouette, sternotomy wires, Port-A-Cath, left basilar atelectasis.?? CT head showed no infarct, s/p right frontal craniotomy and craniectomy, old bifrontal infarcts left greater than right, old left occipital lobe infarct.?? He was given 500 IV fluids.?? Blood pressure dropped to SBP 70s and norepinephrine was started and he was given additional IV fluids.?? He was given dexamethasone has his SPO2 was high 80s on room air.?? He was able to be weaned off pressors with IV fluids. Review of Systems All systems reviewed and negative except as indicated in HPI. Objective Vital Signs?? Temperature: 97.4 DegF (05/14/23 00:00:00) Temperature Route: Oral (05/14/23 00:00:00) Pulse Rate: 75 bpm (05/14/23 00:00:00) Respiratory Rate: 16 br/min (05/14/23 00:00:00) Systolic Blood Pressure: 125 mm Hg (05/14/23 00:00:00) Diastolic Blood Pressure: 65 mm Hg (05/14/23 00:00:00) Blood pressure sites: Arm, left (05/14/23 00:00:00) Mean Arterial Pressure: 87 mm Hg (05/13/23 22:40:00) Pulse Pressure: 60 mm Hg (05/14/23 00:00:00) Oxygen Saturation: 100 % (05/14/23 00:00:00) Liters per Minute: 3 L/min (05/14/23 00:00:00) Mode of Delivery (Oxygen): Nasal cannula (05/14/23 00:00:00) Early Warning Score: 2 (05/14/23 01:42:01) ? Intake/Output? No Data Available ? Physical Exam Constitutional: Alert, in no acute distress. Head EENT: Extraocular muscle movement intact.??Moist mucous membranes.?? Neck: Supple. No JVD. Respiratory: Clear to auscultation. No wheezing or crackles. No use of accessory muscles. Cardiovascular: S1S2 regular. No murmurs, rubs or gallops. Gastrointestinal: Abdomen soft, non-tender, non-distended. Normal bowel sounds. Genitourinary: No CVA tenderness. Extremities: No lower extremity pitting??edema. No cyanosis or clubbing. Neurologic: AAOx1, Minimally verbal, able to state name only. Follows simple commands including wiggling feet and giving thumbs up. Spontaneously moving all extremities, Right leg weaker than left. Skin: Bilateral ecchymoses on arms and legs. 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 ?? Shock (R57.9):? Altered mental status (R41.82):? Hypotension (I95.9):? Low blood pressure with RUPERTO and altered mental status Unclear cause of shock possibly septic/distributive vs cardiogenic Briefly required pressors, improved with IV fluid resuscitation Pt nonverbal at baseline ??? Follow-up blood cultures ??? Continue Vanco and Zosyn to cover for septic shock - ordered MRSA nasal swab ??? [facility] [place] ??? CT head shows no intracranial mass ??? Management of COVID as below - ordered echo ?? COVID (U07.1):? Hypoxic on room air Associated with hypertension ??? 10-day course of dexamethasone initiated ??? Wean off O2 as tolerated ?? RUPERTO (acute kidney injury) (N17.9):? Likely prerenal in setting of hypotension vs ATN - continue IV fluids to maintain SBP - avoid nephrotoxins - renally dose meds - US renal if RUPERTO does not improve ?? Hypothyroidism (E03.9):? -continue levothyroxine ?? Peripheral vascular disease (I73.9):? Coronary atherosclerosis (I25.10):? Denies chest pain - continue aspirin and statin ?? 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 - lantus 5u nightly - SSI - goal 140-180 ?? CHF (congestive heart failure) (I50.9):? Clinically euvolemic ??? Continue furosemide 20 mg daily ??? Continue home carvedilol 6.25 mg twice daily - strict I/Os ?? Code status: DNI, resuscitate DVT ppx:??lovenox Diet: regular Dispo:??[facility] ?? Total Visit Time: I personally spent a total of 80 minutes, including both nbgg-lk-grdx and ryn-lyej-qx-face time on the date of the encounter, addressing the above diagnoses. Activities performed in this time include chart review, obtaining / reviewing history, performing amedically necessary evaluation, documentation and counseling. ?? Smooth Pruitt MD Clinical Nursing Coordinator 7p-7a After 7 am please contact day time provider for questions/consult updates. ? Histories Past Medical History/Problem List Active Problems??(25) Anemia At high risk for fall Stephens's [...] mg/2 mL inhalation suspension)?0.5?Milligram?Neb?2 times a day Cadexomer-Iodine Topical (Iodosorb 0.9% topical gel)?See Instructions?Apply to left toe ulcerevery other day and cover with gauze dressing Carvedilol (carvedilol 6.25 mg oral tablet)?TAKE 1 TABLET BY MOUTH TWICE A DAY Cholecalciferol (Vitamin D3 1000 intl units oral tablet)?1?tab(s)?1,000?International Unit?By Mouth?Daily Clonazepam (clonazePAM 0.5 mg oral tablet)?0.5?tab(s)?0.25?Milligram?By Mouth?Daily Clonazepam (clonazePAM 0.5 mg oral tablet)?0.5?tab(s)?0.25?Milligram?By Mouth?Daily diosmiplex (diosmiplex 630 mg oral tablet)?1?tab(s)?630?Milligram?By Mouth?Daily diosmiplex (diosmiplex 630 mg oral tablet)?1?tab(s)?630?Milligram?By Mouth?Daily Docusate (docusate sodium 150 mg/15 ml oral liquid)?10?Milliliter?100?Milligram?By Mouth?2 times a day Fluticasone Nasal (fluticasone 50 mcg/inh nasal spray)?2?spray(s)?Nares, Both?Daily in AM Gabapentin (gabapentin 100 mg oral capsule)?200?Milligram?2?capsule?By Mouth?3 times a day Insulin Glargine (Basaglar KwikPen 100 units/mL subcutaneous solution)?See Instructions?INJECT 10 UNITS SUBCUTANEOUSLY DAILY AT BEDTIME Levothyroxine (levothyroxine 0.05 mg oral tablet)?See Instructions?1 tablet By Mouth Thursday-Thursday2 tabs po Thu-Thursday Loratadine (Claritin 10 mg oral tablet)?10?Milligram?1?tablet?By Mouth?Daily Miscellaneous Rx (FREESTYLE LITE TEST STRIP)?See Instructions?USE TO TEST 3 TIMES A DAY Multivitamin?1 tab?By Mouth?Daily [place]-3 Polyunsaturated Fatty Acids (Fish Oil 1000 mg oral capsule)?1?capsule?1,000?Milligram?By Mouth?Daily Omeprazole (omeprazole 40 mg oral enteric coated capsule)?1?capsule?40?Milligram?By Mouth?Daily Ondansetron (ondansetron 4 mg oral tablet)?1?tab(s)?4?Milligram?By Mouth?Every 8 hours?as needed?Nausea & Vomiting Primidone (primidone 50 mg oral tablet)?TAKE 2 TABLETS BY MOUTH 3 TIMES A DAY Sodium Hypochlorite Topical (Dakins Half Strength 0.25% topical solution)?See Instructions?Use for dressing changes as directed Sucralfate (sucralfate 1 gm oral tablet)?1?gram?1?tablet?By Mouth?3 times a day before meals and bedtime Tamsulosin (tamsulosin 0.4 mg oral capsule)?TAKE 1 CAPSULE BY MOUTH EVERY DAY Thiamine?100?Milligram?By Mouth?Daily Triamcinolone Topical (triamcinolone 0.1% topical cream)?1?walker?Topically?3 times a day?apply a thin filmto affected area Ubiquinone (Co Q-10)?100?Milligram?By Mouth?Daily ? Inpatient Medications Medications (24) Active SCHEDULED: (16) Allopurinol 300 mg Tablet (allopurinol 300 mg oral tablet) ??300 mg, By Mouth, Daily Aspirin 81 mg Chew Tablet (aspirin 81 mg oral tablet, chewable) ??81 mg, By Mouth, Daily Atorvastatin 80 mg Tablet (atorvastatin 80 mg oral tablet) ??80 mg, By Mouth, Daily Carvedilol 6.25 mg Tablet (carvedilol 6.25 mg oral tablet) ??6.25 mg, By Mouth, 2 times a day Enoxaparin 40 mg Inj (Enoxaparin Inj) ??40 mg 0.4 mL, Subcutaneous Injection, Daily Gabapentin 100 mg Capsule (gabapentin 100 mg oral capsule) ??200 mg, By Mouth, 3 times a day Insulin Glargine 100 units/mL Inj (Insulin Glargine Inj) ??5 units 0.05 mL, Subcutaneous Injection,Daily at bedtime Insulin Lispro 100 units/mL Inj (3mL) (Insulin LISPRO Sliding Scale) ??2-10 units, Subcutaneous Injection, 3 times a day before meals Levothyroxine 25 mcg Tablet (levothyroxine 0.025 mg oral tablet) ??0.025 mg, By Mouth, Daily NaCl 0.9% Flush 3ml (NaCL 0.9% Flush) ??3 mL, IV Push, Every 8 hours Piperacillin/Tazobactam 3.375 Gm Inj (Zosyn Extended IVPB) ??3.375 Gm, IVPB, Every 8 hours Primidone 50 mg Tablet (primidone 50 mg oral tablet) ??100 mg, By Mouth, 3 times a day Sucralfate 1 Gm Tablet (sucralfate 1 gm oral tablet) ??1 Gm, By Mouth, 3 times a day before meals and bedtime Tamsulosin 0.4 mg Capsule (tamsulosin 0.4 mg oral capsule) ??0.4 mg, By Mouth, Daily Thiamine 100 mg Tablet (thiamine 100 mg oral tablet) ??100 mg, By Mouth, Daily Vancomycin 1250 mg Inj (Vancomycin IVPB) ??1,250 mg, IVPB, Every 36 hours CONTINUOUS: (0) PRN: (8) Acetaminophen 325 mg Tablet (Acetaminophen Tablet) ??650 mg, By Mouth, Every 4 hours Dextromethorphan-Guaifenesin 20 mg-200 mg/10 mL Liqu UD (Robitussin DM Liquid) ??10 mL, By Mouth, Every 4 hours Docusate Sodium 100 mg Capsule (Docusate Sodium Capsule) ??100 mg 1 capsule, By Mouth, 2 times a day Melatonin 3 mg Tablet (Melatonin Tablet) ??3 mg, By Mouth, Daily at bedtime NaCl 0.9% Flush 3ml (NaCL 0.9% Flush) ??3 mL, IV Push, Every 8 hours Polyethylene Glycol 17 Gm Powder (MiraLax Powder) ??17 Gm 1 pack/packet, By Mouth, Daily Senna Tablet ??8.6 mg 1 tablet, By Mouth, 2 times a day Simethicone 80 mg Chewable Tablet (Simethicone Tablet) ??80 mg, Chew, 3 times a day ? Results Recent Labs BLOOD COUNT & DIFF WBC 4.0 k/mm3 ()?? 05/13/2023 11:28 RBC 4.04 m/mm3 (Low)?? 05/13/2023 11:28 Hgb 11.0 Gm/dL (Low)?? 05/13/2023 11:28 Hct 36.1 % (Low)?? 05/13/2023 11:28 MCV 89.4 femtoliters ()?? 05/13/2023 11:28 MCH 27.2 pg ()?? 05/13/2023 11:28 MCHC 30.5 g/dL (Low)?? 05/13/2023 11:28 Platelet Count 220 k/mm3 ()?? 05/13/2023 11:28 RDW-SD 55.8 femtoliters (High)?? 05/13/2023 11:28 MPV 10.0 femtoliters ()?? 05/13/2023 11:28 Nucleated RBC (Automated) 0.0 #/100 WBC'S ()?? 05/13/2023 11:28 Abs. NRBC 0.0 k/mm3 ()?? 05/13/2023 11:28 Abs. Neut 3.1 k/mm3 ()?? 05/13/2023 11:28 Abs. Lymph 0.5 k/mm3 (Low)?? 05/13/2023 11:28 Abs. [place] 0.4 k/mm3 ()?? 05/13/2023 11:28 Abs. Eo 0.0 k/mm3 ()?? 05/13/2023 11:28 Abs. Baso 0.0 k/mm3 ()?? 05/13/2023 11:28 Neut % 77.6 % (High)?? 05/13/2023 11:28 Lymph % 11.5 % (Low)?? 05/13/2023 11:28 [place] % 9.3 % ()?? 05/13/2023 11:28 Eos % 0.8 % ()?? 05/13/2023 11:28 Baso % 0.3 % ()?? 05/13/2023 11:28 Hemoglobin (POC) POC Cartridge 11.9 Gm/dL (Low)?? 05/13/2023 11:25 Hematocrit (POC) POC Cartridge 35 % (Low)?? 05/13/2023 11:25 Imm Gran 0.5 % ()?? 05/13/2023 11:28 Abs. Imm Gran 0.0 k/mm3 ()?? 05/13/2023 11:28 ?? BLOOD GAS pH Venous (POC) POC Cartridge 7.32 (Low)?? 05/13/2023 11:25 pCO2 Venous (POC) POC Cartridge 49.8 mm Hg ()?? 05/13/2023 11:25 pO2 Venous (POC) POC Cartridge 18 mm Hg (Low)?? 05/13/2023 11:25 Est Bicarbonate (POC) POC Cartridge 25.5 mmol/L ()?? 05/13/2023 11:25 % O2 Sat Venous (POC) POC Cartridge 24 ()?? 05/13/2023 11:25 Base Excess (POC) POC Cartridge NEGATIVE 1 ()?? 05/13/2023 11:25 Specimen Type - Blood Gas VENOUS ()?? 05/13/2023 11:25 ?? CHEM GENERAL Sodium 140 mmol/L ()?? 05/13/2023 11:29 Potassium 4.7 mmol/L ()?? 05/13/2023 11:29 Chloride 104 mmol/L ()?? 05/13/2023 11:29 Bicarbonate Level 23 mmol/L ()?? 05/13/2023 11:29 Anion Gap 13 ()?? 05/13/2023 11:29 Sodium (POC) POC Cartridge 138 mmol/L ()?? 05/13/2023 11:25 Potassium (POC) POC Cartridge 4.4 mmol/L ()?? 05/13/2023 11:25 Glucose Level 198 mg/dL (High)?? 05/13/2023 11:29 Glucose (POC) POC Cartridge 186 (High)?? 05/13/2023 11:25 Glucose, POC 202 mg/dL (High)?? 05/13/2023 23:20 BUN 48 mg/dL (High)?? 05/13/2023 11:29 Creatinine-Blood 1.4 mg/dL (High)?? 05/13/2023 11:29 Estimated GFR Creatinine 49 ML/MIN/1.73 M2 ()?? 05/13/2023 11:29 Calcium 9.1 mg/dL ()?? 05/13/2023 11:29 Ionized Calcium (POC) POC Cartridge 1.23 mmol/L ()?? 05/13/2023 11:25 Protein, Total 6.0 Gm/dL (Low)?? 05/13/2023 11:29 Albumin 3.3 Gm/dL (Low)?? 05/13/2023 11:29 AG Ratio 1.2 ()?? 05/13/2023 11:29 Alkaline Phosphatase 119 units/L ()?? 05/13/2023 11:29 AST (SGOT) 46 units/L (High)?? 05/13/2023 11:29 ALT (SGPT) 39 units/L ()?? 05/13/2023 11:29 Bilirubin, Total 0.2 mg/dL ()?? 05/13/2023 11:29 Lactate 2.4 mmol/L (High)?? 05/13/2023 11:29 ?? UA/URINALYSIS Appear/Color, Urine LIGHT YELLOW ()?? 05/13/2023 11:52 Specific [place], Urine 1.014 ()?? 05/13/2023 11:52 pH, Urine 6.5 ()?? 05/13/2023 11:52 Albumin, Urine 1+ (Abnormal)?? 05/13/2023 11:52 Glucose, Urine NEGATIVE ()?? 05/13/2023 11:52 Ketones, Urine NEGATIVE ()?? 05/13/2023 11:52 Bilirubin, Urine NEGATIVE ()?? 05/13/2023 11:52 Hemoglobin, Urine NEGATIVE ()?? 05/13/2023 11:52 Nitrite, Urine NEGATIVE ()?? 05/13/2023 11:52 Leukocyte, Urine NEGATIVE ()?? 05/13/2023 11:52 Urobilinogen NORMAL mg/dL ()?? 05/13/2023 11:52 WBC's, Urine 2 /HPF ()?? 05/13/2023 11:52 RBC's, Urine 1 /HPF ()?? 05/13/2023 11:52 Hyaline Cast 2 LPF ()?? 05/13/2023 11:52 Hold Urine Culture Testing available 48 hours from time of collection. ()?? 05/13/2023 11:52 ?? URINE OTHER Est Creatinine Clearance 41.63 mL/min ()?? 05/13/2023 22:59 ?? VIROLOGY COVID-19 by RT-PCR POSITIVE (Abnormal)?? 05/13/2023 11:12 ? Blood Glucose Trend Glucose Level:??198 mg/dL??High (05/13/23 11:29:00) Glucose (POC) POC Cartridge:??186??High (05/13/23 11:25:00) Glucose, POC:??202 mg/dL??High (05/13/23 23:20:00) Glucose, POC:??206 mg/dL??High (05/13/23 10:54:00) ? CBC, CBC w/Diff?? CBC?? Differential?? WBC: 4 k/mm3 (:28) Abs. Neut: 3.1 k/mm3 (:) RBC:??4.04 m/mm3??Low (:) Abs. Lymph:??0.5 k/mm3??Low (:) Hct:??36.1 %??Low (:) Abs. [place]: 0.4 k/mm3 (:) RDW-SD:??55.8 femtoliters??High (:) Abs. Eo: 0 k/mm3 (:) Nucleated RBC (Automated): 0 #/100 WBC'S (:) Abs. Baso: 0 k/mm3 (:) Abs. NRBC: 0 k/mm3 (:) Neut %:??77.6 %??High (:) ?? Lymph %:??11.5 %??Low (:) ?? [place] %: 9.3 % (:28) ?? Eos %: 0.8 % (:) ?? Baso %: 0.3 % (:28) ?? Hemoglobin (POC) POC Cartridge:??11.9 Gm/dL??Low (11:25) ?? Hematocrit (POC) POC Cartridge:??35 %??Low (11:25) ?? Imm Gran: 0.5 % (:) ?? Abs. Imm Gran: 0 k/mm3 (:28) ? LFT Albumin:??3.3 Gm/dL??Low (11:29) Alkaline Phosphatase: 119 units/L (11:29) ALT (SGPT): 39 units/L (11:29) AST (SGOT):??46 units/L??High (:29) Bilirubin, Total: 0.2 mg/dL (:29) ?? Urinalysis Albumin, Urine: 1+ Abnormal (11:52) Appear/Color, Urine: LIGHT YELLOW (11:52) Bilirubin, Urine: NEGATIVE (11:52) Est Creatinine Clearance: 41.63 mL/min (22:59) Glucose, Urine: NEGATIVE (11:52) Hemoglobin, Urine: NEGATIVE (11:52) Hold Urine Culture: Testing available 48 hours from time of collection. (11:52) Hyaline Cast: 2 LPF (11:52) Ketones, Urine: NEGATIVE (11:52) Leukocyte, Urine: NEGATIVE (11:52) Nitrite, Urine: NEGATIVE (11:52) pH, Urine: 6.5 (11:52) RBC's, Urine: 1 /HPF (11:52) Specific [place], Urine: 1.014 (11:52) Urobilinogen: NORMAL (11:52) WBC's, Urine: 2 /HPF (11:52) ?? Microbiology ?? COVID-19 (Novel Coronavirus), Rapid PCR?? Completed?? Source: Nasal Body Site: Nose Collected Dt/Tm: 05/13/2023 10:55 Last Updated Dt/Tm: 05/13/2023 14:53 ? Blood Gases Specimen Type - Blood Gas: VENOUS (11:25) pH Venous (POC) POC Cartridge:??7.32??Low (11:25) pCO2 Venous (POC) POC Cartridge: 49.8 mm Hg (11:25) pO2 Venous (POC) POC Cartridge:??18 mm Hg??Low (11:25) Est Bicarbonate (POC) POC Cartridge: 25.5 mmol/L (11:25) % O2 Sat Venous (POC) POC Cartridge: 24 (11:25) Base Excess (POC) POC Cartridge: NEGATIVE 1 (11:25) ?? Cardiology * Event Display: Cardiac Rhythm Strips Authored Date: Hospital Progress note * Brittney Sanchez RN: PERFORM, SIGN, VERIFY Event Display: Progress Note Hospital Authored Date: Patient: JENNIFER RODAS Age: 88 years Sex: Male : 1935 Associated Diagnoses: None Author: Brittney Sanchez RN Findings Problem Related to Alteration in Respiratory Function (new) : Alteration in Respiratory Function/new 05/16/2023 9:00 EDT Alteration in Resp Status Related to COVID - 19 Goals & Outcomes, Respiratory Pt will maintain/resume baseline physical assessment, Pt will notdevelop complications r/t mechanical ventilation, Pt will maintain adequate nutritional intake, Pt will maintain/resume normal fluid/electrolyte balance, Pt will not develop complications r/t immobility Interventions, Respiratory Assess/monitor tolerance to IV infusions; verify rate/dose, Assess for and report S&S of respiratory distress, Position for comfort & optimal oxygenation Goals/Interventions, Respiratory Yes Respiratory, Problem Start 05/14/2023 1:31 Reviewed Plan with, Respiratory Patient Patient Progression, Respiratory Patient progressing according to plan . Nursing Data Respiratory/Pulmonary Data. : Respiratory/Pulmonary Data. 05/16/2023 8:00 EDT Respiratory Symptoms None Respiratory effort Unlabored Chest expansion Symmetrical Accessory Muscles use No Respiratory Assessment Comment 2L via NC Cough Occasional Respiratory pattern Regular Left Upper Lobe Breath Sounds Diminished Right Upper Lobe Breath Sounds Diminished Right Middle Lobe Breath Sounds Diminished Left Lower Lobe Breath Sounds Diminished Right Lower Lobe Breath Sounds Diminished Respiratory distress None Respiratory Treatment(s) Cough and deep breathe, Updraft Nebulizer Therapy/MDI Tracheostomy/tracheal device present No Respiratory WNL except . Evaluation Pt is A/O x 1-2, and able to follow simple commands. Pt denies pain. Lung sounds CTA but diminishedon 2L via NC, no s/s of respiratory distress. Pt continues on COVID precautions. Pt is NSR on tele,no CP, positive pulses, and no edema noted. Bowel sounds present in all 4 quadrants, abd soft/ nontender with last BM on . Pt is incontinent of urine with [place] cath in place, draining CYU. Pt cur rently resting in bed. D/C order in, Pt to go home via [facility].. Discharge Information Case Management Discharge Plan : Case Management Discharge Plan Data 05/15/2023 15:02 EDT Discharge Level of Care at Discharge Homehealth/VNA Discharge VNA/Hospice/Home Care [facility] Name of Agency #1 [facility] Categories #1 Oxygen Therapy, Physical Therapy, [facility] Service Comments #1 [facility] will resume your care on discharge. Please call them if they do not call you Rehabilitation Discharge : Rehab Discharge Index 05/14/2023 15:31 EDT Comments on treatment indicated Rec: regular/thin liquids, ST to f/u x1 to monitor diet tolerance. (Modified) Full chart review completed Yes Hospital course Hospital course * Laila Romero RN: PERFORM, SIGN, VERIFY Event Display: Progress Note Hospital Authored Date: [id number] Patient: JENNIFER RODAS Age: 88 years Sex: Male : 1935 Associated Diagnoses: None Author: Laila Romero RN Findings Problem Related to Alteration in Respiratory Function (new) : Alteration in Respiratory Function/new 05/16/2023 2:00 EDT Alteration in Resp Status Related to COVID - 19 Goals & Outcomes, Respiratory Pt will maintain/resume baseline physical assessment, Pt will notdevelop complications r/t mechanical ventilation, Pt will maintain adequate nutritional intake, Pt will maintain/resume normal fluid/electrolyte balance, Pt will not develop complications r/t immobility Interventions, Respiratory Assess for and report S&S of respiratory distress, Position for comfort & optimal oxygenation BH Goals/Interventions, Respiratory Yes Respiratory, Problem Start 05/14/2023 1:31 Reviewed Plan with, Respiratory Patient Patient Progression, Respiratory Patient progressing according to plan . Nursing Data Vital Signs : VITAL SIGNS SECTION 05/16/2023 1:03 EDT Early Warning Score 7.00 05/16/2023 1:03 EDT Temperature 97.3 DegF Temperature Route Oral Pulse Rate 73 bpm Respiratory Rate 18 br/min Systolic Blood Pressure 136 mm Hg Diastolic Blood Pressure 65 mm Hg Blood pressure sites Arm, left Mean Arterial Pressure 89 mm Hg Pulse Pressure 71 mm Hg Oxygen Saturation 95 % Liters per Minute 2 L/min Mode of Delivery (Oxygen) Nasal cannula . Narrative/Incidental Pt A+O x 1-2, expressive ashasia. no c/o pain. Lung sounds diminished, O2@2L N/C. Tele # 18 - SR with PVCs. Incontinent of bladder, [place] cath in place. Dressing to head in place, Caregiver will do dressings in AM. Pt slept most of the night. Call lopez in reach. Enhanced precautions maintained.. Discharge Information Case Management Discharge Plan : Case Management Discharge Plan Data 05/15/2023 15:02 EDT Discharge Level of Care at Discharge Homehealth/VNA Discharge V[facility]Hospice[facility] Categories #1 Oxygen Therapy, Physical Therapy, [facility] Service Comments #1 [facility] will resume your care on discharge. Please call them if they do not call you Rehabilitation Discharge : Rehab Discharge Index 05/14/2023 15:31 EDT Comments on treatment indicated Rec: regular/thin liquids, ST to f/u x1 to monitor diet tolerance. (Modified) Full chart review completed Yes Hospital course Hospital course * oM Castle MD, Emperatriz: PERFORM Event Display: Progress Note Hospital Authored Date: Patient: ??GISELL, JENNIFER ? Age:??88 Years?Sex:??Male?:??1935?? Subjective Pt nonverbal at baseline. Appears at baseline according to caregiver. Review of Systems unable to obtain Objective Vital Signs?? Temperature: 97.5 DegF (05/15/23 12:00:00) Temperature Route: Axillary (05/15/23 12:00:00) Pulse Rate: 72 bpm (05/15/23 12:25:00) Heart Rate Monitored: 67 bpm (05/15/23 10:00:00) Respiratory Rate:??12 br/min??Low (05/15/23 12:00:00) Vented: No (05/15/23 10:00:00) Systolic Blood Pressure: 127 mm Hg (05/15/23 12:25:00) Diastolic Blood Pressure: 75 mm Hg (05/15/23 12:25:00) Blood pressure sites: Arm, left (05/15/23 12:00:00) Pulse Pressure: 44 mm Hg (05/15/23 12:00:00) Oxygen Saturation: 100 % (05/15/23 12:00:00) Liters per Minute: 3 L/min (05/15/23 12:00:00) Mode of Delivery (Oxygen): Nasal cannula (05/15/23 12:00:00) Early Warning Score: 5 (05/15/23 12:26:29) ? Physical Exam General:??Awake, mostly nonverbal at baseline, follows some commands. Mental Status:??as above Head:??Normocephalic. Large scalp wound Eyes:??Pupils are equal, round and reactive to light. Extraocular muscles intact. Ear, Nose and Throat:??Oropharynx clear, mucous membranes moist. Ears and nose without masses, lesions or deformities. Neck:??Supple, Full range of motion. Respiratory:??Clear to auscultation and percussion. No wheezing, rales or rhonchi. Cardiovascular:??Heart sounds normal. No thrills. Regular rate and rhythm, no murmurs, rubs or gallops. Gastrointestinal:??Abdomen soft, non-tender, non-distended. Normal bowel sounds. No pulsatile mass.No hepatosplenomegaly. Genitourinary:??No costovertebral angle tenderness. Neurologic:??Right sided weakness, dysarthria Skin:??No rashes or lesions. No petechiae or purpura. No edema. Tiny??wounds on left toes - not infected. Musculoskeletal:??No cyanosis or clubbing. No gross deformities. Normal range of motion. Results Recent Labs BACTERIOLOGY MRSA PCR Result Negative, MRSA target DNA not detected. ()?? 05/14/2023 02:50 S Aureus ??PCR Result Negative, SA target DNA not detected. ()?? 05/14/2023 02:50 ?? BLOOD COUNT & DIFF WBC 8.4 k/mm3 ()?? 05/15/2023 04:25 RBC 3.19 m/mm3 (Low)?? 05/15/2023 04:25 Hgb 8.6 Gm/dL (Low)?? 05/15/2023 04:25 Hct 27.9 % (Low)?? 05/15/2023 04:25 MCV 87.5 femtoliters ()?? 05/15/2023 04:25 MCH 27.0 pg ()?? 05/15/2023 04:25 MCHC 30.8 g/dL (Low)?? 05/15/2023 04:25 Platelet Count 179 k/mm3 ()?? 05/15/2023 04:25 RDW-SD 53.6 femtoliters (High)?? 05/15/2023 04:25 MPV 9.9 femtoliters ()?? 05/15/2023 04:25 Nucleated RBC (Automated) 0.0 #/100 WBC'S ()?? 05/15/2023 04:25 Abs. NRBC 0.0 k/mm3 ()?? 05/15/2023 04:25 Abs. Neut 6.7 k/mm3 ()?? 05/15/2023 04:25 Abs. Lymph 0.9 k/mm3 ()?? 05/15/2023 04:25 Abs. [place] 0.7 k/mm3 ()?? 05/15/2023 04:25 Abs. Eo 0.1 k/mm3 ()?? 05/15/2023 04:25 Abs. Baso 0.0 k/mm3 ()?? 05/15/2023 04:25 Neut % 79.9 % (High)?? 05/15/2023 04:25 Lymph % 10.2 % (Low)?? 05/15/2023 04:25 [place] % 8.6 % ()?? 05/15/2023 04:25 Eos % 0.7 % ()?? 05/15/2023 04:25 Baso % 0.1 % ()?? 05/15/2023 04:25 Metamyelocyte % 1.7 % ()?? 05/14/2023 02:26 Band % 20.5 % (High)?? 05/14/2023 02:26 RBC Morphology MODERATE ()?? 05/14/2023 02:26 Platelet Estimate ADEQUATE ()?? 05/14/2023 02:26 Platelet Comment FEW ()?? 05/14/2023 02:26 Imm Gran 0.5 % ()?? 05/15/2023 04:25 Abs. Imm Gran 0.0 k/mm3 ()?? 05/15/2023 04:25 ?? CHEM GENERAL Sodium 139 mmol/L ()?? 05/15/2023 04:25 Potassium 3.9 mmol/L ()?? 05/15/2023 04:25 Chloride 107 mmol/L ()?? 05/15/2023 04:25 Bicarbonate Level 25 mmol/L ()?? 05/15/2023 04:25 Anion Gap 7 ()?? 05/15/2023 04:25 Glucose Level 133 mg/dL (High)?? 05/15/2023 04:25 Glucose, POC 266 mg/dL (High)?? 05/15/2023 11:29 BUN 39 mg/dL (High)?? 05/15/2023 04:25 Creatinine-Blood 1.0 mg/dL ()?? 05/15/2023 04:25 Estimated GFR Creatinine 71 ML/MIN/1.73 M2 ()?? 05/15/2023 04:25 Calcium 8.2 mg/dL (Low)?? 05/15/2023 04:25 Phosphorus 3.7 mg/dL ()?? 05/14/2023 02:26 Magnesium 2.1 mg/dL ()?? 05/14/2023 02:26 Protein, Total 4.8 Gm/dL (Low)?? 05/15/2023 04:25 Albumin 2.7 Gm/dL (Low)?? 05/15/2023 04:25 AG Ratio 1.3 ()?? 05/15/2023 04:25 Alkaline Phosphatase 128 units/L ()?? 05/15/2023 04:25 AST (SGOT) 56 units/L (High)?? 05/15/2023 04:25 ALT (SGPT) 48 units/L (High)?? 05/15/2023 04:25 Bilirubin, Total <0.2 mg/dL ()?? 05/15/2023 04:25 Lactate 2.5 mmol/L (High)?? 05/14/2023 16:36 ?? URINE OTHER Est Creatinine Clearance 58.28 mL/min ()?? 05/15/2023 05:14 ? Microbiology ?? COVID-19 (Novel Coronavirus), Rapid PCR?? Completed?? Source: Nasal Body Site: Nose Collected Dt/Tm: 05/13/2023 10:55 Last Updated Dt/Tm: 05/13/2023 14:53 MRSA PCR Nasal Swab?? Completed?? Source: Swab Body Site: Nares Both Collected Dt/Tm: 05/14/2023 03:36 Last Updated Dt/Tm: 05/14/2023 10:11 ? Assessment/Plan Diagnoses CHF (congestive heart failure) ??(I50.9) COVID ??(U07.1) 1. ??Hypotension ??(I95.9) 2. ??RUPERTO (acute kidney injury) ??(N17.9) 3. ??Hypothyroidism ??(E03.9) 4. ??Peripheral vascular disease ??(I73.9) 5. ??Coronary atherosclerosis ??(I25.10) 6. ??Type 2 diabetes with nephropathy ??(E11.21) 7. ??Shock ??(R57.9) 8. ??Altered mental status ??(R41.82) ?? 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 ?? COVID-19 infection: Acute hypoxic resp failure:? CXR without pneumonia. - Isolation x 10 days - Oxygen supplementation as needed, wean off, currently on 2-3 l NC - Dexa 6 mg po qd till discharge - Supportive care ?? Peripheral vascular disease (I73.9):? CAD s/p CABG: ICM/HFrEF 30%: H/o CVAs and ICH with residual right sided weakness and dysarthria/aphasia:?? HTN: Possible autonomic dysfunction: Pt noted to have episodes of hypotension and near syncope/syncope over last 3-4 months. ? BP meds related/orthostatic vs ? autonomic dysfunction. Lasix was recently decreased by Cardiology. - Aspirin and statin - Decrease dose??of coreg to 3.125 mg po bid with holding parameter, might need to d/c - Lasix on hold for now ?? Mild RUPERTO (acute kidney injury) on CKD II: Likely prerenal in setting of hypotension vs ATN. Cr on admission 1.4. Resolved quickly with IVF. - Monitor BMP - Avoid nephrotoxins - Hold Lasix ?? Hypothyroidism (E03.9): Levothyroxine ?? Type 2 diabetes with nephropathy (E11.21):?? - Lantus 5u nightly - POC/ISS ?? 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 F/u with??GI ?? 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 Cycle 1 on 01/14/2023. - F/u with Oncology ?? H/O DVT/PE: not further on A/C due to h/o ICH and GIB ? Discharge Planning:??PT eval, potential d/c home in AM ? Consult note * Gene JONES, Na Portillo: PERFORM Event Display: Consultation Note Authored Date: Patient: ??GISELL, JENNIFER ? Age:??88 Years?Sex:??Male?:??1935?? Chief Complaint Left toes, LLE, head, buttocks Reason for Consultation Left toes, LLE, head, buttocks History of Present Illness Patient is a 88-year-old male seen at the request of the medical service for evaluation of left toes, LLE, head, buttocks. ??Patient was admitted on 05/13??hypotension and unresponsiveness;??diagnosedwith COVID.?? HPI obtained from chart review??due to patient's baseline nonverbal status.?? 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 Patient with history of radiation therapy??for warts from his cell carcinoma??of scalp and??2021.?? Patient was last seen by??outpatient wound care on??05/12; usually has??routine??appointments every 2 weeks.?? Culture of left second toe??was obtained??during??his last appointment??forcomplaints of??redness??and discomfort??per his patient home visit field care manager; wound culture positive for MRSA. ?? PMH: CVA with residual right-sided deficits,??locally advanced SCC of scalp, HTN, COPD, HLD, PVD, Stephens's esophagus,??DVT,??pulmonary embolus, Alta's thyroiditis,??ischemic cardiomyopathy, peripheral neuropathy,??type 2 diabetes, GA ?? PSH: Craniotomy,??umbilical hernia repair,??percutaneous transluminal coronary??angioplasty ?? Social Hx:??No history of drug??or alcohol use; former nicotine use; chart reviewed ?? FMH:??No pertinent??FMH; chart reviewed Review of Systems Unable to obtain due to patient's nonverbal status Physical Exam Vitals & Measurements T:??97.5?F?? TMIN:??97.1?F?? TMAX:??97.8?F?? HR:??72??(Peripheral)?? RR:??12?? BP:??127/75?? SpO2:??100%?? Constitutional:??WD/WN male??in no distress. Mental Status:??Alert/awake; unable to assess if patient is oriented to person place or time??due to patient's nonverbal status at baseline Head: Normocephalic. Cardiac: RRR, +S1/S2. No murmur, rub, gallop. Respiratory: Unlabored breathing.??Lungs equal/clear to auscultation. Gastrointestinal: Abdomen soft, non-tender, +bowel sounds, protuberant. Neurologic: No independent movement noted??to all extremities x4. ??Nonverbal at baseline Skin: Warm, pink dry. ??Scattered light brown??dry raised lesions??to??extremities. ??Intact dressing covering scalp.?? Presents with chronic wounds to scalp. ??No open wounds??or ulcers to??buttocks;??pink blanchable intact skin present Musculoskeletal: No cyanosis or clubbing. Extremities:??unable to palpate dorsalis pedis or posterior tibial pulses bilaterally; cool skin tobilateral feet. ??Small dark brown dry scab to right posterior heel; no erythema or drainage noted.??Superficial ulcers??to dorsum of left second and third toe;??erythema mild edema to left second and third toe; no purulent drainage or point tenderness noted.?? Cluster of dried??dark brown scabs to anterior LLE; no erythema or drainage noted. Psychiatric:??Euthymic mood, normal affect. Normal thought content, normal judgment. Assessment/Plan Assessment:??Pt w/PMH for CVA with residual right-sided deficits,??locally advanced SCC of scalp, HTN, COPD, HLD, PVD, Stephens's esophagus,??DVT,??pulmonary embolus, Alta's thyroiditis,??ischemic cardiomyopathy, peripheral neuropathy,??type 2 diabetes, GA,??right heel,??LLE,??and left??toes.??Patient is followed by [facility] wound care. Patient was last seen by??outpatient wound care on??05/12; usually has??routine??appointments every 2 weeks.?? Culture of left second toe??was obtained??during??his last appointment??for complaints of??redness??and discomfort??per his patient home visit field care manager; wound culture positive for MRSA. ??Continue with current??outpatient??dressing orders??as listed below ?? Peripheral vascular disease (I73.9):??sharp debridement deferred to left toes and rt heel ?? 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 Atherosclerosis of [place] arteries of left leg with ulceration of other part of foot (I70.245):??sharp debridement deferred to left toes and rt heel ?? 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 MRSA cellulitis of left foot (L03.116):??wound cx obtained from left 2nd toe in [facility] on 05/12; cx positive for MRSA -defer to medical team for antibiotic treatment while inpatient ?? 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 Pat dry. Apply Skin Prep to periwound. Apply Iodosorb gel to wound bed. Cover w/gauze. Change QOD ?? Non-pressure chronic ulcer of other part of left lower leg with other specified severity (L97.828):??[place] w/betadine QD. Allow to dry completely. Apply Z-heel boots to bilateral heels to offload (obtain from distribution) ?? Non-pressure chronic ulcer of skin of other sites limited to breakdown of skin (L98.570):??Cleanse scalp w/NS to remove old silvadene. Then apply Dakins soaked gauze to open wounds for 5-10 mins. Remove. Pat dry. Appy layer of Silvadene cream to open areas. Cover w/Adaptic (only apply to Silvadene;do not cover exposed bone). Cover w/gauze and ABD pad and wrap w/pancho. Secure w/medipore tape. Change QD ?? Pressure ulcer of right heel, unstageable (L89.610):??[place] w/betadine QD. Allow to dry completely.Apply Z-heel boots to bilateral heels to offload (obtain from distribution) ?? Discharge Planning:??recommend patient??resume routine follow-up??with [facility] wound care center??every 2 weeks as??previously scheduled ?? Please re-consult wound care MD/WALKER for deterioration in wound/skin status. ?? Pictures uploaded in installer inspector final ?? Thank you for allowing me to participate in the care of this patient,??I appreciate the opportunity to assist??in management. My assessment and??all recommendations??have been communicated??to the patient's primary team via this documentation. Please??feel free to reach out with any??concerns??or questions. ?? Problem List/Past Medical History Ongoing Anemia At high risk for fall Stephens's [...] Fracture???History of Umbilical Hernia Repair???Unknown Medications Inpatient Acetaminophen Tablet, 650 mg, By Mouth, Every 4 hours, PRN allopurinol 300 mg oral tablet, 300 mg, By Mouth, Daily aspirin 81 mg oral tablet, chewable, 81 mg, By Mouth, Daily atorvastatin 80 mg oral tablet, 80 mg, By Mouth, Daily budesonide 0.5 mg/2 mL inhalation suspension, 0.5 mg= 2 mL, Neb, 2 times a day carvedilol 3.125 mg oral tablet, 3.125 mg, By Mouth, 2 times a day Claritin 10 mg oral tablet, 10 mg, By Mouth, Daily clonazePAM 0.5 mg oral tablet, 0.25 mg, By Mouth, Daily Dakins 0.0125% Topical Solution, 0.0125 %= 473 mL, Topically, Daily dexamethasone 6 mg oral tablet, 6 mg, By Mouth, Daily Docusate Sodium Capsule, 100 mg= 1 capsule, By Mouth, 2 times a day, PRN Enoxaparin Inj, 40 mg= 0.4 mL, Subcutaneous Injection, Daily gabapentin 100 mg oral capsule, 200 mg, By Mouth, 3 times a day Heparin Flush 10 units/mL Inj, 50 units= 5 mL, IV Push, Every hour, PRN Heparin Flush 100 units/mL Inj, 500 units= 5 mL, IV Push Slowly, Chemo To Be Scheduled, PRN Heparin Flush 100 units/mL Inj, 500 units= 5 mL, IV Push, Every 30 days, PRN Heparin Flush 100 units/mL Inj, 500 units= 5 mL, IV Push, Once, PRN Insulin Glargine Inj, 5 units= 0.05 mL, Subcutaneous Injection, Daily at bedtime Insulin LISPRO Sliding Scale, 2-10 units, Subcutaneous Injection, 3 times a day before meals levothyroxine 0.025 mg oral tablet, 0.025 mg, By Mouth, Daily Melatonin Tablet, 3 mg, By Mouth, Daily at bedtime, PRN MiraLax Powder, 17 Gm= 1 pack/packet, By Mouth, Daily, PRN NaCL 0.9% Flush, 3 mL, IV Push, Every 8 hours NaCL 0.9% Flush, 3 mL, IV Push, Every 8 hours, PRN NaCL 0.9% Flush, 10 mL, IV Push, Every 30 days, PRN NaCL 0.9% Flush, 10 mL, IV Push, Every hour, PRN NaCL 0.9% Flush, 10 mL, IV Push, Every hour, PRN pantoprazole 40 mg oral delayed release tablet, 40 mg, By Mouth, Daily primidone 50 mg oral tablet, 100 mg, By Mouth, 3 times a day Robitussin DM Liquid, 10 mL, By Mouth, Every 4 hours, PRN Senna Tablet, 8.6 mg= 1 tablet, By Mouth, 2 times a day, PRN Silvadene 50 Gm Topical, 50 Gm= 1 application, Topically, 2 times a day Simethicone Tablet, 80 mg, Chew, 3 times a day, PRN sucralfate 1 gm oral tablet, 1 Gm, By Mouth, 3 times a day before meals and bedtime tamsulosin 0.4 mg oral capsule, 0.4 mg, By Mouth, Daily thiamine 100 mg oral tablet, 100 mg, By Mouth, Daily Home albuterol-ipratropium 3 mg-0.5 mg/3 ml inhalation [...] mL, Neb, 2 times a day carvedilol 6.25 mg oral tablet Claritin 10 mg oral tablet, 10 mg= 1 tablet, By Mouth, Daily clonazePAM 0.5 mg oral tablet, 0.25 mg= 0.5 tablet, By Mouth, Daily clonazePAM 0.5 mg oral tablet, 0.25 mg= 0.5 tablet, By Mouth, Daily Co Q-10, 100 mg, By Mouth, Daily Dakins Half Strength 0.25% topical solution, See Instructions diosmiplex 630 mg oral tablet, 630 mg= 1 tablet, By Mouth, Daily diosmiplex 630 mg oral tablet, 630 mg= 1 tablet, By Mouth, Daily docusate sodium 150 mg/15 ml oral liquid, 100 mg= 10 mL, By Mouth, 2 times a day Fish Oil 1000 mg oral capsule, 1000 mg= 1 capsule, By Mouth, Daily fluticasone 50 mcg/inh nasal spray, 2 sprays, Nares, Both, Daily in AM FREESTYLE LITE TEST STRIP, See Instructions gabapentin 100 mg oral capsule, 200 mg= 2 capsule, By Mouth, 3 times a day Iodosorb 0.9% topical gel, See Instructions, 1 refills levothyroxine 0.05 mg oral tablet, See Instructions, 3 refills Multivitamin, 1 tab, By Mouth, Daily omeprazole 40 mg oral enteric coated capsule, 40 mg= 1 capsule, By Mouth, Daily ondansetron 4 mg oral tablet, 4 mg= 1 tablet, By Mouth, Every 8 hours, PRN, 1 refills primidone 50 mg oral tablet sucralfate 1 gm oral tablet, 1 Gm= 1 tablet, By Mouth, 3 times a day before meals and bedtime tamsulosin 0.4 mg oral capsule Thiamine, 100 mg, By Mouth, Daily triamcinolone [...] Tobacco Former smoker Immunizations Vaccine Date Status SARS-CoV-2 (COVID-19) mRNA BNT-162b2 vac 06/26/2021 Recorded [...] vaccine 08/04/2014 Recorded Comments : [facility] Images left toes left leg head right heel Note * Brittney Sanchez RN: PERFORM Event Display: Discharge/Transfer Note Hospital Authored Date: [id number] Nursing Discharge Note Entered On: 05/16/2023 11:46 EDT Performed On: 05/16/2023 11:46 EDT by Brittney Sanchez RN Nursing Discharge Note 2 Discharge Time : 05/16/2023 11:45 EDT Discharge Level of Care at Discharge : Homehealth/VNA Discharge VNA/Hospice/Home Care(v001) : [facility] [place] Patient Left Unit Via : Ambulance Patient Accompanied Off Unit with : Responsible adult DC Instructions Provided & Signed by Pt : Yes Patient Understands D/C Instructions : Yes Patient Instructions Discharge Signed : Yes Did Pt have Specialty Bed or Wound Vac : No Brittney Sanchez RN - 05/16/2023 11:46 EDT * Emperatriz Contreras MD: PERFORM, SIGN, VERIFY Event Display: Discharge/Transfer Note Hospital Authored Date: [id number] Patient: JENNIFER RODAS Age: 88 years Sex: Male : 1935 Associated Diagnoses: None Author: Emperatriz Contreras MD Discharge Information Admission Date: 05/13/2023 Discharge Date 05/16/2023 Primary Care Provider Arjun Hampton DO Principal Discharge Diagnosis Hypoxia: Present on admission - yes. COVID: Present on admission - yes. Secondary Discharge Diagnoses Type 2 diabetes with nephropathy: Present on admission - yes. Squamous cell carcinoma of scalp: Present on admission - yes. Ischemic cardiomyopathy: Present on admission - yes. Hyperlipidemia: Present on admission - yes. Hemiparesis affecting right side as late effect of cerebrovascular accident: Present on admission -yes. H/O: pulmonary embolus: Present on admission - yes. Gout: Present on admission - yes. Chronic respiratory failure, unspecified whether with hypoxia or hypercapnia: Present on admission - yes. Chronic obstructive lung disease: Present on admission - yes. Benign essential hypertension: Present on admission - yes. At high risk for fall: Present on admission - yes. Peripheral vascular disease: Present on admission - yes. 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 Hypothyroidism: Present on admission - yes. Coronary atherosclerosis: Present on admission - yes. Chronic radiodermatitis: Present on admission - yes. CHF (congestive heart failure): Present on admission - yes. Medications (Selected) Prescriptions Prescribed Basaglalexandra KwikPen 100 units/mL subcutaneous solution: See Instructions, INJECT 10 UNITS SUBCUTANEOUSLY DAILY AT BEDTIME, # 15 Unknown, 1 Refills, 07/10/22 6:58:00 EST, [id number], 180, cm, 04/18/22 11:39:00 EDT, Height Dakins Half Strength 0.25% topical solution: See Instructions, Use for dressing changes as directed, # 473 mL, 0 Refills, Maintenance, 09/11/22 7:42:00 EST, [id number], Partial fill upon patient request if the prescription is for a schedule II opioid drug., Use for dressing changes as di... Iodosorb 0.9% topical gel: See Instructions, Apply to left toe ulcer every other day and cover withgauze dressing, # 40 Gm, 1 Refills, Maintenance, 12/16/18 10:27:22 EDT, Apply to left toe ulcer every other day and cover with gauze dressing Silvadene 1% cream: 1 application, Topically, 2 times a day, for 30 days, # 50 Gm, 0 Refills, Acute06/15/23 9:39:00 EDT, 05/16/23 9:39:00 EDT, Cream, [id number], Partial fill upon patient request if the prescription is for a schedule II opioid drug., 1 applicati... ammonium lactate 12% topical lotion: See Instructions, APPLY TOPICALLY DAILY TO THE LEGS DIREDTED, # 225 mL, 0 Refills, [id number], 20, APPLY TOPICALLY DAILY TO THE LEGS DIREDTED, 180, cm,01/29/22 10:46:00 EDT, Height carvedilol 3.125 mg oral tablet: 3.125 mg, By Mouth, 2 times a day, # 30 tablet, Refills 0, Tot. Refills 0, Maintenance, 05/16/23 9:38:00 EDT, Route to Pharmacy Electronically, [id number], Partial fill upon patient request if the prescription is for a schedule II opioid drug.... levothyroxine 0.05 mg oral tablet: See Instructions, 1 tablet By Mouth Thursday-Thursday 2 tabs po Thu-Thursday, # 90 tablet, 3 Refills, 04/17/22 17:59:00 EDT, [id number], 180, cm, 02/21/22 11:07:00 EDT, Height omeprazole 40 mg oral enteric coated capsule: 1 capsule = 40 mg, By Mouth, Daily, # 90 capsule, 0 Refills, Maintenance, 02/29/20 15:47:00 EDT, EC Capsule ondansetron 4 mg oral tablet: 1 tablet = 4 mg, By Mouth, Every 8 hours, PRN Nausea & Vomiting, # 30 tablet, 1 Refills, Maintenance, 01/13/23 14:16:00 EDT, [facility] #[id number], Partial fill upon patient request if the prescription is for a schedule II opioid drug., 180, cm, 12/26/22... triamcinolone 0.1% topical cream: 1 application, Topically, 3 times a day, apply a thin film to affected area, # 80 Gm, 2 Refills, Maintenance, 02/17/23 14:19:00 EDT, Cream, [facility]/pharmacy #[id number], Partial fill upon patient request if the prescription is for a schedule II opioid drug., 1... Documented Medications Documented Claritin 10 mg oral tablet: 10 mg, 1, tablet, By Mouth, Daily, Refills 0, Maintenance, 11/23/18 10:33:45 EDT Co Q-10: = 100 mg, By Mouth, Daily, 0 Refills, Maintenance, 11/23/18 10:33:54 EDT Fish Oil 1000 mg oral capsule: 1 capsule = 1,000 mg, By Mouth, Daily, 0 Refills, Maintenance, 07/28/18 21:41:44 EST Lasix 20 mg oral tablet: 20 mg, By Mouth, Daily, Refills 0, Maintenance, 05/16/23 9:39:00 EDT, Partial fill upon patient request if the prescription is for a schedule II opioid drug. Multivitamin: 1 tab, By Mouth, Daily, 0 Refills, Maintenance, 07/28/18 21:39:19 EST Thiamine: 100 mg, By Mouth, Daily, Maintenance, 10/26/15 5:38:46 Vitamin D3 1000 intl units oral tablet: 1 tablet = 1,000 International_Units, By Mouth, Daily, # 30tablet, 0 Refills, Maintenance, 03/13/21 13:06:00 EDT, Tablet, Partial fill upon patient request ifthe prescription is for a schedule II opioid drug. albuterol-ipratropium 3 mg-0.5 mg/3 ml inhalation solution: 3 mL, Inhalation, 4 times a day, # 30 each, 0 Refills, Maintenance, 03/27/20 21:59:00 EDT, Solution allopurinol 300 mg oral tablet: 300 mg, 1, tablet, By Mouth, Daily, # 30 tablet, Refills 0, Maintenance, 03/27/20 21:58:00 EDT aspirin 81 mg oral tablet: 1 tablet = 81 mg, By Mouth, Daily, # 30 tablet, 0 Refills, Maintenance, 07/28/18 21:42:36 EST, Tablet atorvastatin 80 mg oral tablet: 1 tablet = 80 mg, By Mouth, Daily, # 30 tablet, 0 Refills, Maintenance, 03/27/20 21:57:00 EDT, Tablet benzonatate 200 mg oral capsule: 1 capsule = 200 mg, By Mouth, 3 times a day, PRN as needed for cough, # 30 capsule, 0 Refills, Maintenance, 03/27/20 21:58:00 EDT, Capsule budesonide 0.5 mg/2 mL inhalation suspension: 0.5 mg, 2, mL, Neb, 2 times a day, # 120 mL, Refills 0, Maintenance, 03/27/20 21:57:00 EDT, Suspension clonazePAM 0.5 mg oral tablet: 0.5 tablet = 0.25 mg, By Mouth, Daily, 0 Refills, Maintenance, 12/24/22 17:13:00 EDT, Tablet, Partial fill upon patient request if the prescription is for a schedule IIopioid drug. diosmiplex 630 mg oral tablet: 1 tablet = 630 mg, By Mouth, Daily, # 30 tablet, 0 Refills, Maintenance, 12/24/22 17:26:00 EDT, Tablet, Partial fill upon patient request if the prescription is for a schedule II opioid drug. docusate sodium 150 mg/15 ml oral liquid: 10 mL = 100 mg, By Mouth, 2 times a day, 0 Refills, Maintenance, 10/11/15 9:50:30, Liquid fluticasone 50 mcg/inh nasal spray: 2 sprays, Nares, Both, Daily in AM, 0 Refills, Maintenance, 03/27/20 21:59:00 EDT, [place] gabapentin 100 mg oral capsule: 200 mg, 2, capsule, By Mouth, 3 times a day, # 180 capsule, Refills0, Maintenance, 03/27/20 21:59:00 EDT primidone 50 mg oral tablet: TAKE 2 TABLETS BY MOUTH 3 TIMES A DAY sucralfate 1 gm oral tablet: 1 Gm, 1, tablet, By Mouth, 3 times a day before meals and bedtime, Refills 0, Maintenance, 11/23/18 10:32:24 EDT tamsulosin 0.4 mg oral capsule: TAKE 1 CAPSULE BY MOUTH EVERY DAY. 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 COVID-19 infection: Acute on chronic hypoxic resp failure: CXR without pneumonia. - Isolation x 10 days - Oxygen supplementation as needed, wean off, currently on 1-2 l NC (pt has oxygen already set up at home for night time oxygen use) - Supportive care Peripheral vascular disease (I73.9): CAD s/p CABG: ICM/HFrEF 30%: H/o CVAs and ICH with residual right sided weakness and dysarthria/aphasia: HTN: Possible autonomic dysfunction: Pt noted to have episodes of hypotension and near syncope/syncope over last 3-4 months. ? BP meds related/orthostatic vs ? autonomic dysfunction. Lasix was recently decreased by Cardiology. - Aspirin and statin - Decreased dose of coreg to 3.125 mg po bid, adjust as needed - Lasix 20 mg po qd Mild RUPERTO (acute kidney injury) on CKD II: Likely prerenal in setting of hypotension vs ATN. Cr on admission 1.4. Resolved quickly with IVF. 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 Cycle 1 on 01/14/2023. - F/u with Oncology - Wound care H/O DVT/PE: not further on A/C due to h/o ICH and GIB Superficial small pressure ulcers: No evidence of infection. Swab cx of tiny superficial toe ulcerslikely mere contamination. Wound care. General Appearance NAD. Fatigued. Not dyspneic. Not ill-appearing. HEENT Moist mucous membranes. Respiratory Lungs: CTA. Cardiac Cardiac: no M/G/R. Rhythms: RRR. Abdomen/GI Abdomen: soft, non-tender, non-distended, bowel sounds, no hepatosplenomegaly. Extremities No edema. Neurologic Alert & oriented x 1-2 . Results Laboratory 05/16/2023 5:45 EDT WBC 5.6 k/mm3 Hgb 8.5 Gm/dL L Hct 27.6 % L Platelet Count 183 k/mm3 Sodium 141 mmol/L Potassium 4.0 mmol/L Glucose Level 103 mg/dL H BUN 31 mg/dL H Creatinine-Blood 0.9 mg/dL Alkaline Phosphatase 134 units/L H AST (SGOT) 46 units/L H ALT (SGPT) 43 units/L H Bilirubin, Total <0.2 mg/dL 05/13/2023 11:52 EDT Appear/Color, Urine LIGHT YELLOW Specific [place], Urine 1.014 pH, Urine 6.5 Albumin, Urine 1+ Glucose, Urine NEGATIVE Ketones, Urine NEGATIVE Bilirubin, Urine NEGATIVE Hemoglobin, Urine NEGATIVE Nitrite, Urine NEGATIVE Leukocyte, Urine NEGATIVE Urobilinogen NORMAL mg/dL WBC's, Urine 2 /HPF RBC's, Urine 1 /HPF Hyaline Cast 2 LPF Hold Urine Culture Testing available 48 hours from time of collection. 05/13/2023 11:45 EDT Blood Culture, Second Order Blood Culture, Second Order (Preliminary) 05/13/2023 11:29 EDT BUN 48 mg/dL H Creatinine-Blood 1.4 mg/dL H Alkaline Phosphatase 119 units/L AST (SGOT) 46 units/L H ALT (SGPT) 39 units/L Bilirubin, Total 0.2 mg/dL Lactate 2.4 mmol/L H 05/13/2023 11:28 EDT WBC 4.0 k/mm3 Hgb 11.0 Gm/dL L Hct 36.1 % L Platelet Count 220 k/mm3 Blood Culture Blood Culture (Preliminary) 05/13/2023 11:12 EDT COVID-19 by RT-PCR POSITIVE . Imaging : RADIOLOGY 05/14/2023 16:30 EDT Foot Min 3 Views Left Foot Min 3 Views Left 05/13/2023 13:[address] Head/Brain W/O Contrast CT Head/Brain W/O Contrast 05/13/2023 11:10 EDT Chest Portable Chest Portable . Discharge Plan Diet/Activity/Patient Education/Follow Up Follow Up with: Arjun Hampton Within 3 to 5 days. Discharge Disposition Discharge: home with VNA. Home Health Face to Face I certify that this patient is under my care and that I or an allowed non- physician practitioner working with me, had a [id number] encounter with the patient on this date: 05/16/2023. Nursing: Chronic disease management, Wound care and treatment. Physical Therapy: Falls prevention training. Occupational Therapy: ADL Management. Physician Signature: Emperatriz Cnotreras MD . Code Status: DNI. Discharge Condition: fair, compared to admission improved. 35 minutes spent on discharge * Brittney Sanchez RN: PERFORM Event Display: Patient Education/Instruction Authored Date: [id number] Inpatient Adult Discharge Instructions [address] [address] Name: JENNIFER RODAS : 1935 Visit: 05/13/2023 18:27:00 Current Date: 05/16/2023 10:34 Account: [id number] Inpatient Adult Discharge Instructions We would like [...] and their families. Surveys are administered by [employer] ?? If further treatment with your primary care physician or another doctor is recommended, it is important for you to keep the appointment. Call your primary care physician or return to the Emergency Department immediately if your condition worsens, fails to improve, or new symptoms develop. If you need to find a doctor, you can call [facility] [employer] for a referral at [phone] or toll free at [phone] ([phone]) or log in to [email or web address] ?? [facility], in keeping with [facility] guidance, no longer requires face masks for [...] a health care walker of your choosing. [employer] is a website that allows you to securely view your medical information including your hospital discharge summary, office visit summaries, medications and follow-up visits. You can also request appointments, renew medications, and request access to your medical information using a health care walker of your choosing, or just ask a question. You can enroll at [email or web address] or register during your next office visit. You have been discharged from [facility], Patient Care Unit: D6A. If you have any questions regarding these instructions after you leave, please call us and we will be happy to assist you. [facility] Your Care Team Attending Physician Mo Castle MD, Emperatriz Consulting Providers Isidro DSOUZA, Ignacio Discharging Providers Emperatriz Contreras MD Reason for Admission pt is from home with fever cough sore thoat per pt is non verbal at baseline Your Diagnosis CHF (congestive heart failure) Hypotension COVID RUPERTO (acute kidney injury) Hypothyroidism Peripheral vascular disease Coronary atherosclerosis Type 2 diabetes with nephropathy Shock Altered mental status Chronic radiodermatitis Non-pressure chronic ulcer of skin of other sites limited to breakdown of skin Pressure ulcer of right heel, unstageable Non-pressure chronic ulcer of other part of left lower leg with other specified severity Non-pressure chronic ulcer of other part of left foot limited to breakdown of skin Atherosclerosis of [place] arteries of left leg with ulceration of other part of foot MRSA cellulitis of left foot Hypoxia At high risk for fall Benign essential hypertension Chronic obstructive lung disease Chronic respiratory failure, unspecified whether with hypoxia or hypercapnia Gout H/O: pulmonary embolus Hemiparesis affecting right side as late effect of cerebrovascular accident Hyperlipidemia Ischemic cardiomyopathy Squamous cell carcinoma of scalp Tests Performed Below is a partial list of the tests performed during your hospitalization. You may have had other tests and procedures not included in this list. Please discuss all test results with your provider. BASE EXCESS POC CARTRIDGE CALCIUM IONIZED POC CART COMPLETE CBC WITH DIFF COMPREHENSIVE METABOLIC PANL COVID-19 (Novel Coronavirus), Rapid PCR GLUCOSE POC GLUCOSE POC CARTRIDGE HEMATOCRIT POC CARTRIDGE HEMOGLOBIN POC CARTRIDGE Lactic Acid Level Magnesium Level MRSA PCR Nasal Swab Phosphorus Level POTASSIUM POC CARTRIDGE SODIUM POC CARTRIDGE Urinalysis w/hold for Urine Culture VBG POC CARTRIDGE CT Head/Brain W/O Contrast XR Chest Portable XR Foot Min 3 Views Left Primary Care Provider Arjun Hampton DO Advance Directive Health Care Proxy on File Yes - Health Care Proxy Yes - MOLST Discharge Vitals Temperature: 97.8 DegF Height: 183 cm Pulse Rate: 75 bpm Weight: 83.6 kg Respiratory Rate: 16 br/min Body Mass Index: 24.96 kg/m2 Systolic Blood Pressure:??145 mm Hg??High Body surface area: 2.06 Diastolic Blood Pressure: 63 mm Hg ?? Oxygen Saturation: 97 % ?? Studies Pending All tests and labs ordered during this hospital stay have been completed unless listed below. Please discuss all pending results with your provider listed above in these instructions. ?? Blood Culture Blood Culture #2 Hold Lavender Tube (BB) Lactic Acid Level (Lactate Level) What to do next Instructions From Your Doctor Discharge Orders Scheduled Follow-Up Appointments 2022 11:30 AM EDT ?? With: Arjun Hampton DO Where: [address] [place] [address]- Status: Pending You Need to Schedule the Following Appointments Follow Up with??Arjun Hampton When:??Within 3 to 5 days Discharge Medications JENNIFER RODAS :1935 Visit Date:05/13/2023 Medications: Please continue your medications until treatment is completed or stopped by your provider. Medications not listed below should be discontinued. Discuss any questions related to medications with your provider. What How Much When Why Instructions Next Dose New Furosemide (Lasix 20 mg oral tablet) 20 Milligram Oral Daily 05/17/23 9am New Silver SulfADIAZINE Topical (Silvadene 1% cream) 1 walker Topically Twice a day Chronic radiodermatitis Non-pressure chronic ulcer of skin of other sites limited to breakdown of skin Duration: 30 Days Pickup at [facility]/pharmacy #[id number] 05/16/23 8pm Changed Carvedilol (carvedilol 3.125 mg oral tablet) 3.125 Milligram Oral Twice a day Duration: 30 Days Pickup at [facility]/pharmacy #[id number] 05/16/23 8pm Changed Clonazepam (clonazePAM 0.5 mg oral tablet) 0.5 tab(s) Oral Daily 05/17/23 9am Changed diosmiplex (diosmiplex 630 mg oral tablet) 1 tab(s) Oral Daily 05/17/23 9am Unchanged Albuterol/ Ipratropium (albuterol-ipratropium 3 mg-0.5 mg/ 3 ml inhalation solution) 3 Milliliter Inhalation 4 times a day Resume home schedule Unchanged Allopurinol (allopurinol 300 mg oral tablet) 1 tab(s) Oral Daily 05/17/23 9am Unchanged Ammonium Lactate 12% (ammonium lactate 12% topical lotion) See instructions APPLY TOPICALLY DAILY TO THE LEGS DIREDTED ?? Resume home schedule Unchanged Aspirin (aspirin 81 mg oral tablet) 1 tab(s) Oral Daily 05/17/23 9am Unchanged Atorvastatin (atorvastatin 80 mg oral tablet) 1 tab(s) Oral Daily 05/17/23 9am Unchanged Benzonatate (benzonatate 200 mg oral capsule) 1 capsule Oral 3 times a day as needed for as needed for cough As Needed Unchanged Budesonide (budesonide 0.5 mg/ 2 mL inhalation suspension) 2 Milliliter Nebulized inhalation Twice a day 05/16/23 8pm Unchanged Cadexomer-Iodine Topical (Iodosorb 0.9% topical gel) See instructions Apply to left toe ulcer every other day and cover with gauze dressing ?? Resume home schedule Unchanged Cholecalciferol (Vitamin D3 1000 intl units oral tablet) 1 tab(s) Oral Daily 05/17/23 9am Unchanged Docusate (docusate sodium 150 mg/ 15 ml oral liquid) 10 Milliliter Oral Twice a day 05/16/23 8pm Unchanged Fluticasone Nasal (fluticasone 50 mcg/ inh nasal spray) 2 spray(s) Nares, Both Daily in the morning 05/17/23 9am Unchanged Gabapentin (gabapentin 100 mg oral capsule) 2 capsule Oral 3 times a day 05/16/23 3pm Unchanged Insulin Glargine (Basaglar KwikPen 100 units/ mL subcutaneous solution) See instructions INJECT 10 UNITS SUBCUTANEOUSLY DAILY AT BEDTIME ?? 05/16/23 8pm Unchanged Levothyroxine (levothyroxine 0.05 mg oral tablet) See instructions 1 tablet By Mouth Thursday-Thursday 2 tabs po Thu-Thursday ?? Resume home schedule Unchanged Loratadine (Claritin 10 mg oral tablet) 1 tab(s) Oral Daily 05/16/23 1pm Unchanged Multivitamin 1 tab Oral Daily 05/17/23 9am Unchanged [place]-3 Polyunsaturated Fatty Acids (Fish Oil 1000 mg oral capsule) 1 capsule Oral Daily 05/17/23 9am Unchanged Omeprazole (omeprazole 40 mg oral enteric coated capsule) 1 capsule Oral Daily 05/17/23 9am Unchanged Ondansetron (ondansetron 4 mg oral tablet) 1 tab(s) Oral Every 8 hours as needed for Nausea & Vomiting As needed Unchanged Primidone (primidone 50 mg oral tablet) TAKE 2 TABLETS BY MOUTH 3 TIMES A DAY ?? Resume home schedule Unchanged Sodium Hypochlorite Topical (Dakins Half Strength 0.25% topical solution) See instructions Use for dressing changes as directed ?? Resume home schedule Unchanged Sucralfate (sucralfate 1 gm oral tablet) 1 tab(s) Oral 3 times a day before meals and bedtime Resume home schedule Unchanged Tamsulosin (tamsulosin 0.4 mg oral capsule) TAKE 1 CAPSULE BY MOUTH EVERY DAY ?? Resume home schedule Unchanged Thiamine 100 Milligram Oral Daily 05/17/23 9am Unchanged Triamcinolone Topical (triamcinolone 0.1% topical cream) 1 walker Topically 3 times a day apply a thin film to affected area ?? Resume home schedule Unchanged Ubiquinone (Co Q-10) 100 Milligram Oral Daily 05/17/23 9am Pharmacy Information [facility]/pharmacy #[id number]: [address], [place] [id number] [phone] ?? What How Much When Comments Stop Taking Miscellaneous Rx (FREESTYLE LITE TEST STRIP) See instructions USE TO TEST 3 TIMES A DAY ?? Test Results Below is a partial list of the most recent Laboratory test results done prior to this discharge. You may have had other tests and procedures not included in this list. Please discuss all test resultswith your provider. Est Creatinine Clearance - 64.76 mL/min (05/16/2023) BASE EXCESS POC CARTRIDGE (05/13/2023) ???Base Excess (POC) POC Cartridge - NEGATIVE 1 CALCIUM IONIZED POC CART (05/13/2023) ???Ionized Calcium (POC) POC Cartridge - 1.23 mmol/L COMPLETE CBC WITH DIFF (05/16/2023) ???WBC - 5.6 k/mm3???RBC - 3.15 m/mm3???Hgb - 8.5 Gm/dL???Hct - 27.6 %???MCV - 87.6 femtoliters???MCH - 27.0 pg???MCHC - 30.8 g/dL???Platelet Count - 183 k/mm3???RDW-SD - 53.9 femtoliters???MPV - 9.9femtoliters???Nucleated RBC (Automated) - 0.0 #/100 WBC'S???Abs. NRBC - 0.0 k/mm3???Abs. Neut - 4.0 k/mm3???Abs. Lymph - 0.9 k/mm3???Abs. [place] - 0.6 k/mm3???Abs. Eo - 0.1 k/mm3???Abs. Baso - 0.0 k/mm3???Neut % - 71.6 %???Lymph % - 15.5 %???[place] % - 10.6 %???Eos % - 1.4 %???Baso % - 0.2 %???Imm Gran- 0.7 %???Abs. Imm Gran - 0.0 k/mm3 COMPREHENSIVE METABOLIC PANL (05/16/2023) ???Sodium - 141 mmol/L???Potassium - 4.0 mmol/L???Chloride - 108 mmol/L???Bicarbonate Level - 26 mmol/L???Anion Gap - 7???Glucose Level - 103 mg/dL???BUN - 31 mg/dL???Creatinine-Blood - 0.9 mg/dL???Estimated GFR Creatinine - 84 ML/MIN/1.73 M2???Calcium - 8.1 mg/dL???Protein, Total - 4.9 Gm/dL???Albumin - 2.8 Gm/dL???AG Ratio - 1.3???Alkaline Phosphatase - 134 units/L???AST (SGOT) - 46 units/L???ALT (SGPT) - 43 units/L? ?Bilirubin, Total - <0.2 mg/dL COVID-19 (Novel Coronavirus), Rapid PCR (05/13/2023) ???COVID-19 by RT-PCR - POSITIVE GLUCOSE POC (05/16/2023) ???Glucose, POC - 118 mg/dL GLUCOSE POC CARTRIDGE (05/13/2023) ???Glucose (POC) POC Cartridge - 186 HEMATOCRIT POC CARTRIDGE (05/13/2023) ???Hematocrit (POC) POC Cartridge - 35 % HEMOGLOBIN POC CARTRIDGE (05/13/2023) ???Hemoglobin (POC) POC Cartridge - 11.9 Gm/dL Lactic Acid Level (05/14/2023) ???Lactate - 2.5 mmol/L Magnesium Level (05/14/2023) ???Magnesium - 2.1 mg/dL MRSA PCR Nasal Swab (05/14/2023) ???MRSA PCR Result - Negative, MRSA target DNA not detected.???S Aureus PCR Result - Negative, SA target DNA not detected. Phosphorus Level (05/14/2023) ???Phosphorus - 3.7 mg/dL POTASSIUM POC CARTRIDGE (05/13/2023) ???Potassium (POC) POC Cartridge - 4.4 mmol/L SODIUM POC CARTRIDGE (05/13/2023) ???Sodium (POC) POC Cartridge - 138 mmol/L Urinalysis w/hold for Urine Culture (05/13/2023) ???Appear/Color, Urine - LIGHT YELLOW???Specific [place], Urine - 1.014???pH, Urine - 6.5???Albumin, Urine - 1+???Glucose, Urine - NEGATIVE???Ketones, Urine - NEGATIVE???Bilirubin, Urine - NEGATIVE???Hemoglobin, Urine - NEGATIVE???Nitrite, Urine - NEGATIVE???Leukocyte, Urine - NEGATIVE???Urobilinogen - NORMAL???WBC's, Urine - 2 /HPF???RBC's, Urine - 1 /HPF???Hyaline Cast - 2 LPF???Hold Urine Cultu re - Testing available 48 hours from time of collection. VBG POC CARTRIDGE (05/13/2023) ???pH Venous (POC) POC Cartridge - 7.32???pCO2 Venous (POC) POC Cartridge - 49.8 mm Hg???pO2 Venous(POC) POC Cartridge - 18 mm Hg???Est Bicarbonate (POC) POC Cartridge - 25.5 mmol/L???% O2 Sat Venous (POC) POC Cartridge - 24???Specimen Type - Blood Gas - VENOUS Allergies (NKA means No Known Allergies) NKA Problems Active Problems??(26) Anemia?? At high risk for fall?? 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 Benign essential hypertension?? Chronic obstructive lung disease?? Chronic respiratory failure, unspecified whether with hypoxia or hypercapnia?? Coronary atherosclerosis?? COVID-19?? Encounter for annual wellness visit (AWV) in Medicare patient?? Gout?? H/O: Deep vein thrombosis?? H/O: pulmonary embolus?? Alta's thyroiditis?? Hemiparesis affecting right side as late effect of cerebrovascular accident?? Hypercholesterolemia?? Hyperlipidemia?? Ischemic cardiomyopathy?? Neuropathy, peripheral?? Patent foramen ovale?? Peripheral vascular disease?? 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 Right homonymous hemianopsia?? Squamous cell carcinoma of scalp?? Tremor?? Type 2 diabetes mellitus with insulin therapy?? Type 2 diabetes with nephropathy?? Education Materials Below is the list of Educational Leaflet Providered with your Discharge Instructions. Valuables and Belongings I fully understand and agree that [facility] accepts no responsibility for all my personal [...] Review of Valuable and Belonging List: With patient Date for Pt to Sign Valuables/Belongings: 05/14/23 05:48:00 ?? Other Discharge Information ?? Wound Assessment?? Wound Assessment?? Wound Location I: Foot, left Wound Type I: Other: squamous cell cancer Wound I, Present on Admission: Yes Wound Location II: Head Wound Location III: Leg, left lower Wound Location IV: Heel, left Wound Location V: Heel, right ? Case Management Discharge Plan?? Discharge Plan?? Discharge Agency Information?? Discharge Level of Care at Discharge: Homehealth/VNA Name of Agency #1: [facility] Discharge VNA/Hospice/Home Care: [facility] Service Categories #1: Oxygen Therapy, Physical Therapy, [facility] ?? Service Comments #1: [facility] will resume your care on discharge. Please call them if they do not call you ?? Pulmonary Rehab Status?? Pulmonary Rehab Discharge Status?? Respiratory Rate: 16 br/min ? Common Emergency Awareness Tips IS IT [...] are strongly encouraged to quit. Please call [facility] [employer] [facility] at [phone] or [phone] ([phone]) or log in to [email or web address] for referrals to smoking cessation programs. ?? 720 Suicide & Crisis Lifeline is available 16/03 if you or someone you know needs to find a reason to keep living. By calling 758 you'll be connected to a skilled, trained counselor at a crisis center in your area. INPATIENT DISCHARGE INSTRUCTIONS SIGNATURE BELINDA JENNIFER RODAS Location:[facility] Registration Date and Time:05/13/2023 18:27 EDT Primary Care Physician: Arjun Hampton DO, Attending Physician: Mo Castle MD, Emperatriz, I JENNIFER RODAS, have received the above patient education materials/instructions and have verbalized understanding. If ambulance or transport services are being used I further acknowledge being givena choice of service. ?? If you need to contact me, please call me at this number: . Patient/Developmental Electronics Assembler Name: Patient/Developmental Electronics Assembler Signature: Relationship to Patient: Witness Name/Signature: Date: * Emperatriz Contreras MD: PERFORM, SIGN, VERIFY Event Display: Patient Education Handout Authored Date: Patient Care team information Care Team Personnel Name: Lucina Shah RN Position: [facility] SN RN Member Role: Primary Care Nurse Name: Isaias Aparicio RN Position: [facility] RN Member Role: Primary Care Nurse Name: Sabina Simpson RN Position: [facility] RN Member Role: Primary Care Nurse Name: Olimpia Wallis RN Position: [facility] SN RN Member Role: Primary Care Nurse Name: Miguel Munoz MD Position: [facility] Renal MD Member Role: Lifetime Consulting Physician Address: Address: [address] [place] [address], [address] [facility] [address] Name: Naz Fleming MD Position: [facility] Physician - Primary Care Member Role: Lifetime Consulting Physician Address: Address: [address] [place] [address] [facility] [place], [place] [id number] Name: Nayeli Quintana RN Position: [facility] RN Member Role: Primary Care Nurse Name: Tamica Vernon RN Position: [facility] RN Member Role: Primary Care Nurse Name: Lucina Ugalde RN Position: [facility] RN Member Role: Primary Care Nurse Name: Deyanira Schwartz Position: [facility] commercial pilot Member Role: Chemistry Intern Name: Arjun Hampton DO Position: [facility] Physician - Primary Care Member Role: PCP Address: Address: [address] [facility] Primary Care [place], [place] - [place] Name: Jeromy Rivero RN Position: [facility] Nurse Member Role: Primary Care Nurse Name: Deyanira Douglas RN Position: [facility] Onco RN Member Role: Primary Care Nurse Name: Brittney Sanchez RN Position: [facility] RN Member Role: Primary Care Nurse Name: Taisha Anguiano Position: [facility] Nurse Member Role: Lifetime Consulting Physician Name: Kali Roberts Jr Position: [facility] ED RN W/OE and Tasks Member Role: Primary Care Nurse Name: Melissa Jordan RN Position: [facility] RN Member Role: Primary Care Nurse Name: Erin Pagan RN Position: [facility] Volunteer Manager Member Role: Primary Care Nurse Name: Jeromy Etsrella RN Position: [facility] RN Member Role: Primary Care Nurse Name: Edmond Bingham RN Position: [facility] Onco RN Member Role: Primary Care Nurse Name: Nora Guerrero RN Position: [facility] RN Member Role: Primary Care Nurse Name: Jacklyn Machado RN Position: [facility] Nurse Member Role: Primary Care Nurse Name: Keyon Justin RN Position: [facility] RN Member Role: Primary Care Nurse Address: Address: [address] [place] [address] [place] Name: Shadi Frazier RN Position: [facility] RN Member Role: Primary Care Nurse Name: Messi SMITH Attending Position: [facility] ED Medicine MD Name: Shane Harris Position: [facility] ED RN W/OE and Tasks Member Role: Patient Care Provider Name: Alma Rosa Wilkinson RN Position: [facility] ED RN W/OE and Tasks Member Role: Patient Care Provider Name: Stanley Friend DO Position: [facility] Resident Member Role: ED Resident Address: Address: [address] [facility] Emergency [facility]-[place], [place] - [place] Name: Bri Garcia Position: [facility] ED [facility] Member Role: Loan Officer Care Team Related Persons Name: DEMOND RODAS Address: home [address] [place], [place] Name: SCARLETT RODAS Address: home [address] [place], [place] Name: VIDHI RODAS Address: home [address] [place] [id number]
--- OUTSIDE RECORDS SUMMARY | 2023-08-06 10:10 | XMS_ITS | Continuity of Care Document ---
Author Name Unknown Organization [facility] ancer Care Address [address] [place] [address]- Care Team Providers Care Precision Filer Hand Name Role Phone Arjun Hampton DO Primary Care Physician [place] [facility] [place]22 [facility] [address] [place] [id number] [[email or web address]] Attending Physician: Delmi Laughlin Admitting Physician: AdmtrDelmi Referring Physician: Admtr, Ar8 Allergies, Adverse Reactions, Alerts No Known Allergies [...] vaccine 07/29/18 Given tetanus/diphtheria/pertussis, acel(Tdap) 04/15/18 Given Medications albuterol-ipratropium 3 mg-0.5 mg/3 ml inhalation [...] # 225 mL, 0 Refills, [id number], 20, APPLY TOPICALLY DAILY TO THE LEGS [...] 15 Unknown, 1 Refills, 07/10/22 6:58:00 EST, [facility]/pharmacy #[id number], 180, cm, 04/18/22 11:39:00 EDT, [...] Suspension Start Date: 03/27/20 Status: Ordered carvedilol 6.25 mg oral tablet TAKE 1 TABLET BY MOUTH TWICE A DAY Start Date: 04/03/20 Status: Ordered Claritin 10 mg oral tablet 10 mg, 1, tablet, By Mouth, Daily, Refills 0, Maintenance, 11/23/18 10:33:45 EDT Start Date: 11/23/18 Status: Ordered clonazePAM 0.5 mg oral tablet 0.5 tablet = 0.25 mg, By Mouth, Daily, 0 Refills, Maintenance, 04/24/21 11:16:00 EDT, Tablet, Partial fill upon patient request if the prescription is for a schedule II opioid drug. Start Date: 04/24/21 Status: Ordered Co Q-10 = 100 mg, By Mouth, Daily, 0 Refills, Maintenance, 11/23/18 10:33:54 EDT Start Date: 11/23/18 Status: Ordered Dakins Half Strength 0.25% topical solution See Instructions, Use for dressing changes as directed, # 473 mL, 0 Refills, Maintenance, 09/11/22 7:42:00 EST, [facility]/pharmacy #[id number], Partial fill upon patient request if the prescription is for a schedule II opioid drug., Use for dressing changes as di... Start Date: 09/11/22 Status: Ordered diosmiplex 630 mg oral tablet 1 tablet = 630 mg, By Mouth, Daily, # 30 tablet, 0 Refills, Maintenance, 01/04/21 9:13:00 EDT, Tablet, Partial fill upon patient request if the prescription is for a schedule II opioid drug. Start Date: 01/04/21 Status: Ordered docusate sodium 150 mg/15 ml oral liquid 10 mL = 100 mg, By Mouth, 2 times a day, 0 Refills, Maintenance, 10/11/15 9:50:30, Liquid Start Date: 10/11/15 Status: Ordered Ferrous Sulfate EC 325 mg, By Mouth, Daily, Refills 0, Maintenance, 07/28/18 21:44:24 EST Start Date: 07/28/18 Status: Ordered Fish Oil 1000 mg oral capsule 1 capsule = 1,000 mg, By Mouth, Daily, 0 Refills, Maintenance, 07/28/18 21:41:44 EST Start Date: 07/28/18 Status: Ordered fluticasone 50 mcg/inh nasal spray 2 sprays, Nares, Both, Daily in AM, 0 Refills, Maintenance, 03/27/20 21:59:00 EDT, [place] Start Date: 03/27/20 Status: Ordered FREESTYLE 28G LANCETS FREESTYLE 28G LANCETS, See Instructions, # 100 Unknown, 11 Refills, Maintenance, TEST 3 TIMES DAILY, 10/21/22 12:29:00 EST, 180, cm, 08/01/22 11:23:00 EST, Height Start Date: 10/21/22 Status: Ordered FREESTYLE 28G LANCETS FREESTYLE 28G LANCETS, See Instructions, # 200 Unknown, 0 Refills, Maintenance, TEST TWICE DAILY, 180, cm, 04/03/20 15:28:00 EDT, Height, 90, kg, 07/26/18 17:05:00 EST, Dry Weight Start Date: 04/04/20 Status: Ordered Freestyle Lancets See Instructions, # 100 each, Refills 11, Tot. Refills 11, Maintenance, e11.9 pt tests three times daily two boxes, 11/03/22 12:26:00 EDT, Supply, 180, cm, 08/01/22 11:23:00 EST, Height Start Date: 11/03/22 Status: Ordered Freestyle Lite Monitor See Instructions, # 1 each, Maintenance, pt is using to test his glucose every day E11.9, 10/04/21 14:22:00 EST, Supply, 180, cm, 09/25/21 12:52:00 EST, Height Start Date: 10/04/21 Status: Ordered FREESTYLE LITE TEST STRIP FREESTYLE LITE TEST STRIP, See Instructions, # 200 Unknown, 5 Refills, TEST 3 TIMES A DAY, 180, cm,07/01/21 10:37:00 EST, Height Start Date: 07/30/21 Status: Ordered FREESTYLE LITE TEST STRIP FREESTYLE LITE TEST STRIP, See Instructions, # 200 Unknown, 2 Refills, TEST 3 TIMES A DAY FOR TYPE 2 DIABETES, 180, cm, 04/24/21 11:08:00 EDT, Height Start Date: 05/16/21 Status: Ordered FREESTYLE LITE TEST STRIP FREESTYLE LITE TEST STRIP, See Instructions, # 300 Unknown, 3 Refills, Maintenance, TEST 3 TIMES A DAY FOR TYPE 2 DIABETES, 06/03/22 13:40:00 EDT, 180, cm, 04/18/22 11:39:00 EDT, Height Start Date: 06/03/22 Status: Ordered Freestyle Lite Test Strips See Instructions, # 300 each, Refills 1, Tot. Refills 1, Maintenance, pt is testing 3 time for Type2 Diabetes Mellitus E11.9, 11/14/22 8:16:00 EDT, Supply, 180, cm, 11/07/22 11:29:00 EDT, Height Start Date: 11/14/22 Stop Date: 01/13/23 Status: Ordered furosemide 20 mg oral tablet 20 mg, 1, tablet, By Mouth, Daily, # 30 tablet, Refills 0, Maintenance, 03/27/20 21:59:00 EDT Start Date: 03/27/20 Status: Ordered gabapentin 100 mg oral capsule 200 mg, 2, capsule, By Mouth, 3 times a day, # 180 capsule, Refills 0, Maintenance, 03/27/20 21:59:00 EDT Start Date: 03/27/20 Status: Ordered Iodosorb 0.9% topical gel See Instructions, Apply to left toe ulcer every other day and cover with gauze dressing, # 40 Gm, 1Refills, Maintenance, 12/16/18 10:27:22 EDT, Apply to left toe ulcer every other day and cover withgauze dressing Start Date: 12/16/18 Status: Ordered levothyroxine 0.05 mg oral tablet See Instructions, 1 tablet By Mouth Thursday-Thursday 2 tabs po Thu-Thursday, # 90 tablet, 3 Refills, 04/17/22 17:59:00 EDT, [facility]/pharmacy #[id number], 180, cm, 02/21/22 11:07:00 EDT, Height Start Date: 04/17/22 Status: Ordered Multivitamin 1 tab, By Mouth, Daily, 0 Refills, Maintenance, 07/28/18 21:39:19 EST Start Date: 07/28/18 Status: Ordered NOVOFINE AUTOCOVER 30G NEEDLE NOVOFINE AUTOCOVER 30G NEEDLE, See Instructions, # 90 Unknown, 9 Refills, TEST DAILY FOR TYPE 2 DIABETES MELLITUS, 180, cm, 07/01/21 10:37:00 EST, Height Start Date: 08/27/21 Status: Ordered Novofine Autocover 30g Needle Novofine Autocover 30g Needle, See Instructions, # 300 each, Refills 3, Tot. Refills 3, Maintenance, To test three times a day for Type 2 Diabetes E11.9, 09/19/22 14:33:00 EST, Supply, 180, cm, 08/01/22 11:23:00 EST, Height Start Date: 09/19/22 Status: Ordered Omeprazole = 20 mg, By Mouth, 2 times a day, 0 Refills, Maintenance, 07/28/18 21:41:14 EST Start Date: 07/28/18 Status: Ordered omeprazole 40 mg oral enteric coated capsule 1 capsule = 40 mg, By Mouth, Daily, # 90 capsule, 0 Refills, Maintenance, 02/29/20 15:47:00 EDT, ECCapsule Start Date: 02/29/20 Status: Ordered Pen [place], 30 G x 8 mm BD Ultra Fine II See Instructions, # 100 each, Refills 5, Tot. Refills 5, Maintenance, use as directed for Type 2 Diabetes Mellitus, 06/18/20 10:35:00 EDT, Supply, 180, cm, 04/03/20 15:28:00 EDT, Height, 90, kg, 07/26/18 17:05:00 EST, Dry Weight Start Date: 06/18/20 Stop Date: 12/15/20 Status: Ordered Pen [place], 30 G x 8 mm BD Ultra Fine II See Instructions, # 300 each, Refills 2, Tot. Refills 2, Maintenance, Test daily for Type 2 Diabetes Mellitus e11.9, 11/30/21 15:54:00 EDT, Supply, 180, cm, 04/03/20 15:28:00 EDT, Height, 90, kg, 07/26/18 17:05:00 EST, Dry Weight Start Date: 11/30/21 Stop Date: 08/27/22 Status: Ordered Primidone 125 mg, By Mouth, 3 times a day, for tremors, Refills 0, Maintenance, 07/28/18 21:35:37 EST Start Date: 07/28/18 Status: Ordered Silvadene 1% cream 1 application, Topically, Daily, Use for scalp dressing change as directed, # 400 Gm, 2 Refills, Acute 01/08/23 11:34:00 EDT, 12/09/22 11:33:00 EDT, Cream, [facility]/pharmacy #[id number], Partial fill upon patient request if the prescription is for a schedule II... 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 3 Confirmed Active Hypercholesterolemia Confirmed Active Hyperlipidemia Confirmed Active Patent foramen ovale Confirmed Active Encounter for annual wellness visit (AWV) in Medicare patient Confirmed Active Neuropathy, peripheral 4 Confirmed 02/06/15 Active Peripheral vascular disease 5 Confirmed Active 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 Taveras Social History Social History Type Response Smoking Status Former smoker entered on: 09/23/15 Sex Patient Care team information Care Team Personnel Name: Lucina Shah RN Position: [facility] RN Member Role: Primary Care Nurse Name: Sabina Simpson RN Position: [facility] RN Member Role: Primary Care Nurse Name: Olimpia Wallis RN Position: [facility] SN RN Member Role: Primary Care Nurse Name: Miguel Munoz MD Position: [facility] Renal MD Member Role: Lifetime Consulting Physician Address: Address: [address], [address] [facility] [place] [address]- [place] Name: Naz Fleming MD Position: [facility] Physician -Physician Practices Member Role: Lifetime Consulting Physician Address: Address: [address] [place] [address] [facility] [place] [address]- [place] Name: Myla Olivas RN Position: [facility] RN Member Role: Primary Care Nurse Name: Nayeli Quintana RN Position: [facility] RN Member Role: Primary Care Nurse Name: Tamica Vernon RN Position: [facility] RN Member Role: Primary Care Nurse Name: Arjun Hampton DO Position: [facility] Primary Care Physician Member Role: PCP Address: Address: [address] [place] [address] Primary Care [place], [place] - [place] Name: Jeromy Rivero RN Position: [facility] PCO RN Member Role: Primary Care Nurse Name: Taisha Anguiano Position: [facility] PCO RN Member Role: Lifetime Consulting Physician Name: Kali Roberts Jr Position: [facility] ED RN W/OE and Tasks Member Role: Primary Care Nurse Name: Melissa Jordan RN Position: [facility] RN Member Role: Primary Care Nurse Name: Erin Paagn RN Position: [facility] Hospital Parachute Accessories Attacher Member Role: Primary Care Nurse Name: Jeromy Estrella RN Position: [facility] RN Member Role: Primary Care Nurse Name: Nora Guerrero RN Position: [facility] RN Member Role: Primary Care Nurse Name: Jacklyn Machado RN Position: [facility] AMB Nurse Member Role: Primary Care Nurse Name: Keyon Justin RN Position: [facility] RN Member Role: Primary Care Nurse Address: Address: [address] [place] [address]- [place] Care Team Related Persons Name: GISELLSCARLETT Address: [address] [place] [address] Name: VIDHI JAMESON Address: home [address] [place] [address]
--- OUTSIDE RECORDS SUMMARY | 2023-08-06 10:10 | XMS_ITS | Continuity of Care Document ---
Author Name Unknown Organization [facility] ter Address [address] [place] [id number] Care Team Providers Care Correspondence Representative Name Role Phone Arjun Hampton DO Primary Care Physician Encounter [facility] Date(s): 12/24/22 - 12/26/[address] [address]- Encounter Diagnosis Altered mental status(Final) - 12/23/22 Speech abnormality(Final) - 12/23/22 Transaminitis(Final) - 12/23/22 Uncontrolled hypertension(Final) - 12/23/22 Discharge Disposition: A-Transfer VNA/Home Health Attending Physician: Valeria Frank MD Admitting Physician: Armand Otoole MD Referring Physician: Not on Staff, Referring [...] # 225 mL, 0 Refills, [id number], 20, APPLY TOPICALLY DAILY TO THE LEGS [...] 15 Unknown, 1 Refills, 07/10/22 6:58:00 EST, [facility]/pharmacy #[id number], 180, cm, 04/18/22 11:39:00 EDT, [...] opioid drug. Start Date: 04/24/21 Status: Ordered clonazePAM 0.5 mg oral tablet [...] mL, 0 Refills, Maintenance, 09/11/22 7:42:00 EST, [facility]/pharmacy #[id number], Partial fill upon patient request [...] opioid drug. Start Date: 01/04/21 Status: Ordered diosmiplex 630 mg oral tablet [...] AM, 0 Refills, Maintenance, 03/27/20 21:59:00 EDT, [facility] Start Date: 03/27/20 Status: Ordered furosemide 20 mg oral tablet 40 mg, 2, tablet, By Mouth, Daily, # 30 tablet, Refills 0, Maintenance, 03/27/20 21:59:00 EDT Start Date: 03/27/20 Status: Ordered gabapentin 100 mg oral capsule 200 mg, 2, capsule, By Mouth, 3 times a day, # 180 capsule, Refills 0, Maintenance, 03/27/20 21:59:00 EDT Start Date: 03/27/20 Status: Ordered gabapentin 100 mg oral capsule 200 mg, Capsule, By Mouth, 12/26/22 15:00:00 EDT Start Date: 12/26/22 Stop Date: 12/26/22 Status: Completed Iodosorb 0.9% topical gel See Instructions, Apply to left toe ulcer every other day and cover with gauze dressing, # 40 Gm, 1Refills, Maintenance, 12/16/18 10:27:22 EDT, Apply to left toe ulcer every other day and cover withgauze dressing Start Date: 12/16/18 Status: Ordered Keppra 500 mg oral tablet 1 tablet = 500 mg, By Mouth, 2 times a day, # 60 tablet, 1 Refills, Maintenance, 12/26/22 14:55:00 EDT, Tablet, [facility], Partial fill upon patient request if the prescription is for a schedule II opioid drug., 180, cm, 12/26/22 11:39:... Start Date: 12/26/22 Stop Date: 02/24/23 Status: Ordered levothyroxine 0.05 mg oral tablet See Instructions, 1 tablet By Mouth Thursday-Thursday 2 tabs po Thu-Thursday, # 90 tablet, 3 Refills, 04/17/22 17:59:00 EDT, [facility]/pharmacy #[id number], 180, cm, 02/21/22 11:07:00 EDT, Height Start Date: 04/17/22 Status: Ordered Multivitamin 1 tab, By Mouth, Daily, 0 Refills, Maintenance, 07/28/18 21:39:19 EST Start Date: 07/28/18 Status: Ordered omeprazole 40 mg oral enteric coated capsule 1 capsule = 40 mg, By Mouth, Daily, # 90 capsule, 0 Refills, Maintenance, 02/29/20 15:47:00 EDT, ECCapsule Start Date: 02/29/20 Status: Ordered primidone 50 mg oral tablet TAKE 2 TABLETS BY MOUTH 3 TIMES A DAY Start Date: 12/26/22 Status: Ordered Silvadene 1% cream 1 application, Topically, Daily, Use for scalp dressing change as directed, # 400 Gm, 2 Refills, Acute 01/08/23 11:34:00 EDT, 12/09/22 11:33:00 EDT, Cream, [facility]/pharmacy #[id number], Partial fill upon patient request [...] [facility] Pulmonary/ Dr Harmony Shea 2Cabg 2016 3RIght side 4Neuro, Dr Dalton Perry, [facility] 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 Nitin Results Radiology Reports * Exam Date Time Procedure Performing Provider Status 12/24/22 10:[address] Head/Brain W/O Contrast Veronica Borges; Auth (Verified) Notes: (CT Head/Brain W/O Contrast) Reason For Exam: stroke follow up;Other: RESULT: CT Head/Brain W/O Contrast CT Head/Brain W/O Contrast INDICATION: Reason: Other:; stroke follow up; Clinical Question(s): Other:; Order Comment: TECHNIQUE: Noncontrast head CT using axial technique and reconstructed in axial and coronal planes.Iterative reconstruction techniques are used to optimize dose and image quality. CTDIvol Head: 47.10 mGy, DLP Head: 772 mGy*cm. COMPARISON: Head CT 12/23/2022 at 2:38 PM FINDINGS: Offset Duplicating Machine Operator view findings, lines and tubes: None. BRAIN AND EXTRA-AXIAL SPACES: Exam limited by patient motion artifact. No parenchymal hemorrhage, midline shift, or mass effect. Redemonstration of encephalomalacia in both frontal lobes, left occipital lobe, and right cerebellum consistent with old infarctions. No new hypodense region to suggest evolving subacute ischemia. Moderate prominence of the ventricles and sulci consistent with parenchymal volume loss. Moderate low-density white matter changes. No subarachnoid hemorrhage. No subdural or epidural collection. CALVARIUM, SKULL BASE, AND SOFT TISSUES: No fractures or suspicious bony lesions. Old craniotomies.. The paranasal sinuses and mastoid air cells are clear. Visualized orbits and globes are intact. Frontal scalp soft tissue swelling again noted. IMPRESSION: No acute intracranial hemorrhage or mass effect. Frontal scalp soft tissue swelling. 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 No new region of abnormal hypodensity to suggest involving ischemia. WSN: [id number] Ordering Physician: Dalton Oviedo Dictated By: Sulaiman Jon MD Dictated Date/Time: 12/24/22 11:19 p Reviewed By: Sulaiman Jon MD Signed By: Sulaiman Jon MD Signed Date/Time: 12/24/22 11:19 pm Transcribed By: ANGELA Transcribed Date/Time: 12/24/22 11:14 pm * Exam Date Time Procedure Performing Provider Status 12/24/22 9:37 PM Chest Portable Ganesh Funez; Alejandrina (Enma ified) Notes: (Chest Portable) Reason For Exam: Cough RESULT: Chest Portable Chest Portable Reason: Cough; Clinical Question(s): Aspiration COMPARISON: 12/23/2022 FINDINGS: LINES AND TUBES: None. LUNGS AND PLEURA: Left lower lobe airspace opacity and volume loss unchanged from prior study. Otherwise the lungs are clear . No definite pleural effusion. No pneumothorax. HEART, MEDIASTINUM AND CESAR: Status post median sternotomy. Mild prominence of the cardiac silhouette, unchanged. Normal mediastinal and hilar contour. BONES AND SOFT TISSUES: No acute abnormality. IMPRESSION: Left lower lobe consolidation not significantly changed from prior study possibly representing ongoing pneumonia or atelectasis. WSN: [id number] Ordering Physician: Dalton Oviedo Dictated By: Sulaiman Jon MD Dictated Date/Time: 12/24/22 10:22 p Reviewed By: Sulaiman Jon MD Signed By: Sulaiman Jon MD Signed Date/Time: 12/24/22 10:22 pm Transcribed By: ANGELA Transcribed Date/Time: 12/24/22 10:21 pm * Exam Date Time Procedure Performing Provider Status 12/24/22 2:27 PM Modified Barium Swal low W/ Speech (Radio Ciera Ronquillo; Auth (Verified) Notes: (Modified Barium Swallow W/ Speech (Radio) Reason For Exam: Aspiration RESULT: Modified Barium Swallow W/ Speech (Radio Modified Barium Swallow W/ Speech (Radio WITH SPEECH PATHOLOGY CLINICAL INDICATION: Reason: Aspiration; Clinical Question(s): Aspiration COMPARISON: Multiple priors, most recent modified barium swallow 03/15/2019 Technique: Lateral cine-videofluoroscopy was performed during the oral administration of various barium containing consistencies, as described below. Fluoroscopic imaging provided by Dr. Joy Gutierrez. Pulsed fluoroscopy time: 42 seconds Dose Area Product (DAP): 55.7 uGy*m2 Findings: Applesauce, pudding, nectar, mixed fruit/juice, and thin barium consistencies were tested. Applesauce: Normal Pudding: Normal [place]: Normal Mixed fruit and juice: Normal Thin barium: Flash laryngeal penetration IMPRESSION: Evidence of flash laryngeal penetration with thin liquid consistency. No evidence of subglottic aspiration. Findings as described. For dietary concerns or recommendations, please refer to speech pathologist report. By undersigning and finalizing the report, the attending radiologist confirms he/she has personallyreviewed and interpreted the images and agrees with the description of the findings. I have personally reviewed the images and I agree with this report. WSN: [id number] Ordering Physician: Pepe Healy Dictated By: Joy Gutierrez MD Dictated Date/Time: 12/24/22 2:48 pm Reviewed By: Roman Mike MD, V Signed By: Roman Mike MD, V Signed Date/Time: 12/24/22 2:53 pm Transcribed By: ANGELA Transcribed Date/Time: 12/24/22 2:30 pm * Exam Date Time Procedure Performing Provider Status 12/24/22 10:22 AM US Liver Florina Silva; Auth (V erified) Notes: (US Liver) Reason For Exam: tranasminitis;Other: RESULT: US Liver US Liver Reason: Other:; transaminitis; Clinical Question(s): Biliary Obstruction COMPARISON: CT abdomen and pelvis 07/26/2018. IMAGING TECHNIQUE: Grayscale and color Doppler ultrasound examination of the liver. FINDINGS: Liver: Coarse hepatic echotexture. No suspicious lesion. Smooth hepatic contour. Main portal vein patent with normal hepatopetal direction of flow. Biliary Tree: No intrahepatic or extrahepatic bile duct dilation is identified. Common duct: 0.4 cm(limited visualization). IMPRESSION: Coarse hepatic echotexture likely due to underlying hepatocellular disease. No suspicious lesion. WSN: [id number] Ordering Physician: Maia Gaona Dictated By: Josie Mcfadden MD Dictated Date/Time: 12/24/22 10:26 a Reviewed By: Josie Mcfadden MD Signed By: Josie Mcfadden MD Signed Date/Time: 12/24/22 10:26 am Transcribed By: ANGELA Transcribed Date/Time: 12/24/22 10:25 am * Exam Date Time Procedure Performing Provider Status 12/23/22 3:44 PM Chest Portable Angeline Motta; Auth (Verified) Notes: (Chest Portable) Reason For Exam: Stroke;Other: RESULT: Chest Portable Examination: Portable chest performed on 12/23/2022. History: Stroke. Findings: A frontal view of the chest is compared to a prior study dated 03/27/2020. Sternotomy wires are intact. The cardiac silhouette is within normal limits for size. Elevation of the left hemidiaphragm is noted. The lungs are clear. The osseous structures are unremarkable. IMPRESSION: There is no acute cardiopulmonary disease. WSN: [id number] Ordering Physician: Kali Pickett Dictated By: Sabina Chakraborty MD Dictated Date/Time: 12/23/22 3:50 pm Reviewed By: Sabina Chakraborty MD Signed By: Sabina Chakraborty MD Signed Date/Time: 12/23/22 3:50 pm Transcribed By: ANGELA Transcribed Date/Time: 12/23/22 3:49 pm * Exam Date Time Procedure Performing Provider Status 12/23/22 2:[address] Angio Neck Hyperacute Stroke Bri Varghese; Auth (Verified) Notes: (CT Angio Neck Hyperacute Stroke) Reason For Exam: Aneurysm, neck vessel(s);Other: RESULT: CT Angio Neck Hyperacute Stroke CT Angio Head Hyperacute Stroke, CT Angio Neck Hyperacute Stroke Reason: Aphasia.:; Stroke; Clinical Question(s): Other:; Hematoma Aneurysm / Other: TECHNIQUE: CT angiogram of the head and neck was performed after bolus administration of intravenous contrast. 100 mL of Omnipaque 300 was administered intravenously. Coronal and sagittal MIP reformatted images were obtained. Additional 3-D images were created on a separate workstation under concurrent supervision by the attending radiologist. All stenoses are measured using NASCET criteria. Weight-based protocol using automatic tube modulation was used to optimize exposure parameters. RADIATION DOSE PARAMETERS: CTDIvol Body: 12.17 mGy, DLP Body: 452 mGy*cm. CTDIvol Head: 48.30 mGy, DLP Head: 1159 mGy*cm. COMPARISON: Noncontrast CT head performed concurrently and the prior CTAs on 10/03/2015. FINDINGS: There is a 4 vessel arch. The left vertebral artery arises from aortic arch directly. Mural calcified and noncalcified atherosclerotic plaques are seen along the visualized aortic arch and the supraaortic proximal great neck vessels. No hemodynamically significant stenosis. The right common carotid artery is normal in caliber. The right carotid bulb has mild mural calcifications extending to the right proximal internal carotid artery. The right proximal ICA shows 20% stenosis by NASCET criteria. The left common carotid artery is normal in caliber. The left carotid bulb has mild mural calcifications extending to the left proximal internal carotid artery. The left proximal ICA shows 20% stenosis by NASCET criteria. Right vertebral artery: Patent without stenosis. Left vertebral artery: It arises from aortic arch directly. The origin has mild mural calcificationwithout stenosis. The rest is patent without stenosis. Cervical spine: No acute pathology. Mild spondylosis. Soft tissues and lung apices: Status post prior median sternotomy. The visualized upper lungs have diffuse emphysematous changes. Apical scars bilaterally. Atelectasis at the dependent portion of thevisualized left upper lobe. Bilateral thyroid lobes are normal. There is no definite abnormality thr oughout the soft tissue neck. [place]: Concurrent CT of head showed no acute pathology. Multiple cystic encephalomalaciaare seen at the bilateral frontal lobes and the left occipital lobe. Old lacunar infarcts are seen within bilateral basal ganglia. Status post bifrontal craniotomies. Generalized volume loss and bilateral periventricular hypodensities are noted. Bilateral internal carotid arteries at the skull base have multiple mural calcifications causing severe stenosis on the right and moderate stenosis on the left. Bilateral posterior communicating arteries are visualized, bigger on the right. A 2 mm outpouching is seen at the posterior inferior aspect of the left paraclinoid ICA consistent with an aneurysm, unchanged. Bilateral ACAs, MCAs and their branches are patent. The focal cut off of the pericallosal branch end of the focal severe stenosis at the left callosomarginal branch of left SONAL seen on the prior study are no longer present. No intracranial aneurysm is noted. Bilateral intracranial vertebral arteries show no definite stenosis. The vertebrobasilar junction is normal. The basilar artery is patent. No stenosis or dissection is seen. There is no basilar tip aneurysm. The P1 segment of right CLERICAL ASSOCIATE is hypoplastic There is a origin of the right CLERICAL ASSOCIATE. Otherwise the stock sorter and their branches are patent. The superior sagittal sinuses, the straight sinus, bilateral transverse and sigmoid sinuses: Patentwithout dural sinus thrombosis. IMPRESSION: Bilateral internal carotid arteries at the skull base have multiple mural calcifications causing severe stenosis on the right and moderate to severe stenosis on the left. These findings appear progressed since the prior study. No cutoff or high-grade stenosis of the major branches of the intracranial arteries. The focal cut off of the pericallosal branch and the focal severe stenosis at the left callosomarginal branch of left SONAL seen on the prior study are no longer present. 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 The right proximal internal carotid artery show no significant stenosis by NASCET criteria. The left proximal internal carotid artery show no significant stenosis by NASCET criteria. The right cervical vertebral artery shows no significant stenosis. The left cervical vertebral artery shows no significant stenosis. REFERENCE: NASCET Criteria: The degree of internal carotid stenosis is based on NASCET Criteria: Normal: No stenosis Mild: Less than 50% stenosis Moderate: 50-69% stenosis Severe: 70-99% stenosis Total occlusion: No detectable patent lumen. A actionable message ([place]) has been communicated via the IMedExchange system on 12/23/2022 4:52 PM, Message ID [id number]. WSN: [id number] Ordering Physician: Ellie Irizarry Dictated By: Brando El MD Dictated Date/Time: 12/23/22 4:53 pm Reviewed By: Brando El MD Signed By: Brando El MD Signed Date/Time: 12/23/22 4:53 pm Transcribed By: ANGELA Transcribed Date/Time: 12/23/22 3:30 pm * Exam Date Time Procedure Performing Provider Status 12/23/22 2:[address] Angio Head Hyperacute Stroke Bri Varghese; Auth (Verified) Notes: (CT Angio Head Hyperacute Stroke) Reason For Exam: Stroke;Other: RESULT: CT Angio Head Hyperacute Stroke CT Angio Head Hyperacute Stroke, CT Angio Neck Hyperacute Stroke Reason: Aphasia.:; Stroke; Clinical Question(s): Other:; Hematoma Aneurysm / Other: TECHNIQUE: CT angiogram of the head and neck was performed after bolus administration of intravenous contrast. 100 mL of Omnipaque 300 was administered intravenously. Coronal and sagittal MIP reformatted images were obtained. Additional 3-D images were created on a separate workstation under concurrent supervision by the attending radiologist. All stenoses are measured using NASCET criteria. Weight-based protocol using automatic tube modulation was used to optimize exposure parameters. RADIATION DOSE PARAMETERS: CTDIvol Body: 12.17 mGy, DLP Body: 452 mGy*cm. CTDIvol Head: 48.30 mGy, DLP Head: 1159 mGy*cm. COMPARISON: Noncontrast CT head performed concurrently and the prior CTAs on 10/03/2015. FINDINGS: There is a 4 vessel arch. The left vertebral artery arises from aortic arch directly. Mural calcified and noncalcified atherosclerotic plaques are seen along the visualized aortic arch and the supraaortic proximal great neck vessels. No hemodynamically significant stenosis. The right common carotid artery is normal in caliber. The right carotid bulb has mild mural calcifications extending to the right proximal internal carotid artery. The right proximal ICA shows 20% stenosis by NASCET criteria. The left common carotid artery is normal in caliber. The left carotid bulb has mild mural calcifications extending to the left proximal internal carotid artery. The left proximal ICA shows 20% stenosis by NASCET criteria. Right vertebral artery: Patent without stenosis. Left vertebral artery: It arises from aortic arch directly. The origin has mild mural calcificationwithout stenosis. The rest is patent without stenosis. Cervical spine: No acute pathology. Mild spondylosis. Soft tissues and lung apices: Status post prior median sternotomy. The visualized upper lungs have diffuse emphysematous changes. Apical scars bilaterally. Atelectasis at the dependent portion of thevisualized left upper lobe. Bilateral thyroid lobes are normal. There is no definite abnormality thr oughout the soft tissue neck. [place]: Concurrent CT of head showed no acute pathology. Multiple cystic encephalomalaciaare seen at the bilateral frontal lobes and the left occipital lobe. Old lacunar infarcts are seen within bilateral basal ganglia. Status post bifrontal craniotomies. Generalized volume loss and bilateral periventricular hypodensities are noted. Bilateral internal carotid arteries at the skull base have multiple mural calcifications causing severe stenosis on the right and moderate stenosis on the left. Bilateral posterior communicating arteries are visualized, bigger on the right. A 2 mm outpouching is seen at the posterior inferior aspect of the left paraclinoid ICA consistent with an aneurysm, unchanged. Bilateral ACAs, MCAs and their branches are patent. The focal cut off of the pericallosal branch end of the focal severe stenosis at the left callosomarginal branch of left SONAL seen on the prior study are no longer present. No intracranial aneurysm is noted. Bilateral intracranial vertebral arteries show no definite stenosis. The vertebrobasilar junction is normal. The basilar artery is patent. No stenosis or dissection is seen. There is no basilar tip aneurysm. The P1 segment of right CLERICAL ASSOCIATE is hypoplastic There is a origin of the right CLERICAL ASSOCIATE. Otherwise the stock sorter and their branches are patent. The superior sagittal sinuses, the straight sinus, bilateral transverse and sigmoid sinuses: Patentwithout dural sinus thrombosis. IMPRESSION: Bilateral internal carotid arteries at the skull base have multiple mural calcifications causing severe stenosis on the right and moderate to severe stenosis on the left. These findings appear progressed since the prior study. No cutoff or high-grade stenosis of the major branches of the intracranial arteries. The focal cut off of the pericallosal branch and the focal severe stenosis at the left callosomarginal branch of left SONAL seen on the prior study are no longer present. 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 The right proximal internal carotid artery show no significant stenosis by NASCET criteria. The left proximal internal carotid artery show no significant stenosis by NASCET criteria. The right cervical vertebral artery shows no significant stenosis. The left cervical vertebral artery shows no significant stenosis. REFERENCE: NASCET Criteria: The degree of internal carotid stenosis is based on NASCET Criteria: Normal: No stenosis Mild: Less than 50% stenosis Moderate: 50-69% stenosis Severe: 70-99% stenosis Total occlusion: No detectable patent lumen. A actionable message ([place]) has been communicated via the IMedExchange system on 12/23/2022 4:52 PM, Message ID [id number]. WSN: [id number] Ordering Physician: Ellie Irizarry Dictated By: Brando El MD Dictated Date/Time: 12/23/22 4:53 pm Reviewed By: Brando El MD Signed By: Brando El MD Signed Date/Time: 12/23/22 4:53 pm Transcribed By: ANGELA Transcribed Date/Time: 12/23/22 3:30 pm * Exam Date Time Procedure Performing Provider Status 12/23/22 2:[address] Head-Hyper Acute Stroke Bryan Varghese (Verified) Notes: (CT Head-Hyper Acute Stroke) Reason For Exam: Neuro deficit, acute, stroke suspected;Other: RESULT: CT Head-Hyper Acute Stroke CT of the head dated December 23, 2022. Comparison films are from August 07, 2018. HISTORY: Acute neurological deficit. FINDINGS: CT imaging was performed with multislice acquisition from the foramen magnum through the vertex. No intravenous contrast material was utilized. Axial and coronal reconstruction was performed. A weight based protocol using automatic tube modulation was used to optimize exposure parameters. Today's study is limited by motion artifact. Examination of the posterior fossa shows a normal size midline fourth ventricle. 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 This is stable. Sulcal prominence is noted. Supratentorially, the lateral and third ventricles are increased in size. They are normal in contour and position. No mass or hemorrhage is identified. A large area of encephalomalacia in the left frontal region is stable. A smaller area of encephalomalacia in the right frontal region is stable. Anarea of encephalomalacia in the left occipital cortex is stable. Sulcal prominence is noted bilaterally. No new area of loss of carrera-white matter differentiation is noted.. No hyperdense vessel or loss ofthe insular ribbon is appreciated. Visualized osseous structures, paranasal sinuses and orbits are unremarkable. The mastoid air cells are clear. There are bilateral frontal luna holes. These are unchanged from the previous examination. IMPRESSION: No evidence of acute intracranial abnormality. 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 Prior bilateral frontal luna holes are unchanged. Age-appropriate volume loss. Examination 93[address]. Thank you for allowing me to participate in the care of this patient. WSN: [id number] Ordering Physician: Ellie Irizarry Dictated By: Saleem Rick MD Dictated Date/Time: 12/23/22 2:56 pm Reviewed By: Saleem Rick MD Signed By: Saleem Rick MD Signed Date/Time: 12/23/22 2:56 pm Transcribed By: ANGELA Transcribed Date/Time: 12/23/22 2:48 pm Vital Signs Most recent to oldest [Reference Range]: 1 2 3 Height 180 cm (12/26/22 3:39 PM) 180 cm (12/26/22 11:39 AM) 180 cm (12/26/22 8:31 AM) Weight 90.3 kg (12/24/22 3:58 AM) 90.3 kg (12/24/22 12:25 AM) Oxygen Saturation [94-100 %] 93 % *L* (12/26/22 3:39 PM) 92 % *L* (12/26/22 11:39 AM) 92 % *L* (12/26/22 8:31 AM) Pulse Rate [55-90 bpm] 83 bpm (12/26/22 3:39 PM) 77 bpm (12/26/22 11:39 AM) 83 bpm (12/26/22 8:31 AM) Body Mass Index [18.5-24.99 kg/m2] 27.87 kg/m2 *H* (12/24/22 3:58 AM) Blood Pressure [90-138/55-84 mm Hg] 131/75mm Hg (12/26/22 3:39 PM) 129/70mm Hg (12/26/22 11:39 AM) 153/74mm Hg *H* (12/26/22 8:31 AM) Respiratory Rate [16-30 br/min] 20 br/min (5/5/23 3:39 PM) 20 br/min (12/26/22 1:46 PM) 20 br/min (12/26/22 11:39 AM) Temperature [96.8-100.4 DegF] 98.3 DegF (12/26/22 3:39 PM) 97.2 DegF (12/26/22 11:39 AM) 97.3 DegF (12/26/22 8:31 AM) Liters per Minute 2 L/min (12/26/22 3:39 PM) 2 L/min (12/25/22 3:36 PM) 1.5 L/min (12/25/22 11:26 AM) Mode of Delivery (Oxygen) Nasal cannula (12/26/22 3:39 PM) Room air (12/26/22 11:39 AM) Room air (12/26/22 8:31 AM) Blood pressure sites Arm, left (12/26/22 3:39 PM) Arm, right (12/26/22 11:39 AM) Arm, right (12/26/22 8:31 AM) Temperature Route Oral (12/26/22 3:39 PM) Temporal (12/26/22 11:39 AM) Temporal (12/26/22 8:31 AM) Dry Weight 90.3 kg (12/24/22 3:58 AM) Weight Obtained Via Bed scale (12/24/22 3:58 AM) Bed scale (12/24/22 12:25 AM) Dry Weight Obtained Via Bed scale (12/24/22 3:58 AM) Social History Social History Type Response Smoking Status Former smoker entered on: 09/23/15 Sex Admission evaluation note * Jimenez DSOUZA, Maia Rendon: PERFORM, MODIFY, MODIFY, MODIFY, MODIFY Event Display: Admission Note Authored Date: [id number] Patient: ??GISELL, JENNIFER ? Age:??87 Years?Sex:??Male?:??1935?? 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 Patient's medical chart reviewed, seen and examined at bedside.?? Patient awakens when called his name only oriented to self, gives good eye contact and only intermittently tries to talk for few questions with slurred speech.?? Not able to obtain much history from him.?? History obtained from chartreview and collaterals.?? As per the chart review patient is in his usual state of health at 7 PM before going to bed and woke up around 7 AM found to be slightly altered with difficulty speaking.?? As per the family patient is able to speak much more easily and days not so fatigued usually.?? No recent fevers, chills, nausea, vomiting.?? Patient currently denies any pain anywhere. ?? Initially in the ED patient remains afebrile, HR 71, RR 18, BP 186/91, saturation 97% on 2 L of nasal cannula.?? On exam found to have right-sided weakness and right facial droop with NIHSS of 8.?? Patient out of window while TNK.?? Labs with no leukocytosis WBC of 10.1, Hgb 11.5, PLT 298, electrolytes normal, BUN/creatinine 30/1, blood glucose 180, mag 2.1, alk phos 139, AST/ALT 58/61, T. bili 0.2, UA negative, ammonia of 12, troponins 58?49, increased TSH 5.82 with normal free T41.22,UA negative, C-19 negative, CT head with no acute findings, evidence of prior infarction in the frontal region bilaterally left greater than right and in the left occipital region.?? Prior bilateral f rontal luna holes are unchanged.?? Age-appropriate volume loss.?? CT angio of the head and neck with bilateral internal carotid artery at the skull base have multiple mural calcifications causing severe stenosis on the right and moderate to severe stenosis on the left which has been progressed since the prior study.?? No cutoff or high-grade stenosis of the major branches of the intracranial arteries.?? Neurology was consulted concern for recrudescence of stroke symptoms vs metabolic/infectiousand cephalopathy and also possible unwitnessed seizure with postictal.?? Suggesting consider starting with Keppra 500 mg twice daily and maintain seizure precautions.?? Patient will be admitted to observation medicine service for further management. Review of Systems Not able to obtain due to patient mental status Objective Measurements?? Height: 180 cm (12/24/22) Weight: 90.3 kg (12/24/22) Dry Weight: 90.3 kg (12/24/22) Body Mass Index:??27.87 kg/m2??High (12/24/22) ? Vital Signs?? Temperature: 98.3 DegF (12/24/22 04:05:00) Temperature Route: Temporal (12/24/22 04:05:00) Pulse Rate: 85 bpm (12/24/22 04:05:00) Respiratory Rate: 20 br/min (12/24/22 04:05:00) Vented: No (12/23/22 19:37:00) Systolic Blood Pressure:??175 mm Hg??High (12/24/22 04:05:00) Diastolic Blood Pressure:??87 mm Hg??High (12/24/22 04:05:00) Blood pressure sites: Arm, right (12/24/22 04:05:00) Mean Arterial Pressure: 116 mm Hg (12/24/22 04:05:00) Pulse Pressure: 88 mm Hg (12/24/22 04:05:00) Oxygen Saturation: 98 % (12/24/22 04:05:00) Liters per Minute: 2 L/min (12/24/22 04:05:00) Mode of Delivery (Oxygen): Nasal cannula (12/24/22 04:05:00) Early Warning Score: 1 (12/24/22 04:06:11) ? Pain Scores 1 - 10 Pain Scale Score: 0 (14:55) ? Intake/Output? No Data Available ?? Precautions Seizure Precautions ? Physical Exam ?? Gen- not in acute distress,??easily arousable, slurred speech HEENT- Normocephalic, Atraumatic, right-sided facial droop Neck-supple. Heart-S1S2(+),??regular, no murmurs lungs- Clear, b/l air entry, no wheezing Abdomen-soft, nontender,nondistended,??bowel sounds present Extremities-pulses palpable??2+. No pedal edema. No calf tenderness. Neurological-drowsy, lethargic,??easily arousable,??oriented only to self ? (12/23/2022 14:[address] Head-Hyper Acute Stroke) IMPRESSION: ?? No evidence of acute intracranial abnormality. ?? 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 ?? Prior bilateral frontal luna holes are unchanged. ?? Age-appropriate volume loss. ?? (12/23/2022 14:[address] Angio Head Hyperacute Stroke) IMPRESSION: Bilateral internal carotid arteries at the skull base have multiple mural calcifications causing severe stenosis on the right and moderate to severe stenosis on the left. These findings appear progressed since the prior study. ?? No cutoff or high-grade stenosis of the major branches of the intracranial arteries. The focal cut off of the pericallosal branch and the focal severe stenosis at the left callosomarginal branch of left SONAL seen on the prior study are no longer present.? 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 ?? The right proximal internal carotid artery show no significant stenosis by NASCET criteria. ?? The left proximal internal carotid artery show no significant stenosis by NASCET criteria. ?? The right cervical vertebral artery shows no significant stenosis.? The left cervical vertebral artery shows no significant stenosis. 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 Initially in the ED patient remains afebrile, HR 71, RR 18, BP 186/91, saturation 97% on 2 L of nasal cannula.?? On exam found to have right-si ded weakness and right facial droop with NIHSS of 8.?? Patient out of window while TNK.?? Labs withno leukocytosis WBC of 10.1, Hgb 11.5, PLT 298, electrolytes normal, BUN/creatinine 30/1, blood glucose 180, mag 2.1, alk phos 139, AST/ALT 58/61, T. bili 0.2, UA negative, ammonia of 12, troponins 58 ?49, increased TSH 5.82 with normal free T41.22, UA negative, C-19 negative, CT head with no acute findings, evidence of prior infarction in the frontal region bilaterally left greater than right and in the left occipital region.?? Prior bilateral frontal luna holes are unchanged.?? Age-appropriate volume loss.?? CT angio of the head and neck with bilateral internal carotid artery at the skull base have multiple mural calcifications causing severe stenosis on the right and moderate to severe stenosis on the left which has been progressed since the prior study.?? No cutoff or high-grade stenosis of the major branches of the intracranial arteries.?? Neurology was consulted concern for recrudescence of stroke symptoms vs metabolic/infectious and cephalopathy and also possible unwitnessed seizure with postictal.?? Suggesting consider starting with Keppra 500 mg twice daily and maintainseizure precautions.?? Patient will be admitted to observation medicine service for further management. ?? Altered mental status - Encephalopathy polypharamcy vs metabolic /infectious cause. ?cVA, ?unwitnessed seizure with post ictal state Speech abnormality? History of CVA with right-sided residual weakness Vitals as per unit standards Telemetry monitoring Neurochecks every 4 hours Seizure precautions Neurology consulted, appreciate recommendations -outlined in their note Patient??failed bedside swallow evaluation, will continue with strict n.p.o. status Swallow evaluation PT evaluation Lorazepam as needed??for seizure activity ??Keppra 500 mg IV twice daily for now Patient at home takes gabapentin and clonazepam cannot be given due to n.p.o. status ? Uncontrolled hypertension - S/p labetalol 10 mg IV in the ED IV hydralazine IV push overnight, as needed IV push while n.p.o. At home patient takes Coreg??6.25 twice daily and Lasix 20 mg daily. , ??On hold due to n.p.o. status ?? Transaminitis?? Trend LFTs,??acute hepatitis panel,??lipid panel, ultrasound liver,??statins on hold ?? Diabetes mellitus???n.p.o.,??hypoglycemia emergency measures, lispro sliding scale, glargine 7 units??at home takes 10 units COPD???DuoNebs ?? All of the patient Home medications are on hold due to n.p.o.??status. ??Please resume??once cleared by??speech and swallow eval. if not patient will need NG tube??for diet/medications ? Code???okay to be resuscitated??but DO NOT INTUBATE/ventilate??as per the signed MOLST form in paper chart Diet???n.p.o., patient failed??swallow evaluation DVT prophylaxis???subcu Lovenox??as per??VTE guidelines ?? Patient seen and examined on??12/23/2022 Histories Allergies Allergies ?(Active and Proposed Allergies Only) NKA? (Severity: Unknown severity, Onset: Unknown) ? Past Medical History/Problem List Active Problems??(24) Anemia At high risk for fall Stephens's [...] percutaneous transluminal coronary angioplasty Right homonymous hemianopsia Tremor Type 2 diabetes mellitus with insulin [...] ml oral liquid)?10?Milliliter?100?Milligram?By Mouth?2 times a day Ferrous Sulfate (Ferrous Sulfate ??EC)?325?Milligram?By Mouth?Daily Fluticasone Nasal (fluticasone 50 mcg/inh nasal spray)?2?spray(s)?Nares, Both?Daily in AM Furosemide (furosemide 20 mg oral tablet)?20?Milligram?1?tablet?By Mouth?Daily Gabapentin (gabapentin 100 mg oral capsule)?200?Milligram?2?capsule?By Mouth?3 times a day Insulin Glargine (Basaglar KwikPen 100 units/mL subcutaneous solution)?See Instructions?INJECT 10 UNITS SUBCUTANEOUSLY DAILY AT BEDTIME Levothyroxine (levothyroxine 0.05 mg oral tablet)?See Instructions?1 tablet By Mouth Thursday-Thursday2 tabs po Thu-Thursday Loratadine (Claritin 10 mg oral tablet)?10?Milligram?1?tablet?By Mouth?Daily Multivitamin?1 tab?By Mouth?Daily [place]-3 Polyunsaturated Fatty Acids (Fish Oil 1000 mg oral capsule)?1?capsule?1,000?Milligram?By Mouth?Daily Omeprazole?20?Milligram?By Mouth?2 times a day Omeprazole (omeprazole 40 mg oral enteric coated capsule)?1?capsule?40?Milligram?By Mouth?Daily Primidone?125?Milligram?By Mouth?3 times a day?for tremors Silver SulfADIAZINE Topical (Silvadene 1% cream)?1?wilfredo?Topically?Daily?Use for scalpdressing change as directed Sodium Hypochlorite Topical (Dakins Half Strength 0.25% topical solution)?See Instructions?Use for dressing changes as directed Sucralfate (sucralfate 1 gm oral tablet)?1?gram?1?tablet?By Mouth?3 times a day before meals and bedtime Thiamine?100?Milligram?By Mouth?Daily Ubiquinone (Co Q-10)?100?Milligram?By Mouth?Daily ? Inpatient Medications Medications (15) Active SCHEDULED: (6) Albuterol/Ipratropium Inhalation Chana 3mL (Duoneb Inhalation Solution) ??1 vials, BAND Nebulizer, 4 times a day Aspirin 81 mg Chew Tablet (aspirin 81 mg oral tablet, chewable) ??81 mg, By Mouth, Daily Enoxaparin 40 mg Inj (Enoxaparin Inj) ??40 mg 0.4 mL, Subcutaneous Injection, Daily Insulin Glargine 100 units/mL Inj (Insulin Glargine Inj) ??7 units 0.07 mL, Subcutaneous Injection,Daily at bedtime Levetiracetam 100mg/ml IVPB (Keppra Inj) ??500 mg, IV Push Slowly, Every 12 hours NaCl 0.9% Flush 3ml (NaCL 0.9% Flush) ??3 mL, IV Push, Every 8 hours CONTINUOUS: (0) PRN: (9) Acetaminophen 325 mg Tablet (Acetaminophen Tablet) ??650 mg, By Mouth, Every 4 hours Dextromethorphan-Guaifenesin 20 mg-200 mg/10 mL Liqu UD (Robitussin DM Liquid) ??10 mL, By Mouth, Every 4 hours hydrALAZINE 20 mg/mL Inj (hydrALAZINE Inj) ??5 mg 0.25 mL, IV Push Slowly, Once Lorazepam 2 mg Inj Syringe (Ativan Inj) ??2 mg, IV Push Slowly, Every 6 hours Melatonin 3 mg Tablet (Melatonin Tablet) ??3 mg, By Mouth, Daily at bedtime NaCl 0.9% Flush 3ml (NaCL 0.9% Flush) ??3 mL, IV Push, Every 8 hours Polyethylene Glycol 17 Gm Powder (MiraLax Powder) ??17 Gm 1 pack/packet, By Mouth, Daily Senna 8.6 mg / Docusate 50 mg tablet (Docusate/Senna Tablet) ??1 tablet, By Mouth, 2 times a day Simethicone 80 mg Chewable Tablet (Simethicone Tablet) ??80 mg, Chew, 3 times a day ? Results Recent Labs BLOOD BANK Blood Type O Positive ()?? 12/23/2022 15:18 Antibody Screen Negative ()?? 12/23/2022 15:18 ?? BLOOD COUNT & DIFF WBC 10.1 k/mm3 ()?? 12/23/2022 15:20 RBC 4.06 m/mm3 (Low)?? 12/23/2022 15:20 Hgb 11.5 Gm/dL (Low)?? 12/23/2022 15:20 Hct 36.6 % (Low)?? 12/23/2022 15:20 MCV 90.1 femtoliters ()?? 12/23/2022 15:20 MCH 28.3 pg ()?? 12/23/2022 15:20 MCHC 31.4 g/dL (Low)?? 12/23/2022 15:20 Platelet Count 298 k/mm3 ()?? 12/23/2022 15:20 RDW-SD 48.7 femtoliters (High)?? 12/23/2022 15:20 MPV 9.8 femtoliters ()?? 12/23/2022 15:20 Nucleated RBC (Automated) 0.0 #/100 WBC'S ()?? 12/23/2022 15:20 Abs. NRBC 0.0 k/mm3 ()?? 12/23/2022 15:20 Abs. Neut 8.0 k/mm3 (High)?? 12/23/2022 15:20 Abs. Lymph 0.8 k/mm3 ()?? 12/23/2022 15:20 Abs. [place] 1.0 k/mm3 ()?? 12/23/2022 15:20 Abs. Eo 0.2 k/mm3 ()?? 12/23/2022 15:20 Abs. Baso 0.0 k/mm3 ()?? 12/23/2022 15:20 Neut % 79.6 % (High)?? 12/23/2022 15:20 Lymph % 7.7 % (Low)?? 12/23/2022 15:20 [place] % 9.7 % ()?? 12/23/2022 15:20 Eos % 2.2 % ()?? 12/23/2022 15:20 Baso % 0.4 % ()?? 12/23/2022 15:20 Imm Gran 0.4 % ()?? 12/23/2022 15:20 Abs. Imm Gran 0.0 k/mm3 ()?? 12/23/2022 15:20 ?? CARDIAC High Sensitivity Troponin (HSTnT) 49 ng/L (High)?? 12/23/2022 18:15 ?? CHEM GENERAL Sodium 132 mmol/L (Low)?? 12/23/2022 15:20 Potassium 4.9 mmol/L ()?? 12/23/2022 15:20 Chloride 92 mmol/L (Low)?? 12/23/2022 15:20 Bicarbonate Level 27 mmol/L ()?? 12/23/2022 15:20 Anion Gap 13 ()?? 12/23/2022 15:20 Glucose Level 180 mg/dL (High)?? 12/23/2022 15:20 Glucose, POC 200 mg/dL (High)?? 12/23/2022 15:04 BUN 30 mg/dL (High)?? 12/23/2022 15:20 Creatinine-Blood 1.0 mg/dL ()?? 12/23/2022 15:20 Estimated GFR Creatinine 73 ML/MIN/1.73 M2 ()?? 12/23/2022 15:20 Calcium 9.3 mg/dL ()?? 12/23/2022 15:20 Calcium, Ionized pH Corrected 1.20 mmol/L ()?? 12/23/2022 15:20 Magnesium 2.1 mg/dL ()?? 12/23/2022 15:20 Protein, Total 6.8 Gm/dL ()?? 12/23/2022 15:20 Albumin 3.7 Gm/dL ()?? 12/23/2022 15:20 AG Ratio 1.2 ()?? 12/23/2022 15:20 Alkaline Phosphatase 139 units/L (High)?? 12/23/2022 15:20 AST (SGOT) 58 units/L (High)?? 12/23/2022 15:20 ALT (SGPT) 61 units/L (High)?? 12/23/2022 15:20 Bilirubin, Total 0.2 mg/dL ()?? 12/23/2022 15:20 ?? COAG INR 1.0 ()?? 12/23/2022 15:20 Protime (PT) 10.7 seconds ()?? 12/23/2022 15:20 APTT 26.8 seconds ()?? 12/23/2022 15:20 ?? ENDOCRINE/TUMOR MARKER TSH 5.82 uIU/mL (High)?? 12/23/2022 15:20 Free T4 1.22 ng/dL ()?? 12/23/2022 15:20 ?? MISC. CHEMISTRY Ammonia, Venous 12 ??mole/L (Low)?? 12/23/2022 16:45 ?? TOXICOLOGY/TDM Ethanol, Serum or Plasma NONE DETECTED mg/dL ()?? 12/23/2022 15:20 ?? UA/URINALYSIS Appear/Color, Urine COLORLESS ()?? 12/23/2022 17:01 Specific [place], Urine 1.022 ()?? 12/23/2022 17:01 pH, Urine 7.0 ()?? 12/23/2022 17:01 Albumin, Urine 1+ (Abnormal)?? 12/23/2022 17:01 Glucose, Urine NEGATIVE ()?? 12/23/2022 17:01 Ketones, Urine NEGATIVE ()?? 12/23/2022 17:01 Bilirubin, Urine NEGATIVE ()?? 12/23/2022 17:01 Hemoglobin, Urine NEGATIVE ()?? 12/23/2022 17:01 Nitrite, Urine NEGATIVE ()?? 12/23/2022 17:01 Leukocyte, Urine NEGATIVE ()?? 12/23/2022 17:01 Urobilinogen NORMAL mg/dL ()?? 12/23/2022 17:01 WBC's, Urine <1 /HPF ()?? 12/23/2022 17:01 RBC's, Urine 2 /HPF ()?? 12/23/2022 17:01 Hold Urine Culture Testing available 48 hours from time of collection. ()?? 12/23/2022 17:01 ?? URINE OTHER Est Creatinine Clearance 57.29 mL/min ()?? 12/24/2022 04:00 ?? VIROLOGY COVID-19 by RT-PCR NEGATIVE ()?? 12/23/2022 16:19 ? Urinalysis Albumin, Urine: 1+ Abnormal (17:01) Appear/Color, Urine: COLORLESS (17:01) Bilirubin, Urine: NEGATIVE (17:01) Est Creatinine Clearance: 57.29 mL/min (04:00) Glucose, Urine: NEGATIVE (17:01) Hemoglobin, Urine: NEGATIVE (17:01) Hold Urine Culture: Testing available 48 hours from time of collection. (17:01) Ketones, Urine: NEGATIVE (17:01) Leukocyte, Urine: NEGATIVE (17:01) Nitrite, Urine: NEGATIVE (17:01) pH, Urine: 7 (17:01) RBC's, Urine: 2 /HPF (17:01) Specific [place], Urine: 1.022 (17:01) Urobilinogen: NORMAL (17:01) WBC's, Urine: <1 (17:01) ?? Microbiology ?? COVID-19 (Novel Coronavirus), Rapid PCR?? Completed?? Source: Nasal Body Site: Nose Collected Dt/Tm: 12/23/2022 16:03 Last Updated Dt/Tm: 12/23/2022 18:38 ? Cardiology Labs High Sensitivity Troponin (HSTnT):??49 ng/L??High (12/23/22 18:15:00) High Sensitivity Troponin (HSTnT):??58 ng/L??Critical (12/23/22 15:40:00) ?? [1]??CT Angio Head Hyperacute Stroke; Brando El MD 12/23/2022 14:47 EDT EKG study * Event Display: ECG 12-Lead Authored Date: Please click on pdf link to open report * Event Display: ECG 12-Lead Authored Date: Ventricular Rate: 65 BPM Atrial Rate: 65 BPM P-R Interval: 230 ms QRS Duration: 128 ms Q-T Interval: 402 ms QTC Calculation(Bazett): 418 ms P [place]: 34 degrees R [place]: -5 degrees T [place]: -56 degrees Sinus rhythm with 1st degree A-V block Non-specific intra-ventricular conduction block Minimal voltage criteria for LVH, may be normal variant ( Damien product ) Inferior infarct (cited on or before 27-SEP-2015) Cannot rule out Anterior infarct , age undetermined T wave abnormality, consider lateral ischemia Abnormal ECG When compared with ECG of 27-MAR-2020 15:42, Premature ventricular complexes are no longer Present MA interval has increased Minimal criteria for Anterior infarct are now Present Inverted T waves have replaced nonspecific T wave abnormality in Lateral leads Confirmed by KADEEM SALCEDO MD ([id number]) on 12/24/2022 10:59:19 AM [place]: KADEEM SALECDO MD Cardiology * Event Display: Cardiac Rhythm Strips Authored Date: Hospital Progress note * Estefania Haro RN: PERFORM, SIGN, VERIFY Event Display: Progress Note Hospital Authored Date: Patient: JENNIFER JAMESON Age: 87 years Sex: Male : 1935 Associated Diagnoses: None Author: Estefania Haro RN Findings Problem Related to Alteration in Neurological : Alteration in Neurological Function/new 12/26/2022 8:00 EDT Alteration in Neuro status Related to Acute Stroke (CVA), Trans Ischemic Attack (TIA) Goals & Outcomes, Neurological Pt will be Neurologically stable Interventions, Neurological Assess/monitor neurologic status, Assess/monitor VS per unit standards & prn, Call/Report variances in assessments to provider, Collaborate w/ provider to implement appropriate guidelines, Collaborate with Nutrition, Collaborate with provider re: medication regime, Identify psychosocial issues related to diagnosis/illness, If no bowel movement in 3 days activate bowel regime, [place] alternate means of communication, Keep patient's head & body in good alignment, Maintain HOB at least 30 deg, Maintain patient safety if unsteady gait, Physical assessment per unit standards, Provide emotional support to Pt/caregiver, Assess & monitor for seizure activity Goals/Interventions, Neurological Yes Neurological, Problem Start 12/24/2022 4:11 Reviewed plan with, Neurological Patient Patient Progression, Neurological Pt progressing according to plan . Nursing Data Neurological Data. : Neurological Data. 12/26/2022 8:15 EDT Neurological Symptoms Alteration in level of consciousness, Alteration in speech quality, Difficulty swallowing, Weakness or loss of muscle strength Level of Consciousness Lethargy Orientated to person, place, time Person Characteristics of Speech Expressive aphasia, Slurred Strength LUE 4-Active movement against gravity & some resistance Strength RUE 4-Active movement against gravity & some resistance Strength LLE 3-Active movement against gravity Strength RLE 3-Active movement against gravity Tone LUE Normal Tone RUE Normal Tone LLE Normal Tone RLE Normal Sensation LUE Intact Sensation RUE Intact Sensation LLE Intact Sensation RLE Intact Movement LUE Spontaneous, To command Movement RUE Spontaneous, To command Movement LLE Spontaneous, To command Movement RLE Spontaneous, To command Gait Unable to assess Tremors Resting Response Eye Opening To voice Motor Response-Adult Obeys commands Neuro WNL except Headache None Memory Unable to assess . Evaluation Lethargic but rousable. AO self. Exp aphasia, slur. Home client care consultant and/or at bedside during the day. Scalp dsg changed by gas torch brazier. Denies pain, CORTEZ, dizziness, visual changes, numbness, tingling. Moves upper extremities 4/5. Lower extremities 3/5. Resting tremors noted. Tele 12, SR/PVCs/Inv T. On 2L NC, satting 92%. Updrafts for + effect. Sxn X 1. Able to clear secretions. Using acapella with good effort. Incontinent bowel and bladder. LBM 05-04. PrimoFit CYU. IV LFA patent. No seizure activity noted or reported. Seizure protocols in place. Bed in lowest position, rails up, wheelslocked, bed alarm on. Call lopez within reach. Hourly rounding maintained, will continue to monitor and document changes in CIS. Transferred by bed to [facility]. Phone report to Ana. . * Astrid Cain RN: PERFORM, SIGN, VERIFY Event Display: Progress Note Hospital Authored Date: [id number] Patient: JENNIFER JAMESON Age: 87 years Sex: Male : 1935 Associated Diagnoses: None Author: Payton COYNE, Astrid Findings Problem Related to Alteration in Neurological : Alteration in Neurological Function/new 12/25/2022 7:00 EDT Alteration in Neuro status Related to Acute Stroke (CVA), Trans Ischemic Attack (TIA) Goals & Outcomes, Neurological Pt will be Neurologically stable Interventions, Neurological Assess/monitor neurologic status, Assess/monitor VS per unit standards & prn, Call/Report variances in assessments to provider, Collaborate w/ provider to implement appropriate guidelines, Collaborate with Nutrition, Collaborate with provider re: medication regime, Identify psychosocial issues related to diagnosis/illness, If no bowel movement in 3 days activate bowel regime, [place] alternate means of communication, Keep patient's head & body in good alignment, Maintain HOB at least 30 deg, Maintain patient safety if unsteady gait, Physical assessment per unit standards, Provide emotional support to Pt/caregiver, Assess & monitor for seizure activity BH Goals/Interventions, Neurological Yes Neurological, Problem Start 12/24/2022 4:11 Reviewed plan with, Neurological Patient Patient Progression, Neurological Pt progressing according to plan . Evaluation pt Alert to self, 02 sat maintained >88% on 2L NC, on tele #12 showing SR- ST,expressive aphasia present, tremors noted at rest, upper strenghts 4s, lower strengths 3s, pt 11pm bp elevated, md contacted, one time dose of lasix ordered. seizure precautions maintained, pt safety maintained at this time. Discharge Information Rehabilitation Discharge : Rehab Discharge Index 12/24/2022 13:30 EDT Full chart review completed Yes 12/24/2022 8:47 EDT Comments on treatment indicated hx of CVA/ dysphagia, modified diet at baseline Full chart review completed Yes Hospital course Hospital course * Tahir COYNE, Estefania: PERFORM, SIGN, VERIFY Event Display: Progress Note Hospital Authored Date: [id number] Patient: JENNIFER JAMESON Age: 87 years Sex: Male : 1935 Associated Diagnoses: None Author: Tahir COYNE, Estefania Findings Problem Related to Alteration in Neurological : Alteration in Neurological Function/new 12/25/2022 7:00 EDT Alteration in Neuro status Related to Acute Stroke (CVA), Trans Ischemic Attack (TIA) Goals & Outcomes, Neurological Pt will be Neurologically stable Interventions, Neurological Assess/monitor neurologic status, Assess/monitor VS per unit standards & prn, Call/Report variances in assessments to provider, Collaborate w/ provider to implement appropriate guidelines, Collaborate with Nutrition, Collaborate with provider re: medication regime, Identify psychosocial issues related to diagnosis/illness, If no bowel movement in 3 days activate bowel regime, [place] alternate means of communication, Keep patient's head & body in good alignment, Maintain HOB at least 30 deg, Maintain patient safety if unsteady gait, Physical assessment per unit standards, Provide emotional support to Pt/caregiver, Assess & monitor for seizure activity BH Goals/Interventions, Neurological Yes Neurological, Problem Start 12/24/2022 4:11 Reviewed plan with, Neurological Patient Patient Progression, Neurological Pt progressing according to plan . Nursing Data Neurological Data. : Neurological Data. 12/25/2022 7:30 EDT Neurological Symptoms Alteration in level of consciousness, Alteration in speech quality, Difficulty swallowing, Weakness or loss of muscle strength Level of Consciousness Lethargy Orientated to person, place, time Person Characteristics of Speech Unable to assess Swallowing Difficulty None Strength LUE 4-Active movement against gravity & some resistance Strength RUE 4-Active movement against gravity & some resistance Strength LLE 3-Active movement against gravity Strength RLE 3-Active movement against gravity Sensation LUE Intact Sensation RUE Intact Sensation LLE Intact Sensation RLE Intact Movement LUE Spontaneous, To command Movement RUE Spontaneous, To command Movement LLE Spontaneous, To command Movement RLE Spontaneous, To command Gait Unable to assess Tremors Resting Response Eye Opening To voice Motor Response-Adult Obeys commands Neuro WNL except Headache None Memory Unable to assess Swallow - Neuro Normal . Evaluation Lethargic but rousable. AO self. Exp aphasia, slur. at bedside. Denies pain, CORTEZ, dizziness, visual changes, numbness, tingling. Moves upper extremities 4/5. Lower extremities 3/5. Resting tremors noted. Tele 12, SR/ST. On 2L NC, satting 87-97%. Updrafts for + effect. Able to clear secretions. Using acapella with good effort. Incontinent bowel and bladder. LBM 05-04. PrimoFit. IV LFA patent. No seizure activity noted or reported. Seizure protocols in place. Bed in lowest position, rails up,wheels locked, bed alarm on. Call lopez within reach. Hourly rounding maintained, will continue to monitor and document changes in CIS. . Note * Ana Seymour RN: PERFORM Event Display: Discharge/Transfer Note Hospital Authored Date: [id number] Nursing Discharge Note Entered On: 12/26/2022 18:07 EDT Performed On: 12/26/2022 18:07 EDT by Ana Seymour RN Nursing Discharge Note 2 Discharge Time : 12/26/2022 18:15 EDT Ana Seymour RN - 12/26/2022 18:12 EDT Discharge Level of Care at Discharge : Homehealth/VNA Discharge VNA/Hospice/Home Care(v001) : [facility] Patient Left Unit Via : Ambulance Patient Accompanied Off Unit with : Ambulance/Chair Van Personnel Handover Given to Transport Personnel : Yes DC Instructions Provided & Signed by Pt : Yes Patient Understands D/C Instructions : Yes Patient Instructions Discharge Signed : Yes Did Pt have Specialty Bed or Wound Vac : No Ana Seymour RN - 12/26/2022 18:07 EDT * Niraj DSOUZA, Pepe Palumbo: PERFORM, MODIFY Event Display: Discharge/Transfer Note Hospital Authored Date: [id number] Patient: ??JENNIFER JAMESON ? Age:??87 Years?Sex:??Male?:??1935?? Patient Information Discharge Location: D5A Primary Care Physician: Arjun Hampton DO Admit Date/Time: 12/24/22 13:20 Discharge Disposition Discharge Disposition: Home with Home Health Discharge Diagnosis Altered mental status (R41.82) Speech abnormality (R47.9) Transaminitis (R74.01) Uncontrolled hypertension (I10) Seizures _ Discharge Medications Albuterol/Ipratropium (albuterol-ipratropium 3 mg-0.5 mg/3 ml [...] ml oral liquid)?10?Milliliter?100?Milligram?By Mouth?2 times a day Ferrous Sulfate (Ferrous Sulfate ??EC)?325?Milligram?By Mouth?Daily Fluticasone Nasal (fluticasone 50 mcg/inh nasal spray)?2?spray(s)?Nares, Both?Daily in AM Furosemide (furosemide 20 mg oral tablet)?40?Milligram?2?tablet?By Mouth?Daily Gabapentin (gabapentin 100 mg oral capsule)?200?Milligram?2?capsule?By Mouth?3 times a day Insulin Glargine (Basaglar KwikPen 100 units/mL subcutaneous solution)?See Instructions?INJECT 10 UNITS SUBCUTANEOUSLY DAILY AT BEDTIME levETIRAcetam (Keppra 500 mg oral tablet)?1?tab(s)?500?Milligram?By Mouth?2 timesa day?for 30?Days Levothyroxine (levothyroxine 0.05 mg oral tablet)?See Instructions?1 tablet By Mouth Thursday-Thursday2 tabs po Thu-Thursday Loratadine (Claritin 10 mg oral tablet)?10?Milligram?1?tablet?By Mouth?Daily Multivitamin?1 tab?By Mouth?Daily [place]-3 Polyunsaturated Fatty Acids (Fish Oil 1000 mg oral capsule)?1?capsule?1,000?Milligram?By Mouth?Daily Omeprazole (omeprazole 40 mg oral enteric coated capsule)?1?capsule?40?Milligram?By Mouth?Daily Primidone (primidone 50 mg oral tablet)?TAKE 2 TABLETS BY MOUTH 3 TIMES A DAY Silver SulfADIAZINE Topical (Silvadene 1% cream)?1?wilfredo?Topically?Daily?Use for scalpdressing change as directed Sodium Hypochlorite Topical (Dakins Half Strength 0.25% topical solution)?See Instructions?Use for dressing changes as directed Sucralfate (sucralfate 1 gm oral tablet)?1?gram?1?tablet?By Mouth?3 times a day before meals and bedtime Tamsulosin (tamsulosin 0.4 mg oral capsule)?TAKE 1 CAPSULE BY MOUTH EVERY DAY Thiamine?100?Milligram?By Mouth?Daily Ubiquinone (Co Q-10)?100?Milligram?By Mouth?Daily ? Medications Started levETIRAcetam (Keppra 500 mg oral tablet)?1?tab(s)?500?Milligram?By Mouth?2 timesa day?for 30?Days Medications Discontinued None Doses Changed None Allergies Allergies ?(Active and Proposed Allergies Only) NKA? (Severity: Unknown severity, Onset: Unknown) ? PCP Follow-Up/Heads-Up Concern for seizure???added??Keppra twice daily per neurology recommendations.?? Repeat CT head negative.?? Initially patient was assessed??back to her of having??pneumonia,??procalcitonin low,??patient at baseline oxygen requirement,??left lower lobe??opacity more likely to be atelectasis??than pne umonia at this point. Future Appointments December. 2022 1:30 PM EDT ?? With: Where: Interventional Radiology Thursday 8:00 AM EDT ?? With: Kadeem Schaeffer MD Where: [facility] [address] 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 Of note he has a history of what the states as significant tremors and seizure disorder,?? for more than 40 years and is followed by Dr. Spangler, and is on clonazepam and gabapentin. ??During this hospitalization he was evaluated by neurology and started on Keppra twice daily with outpatient neurology follow-up.?? Repeat head CT was obtained to follow-up on??any??changes.?? His speech has improved, he is??able to verbalize the??place and??time.?? He has also been evaluated by modified barium swallow. ?? 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 tremor and seizure disorder??on gabapentin and clonazepam Patient presented with acute speech abnormality, continues to have unintelligible speech. CT angio shows bilateral carotid artery stenosis, acute CT head negative. His family reports that??usually at baseline his speech is very clear Sodium was 132,??normalized on repeat, troponins have been flat ?? Continue Keppra twice daily Resume p.o. medications including??gabapentin??given patient is on dysphagia diet now Resume??clonazepam scheduled, reports that sometimes she does??0.25 twice daily and??most of the time??0.25 only at bedtime, will place??holding parameters for somnolence and continue clonazepamfor??his seizures/tremors Aspirin Statin Family refusedd rehab ?? Chronic respiratory failure COPD Patient is intermittently on oxygen about 2 L to 2.5 L at home Patient is also on inhalers for COPD at home Reportedly patient had some worsening cough overnight,??has persistent left- sided opacity on x-ray and has leukocytosis, has history of repeated??bronchitis and pneumonia??secondary to??severe COPD Patient received short course of ceftriaxone azithromycin??and??chest physiotherapy during this hospitalization, procalcitonin is low,??leukocytosis??has resolved.?? Therefore will not continue antibiotics on discharge Recommendation PCP follow-up Continue??intermittent home oxygen Continue home inhalers ? Hypertension Resume carvedilol and furosemide Patient takes Lasix 40 at home, resume??home medication ?? Insulin-dependent diabetes mellitus Patient takes 10 units of Lantus at home, resume home Lantus GERD???continue omeprazole ? Objective Vital Signs?? Temperature: 97.2 DegF (12/26/22 11:39:00) Temperature Route: Temporal (12/26/22 11:39:00) Pulse Rate: 77 bpm (12/26/22 11:39:00) Respiratory Rate: 20 br/min (12/26/22 13:46:00) Vented: No (12/26/22 04:00:00) Systolic Blood Pressure: 129 mm Hg (12/26/22 11:39:00) Diastolic Blood Pressure: 70 mm Hg (12/26/22 11:39:00) Blood pressure sites: Arm, right (12/26/22 11:39:00) Mean Arterial Pressure: 90 mm Hg (12/26/22 11:39:00) Pulse Pressure: 59 mm Hg (12/26/22 11:39:00) Oxygen Saturation:??92 %??Low (12/26/22 11:39:00) Liters per Minute: 2 L/min (12/25/22 15:36:00) Mode of Delivery (Oxygen): Room air (12/26/22 11:39:00) Early Warning Score: 5 (12/26/22 13:50:33) ? . Physical Exam General:??Ax03 , not in acute distress.?? Eye:??PERRLA, no redness or discharge Head and neck:??Wrapped??head??secondary to squamous cell carcinoma of the??scalp Cardiac:??S1, S2, no murmur or gallop. No JVD Respiratory: Diminished breath sounds at bilateral bases,??I do not appreciate any??rhonchi or crackles Abdomen: Soft, non tender, non distended, normoactive bowel sounds Neurology:??A, cranial nerves grossly intact, moving all extremities spontaneously,??speech improved??able to follow all instructions, able to verbalize place and time,??continues to have??action tremor??and some tremor in speech. Psychiatric:??Cooperative, appropriate mood and affect.?? Skin:??No rash. Warm to touch Extremities:??no pedal edema, no gross deformities ? Consultants Neurology PT Pending Results Add On Lab Order ordered on 12/24/2022 Add On Lab Order ordered on 12/24/2022 Patient Education Titles Levetiracetam Oral Tablet?? Follow-Up Appointments Added Follow Up ?Time Frame ?Comments Memo LISA, Arjun Nieves?1 to 2 weeks [facility]?02/03/2023 08:00?THIS IS A PHONE APPT-DR SCHAEFFER WILL CALL YOU-PLEASE DO NOT COME TO THE OFFICE Arjun Hampton Patient Instructions You have been started on a medication called keppra 2 times a day. Please follow up with the seizure clinic, this will be an appointment over the phone. Home Health Face to Face *Denotes mandatory velasquez ?? *I certify that this patient is under my care and that I or an allowed non- physician working with me had a face to face encounter with the patient on this date:??12/26/2022 15:04 ?? *The encounter with the patient was in whole, or in part, for the following medical condition, which is the primary diagnosis(es) for home health care:??Altered mental status (R41.82) Speech abnormality (R47.9) Transaminitis (R74.01) Uncontrolled hypertension (I10) ? *Select the indications for the discipline/s that are being arranged for this patient. Nursing (select all that apply): [_] None [_x] Medication management (reconciliation, teaching)?? [_x] Chronic disease management?? [_] Wound care and treatment?? [x_] Home safety evaluation [_] Administer SQ/IM/IV medications?? [_] Cath care?? [_] Drain care?? [_] Trach or GT care?? Other _ Occupation Therapy (select all that apply): [_] None [_] ADL Management [_] Fall prevention training [_] Energy conservation [_] Cognitive training Other _ Physical Therapy (select all that apply): [_] None [x_] Functional mobility training [x_] Home exercise program to strengthen [x_] Increase ROM?? [x_] Falls prevention training [_x] Home maintenance program for chronic disease Other _ Speech Therapy (select all that apply): [_] None [_] Swallow evaluation and training [_] Speech and language training [_] Cognitive training to process, organize, and/or recall information Other _ ? *Homebound due to (select all that apply): [x_] Inability to leave home without assistance/supervision [x_] Inability to ambulate without assistance [_] Pain [_x] Decreased strength and endurance [x_] Unsteady gait [_] Severe SOB and fatigue [x_] Impaired transfers [x_] Inability to negotiate stairs [_] Limited weight bearing [_] Mental status change? *Physician Signature:??Pepe Healy MD ?? *By signing this, I certify that I have personally evaluated the patient and agree with the findings and recommendations as documented above. ? Results Discharge Labs BLOOD BANK Blood Type O Positive ()?? 12/23/2022 15:18 Antibody Screen Negative ()?? 12/23/2022 15:18 ?? BLOOD COUNT & DIFF WBC 10.8 k/mm3 ()?? 12/26/2022 00:23 RBC 3.99 m/mm3 (Low)?? 12/26/2022 00:23 Hgb 11.1 Gm/dL (Low)?? 12/26/2022 00:23 Hct 36.0 % (Low)?? 12/26/2022 00:23 MCV 90.2 femtoliters ()?? 12/26/2022 00:23 MCH 27.8 pg ()?? 12/26/2022 00:23 MCHC 30.8 g/dL (Low)?? 12/26/2022 00:23 Platelet Count 282 k/mm3 ()?? 12/26/2022 00:23 RDW-SD 49.0 femtoliters (High)?? 12/26/2022 00:23 MPV 9.3 femtoliters (Low)?? 12/26/2022 00:23 Nucleated RBC (Automated) 0.0 #/100 WBC'S ()?? 12/26/2022 00:23 Abs. NRBC 0.0 k/mm3 ()?? 12/26/2022 00:23 Abs. Neut 8.0 k/mm3 (High)?? 12/23/2022 15:20 Abs. Lymph 0.8 k/mm3 ()?? 12/23/2022 15:20 Abs. [place] 1.0 k/mm3 ()?? 12/23/2022 15:20 Abs. Eo 0.2 k/mm3 ()?? 12/23/2022 15:20 Abs. Baso 0.0 k/mm3 ()?? 12/23/2022 15:20 Neut % 79.6 % (High)?? 12/23/2022 15:20 Lymph % 7.7 % (Low)?? 12/23/2022 15:20 [place] % 9.7 % ()?? 12/23/2022 15:20 Eos % 2.2 % ()?? 12/23/2022 15:20 Baso % 0.4 % ()?? 12/23/2022 15:20 Imm Gran 0.4 % ()?? 12/23/2022 15:20 Abs. Imm Gran 0.0 k/mm3 ()?? 12/23/2022 15:20 ?? CARDIAC High Sensitivity Troponin (HSTnT) 50 ng/L (High)?? 12/24/2022 08:12 ? CHEM GENERAL Sodium 135 mmol/L ()?? 12/26/2022 00:23 Potassium 5.0 mmol/L ()?? 12/26/2022 00:23 Chloride 99 mmol/L ()?? 12/26/2022 00:23 Bicarbonate Level 23 mmol/L ()?? 12/26/2022 00:23 Anion Gap 13 ()?? 12/26/2022 00:23 Glucose Level 176 mg/dL (High)?? 12/26/2022 00:23 Glucose, POC 184 mg/dL (High)?? 12/26/2022 11:05 Hemoglobin A1C (Monitoring) 7.6 % (High)?? 12/23/2022 15:20 BUN 29 mg/dL (High)?? 12/26/2022 00:23 Creatinine-Blood 0.9 mg/dL ()?? 12/26/2022 00:23 Estimated GFR Creatinine 81 ML/MIN/1.73 M2 ()?? 12/26/2022 00:23 Calcium 8.9 mg/dL ()?? 12/26/2022 00:23 Calcium, Ionized pH Corrected 1.20 mmol/L ()?? 12/23/2022 15:20 Magnesium 2.1 mg/dL ()?? 12/23/2022 15:20 Protein, Total 6.2 Gm/dL ()?? 12/25/2022 05:38 Albumin 3.3 Gm/dL (Low)?? 12/25/2022 05:38 AG Ratio 1.1 ()?? 12/25/2022 05:38 Alkaline Phosphatase 159 units/L (High)?? 12/25/2022 05:38 AST (SGOT) 72 units/L (High)?? 12/25/2022 05:38 ALT (SGPT) 71 units/L (High)?? 12/25/2022 05:38 Bilirubin, Total 0.2 mg/dL ()?? 12/25/2022 05:38 ? COAG INR 1.0 ()?? 12/23/2022 15:20 Protime (PT) 10.7 seconds ()?? 12/23/2022 15:20 APTT 26.8 seconds ()?? 12/23/2022 15:20 ? ENDOCRINE/TUMOR MARKER TSH 5.82 uIU/mL (High)?? 12/23/2022 15:20 Free T4 1.22 ng/dL ()?? 12/23/2022 15:20 ?? LIPID STUDIES Cholesterol 138 mg/dL ()?? 12/23/2022 15:20 Triglycerides 105 mg/dL ()?? 12/23/2022 15:20 HDL Cholesterol 70 mg/dL ()?? 12/23/2022 15:20 LDL Cholesterol 47 mg/dL ()?? 12/23/2022 15:20 Non HDL Cholesterol 68 mg/dL ()?? 12/23/2022 15:20 ? MISC. CHEMISTRY Ammonia, Venous 12 ??mole/L (Low)?? 12/23/2022 16:45 Procalcitonin 0.10 ng/mL ()?? 12/26/2022 00:23 ?? SEROLOGY INF DISEASE Anti Hepatitis A IgM NEGATIVE (N)?? 12/23/2022 15:20 Hepatitis B Surface Antigen NEGATIVE (N)?? 12/23/2022 15:20 Hepatitis B Core Ab, IgM NEGATIVE ()?? 12/23/2022 15:20 Hepatitis C Ab NEGATIVE (N)?? 12/23/2022 15:20 ?? TOXICOLOGY/TDM Ethanol, Serum or Plasma NONE DETECTED mg/dL ()?? 12/23/2022 15:20 ? UA/URINALYSIS Appear/Color, Urine COLORLESS ()?? 12/23/2022 17:01 Specific [place], Urine 1.022 ()?? 12/23/2022 17:01 pH, Urine 7.0 ()?? 12/23/2022 17:01 Albumin, Urine 1+ (Abnormal)?? 12/23/2022 17:01 Glucose, Urine NEGATIVE ()?? 12/23/2022 17:01 Ketones, Urine NEGATIVE ()?? 12/23/2022 17:01 Bilirubin, Urine NEGATIVE ()?? 12/23/2022 17:01 Hemoglobin, Urine NEGATIVE ()?? 12/23/2022 17:01 Nitrite, Urine NEGATIVE ()?? 12/23/2022 17:01 Leukocyte, Urine NEGATIVE ()?? 12/23/2022 17:01 Urobilinogen NORMAL mg/dL ()?? 12/23/2022 17:01 WBC's, Urine <1 /HPF ()?? 12/23/2022 17:01 RBC's, Urine 2 /HPF ()?? 12/23/2022 17:01 Hold Urine Culture Testing available 48 hours from time of collection. ()?? 12/23/2022 17:01 ?? URINE OTHER Est Creatinine Clearance 63.65 mL/min ()?? 12/26/2022 03:00 ? VIROLOGY COVID-19 by RT-PCR NEGATIVE ()?? 12/23/2022 16:19 ?(12/24/2022 22:[address] Head/Brain W/O Contrast) ?? IMPRESSION: ?? No acute intracranial hemorrhage or mass effect. ?? Frontal scalp soft tissue swelling. ?? 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 No new region of abnormal hypodensity to suggest involving ischemia. ?? [1] ? This note has been??written with the help of dictation software,??please excuse any errors. Patient case and plan discussed with Dr. Monika Healy MD, PGY3 Internal medicine Pager: [phone] ? 50??minutes spent on discharge [1]??CT Head/Brain W/O Contrast; Sulaiman Jon MD 12/24/2022 22:58 EDT * Monika DSOUZA, Valeria: PERFORM Event Display: Discharge/Transfer Note Hospital Authored Date: I have evaluated and examined the patient??on the day of service. I have discussed the care and management with the medical team. Agree with written findings, assessment and plan as outlined in residents note below. * Ana Semyour RN: PERFORM Event Display: Patient Education/Instruction Authored Date: [id number] Inpatient Adult Discharge Instructions [address] [address] Name: JENNIFER JAMESON : 1935 Visit: 12/24/2022 13:20:00 Current Date: 12/26/2022 15:44 Account: [id number] Inpatient Adult Discharge Instructions We would like [...] and their families. Surveys are administered by [employer] ?? If further treatment with your primary care physician or another doctor is recommended, it is important for you to keep the appointment. Call your primary care physician or return to the Emergency Department immediately if your condition worsens, fails to improve, or new symptoms develop. If you need to find a doctor, you can call [facility] for a referral at [phone] or toll free at [phone]) or log in to [email or web address].. ?? You can view and manage your care through the patient portal or by using a health care wilfredo of your choosing. [employer] is a website that allows you to securely view your medical information including your hospital discharge summary, office visit summaries, medications and follow-up visits. You can also request appointments, renew medications, and request access to your medical information using a health care wilfredo of your choosing, or just ask a question. You can enroll at [email or web address] or register during your next office visit. You have been discharged from [facility], Patient Care Unit: S3. If you have any questions regarding these instructions after you leave, please call us and we will be happy to assist you. [facility] Your Care Team Attending Physician Monika DSOUZA, Valeria Consulting Providers Phong DSOUZA, Dorothy Discharging Providers Niraj DSOUZA, Pepe Palumbo Reason for Your Visit General medical Your Diagnosis Altered mental status General medical Speech abnormality Transaminitis Uncontrolled hypertension Tests Performed Below is a partial list of the tests performed during your hospitalization. You may have had other tests and procedures not included in this list. Please discuss all test results with your provider. ACUTE HEPATITIS PROFILE Alcohol Level Ammonia Venous Basic Metabolic Panel Calcium Ionized CBC CBC w/ Differential Comprehensive Metabolic Panel COVID-19 (Novel Coronavirus), Rapid PCR FREE T4 GLUCOSE POC HEMOGLOBIN A1C High??Sensitivity??Troponin T INR LIPID PANEL Magnesium Level Procalcitonin Level PTT Troponin T, High Sensitivity TSH with T4 Reflex (Adults Only) Type and Screen Urinalysis w/hold for Urine Culture CT Angio Head Hyperacute Stroke CT Angio Neck Hyperacute Stroke CT Head-Hyper Acute Stroke CT Head/Brain W/O Contrast CXR Portable Liver (US) XR Chest Portable XR Modified Barium Swallow W/ Speech RAD Primary Care Provider Arjun Hampton DO Advance Directive Caregiver Relationship: Other: Jenkins Discharge Vitals Temperature: 98.3 DegF Height: 180 cm Pulse Rate: 83 bpm Weight: 90.3 kg Respiratory Rate: 20 br/min Body Mass Index:??27.87 kg/m2??High Systolic Blood Pressure: 131 mm Hg Body surface area: 2.12 Diastolic Blood Pressure: 75 mm Hg ?? Oxygen Saturation:??93 %??Low ?? Studies Pending All tests and labs ordered during this hospital stay have been completed unless listed below. Please discuss all pending results with your provider listed above in these instructions. ?? Add On Lab Order What to do next Instructions From Your Doctor You have been started on a medication called keppra 2 times a day. Please follow up with the seizure clinic, this will be an appointment over the phone. Discharge Orders Scheduled Follow-Up Appointments December. 2022 1:30 PM EDT ?? With: Where: Interventional Radiology Thursday 8:00 AM EDT ?? With: Kadeem Schaeffer MD Where: [facility] [address] [place] [address] Floor, [address] [place] [address]- You Need to Schedule the Following Appointments Follow Up with??Kadeem Schaeffer When??02/03/2023 08:00 AM EDT Why: THIS IS A PHONE APPT-DR SCHAEFFER WILL CALL YOU-PLEASE DO NOT COME TO THE OFFICE Follow Up with??Memo LISA, Arjun Nieves When??Within 1 to 2 weeks Where: ?? Follow Up with??Arjun Hampton When??In 0 days Discharge Medications JENNIFER JAMESON :1935 Visit Date:12/24/2022 Medications: Please continue your medications until treatment is completed or stopped by your provider. Medications not listed below should be discontinued. Discuss any questions related to medications with your provider. What How Much When Instructions Next Dose New levETIRAcetam (Keppra 500 mg oral tablet) 1 tab(s) Oral Twice a day Duration: 30 Days [facility]: [facility] [address] 12/26 Changed Omeprazole (omeprazole 40 mg oral enteric coated capsule) 1 capsule Oral Daily 12/27 Changed Primidone (primidone 50 mg oral tablet) TAKE 2 TABLETS BY MOUTH 3 TIMES A DAY ?? 12/26 Unchanged Albuterol/ Ipratropium (albuterol-ipratropium 3 mg-0.5 mg/ 3 ml inhalation solution) 3 Milliliter Inhalation 4 times a day per home regimen Unchanged Allopurinol (allopurinol 300 mg oral tablet) 1 tab(s) Oral Daily 12/27 Unchanged Ammonium Lactate 12% (ammonium lactate 12% topical lotion) See instructions APPLY TOPICALLY DAILY TO THE LEGS DIREDTED ?? per home regimen Unchanged Aspirin (aspirin 81 mg oral tablet) 1 tab(s) Oral Daily 12/27 Unchanged Atorvastatin (atorvastatin 80 mg oral tablet) 1 tab(s) Oral Daily 12/27 Unchanged Benzonatate (benzonatate 200 mg oral capsule) 1 capsule Oral 3 times a day as needed for as needed for cough as needed Unchanged Budesonide (budesonide 0.5 mg/ 2 mL inhalation suspension) 2 Milliliter Nebulized inhalation Twice a day 12/26 Unchanged Cadexomer-Iodine Topical (Iodosorb 0.9% topical gel) See instructions Apply to left toe ulcer every other day and cover with gauze dressing ?? per home regimen Unchanged Carvedilol (carvedilol 6.25 mg oral tablet) TAKE 1 TABLET BY MOUTH TWICE A DAY ?? 12/26 Unchanged Cholecalciferol (Vitamin D3 1000 intl units oral tablet) 1 tab(s) Oral Daily 12/27 Unchanged Clonazepam (clonazePAM 0.5 mg oral tablet) 0.5 tab(s) Oral Daily 12/27 Unchanged Clonazepam (clonazePAM 0.5 mg oral tablet) 0.5 tab(s) Oral Daily 12/27 Unchanged diosmiplex (diosmiplex 630 mg oral tablet) 1 tab(s) Oral Daily 12/27 Unchanged diosmiplex (diosmiplex 630 mg oral tablet) 1 tab(s) Oral Daily 12/27 Unchanged Docusate (docusate sodium 150 mg/ 15 ml oral liquid) 10 Milliliter Oral Twice a day 12/26 Unchanged Ferrous Sulfate (Ferrous Sulfate EC) 325 Milligram Oral Daily 12/27 Unchanged Fluticasone Nasal (fluticasone 50 mcg/ inh nasal spray) 2 spray(s) Nares, Both Daily in the morning 12/27 Unchanged Furosemide (furosemide 20 mg oral tablet) 2 tab(s) Oral Daily 12/27 Unchanged Gabapentin (gabapentin 100 mg oral capsule) 2 capsule Oral 3 times a day 12/26 Unchanged Insulin Glargine (Basaglar KwikPen 100 units/ mL subcutaneous solution) See instructions INJECT 10 UNITS SUBCUTANEOUSLY DAILY AT BEDTIME ?? 912/26 Unchanged Levothyroxine (levothyroxine 0.05 mg oral tablet) See instructions 1 tablet By Mouth Thursday-Thursday 2 tabs po Thu-Thursday ?? 7a12/27 Unchanged Loratadine (Claritin 10 mg oral tablet) 1 tab(s) Oral Daily 12/27 Unchanged Multivitamin 1 tab Oral Daily 12/27 Unchanged [place]-3 Polyunsaturated Fatty Acids (Fish Oil 1000 mg oral capsule) 1 capsule Oral Daily 12/27 Unchanged Silver SulfADIAZINE Topical (Silvadene 1% cream) 1 wilfredo Topically Daily Use for scalp dressing change as directed ?? 12/27 Unchanged Sodium Hypochlorite Topical (Dakins Half Strength 0.25% topical solution) See instructions Use for dressing changes as directed ?? per home regimen Unchanged Sucralfate (sucralfate 1 gm oral tablet) 1 tab(s) Oral 3 times a day before meals and bedtime 9pm 12/26 Unchanged Tamsulosin (tamsulosin 0.4 mg oral capsule) TAKE 1 CAPSULE BY MOUTH EVERY DAY ?? 12/27 Unchanged Thiamine 100 Milligram Oral Daily 12/27 Unchanged Ubiquinone (Co Q-10) 100 Milligram Oral Daily 12/27 Pharmacy Information [facility]: [address], [place] [id number] [phone] Test Results Below is a partial list of the most recent Laboratory test results done prior to this discharge. You may have had other tests and procedures not included in this list. Please discuss all test resultswith your provider. Est Creatinine Clearance - 63.65 mL/min (12/26/2022) ACUTE HEPATITIS PROFILE (12/23/2022) ???Anti Hepatitis A IgM - NEGATIVE???Hepatitis B Surface Antigen - NEGATIVE???Hepatitis B Core Ab, IgM - NEGATIVE???Hepatitis C Ab - NEGATIVE Alcohol Level (12/23/2022) ???Ethanol, Serum or Plasma - NONE DETECTED Ammonia Venous (12/23/2022) ???Ammonia, Venous - 12 ??mole/L Basic Metabolic Panel (12/26/2022) ???Sodium - 135 mmol/L???Potassium - 5.0 mmol/L???Chloride - 99 mmol/L???Bicarbonate Level - 23 mmol/L???Anion Gap - 13???Glucose Level - 176 mg/dL???BUN - 29 mg/dL???Creatinine-Blood - 0.9 mg/dL???Estimated GFR Creatinine - 81 ML/MIN/1.73 M2???Calcium - 8.9 mg/dL Calcium Ionized (12/23/2022) ???Calcium, Ionized pH Corrected - 1.20 mmol/L CBC (12/26/2022) ???WBC - 10.8 k/mm3???RBC - 3.99 m/mm3???Hgb - 11.1 Gm/dL???Hct - 36.0 %???MCV - 90.2 femtoliters???MCH - 27.8 pg???MCHC - 30.8 g/dL???Platelet Count - 282 k/mm3???RDW-SD - 49.0 femtoliters???MPV - 9.3 femtoliters???Nucleated RBC (Automated) - 0.0 #/100 WBC'S???Abs. NRBC - 0.0 k/mm3 CBC w/ Differential (12/23/2022) ???WBC - 10.1 k/mm3???RBC - 4.06 m/mm3???Hgb - 11.5 Gm/dL???Hct - 36.6 %???MCV - 90.1 femtoliters???MCH - 28.3 pg???MCHC - 31.4 g/dL???Platelet Count - 298 k/mm3???RDW-SD - 48.7 femtoliters???MPV - 9.8 femtoliters???Nucleated RBC (Automated) - 0.0 #/100 WBC'S???Abs. NRBC - 0.0 k/mm3???Abs. Neut - 8.0 k/mm3???Abs. Lymph - 0.8 k/mm3???Abs. [place] - 1.0 k/mm3???Abs. Eo - 0.2 k/mm3???Abs. Baso - 0.0 k/mm3???Neut % - 79.6 %???Lymph % - 7.7 %???[place] % - 9.7 %???Eos % - 2.2 %???Baso % - 0.4 %???Imm Gran- 0.4 %???Abs. Imm Gran - 0.0 k/mm3 Comprehensive Metabolic Panel (12/25/2022) ???Sodium - 137 mmol/L???Potassium - 4.7 mmol/L???Chloride - 98 mmol/L???Bicarbonate Level - 24 mmol/L???Anion Gap - 15???Glucose Level - 158 mg/dL???BUN - 22 mg/dL???Creatinine-Blood - 1.0 mg/dL???Estimated GFR Creatinine - 78 ML/MIN/1.73 M2???Calcium - 9.2 mg/dL???Protein, Total - 6.2 Gm/dL???[place] min - 3.3 Gm/dL???AG Ratio - 1.1???Alkaline Phosphatase - 159 units/L???AST (SGOT) - 72 units/L???ALT (SGPT) - 71 units/L???Bilirubin, Total - 0.2 mg/dL COVID-19 (Novel Coronavirus), Rapid PCR (12/23/2022) ???COVID-19 by RT-PCR - NEGATIVE FREE T4 (12/23/2022) ???Free T4 - 1.22 ng/dL GLUCOSE POC (12/26/2022) ???Glucose, POC - 184 mg/dL HEMOGLOBIN A1C (12/23/2022) ???Hemoglobin A1C (Monitoring) - 7.6 % High??Sensitivity??Troponin T (12/23/2022) ???High Sensitivity Troponin (HSTnT) - 58 ng/L INR (12/23/2022) ???INR - 1.0???Protime (PT) - 10.7 seconds LIPID PANEL (12/23/2022) ???Cholesterol - 138 mg/dL???Triglycerides - 105 mg/dL???HDL Cholesterol - 70 mg/dL???LDL Cholesterol - 47 mg/dL???Non HDL Cholesterol - 68 mg/dL Magnesium Level (12/23/2022) ???Magnesium - 2.1 mg/dL Procalcitonin Level (12/26/2022) ???Procalcitonin - 0.10 ng/mL PTT (12/23/2022) ???APTT - 26.8 seconds Troponin T, High Sensitivity (12/24/2022) ???High Sensitivity Troponin (HSTnT) - 50 ng/L TSH with T4 Reflex (Adults Only) (12/23/2022) ???TSH - 5.82 uIU/mL Type and Screen (12/23/2022) ???Blood Type - O Positive???Antibody Screen - Negative Urinalysis w/hold for Urine Culture (12/23/2022) ???Appear/Color, Urine - COLORLESS???Specific [place], Urine - 1.022???pH, Urine - 7.0???Albumin, Urine - 1+???Glucose, Urine - NEGATIVE???Ketones, Urine - NEGATIVE???Bilirubin, Urine - NEGATIVE???Hemoglobin, Urine - NEGATIVE???Nitrite, Urine - NEGATIVE???Leukocyte, Urine - NEGATIVE???Urobilinogen - NORMAL? ?WBC's, Urine - <1 /HPF? ?RBC's, Urine - 2 /HPF? ?Hold Urine Culture - Testing available 48 hours from time of collection. Allergies (NKA means No Known Allergies) NKA Problems Active Problems??(24) Anemia?? At high risk for fall?? 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 Benign essential hypertension?? Chronic obstructive lung disease?? Chronic respiratory failure, unspecified whether with hypoxia or hypercapnia?? Coronary atherosclerosis?? Encounter for annual wellness visit (AWV) in Medicare patient?? Gout?? H/O: Deep vein thrombosis?? H/O: pulmonary embolus?? Alta's thyroiditis?? Hemiparesis affecting right side as late effect of cerebrovascular accident?? Hypercholesterolemia?? Hyperlipidemia?? Ischemic cardiomyopathy?? Neuropathy, peripheral?? Patent foramen ovale?? Peripheral vascular disease?? 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 Right homonymous hemianopsia?? Tremor?? Type 2 diabetes mellitus with insulin therapy?? Type 2 diabetes with nephropathy?? Education Materials Below is the list of Educational Leaflet Providered with your Discharge Instructions. How Seizures Affect the Body?? Self-Care for Seizures?? Levetiracetam Oral Tablet?? Valuables and Belongings I fully understand and agree that [facility] accepts no responsibility for all my personal [...] Review of Valuable and Belonging List: With witness Date for Pt to Sign Valuables/Belongings: 12/26/22 15:39:00 ?? Other Discharge Information ?? Wound Assessment?? Wound Assessment?? Wound Location I: head Wound Location II: BL legs ?? Case Management Discharge Plan?? Discharge Plan?? Discharge Agency Information?? Discharge Level of Care at Discharge: Homehealth/VNA Name of Agency #1: [facility] Discharge Transportation Arranged: [facility] [address] [facility] [id number] [phone] Service Categories #1: Occupational Therapy, Physical Therapy, Group Home Mode of Transportation Arranged: Ambulance Service Comments #1: A referral was made to [facility] for home health. Someone will contact you in the next 1-2 days to arrange a visit. If you do not hear from anyone, please contact the agency Discharge Arranged Transport Date/Time: 12/26/22 18:00:00 ?? [facility] ? Pulmonary Rehab Status?? Pulmonary Rehab Discharge Status?? Respiratory Rate: 20 br/min ? Common Emergency Awareness Tips IS [...] are strongly encouraged to quit. Please call [facility] [employer] [facility] at [phone] or [phone] ([phone]) or log in to [email or web address] for referrals to smoking cessation programs. ?? 472 Suicide & Crisis Lifeline is available 16/03 if you or someone you know needs to find a reason to keep living. By calling 917 you'll be connected to a skilled, trained counselor at a crisis center in your area. INPATIENT DISCHARGE INSTRUCTIONS SIGNATURE BELINDA JENNIFER JAMESON Location:[facility] Registration Date and Time:12/24/2022 13:20 EDT Primary Care Physician: Arjun Hampton DO, I JENNIFER JAMESON, have received the above patient education materials/instructions and have verbalized understanding. If ambulance or transport services are being used I further acknowledge being givena choice of service. ?? If you need to contact me, please call me at this number: . Patient/Geothermal Operating Engineer Name: Patient/Geothermal Operating Engineer Signature: Relationship to Patient: Witness Name/Signature: Date: * Ana Seymour RN: PERFORM Event Display: Patient Education Leaflets Authored Date: [id number] How Seizures Affect the Body ?? 71667 How Seizures Affect the Body The brain is your body???s control center. It manages everything from movement and balance to emotions and memory. When a seizure happens, some or all brain functions are affected for a short time. The brain sends signals The brain sends electrical signals throughout your body. Signals sent from each part of your brain controls a different body function. For example, one part of your brain controls balance. Another part controls speech. A healthcare provider can record your brain signals using a test called an electroencephalogram (EEG). Normal EEG. ?? The brain during a seizure During a seizure, a lot of abnormal electrical signals occur in your brain. They disrupt its normalactivity. The way this affects your body depends on 2 main factors: ??? Where the seizure happens in your brain. For example, a seizure in a part of your brain that controls movement (the motor cortex) might cause your arm or leg to jerk. ??? The spread of the seizure to other parts of the brain. For example, a seizure that affects more of your brain may affect more of your body. ?? Types of seizures The types of seizures include: ??? Focal seizures. This is when the abnormal electrical activity starts in one part of the brain. These seizures used to be known as partial seizures. ??? Generalized seizures. These are seizures that start on both sides of the brain at the same time. ??? Unknown onset. This is when it isn't knownif the seizure is focal or generalized. It may be hard to know which type until tests such as an EEG are done. ??? Focal to bilateral seizure. This is when a seizure starts in one side or part of thebrain (focal) and then spreads to both sides. Partial seizure EEG Generalized seizure EEG ?? Focal seizures Focal seizures come in different types. The type depends on any change in awareness. They are: ??? Focal aware. The person having a seizure is awake and aware of their surroundings. They may be unable to talk during the seizure. ??? Focal impaired awareness. People with this type of seizure will have temporary loss of awareness. This can be very brief (few seconds) to much longer. This used to be known as a complex partial seizure. ??? Awareness unknown. This is when it can't be determinedif the person's awareness is affected or not. Focal seizures also come in types that describe movements: ??? Focal motor seizure. This is when the focal seizure causes abnormal movements. The movements can include twitching, jerking, or stiffening of a body part. Or they can be movements such as lickinglips, rubbing hands, walking, or running. ??? Focal non-motor seizure. These don't cause movements.But the person may have vision changes, thoughts, or feelings from the seizure. ?? Generalized seizures There are 2 kinds of generalized seizures: ??? Generalized motor seizure. This is when a seizure happens on both sides of the brain and causes movements such as stiffening or jerking. It's also called a tonic-clonic seizure. ??? Generalized non-motor seizure. This is a seizure that affects awareness. It doesn't cause motor symptoms. Some people will have minor movements that repeat, such as blinking or staring. This is also called an absence seizure. ?? Other effects of seizures on your body After a generalized motor seizure, you may feel soreness in your muscles when you wake up. Some people bite their tongue during a seizure. Some lose control of their bladder or bowels (incontinence).You may be sweating and have changes in your skin color. If you have seizures in your sleep, you may only know because you feel sore when you wake up. Or you may find you had incontinence while asleep. Seizures can affect your heart rate, blood pressure, or other vital signs. These changes are often short term (temporary). They get better after the seizure stops. During a seizure, brain cells can be injured, especially with longer seizures. For these reasons, it's important to have good control of seizures. Seizures that affect your movements or awareness can pose a danger. When a seizure affects awareness, you may be unable to focus on what you're doing. You may lose control of a vehicle or heavy machinery. Motor seizures (generalized or focal) can lead to injury. With a generalized motor seizure, you canfall and be injured. The motor movements with focal or generalized seizures can cause injury if you're near something dangerous, like a hot stove or a sharp object. People with seizures that affect awareness or motor function need to take care to prevent injuries.Your ability to drive may be affected. Your driving may be limited. This is based on your provider's advice and local laws. You may need not to swim or shower alone. This is because of the risk of drowning during a seizure. Being up high, such as on a ladder, can lead to serious injury if you have a seizure. Your provider can help you learn what to do to stay safe. ?? Last Reviewed Date: 2021 ?? 6481-3082 [employer]. All rights reserved. This information is not intended as a substitute for professional medical care. Always follow your healthcare professional's instructions. ?? * Ana Seymour RN: PERFORM Event Display: Patient Education Leaflets Authored Date: [id number] Self-Care for Seizures ?? 81217 Self-Care for Seizures You can do many things to help control your seizures. First follow your treatment plan. If your??healthcare provider??has prescribed medicines, take them as directed. [facility], healthcare provider, or neurologist. Also take the following steps. Track and stay away from triggers Triggers??are things that seem to cause (provoke) seizures. Keep track of your triggers and try to prevent them or stay away from them. Here are two common triggers and ways to cope with them: ??? Too little sleep. Get enough sleep. If you have trouble sleeping, talk with your healthcare provider. ??? Alcohol and drugs.??Don???t drink alcohol. Never take any illegal drugs. If you do have substance abuse issues, talk with your healthcare provider about the safest way to become free of alcohol and drugs. ?? Keep a healthy lifestyle A healthy lifestyle can help you feel good??and cope better with seizures. . ??? Exercise often. Frequent exercise can help keep you healthy. Try to exercise for?? 30??minutes most days of the week. Yoga is a good choice. Check with your healthcare provider to see if any activities are not advised because of seizures. Some activities such as swimming alone can be dangerous. ??? Eat well and regularly. Good nutrition can give you energy and make you feel better. Eat lots??of fruits, vegetables, and whole grains. Don't skip meals, because seizures are more likely if you have low blood sugar. ??? Control stress. Keeping stress levels low can help you cope better . To manage stress, try an exercise program. ??? Manage illness. Get correct treatment when you???re sick. Check with your??healthcare provider??and pharmacist about the risk of seizures with medicines you take for illnesses. If your provider has prescribed antiseizure medicines, take them even when you???re ill. ?? Last Reviewed Date: 2022 ?? [employer]. All rights reserved. This information is not intended as a substitute for professional medical care. Always follow your healthcare professional's instructions. ?? * Niraj DSOUZA, Pepe Palumbo: PERFORM Event Display: Patient Education Leaflets Authored Date: [id number] Levetiracetam Oral Tablet ?? [address] Levetiracetam Oral Tablet Brands: Keppra, Roweepra Uses For seizures. ?? Instructions Swallow the medicine without crushing or chewing it. This medicine may be taken with or without food. This medicine will work best if you take it at about the same time every day. Keep the medicine at room temperature. Avoid heat and direct light. It is important that you keep taking each dose of this medicine on time even if you are feeling well. If you forget to take a dose on time, take it as soon as you remember. If it is almost time for thenext dose, do not take the missed dose. Return to your normal schedule. Do not take 2 doses at one time. Tell your doctor and pharmacist about all your medicines. Include prescription and afaj-[id number], vitamins, and herbal medicines. Contact your doctor if your seizures do not improve or worsen while on this medicine. Do not suddenly stop taking this medicine. Check with your doctor before stopping. It is very important that you follow your doctor's instructions for all blood tests. ?? Cautions Tell your doctor and pharmacist if you ever had an allergic reaction to a medicine. There is an increased risk of bleeding while on this medicine, please tell your doctor or nurse if you notice any excessive bleeding or bruising. Do not use the medication any more than instructed. Your ability to stay alert or to react quickly may be impaired by this medicine. Do not drive or operate machinery until you know how this medicine will affect you. Please check with your doctor before drinking alcohol while on this medicine. Family should check on the patient often. Call the doctor if patient becomes more depressed, has thoughts of suicide, or shows changes in behavior. Tell the doctor or pharmacist if you are , planning to be , or . Do not start or stop any other medicines without first speaking to your doctor or pharmacist. Do not share this medicine with anyone who has not been prescribed this medicine. Some patients have serious side effects from this medicine. Ask your pharmacist to show you the information from the Food and Drug Administration (FDA) and discuss it with you. ?? Side Effects The following is a list of some common side effects from this medicine. Please speak with your doctor about what you should do if you experience these or other side effects. ??? dizziness or drowsiness ??? lack of energy and tiredness Call your doctor or get medical help right away if you notice any of these more serious side effects: ??? agitated feeling or trouble sleeping ??? depression or feeling sad ??? fever ??? fast or irregular heart beats ??? rapid breathing A few people may have an allergic reaction to this medicine. Symptoms can include difficulty breathing, skin rash, itching, swelling, or severe dizziness. If you notice any of these symptoms, seek medical help quickly. ?? Extra Please speak with your doctor, nurse, or pharmacist if you have any questions about this medicine. ?? [email or web address] IMPORTANT NOTE: This document tells you briefly how to take your medicine, but it does not tell youall there is to know about it. Your doctor or pharmacist may give you other documents about your medicine. Please talk to them if you have any questions. Always follow their advice. There is a more complete description of this medicine available in Malian. Scan this code on your smartphone or tablet or use the web address below. You can also ask your pharmacist for a printout. If you have any questions, please ask your pharmacist. The display and use of this drug information is subject to Terms of Use. Copyright(c) 2022 [employer]. ?? [employer]. All rights reserved. This information is not intended as a substitute for professional medical care. Always follow your healthcare professional's instructions. ?? * Shar COYNE, Hayde: PERFORM, SIGN, VERIFY Event Display: Patient Education Handout Authored Date: [id number] US Liver * BLAYNE Gary S: Josie Traore MD: VERIFY Event Display: Result: Authored Date: [id number] US Liver Reason: Other:; transaminitis; Clinical Question(s): Biliary Obstruction COMPARISON: CT abdomen and pelvis 07/26/2018. IMAGING TECHNIQUE: Grayscale and color Doppler ultrasound examination of the liver. FINDINGS: Liver: Coarse hepatic echotexture. No suspicious lesion. Smooth hepatic contour. Main portal vein patent with normal hepatopetal direction of flow. Biliary Tree: No intrahepatic or extrahepatic bile duct dilation is identified. Common duct: 0.4 cm(limited visualization). IMPRESSION: Coarse hepatic echotexture likely due to underlying hepatocellular disease. No suspicious lesion. WSN: [id number] Ordering Physician: Maia Gaona Dictated By: Josie Mcfadden MD Dictated Date/Time: 12/24/22 10:26 a Reviewed By: Josie Mcfadden MD Signed By: Josie Mcfadden MD Signed Date/Time: 12/24/22 10:26 am Transcribed By: ANGELA Transcribed Date/Time: 12/24/22 10:25 am Radiology * BLAYNE Gary S: VALENTINA Gutierrez MD, Joy: GISELLE Mike MD, Roman V: VERIFY Event Display: Result: Authored Date: [id number] Modified Barium Swallow W/ Speech (Radio WITH SPEECH PATHOLOGY CLINICAL INDICATION: Reason: Aspiration; Clinical Question(s): Aspiration COMPARISON: Multiple priors, most recent modified barium swallow 03/15/2019 Technique: Lateral cine-videofluoroscopy was performed during the oral administration of various barium containing consistencies, as described below. Fluoroscopic imaging provided by Dr. Joy Gutierrez. Pulsed fluoroscopy time: 42 seconds Dose Area Product (DAP): 55.7 uGy*m2 Findings: Applesauce, pudding, nectar, mixed fruit/juice, and thin barium consistencies were tested. Applesauce: Normal Pudding: Normal [place]: Normal Mixed fruit and juice: Normal Thin barium: Flash laryngeal penetration IMPRESSION: Evidence of flash laryngeal penetration with thin liquid consistency. No evidence of subglottic aspiration. Findings as described. For dietary concerns or recommendations, please refer to speech pathologist report. By undersigning and finalizing the report, the attending radiologist confirms he/she has personallyreviewed and interpreted the images and agrees with the description of the findings. I have personally reviewed the images and I agree with this report. WSN: [id number] Ordering Physician: Pepe Healy Dictated By: Joy Gutierrez MD Dictated Date/Time: 12/24/22 2:48 pm Reviewed By: Roman Mike MD, V Signed By: Roman Mike MD, V Signed Date/Time: 12/24/22 2:53 pm Transcribed By: ANGELA Transcribed Date/Time: 12/24/22 2:30 pm * [facility]SPowerscribe , BLAYNE S: TRANSCRISaleem Bergman MD B: VERIFY Event Display: Result: Authored Date: [id number] CT of the head dated December 23, 2022. Comparison films are from August 07, 2018. HISTORY: Acute neurological deficit. FINDINGS: CT imaging was performed with multislice acquisition from the foramen magnum through the vertex. No intravenous contrast material was utilized. Axial and coronal reconstruction was performed. A weight based protocol using automatic tube modulation was used to optimize exposure parameters. Today's study is limited by motion artifact. Examination of the posterior fossa shows a normal size midline fourth ventricle. 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 This is stable. Sulcal prominence is noted. Supratentorially, the lateral and third ventricles are increased in size. They are normal in contour and position. No mass or hemorrhage is identified. A large area of encephalomalacia in the left frontal region is stable. A smaller area of encephalomalacia in the right frontal region is stable. Anarea of encephalomalacia in the left occipital cortex is stable. Sulcal prominence is noted bilaterally. No new area of loss of carrera-white matter differentiation is noted.. No hyperdense vessel or loss ofthe insular ribbon is appreciated. Visualized osseous structures, paranasal sinuses and orbits are unremarkable. The mastoid air cells are clear. There are bilateral frontal luna holes. These are unchanged from the previous examination. IMPRESSION: No evidence of acute intracranial abnormality. 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 Prior bilateral frontal luna holes are unchanged. Age-appropriate volume loss. Examination 58[address]. Thank you for allowing me to participate in the care of this patient. WSN: [id number] Ordering Physician: Ellie Irizarry Dictated By: Saleem Rick MD Dictated Date/Time: 12/23/22 2:56 pm Reviewed By: Saleem Rick MD Signed By: Saleem Rick MD Signed Date/Time: 12/23/22 2:56 pm Transcribed By: ANGELA Transcribed Date/Time: 12/23/22 2:48 pm * BLAYNE Gary S: Brando Peoples MD: VERIFY Event Display: Result: Authored Date: [id number] CT Angio Head Hyperacute Stroke, CT Angio Neck Hyperacute Stroke Reason: Aphasia.:; Stroke; Clinical Question(s): Other:; Hematoma Aneurysm / Other: TECHNIQUE: CT angiogram of the head and neck was performed after bolus administration of intravenous contrast. 100 mL of Omnipaque 300 was administered intravenously. Coronal and sagittal MIP reformatted images were obtained. Additional 3-D images were created on a separate workstation under concurrent supervision by the attending radiologist. All stenoses are measured using NASCET criteria. Weight-based protocol using automatic tube modulation was used to optimize exposure parameters. RADIATION DOSE PARAMETERS: CTDIvol Body: 12.17 mGy, DLP Body: 452 mGy*cm. CTDIvol Head: 48.30 mGy, DLP Head: 1159 mGy*cm. COMPARISON: Noncontrast CT head performed concurrently and the prior CTAs on 10/03/2015. FINDINGS: There is a 4 vessel arch. The left vertebral artery arises from aortic arch directly. Mural calcified and noncalcified atherosclerotic plaques are seen along the visualized aortic arch and the supraaortic proximal great neck vessels. No hemodynamically significant stenosis. The right common carotid artery is normal in caliber. The right carotid bulb has mild mural calcifications extending to the right proximal internal carotid artery. The right proximal ICA shows 20% stenosis by NASCET criteria. The left common carotid artery is normal in caliber. The left carotid bulb has mild mural calcifications extending to the left proximal internal carotid artery. The left proximal ICA shows 20% stenosis by NASCET criteria. Right vertebral artery: Patent without stenosis. Left vertebral artery: It arises from aortic arch directly. The origin has mild mural calcificationwithout stenosis. The rest is patent without stenosis. Cervical spine: No acute pathology. Mild spondylosis. Soft tissues and lung apices: Status post prior median sternotomy. The visualized upper lungs have diffuse emphysematous changes. Apical scars bilaterally. Atelectasis at the dependent portion of thevisualized left upper lobe. Bilateral thyroid lobes are normal. There is no definite abnormality thr oughout the soft tissue neck. [place]: Concurrent CT of head showed no acute pathology. Multiple cystic encephalomalaciaare seen at the bilateral frontal lobes and the left occipital lobe. Old lacunar infarcts are seen within bilateral basal ganglia. Status post bifrontal craniotomies. Generalized volume loss and bilateral periventricular hypodensities are noted. Bilateral internal carotid arteries at the skull base have multiple mural calcifications causing severe stenosis on the right and moderate stenosis on the left. Bilateral posterior communicating arteries are visualized, bigger on the right. A 2 mm outpouching is seen at the posterior inferior aspect of the left paraclinoid ICA consistent with an aneurysm, unchanged. Bilateral ACAs, MCAs and their branches are patent. The focal cut off of the pericallosal branch end of the focal severe stenosis at the left callosomarginal branch of left SONAL seen on the prior study are no longer present. No intracranial aneurysm is noted. Bilateral intracranial vertebral arteries show no definite stenosis. The vertebrobasilar junction is normal. The basilar artery is patent. No stenosis or dissection is seen. There is no basilar tip aneurysm. The P1 segment of right CLERICAL ASSOCIATE is hypoplastic There is a origin of the right CLERICAL ASSOCIATE. Otherwise the stock sorter and their branches are patent. The superior sagittal sinuses, the straight sinus, bilateral transverse and sigmoid sinuses: Patentwithout dural sinus thrombosis. IMPRESSION: Bilateral internal carotid arteries at the skull base have multiple mural calcifications causing severe stenosis on the right and moderate to severe stenosis on the left. These findings appear progressed since the prior study. No cutoff or high-grade stenosis of the major branches of the intracranial arteries. The focal cut off of the pericallosal branch and the focal severe stenosis at the left callosomarginal branch of left SONAL seen on the prior study are no longer present. 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 The right proximal internal carotid artery show no significant stenosis by NASCET criteria. The left proximal internal carotid artery show no significant stenosis by NASCET criteria. The right cervical vertebral artery shows no significant stenosis. The left cervical vertebral artery shows no significant stenosis. REFERENCE: NASCET Criteria: The degree of internal carotid stenosis is based on NASCET Criteria: Normal: No stenosis Mild: Less than 50% stenosis Moderate: 50-69% stenosis Severe: 70-99% stenosis Total occlusion: No detectable patent lumen. A actionable message ([place]) has been communicated via the [employer] system on 12/23/2022 4:52 PM, Message ID [id number]. WSN: [id number] Ordering Physician: Ellie Irizarry Dictated By: Brando El MD Dictated Date/Time: 12/23/22 4:53 pm Reviewed By: Brando El MD Signed By: Brando El MD Signed Date/Time: 12/23/22 4:53 pm Transcribed By: ANGELA Transcribed Date/Time: 12/23/22 3:30 pm * M[facility] , CIS S: TRANSCRIBE Brando El MD: VERIFY Event Display: Result: Authored Date: [id number] CT Angio Head Hyperacute Stroke, CT Angio Neck Hyperacute Stroke Reason: Aphasia.:; Stroke; Clinical Question(s): Other:; Hematoma Aneurysm / Other: TECHNIQUE: CT angiogram of the head and neck was performed after bolus administration of intravenous contrast. 100 mL of Omnipaque 300 was administered intravenously. Coronal and sagittal MIP reformatted images were obtained. Additional 3-D images were created on a separate workstation under concurrent supervision by the attending radiologist. All stenoses are measured using NASCET criteria. Weight-based protocol using automatic tube modulation was used to optimize exposure parameters. RADIATION DOSE PARAMETERS: CTDIvol Body: 12.17 mGy, DLP Body: 452 mGy*cm. CTDIvol Head: 48.30 mGy, DLP Head: 1159 mGy*cm. COMPARISON: Noncontrast CT head performed concurrently and the prior CTAs on 10/03/2015. FINDINGS: There is a 4 vessel arch. The left vertebral artery arises from aortic arch directly. Mural calcified and noncalcified atherosclerotic plaques are seen along the visualized aortic arch and the supraaortic proximal great neck vessels. No hemodynamically significant stenosis. The right common carotid artery is normal in caliber. The right carotid bulb has mild mural calcifications extending to the right proximal internal carotid artery. The right proximal ICA shows 20% stenosis by NASCET criteria. The left common carotid artery is normal in caliber. The left carotid bulb has mild mural calcifications extending to the left proximal internal carotid artery. The left proximal ICA shows 20% stenosis by NASCET criteria. Right vertebral artery: Patent without stenosis. Left vertebral artery: It arises from aortic arch directly. The origin has mild mural calcificationwithout stenosis. The rest is patent without stenosis. Cervical spine: No acute pathology. Mild spondylosis. Soft tissues and lung apices: Status post prior median sternotomy. The visualized upper lungs have diffuse emphysematous changes. Apical scars bilaterally. Atelectasis at the dependent portion of thevisualized left upper lobe. Bilateral thyroid lobes are normal. There is no definite abnormality thr oughout the soft tissue neck. [place]: Concurrent CT of head showed no acute pathology. Multiple cystic encephalomalaciaare seen at the bilateral frontal lobes and the left occipital lobe. Old lacunar infarcts are seen within bilateral basal ganglia. Status post bifrontal craniotomies. Generalized volume loss and bilateral periventricular hypodensities are noted. Bilateral internal carotid arteries at the skull base have multiple mural calcifications causing severe stenosis on the right and moderate stenosis on the left. Bilateral posterior communicating arteries are visualized, bigger on the right. A 2 mm outpouching is seen at the posterior inferior aspect of the left paraclinoid ICA consistent with an aneurysm, unchanged. Bilateral ACAs, MCAs and their branches are patent. The focal cut off of the pericallosal branch end of the focal severe stenosis at the left callosomarginal branch of left SONAL seen on the prior study are no longer present. No intracranial aneurysm is noted. Bilateral intracranial vertebral arteries show no definite stenosis. The vertebrobasilar junction is normal. The basilar artery is patent. No stenosis or dissection is seen. There is no basilar tip aneurysm. The P1 segment of right CLERICAL ASSOCIATE is hypoplastic There is a origin of the right CLERICAL ASSOCIATE. Otherwise the stock sorter and their branches are patent. The superior sagittal sinuses, the straight sinus, bilateral transverse and sigmoid sinuses: Patentwithout dural sinus thrombosis. IMPRESSION: Bilateral internal carotid arteries at the skull base have multiple mural calcifications causing severe stenosis on the right and moderate to severe stenosis on the left. These findings appear progressed since the prior study. No cutoff or high-grade stenosis of the major branches of the intracranial arteries. The focal cut off of the pericallosal branch and the focal severe stenosis at the left callosomarginal branch of left SONAL seen on the prior study are no longer present. 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 The right proximal internal carotid artery show no significant stenosis by NASCET criteria. The left proximal internal carotid artery show no significant stenosis by NASCET criteria. The right cervical vertebral artery shows no significant stenosis. The left cervical vertebral artery shows no significant stenosis. REFERENCE: NASCET Criteria: The degree of internal carotid stenosis is based on NASCET Criteria: Normal: No stenosis Mild: Less than 50% stenosis Moderate: 50-69% stenosis Severe: 70-99% stenosis Total occlusion: No detectable patent lumen. A actionable message ([place]) has been communicated via the [employer]Exchange system on 12/23/2022 4:52 PM, Message ID [id number]. WSN: [id number] Ordering Physician: Ellie Irizarry Dictated By: Brando El MD Dictated Date/Time: 12/23/22 4:53 pm Reviewed By: Brando El MD Signed By: Brando El MD Signed Date/Time: 12/23/22 4:53 pm Transcribed By: ANGELA Transcribed Date/Time: 12/23/22 3:30 pm Portable XR Chest Views * [facility] , CIS S: TRANSCRIBE Sulaiman Jon MD: VERIFY Event Display: Result: Authored Date: [id number] Chest Portable Reason: Cough; Clinical Question(s): Aspiration COMPARISON: 12/23/2022 FINDINGS: LINES AND TUBES: None. LUNGS AND PLEURA: Left lower lobe airspace opacity and volume loss unchanged from prior study. Otherwise the lungs are clear . No definite pleural effusion. No pneumothorax. HEART, MEDIASTINUM AND CESAR: Status post median sternotomy. Mild prominence of the cardiac silhouette, unchanged. Normal mediastinal and hilar contour. BONES AND SOFT TISSUES: No acute abnormality. IMPRESSION: Left lower lobe consolidation not significantly changed from prior study possibly representing ongoing pneumonia or atelectasis. WSN: [id number] Ordering Physician: Dalton Oviedo Dictated By: Sulaiman Jon MD Dictated Date/Time: 12/24/22 10:22 p Reviewed By: Sulaiman Jon MD Signed By: Sulaiman Jon MD Signed Date/Time: 12/24/22 10:22 pm Transcribed By: ANGELA Transcribed Date/Time: 12/24/22 10:21 pm * [facility] , CIS S: TRANSCRIBE Sabina Chakraborty MD: VERIFY Event Display: Result: Authored Date: [id number] Examination: Portable chest performed on 12/23/2022. History: Stroke. Findings: A frontal view of the chest is compared to a prior study dated 03/27/2020. Sternotomy wires are intact. The cardiac silhouette is within normal limits for size. Elevation of the left hemidiaphragm is noted. The lungs are clear. The osseous structures are unremarkable. IMPRESSION: There is no acute cardiopulmonary disease. WSN: [id number] Ordering Physician: Kali Pickett Dictated By: Sabina Chakraborty MD Dictated Date/Time: 12/23/22 3:50 pm Reviewed By: Sabina Chakraborty MD Signed By: Sabina Chakraborty MD Signed Date/Time: 12/23/22 3:50 pm Transcribed By: ANGELA Transcribed Date/Time: 12/23/22 3:[address] Head WO contrast * [facility] , CIS S: TRANSCRIBE Sulaiman Jon MD: VERIFY Event Display: Result: Authored Date: [id number] CT Head/Brain W/O Contrast INDICATION: Reason: Other:; stroke follow up; Clinical Question(s): Other:; Order Comment: TECHNIQUE: Noncontrast head CT using axial technique and reconstructed in axial and coronal planes.Iterative reconstruction techniques are used to optimize dose and image quality. CTDIvol Head: 47.10 mGy, DLP Head: 772 mGy*cm. COMPARISON: Head CT 12/23/2022 at 2:38 PM FINDINGS: Offset Duplicating Machine Operator view findings, lines and tubes: None. BRAIN AND EXTRA-AXIAL SPACES: Exam limited by patient motion artifact. No parenchymal hemorrhage, midline shift, or mass effect. Redemonstration of encephalomalacia in both frontal lobes, left occipital lobe, and right cerebellum consistent with old infarctions. No new hypodense region to suggest evolving subacute ischemia. Moderate prominence of the ventricles and sulci consistent with parenchymal volume loss. Moderate low-density white matter changes. No subarachnoid hemorrhage. No subdural or epidural collection. CALVARIUM, SKULL BASE, AND SOFT TISSUES: No fractures or suspicious bony lesions. Old craniotomies.. The paranasal sinuses and mastoid air cells are clear. Visualized orbits and globes are intact. Frontal scalp soft tissue swelling again noted. IMPRESSION: No acute intracranial hemorrhage or mass effect. Frontal scalp soft tissue swelling. 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 No new region of abnormal hypodensity to suggest involving ischemia. WSN: [id number] Ordering Physician: Dalton Oviedo Dictated By: Sulaiman Jon MD Dictated Date/Time: 12/24/22 11:19 p Reviewed By: Sulaiman Jon MD Signed By: Sulaiman Jon MD Signed Date/Time: 12/24/22 11:19 pm Transcribed By: ANGELA Transcribed Date/Time: 12/24/22 11:14 pm Patient Care team information Care Team Personnel Name: Lucina Shah RN Position: [facility] RN Member Role: Primary Care Nurse Name: Sabina Simpson RN Position: S RN Member Role: Primary Care Nurse Name: Olimpia Wallis RN Position: [facility] RN Member Role: Primary Care Nurse Name: Miguel Munoz MD Position: [facility] Renal MD Member Role: Lifetime Consulting Physician Address: Address: [address] [place] [address], [address] [facility] [place] [address]- [place] Name: Naz Fleming MD Position: [facility] Physician -Physician Practices Member Role: Lifetime Consulting Physician Address: Address: [address] [place] [address] [facility] [place] [address]- [place] Name: Myla Olivas RN Position: [facility] RN Member Role: Primary Care Nurse Name: Nayeli Quintana RN Position: [facility] RN Member Role: Primary Care Nurse Name: Tamica Vernon RN Position: [facility] RN Member Role: Primary Care Nurse Name: Arjun Hampton DO Position: [facility] Primary Care Physician Member Role: PCP Address: Address: [address] [place] [address] [place] [address]- [place] Name: Jeromy Rivero RN Position: [facility] PCO RN Member Role: Primary Care Nurse Name: Taisha Anguiano Position: [facility] PCO RN Member Role: Lifetime Consulting Physician Name: Kali Roberts Jr Position: [facility] ED RN W/OE and Tasks Member Role: Primary Care Nurse Name: Melissa Jordan RN Position: [facility] RN Member Role: Primary Care Nurse Name: Erin Pagan RN Position: [facility] Mdm Sr Member Role: Primary Care Nurse Name: Jeromy Estrella RN Position: [facility] RN Member Role: Primary Care Nurse Name: Nora Guerrero RN Position: [facility] RN Member Role: Primary Care Nurse Name: Jacklyn Machado RN Position: [facility] AMB Nurse Member Role: Primary Care Nurse Name: Keyon Justin RN Position: [facility] RN Member Role: Primary Care Nurse Address: Address: [address] [place] [address]- [place] Name: Messi SMITH Attending Position: [facility] ED Medicine MD Name: Kali Guadarrama DO Position: [facility] Resident Member Role: Resident Address: Address: [address] [place] [address] [place] [address]- [place] Name: Janette Turner RN Position: [facility] ED RN W/OE and Tasks Member Role: Patient Care Provider Care Team Related Persons Name: SCARLETT JAMESON Address: [address] [place] [address] Name: VIDHI JAMESON Address: home [address] [place] [id number]
--- OUTSIDE RECORDS SUMMARY | 2023-08-06 10:10 | XMS_ITS | Continuity of Care Document ---
Author Name Unknown Organization [facility] parminder Address [address] [place] [address] [address] [place] [address]- Care Team Providers Care Wound/Ostomy Nurse Name Role Phone Arjun Hampton DO Primary Care Physician Encounter [facility] Date(s): 06/29/23 - 07/06/23 [facility] [address] [place], [place] [address] Attending Physician: Emerson Ibrahim MD Allergies, Adverse Reactions, Alerts No Known [...] 23-valent vaccine 1 08/04/14 Recorded 1Result Comment: [facility] store [address] Medications albuterol-ipratropium 3 mg-0.5 mg/3 ml inhalation [...] # 225 mL, 0 Refills, [facility], 20, APPLY TOPICALLY DAILY TO THE LEGS [...] 15 Unknown, 1 Refills, 07/10/22 6:58:00 EST, [facility]/pharmacy #[id number], 180, cm, 04/18/22 11:39:00 EDT, [...] 05/16/23 9:38:00 EDT, Route to Pharmacy Electronically, [facility]/pharmacy #[id number], Partial fill upon patient request if the prescription is for a schedule II opioid drug.... Start Date: 05/16/23 Stop Date: 06/15/23 Status: Ordered Claritin 10 mg oral tablet 10 mg, 1, tablet, By Mouth, Daily, Refills 0, Maintenance, 11/23/18 10:33:45 EDT Start Date: 11/23/18 Status: Ordered Co Q-10 = 100 mg, By Mouth, Daily, 0 Refills, Maintenance, 11/23/18 10:33:54 EDT Start Date: 11/23/18 Status: Ordered Dakins Half Strength 0.25% topical solution See Instructions, Use for dressing changes as directed, # 473 mL, 0 Refills, Maintenance, 09/11/22 7:42:00 EST, [facility]/pharmacy #[id number], Partial fill upon patient request if the prescription is for a schedule II opioid drug., Use for dressing changes as di... Start Date: 09/11/22 Status: Ordered docusate sodium 150 mg/15 ml oral liquid 10 mL = 100 mg, By Mouth, 2 times a day, 0 Refills, Maintenance, 10/11/15 9:50:30, Liquid Start Date: 10/11/15 Status: Ordered doxycycline hyclate 100 mg oral tablet 1 capsule, By Mouth, Every 12 hours, for 30 days, # 60 capsule, 0 Refills, Acute 07/07/23 12:20:00 EST, 06/07/23 12:20:00 EDT, Capsule, [facility]/pharmacy #[id number], Partial fill upon patient request if the prescription is for a schedule II opioid drug., 183, c... Start Date: 06/07/23 Stop Date: 07/07/23 Status: Ordered Fish Oil 1000 mg oral capsule 1 capsule = 1,000 mg, By Mouth, Daily, 0 Refills, Maintenance, 07/28/18 21:41:44 EST Start Date: 07/28/18 Status: Ordered fluticasone 50 mcg/inh nasal spray 2 sprays, Nares, Both, Daily in AM, 0 Refills, Maintenance, 03/27/20 21:59:00 EDT, [place] Start Date: 03/27/20 Status: Ordered gabapentin 100 [...] 90 tablet, 1 Refills, 05/19/23 11:42:00 EDT, [facility]/pharmacy #[id number], 183, cm, 05/16/23 8:59:00 EDT, Height, 83.6, kg, 05/13/23 23:00:00 EDT, Dry Weight Start Date: 05/19/23 Status: Ordered Multivitamin 1 tab, By Mouth, Daily, 0 Refills, Maintenance, 07/28/18 21:39:19 EST Start Date: 07/28/18 Status: Ordered NOVOFINE AUTOCOVER 30G NEEDLE NOVOFINE AUTOCOVER 30G NEEDLE, 0 Refills, Maintenance, 06/29/23 13:21:00 EST Start Date: 06/29/23 Status: Ordered omeprazole 40 mg oral enteric coated capsule 1 capsule = 40 mg, By Mouth, Daily, # 90 capsule, 0 Refills, Maintenance, 02/29/20 15:47:00 EDT, ECCapsule Start Date: 02/29/20 Status: Ordered ondansetron 4 mg oral tablet 1 tablet = 4 mg, By Mouth, Every 8 hours, PRN Nausea & Vomiting, # 30 tablet, 1 Refills, Maintenance, 01/13/23 14:16:00 EDT, [facility]/pharmacy #[id number], Partial fill upon patient request if the prescription is for a schedule II opioid drug., 180, cm, 12/26/22... Start Date: 01/13/23 Status: Ordered SilvaSorb 1 applicator, Topically, Daily, 0 Refills, Maintenance, 06/07/23 12:13:00 EDT, Gel, Partial fill upon patient request if the prescription is for a schedule II opioid drug. Start Date: 06/07/23 Status: Ordered sucralfate 1 gm oral tablet 1 Gm, 1, tablet, By Mouth, 2 times a day, Refills 0, Maintenance, 11/23/18 10:32:24 EDT Start Date: 11/23/18 Status: Ordered tamsulosin [...] 2 Refills, Maintenance, 02/17/23 14:19:00 EDT, Cream, [facility]/pharmacy #[id number], Partial fill upon patient request [...] Ctr Pulmonary/ Dr Harmony Shea 2Cabg 2016 3Problem added by Discern Expert 4RIght side 5Neuro, Dr Dalton Perry, [facility] 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 Taveras Vital Signs Most recent to oldest [Reference Range]: 1 Height 183 cm (06/29/23 10:12 AM) Weight 91 kg (06/29/23 10:12 AM) Body Mass Index [18.5-24.99 kg/m2] 27.17 kg/m2 *H* (06/29/23 10:12 AM) Social History Social History Type Response Smoking Status Former smoker entered on: 09/23/15 Sex Patient Care team information Care Team Personnel Name: Lucina Shah RN Position: [facility] SN RN Member Role: Primary Care Nurse Name: Isaias Aparicio RN Position: [facility] RN Member Role: Primary Care Nurse Name: Suyapa Schmitz RN Position: [facility] RN Member Role: Primary Care Nurse Name: Sabina iSmpson RN Position: [facility] RN Member Role: Primary Care Nurse Name: Olimpia Wallis RN Position: [facility] SN RN Member Role: Primary Care Nurse Name: Miguel Munoz MD Position: [facility] Renal MD Member Role: Lifetime Consulting Physician Address: Address: [address] [place] [address] [address] [place] [address]- Name: Naz Fleming MD Position: [facility] Physician - Primary Care Member Role: Lifetime Consulting Physician Address: Address: [address] [place] [address] [facility] [place] [address]- [place] Name: Gladys Garvin RN Position: [facility] RN Member Role: Primary Care Nurse Name: Nayeli Quintana RN Position: [facility] RN Member Role: Primary Care Nurse Name: Tamica Vernon RN Position: [facility] RN Member Role: Primary Care Nurse Name: Lucina Ugalde RN Position: [facility] RN Member Role: Primary Care Nurse Name: Deyanira Schwartz Position: [facility] laboratory animal facility supervisor Member Role: Metal Spray Operator Name: Arjun Hampton DO Position: [facility] Physician - Primary Care Member Role: PCP Address: Address: [address] [place] [address] [place] [address]- [place] Name: Tonya Watkins Position: [facility] RN Member Role: Primary Care Nurse Name: Jeromy Rivero RN Position: [facility] AMB Nurse Member Role: Primary Care Nurse Name: Deyanira Douglas RN Position: [facility] Onco RN Member Role: Primary Care Nurse Name: Brittney Sanchez RN Position: [facility] RN Member Role: Primary Care Nurse Name: Taisha Anguiano Position: [facility] AMB Nurse Member Role: Lifetime Consulting Physician Name: Kali Roberts Jr Position: [facility] ED RN W/OE and Tasks Member Role: Primary Care Nurse Name: Melissa Jordan RN Position: [facility] RN Member Role: Primary Care Nurse Name: Blaine Cotter RN Position: [facility] RN Member Role: Primary Care Nurse Name: Erin Pagan RN Position: [facility] Hospital Computed Tomography Technician Member Role: Primary Care Nurse Name: Jeromy Estrella RN Position: [facility] RN Member Role: Primary Care Nurse Name: Edmond Bingham RN Position: [facility] Onco RN Member Role: Primary Care Nurse Name: Nora Guerrero RN Position: [facility] RN Member Role: Primary Care Nurse Name: Mitali Webb RN Position: [facility] RN Member Role: Primary Care Nurse Name: Jacklyn Machado RN Position: [facility] AMB Nurse Member Role: Primary Care Nurse Name: Keyon Justin RN Position: [facility] RN Member Role: Primary Care Nurse Address: Address: [address] [place] [address]- [place] Name: Cora Hernandez RN Position: [facility] Onco RN Member Role: Primary Care Nurse Name: Shadi Frazier RN Position: [facility] RN Member Role: Primary Care Nurse Care Team Related Persons Name: HOUSTON THOMPSON Address: [address] [place] [address] Name: SCARLETT JAMESON Address: home [address] [place] [address]
--- OUTSIDE RECORDS SUMMARY | 2023-08-06 10:10 | XMS_ITS | Continuity of Care Document ---
Author Name Unknown Organization [facility] Address [address] [place] [address]- Care Team Providers Care Bell Neck Hammerer Name Role Phone Arjun Hampton DO Primary Care Physician Encounter [facility] Date(s): 10/27/22 - 11/26/22 [facility] [address] [place], [place] [address] Attending Physician: Admstepan, Delmi Admitting Physician: AdmtrDelmi Referring Physician: Admtr, Ar8 Allergies, Adverse Reactions, Alerts No Known Allergies Immunizations Given and Recorded Vaccine Date Status Refusal Reason SARS-CoV-2 (COVID-19) mRNA BNT-162b2 vac 06/26/21 Recorded SARS-CoV-2 (COVID-19) mRNA BNT-162b2 vac 10/31/20 Recorded SARS-CoV-2 (COVID-19) mRNA BNT-162b2 vac 10/10/20 Recorded influenza virus vaccine, inactivated 06/03/21 Chritsian rded influenza virus vaccine, inactivated 05/16/20 Christian [...] LEGS DIREDTED, # 225 mL, 0 Refills, [facility], 20, APPLY TOPICALLY DAILY TO THE LEGS [...] 15 Unknown, 1 Refills, 07/10/22 6:58:00 EST, [facility]/pharmacy #[id number], 180, cm, 04/18/22 11:39:00 EDT, [...] mL, 0 Refills, Maintenance, 09/11/22 7:42:00 EST, [facility]/pharmacy #[id number], Partial fill upon patient request [...] AM, 0 Refills, Maintenance, 03/27/20 21:59:00 EDT, [place] Start Date: 03/27/20 Status: Ordered FREESTYLE 28G [...] 90 tablet, 3 Refills, 04/17/22 17:59:00 EDT, [facility]/pharmacy #[id number], 180, cm, 02/21/22 11:07:00 EDT, [...] ECCapsule Start Date: 02/29/20 Status: Ordered Pen [place], 30 G x 8 mm BD Ultra Fine II See Instructions, # 100 each, Refills 5, Tot. Refills 5, Maintenance, use as directed for Type 2 Diabetes Mellitus, 06/18/20 10:35:00 EDT, Supply, 180, cm, 04/03/20 15:28:00 EDT, Height, 90, kg, 07/26/18 17:05:00 EST, Dry Weight Start Date: 06/18/20 Stop Date: 12/15/20 Status: Ordered Pen [place], 30 G x 8 mm BD Ultra [...] 21:35:37 EST Start Date: 07/28/18 Status: Ordered sucralfate 1 gm oral tablet [...] 4Neuro, Dr Dalton Perry, [facility]. 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 Taveras Social History Social History Type Response Smoking Status Former smoker entered on: 09/23/15 Sex Patient Care team information Care Team Personnel Name: Lucina Shah RN Position: [facility] SN RN Member Role: Primary Care Nurse Name: Sabina Simpson RN Position: [facility] RN Member Role: Primary Care Nurse Name: Olimpia Wallis RN Position: [facility] SN RN Member Role: Primary Care Nurse Name: Miguel Munoz MD Position: [facility] Renal MD Member Role: Lifetime Consulting Physician Address: Address: [address] [place] [address], [address] [facility] [address] Name: Naz Fleming MD Position: [facility] Physician -Physician Practices Member Role: Lifetime Consulting Physician Address: Address: [address] [place] [address] Geriatric [place] [address]- [place] Name: Myla Olivas RN Position: [facility] RN Member Role: Primary Care Nurse Name: Nayeli Quintana RN Position: [facility] RN Member Role: Primary Care Nurse Name: Tamica Vernon RN Position: [facility] RN Member Role: Primary Care Nurse Name: Arjun Hampton DO Position: [facility] Primary Care Physician Member Role: PCP Address: Address: [address] [place] [address] Primary Care [place], [place] - [place] Name: Jeromy Rivero RN Position: [facility] PCO RN Member Role: Primary Care Nurse Name: Taisha Anguiano Position: [facility] PCO RN Member Role: Lifetime Consulting Physician Name: Kali Roberts Jr Position: [facility] ED RN W/OE and Tasks Member Role: Primary Care Nurse Name: Melissa Jordan RN Position: [facility] RN Member Role: Primary Care Nurse Name: Erin Pagan RN Position: [facility] Machine Design Checker Member Role: Primary Care Nurse Name: Jeromy Estrella RN Position: [facility] RN Member Role: Primary Care Nurse Name: Nora Guerrero RN Position: [facility] RN Member Role: Primary Care Nurse Name: Jacklyn Machado RN Position: [facility] AMB Nurse Member Role: Primary Care Nurse Name: Keyon Justin RN Position: [facility] RN Member Role: Primary Care Nurse Address: Address: [address] [place] [address]- [place] Care Team Related Persons Name: SCARLETT JAMESON Address: home [address] [place], [place] Name: VIDHI JAMESON Address: home [address] [place] [address]
--- OUTSIDE RECORDS SUMMARY | 2023-08-06 10:10 | XMS_ITS | Continuity of Care Document ---
Author Name Unknown Organization [facility] Address [address] [place] [address]- Care Team Providers Care Numerical Control Operator Name Role Phone Arjun Hampton DO Primary Care Physician En[place] [facility] [id number] Date(s): 06/03/23 - 07/09/23 [facility] [address] [place] [address] Attending Physician: Clint Hunt MD Admitting Physician: Clint Hunt MD Allergies, Adverse Reactions, Alerts No Known [...] 1 08/04/14 Recorded 1Result Comment[facility] Medications albuterol-ipratropium 3 mg-0.5 mg/3 ml inhalation [...] # 225 mL, 0 Refills, [facility], 20, APPLY TOPICALLY DAILY TO THE LEGS [...] 15 Unknown, 1 Refills, 07/10/22 6:58:00 EST, [facility]/pharmacy #[id number], 180, cm, 04/18/22 11:39:00 EDT, [...] 05/16/23 9:38:00 EDT, Route to Pharmacy Electronically, [facility]/pharmacy #[id number], Partial fill upon patient request [...] mL, 0 Refills, Maintenance, 09/11/22 7:42:00 EST, [facility]/pharmacy #[id number], Partial fill upon patient request [...] AM, 0 Refills, Maintenance, 03/27/20 21:59:00 EDT, [place] Start Date: 03/27/20 Status: Ordered gabapentin 100 [...] 90 tablet, 1 Refills, 05/19/23 11:42:00 EDT, [facility]/pharmacy #[id number], 183, cm, 05/16/23 8:59:00 EDT, [...] tablet, 1 Refills, Maintenance, 01/13/23 14:16:00 EDT, [facility]/pharmacy #[id number], Partial fill upon patient request [...] 2 Refills, Maintenance, 02/17/23 14:19:00 EDT, Cream, [facility]/pharmacy #[id number], Partial fill upon patient request [...] Type 2 diabetes with nephropathy [facility] 2Cabg 2016 3Problem added by Discern Expert 4RIght side 5Neuro, Dr Dalton Perry, [facility]. 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 Taveras Social History Social History Type Response Smoking Status Former smoker entered on: 09/23/15 Sex Patient Care team information Care Team Personnel Name: Lucina Shah RN Position: [facility] SN RN Member Role: Primary Care Nurse Name: Isaias Aparicio RN Position: [facility] RN Member Role: Primary Care Nurse Name: Suyapa Schmitz RN Position: [facility] RN Member Role: Primary Care Nurse Name: Sabina Simpson RN Position: [facility] RN Member Role: Primary Care Nurse Name: Olimpia Wallis RN Position: [facility] SN RN Member Role: Primary Care Nurse Name: Miguel Munoz MD Position: [facility] Renal MD Member Role: Lifetime Consulting Physician Address: Address: [address] [place] [address] [address] [place] [address]- [place] Name: Naz Fleming MD Position: [facility] Physician - Primary Care Member Role: Lifetime Consulting Physician Address: Address: [address] [place] [address] Geriatric [facility] [place] [address]- [place] Name: Gladys Garvin RN Position: [facility] RN Member Role: Primary Care Nurse Name: Nayeli Quintana RN Position: [facility] RN Member Role: Primary Care Nurse Name: Tamica Vernon RN Position: [facility] RN Member Role: Primary Care Nurse Name: Lucina Ugalde RN Position: [facility] RN Member Role: Primary Care Nurse Name: Deyanira Schwartz Position: [facility] customer counter associate Member Role: Braker Passenger Train Name: Arjun Hampton DO Position: [facility] Physician - Primary Care Member Role: PCP Address: Address: [address] [place] [address] [place] [address]- [place] Name: Tonya Watkins Position: [facility] RN Member Role: Primary Care Nurse Name: Jeromy Rivero RN Position: [facility] AMB Nurse Member Role: Primary Care Nurse Name: Deyanira Douglas RN Position: [facility] Onco RN Member Role: Primary Care Nurse Name: Brittney Sanchez RN Position: [facility] RN Member Role: Primary Care Nurse Name: Taisha Anguiano Position: [facility] AMB Nurse Member Role: Lifetime Consulting Physician Name: Kali Roberts Jr Position: [facility] ED RN W/OE and Tasks Member Role: Primary Care Nurse Name: Melissa Jordan RN Position: [facility] RN Member Role: Primary Care Nurse Name: Blaine Cotter RN Position: [facility] RN Member Role: Primary Care Nurse Name: Erin Pagan RN Position: [facility] Hospital Card Painter Member Role: Primary Care Nurse Name: Jeromy Estrella RN Position: [facility] RN Member Role: Primary Care Nurse Name: Edmond Bingham RN Position: [facility] Onco RN Member Role: Primary Care Nurse Name: Nora Guerrero RN Position: [facility] RN Member Role: Primary Care Nurse Name: Mitali Webb RN Position: [facility] RN Member Role: Primary Care Nurse Name: Jacklyn Machado RN Position: [facility] AMB Nurse Member Role: Primary Care Nurse Name: Keyon Justin RN Position: [facility] RN Member Role: Primary Care Nurse Address: Address: [address] [place] [address]- Name: Cora Hernandez RN Position: [facility] Onco RN Member Role: Primary Care Nurse Name: Shadi Frazier RN Position: [facility] RN Member Role: Primary Care Nurse Care Team Related Persons Name: HOUSTON THOMPSON Address: [address] [place] [address] Name: SCARLETT JAMESON Address: [address] [place] [address]
--- OUTSIDE RECORDS SUMMARY | 2023-08-06 10:11 | XMS_ITS | Continuity of Care Document ---
Author Name Unknown Organization [facility] Address [address] [place] [address]- Care Team Providers Care Tow Truck Operator Name Role Phone Arjun Hampton DO Primary Care Physician Encounter [facility] [place] Date(s): 03/23/23 - 04/22/23 [facility] [address] [place], [place] [address] Attending Physician: Delmi Laughlin Admitting Physician: AdmtrDelmi [...] 23-valent vaccine 1 08/04/14 Recorded 1Result Comment: [facility] [id number] Medications albuterol-ipratropium 3 mg-0.5 mg/3 ml inhalation [...] # 225 mL, 0 Refills, [id number], 20, APPLY TOPICALLY DAILY TO THE LEGS [...] 15 Unknown, 1 Refills, 07/10/22 6:58:00 EST, [facility]/pharmacy #[id number], 180, cm, 04/18/22 [...] mL, 0 Refills, Maintenance, 09/11/22 7:42:00 EST, [facility]/pharmacy #[id number], Partial fill upon [...] 2 times a day, 0 Refills, Maintenance, 02/18/16 9:50:30, Liquid Start Date: 10/11/15 Status: Ordered doxycycline hyclate 100 mg oral tablet 1 tablet = 100 mg, By Mouth, 2 times a day, for 10 days, # 20 tablet, 0 Refills, Acute 04/24/23 11:32:00 EDT, 04/14/23 11:32:00 EDT, Tablet, [facility]/pharmacy #[id number], Partial fill upon patient request if the prescription is for a schedule II opioid drug., 1... Start Date: 04/14/23 Stop Date: 04/24/23 Status: Ordered Fish Oil 1000 mg oral capsule 1 capsule = 1,000 mg, By Mouth, Daily, 0 Refills, Maintenance, 07/28/18 21:41:44 EST Start Date: 07/28/18 Status: Ordered fluticasone 50 mcg/inh nasal spray 2 sprays, Nares, Both, Daily in AM, 0 Refills, Maintenance, 03/27/20 21:59:00 EDT, [place] Start Date: 03/27/20 Status: Ordered FREESTYLE LITE TEST STRIP FREESTYLE LITE TEST STRIP, See Instructions, # 300 Unknown, 1 Refills, Maintenance, USE TO TEST 3 TIMES A DAY, 03/06/23 13:02:00 EDT, 180, cm, 02/23/23 10:53:00 EDT, Height, 90.3, kg, 12/24/22 3:58:00 EDT, Dry Weight Start Date: 03/06/23 Status: Ordered gabapentin 100 mg oral capsule [...] 90 tablet, 3 Refills, 04/17/22 17:59:00 EDT, [facility]/pharmacy #[id number], 180, cm, 02/21/22 [...] tablet, 1 Refills, Maintenance, 01/13/23 14:16:00 EDT, [facility]/pharmacy #[id number], Partial fill upon patient request if the prescription is for a schedule II opioid drug., 180, cm, 12/26/22... Start Date: 01/13/23 Status: Ordered primidone 50 mg oral tablet TAKE 2 TABLETS BY MOUTH 3 TIMES A DAY Start Date: 12/26/22 Status: Ordered sucralfate 1 gm oral tablet [...] 2 Refills, Maintenance, 02/17/23 14:19:00 EDT, Cream, [facility]/pharmacy #[id number], Partial fill upon [...] 4Neuro, Dr Dalton Perry, [facility]. 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 Nitin Social History Social History Type Response Smoking Status Former smoker entered on: 09/23/15 Sex Cardiology Consult note * Event Display: Consult Note Cardiology Authored Date: Patient Care team information Care Team Personnel Name: Lucina Shah RN Position: [facility] RN Member Role: Primary Care Nurse Name: Isaias Aparicio RN Position: [facility] RN Member Role: Primary Care Nurse Name: Sabina Simpson RN Position: [facility] RN Member Role: Primary Care Nurse Name: Olimpia Wallis RN Position: [facility] RN Member Role: Primary Care Nurse Name: Miguel Munoz MD Position: [facility] Renal MD Member Role: Lifetime Consulting Physician Address: Address: [address] [place] [address], [address] [facility] [address] Name: Naz Fleming MD Position: [facility] Physician - Primary Care Member Role: Lifetime Consulting Physician Address: Address: [address] [facility] [place] [address]- [place] Name: Nayeli Quintana RN Position: [facility] RN Member Role: Primary Care Nurse Name: Tamica Vernon RN Position: [facility] RN Member Role: Primary Care Nurse Name: Deyanira Schwartz Position: [facility] supervisor leaf spring repair Member Role: Senior Bookkeeper Name: Arjun Hampton DO Position: [facility] Physician - Primary Care Member Role: PCP Address: Address: [address] [facility] Primary Care Feeding [place], [place] - [place] Name: Jeromy Rivero RN Position: [facility] AMB Nurse Member Role: Primary Care Nurse Name: Deyanira Douglas RN Position: [facility] Onco RN Member Role: Primary Care Nurse Name: Taisha Anguiano Position: [facility] AMB Nurse Member Role: Lifetime Consulting Physician Name: Kali Roberts Jr Position: [facility] ED RN W/OE and Tasks Member Role: Primary Care Nurse Name: Melissa Jordan RN Position: [facility] RN Member Role: Primary Care Nurse Name: Erin Pagan RN Position: [facility] Hospital Asphalt Paving Superintendent Member Role: Primary Care Nurse Name: Jeromy Estrella RN Position: [facility] RN Member Role: Primary Care Nurse Name: Edmond Bingham RN Position: [facility] Onco RN Member Role: Primary Care Nurse Name: Nora Guerrero RN Position: [facility] RN Member Role: Primary Care Nurse Name: Jacklyn Machado RN Position: [facility] AMB Nurse Member Role: Primary Care Nurse Name: Keyon Justin RN Position: [facility] RN Member Role: Primary Care Nurse Address: Address: [address] [place] [address]- [place] Care Team Related Persons Name: DEMOND JAMESON Address: home [address] [place], [place] Name: SCARLETT JAMESON Address: home [address] [place], [place] Name: VIDHI JAMESON Address: home [address] [place] [address]
--- OUTSIDE RECORDS SUMMARY | 2023-08-06 10:11 | XMS_ITS | Continuity of Care Document ---
Author Name Unknown Organization [facility] Address [address] [place] [address]- Care Team Providers Care Profiler Operator Name Role Phone Arjun Hampton DO Primary Care Physician Encounter [facility] [place] Date(s): 02/25/23 - 04/22/23 [facility] [address] [place] [address]- Attending Physician: Clint Hunt MD Admitting Physician: Clint Hunt MD Referring Physician: Clint Hunt MD Allergies, Adverse Reactions, [...] 23-valent vaccine 1 08/04/14 Recorded 1Result Comment: [facility] 79461 Medications albuterol-ipratropium 3 mg-0.5 mg/3 ml inhalation [...] # 225 mL, 0 Refills, [facility], 20, APPLY TOPICALLY DAILY TO THE LEGS [...] 15 Unknown, 1 Refills, 07/10/22 6:58:00 EST, [facility]/pharmacy #[id number], 180, cm, 04/18/22 11:39:00 EDT, [...] mL, 0 Refills, Maintenance, 09/11/22 7:42:00 EST, [facility]/pharmacy #[id number], Partial fill upon patient request [...] 04/24/23 11:32:00 EDT, 04/14/23 11:32:00 EDT, Tablet, [facility]/pharmacy #[id number], Partial fill upon patient request if the [...] AM, 0 Refills, Maintenance, 03/27/20 21:59:00 EDT, [place] Start Date: 03/27/20 Status: Ordered FREESTYLE LITE [...] 90 tablet, 3 Refills, 04/17/22 17:59:00 EDT, [facility]/pharmacy #[id number], 180, cm, 02/21/22 11:07:00 EDT, [...] tablet, 1 Refills, Maintenance, 01/13/23 14:16:00 EDT, [facility]/pharmacy #[id number], Partial fill upon patient request [...] 2 Refills, Maintenance, 02/17/23 14:19:00 EDT, Cream, [facility]/pharmacy #[id number], Partial fill upon patient request [...] 4Neuro, Dr Dalton Perry, [facility] 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 Nitin Social History Social History Type Response Smoking Status Former smoker entered on: 09/23/15 Sex Patient Care team information Care Team Personnel Name: Lucina Shah RN Position: [facility] SN RN Member Role: Primary Care Nurse Name: Isaias Aparicio RN Position: [facility] RN Member Role: Primary Care Nurse Name: Sabina Simpson RN Position: [facility] RN Member Role: Primary Care Nurse Name: Olimpia Wallis RN Position: [facility] SN RN Member Role: Primary Care Nurse Name: Miguel Munoz MD Position: [facility] Renal MD Member Role: Lifetime Consulting Physician Address: Address: [address] [place] [address], [address] [facility] [place] [address]- Name: Naz Fleming MD Position: [facility] Physician - Primary Care Member Role: Lifetime Consulting Physician Address: Address: [address] [place] [address] [facility]iatric [facility] [place] [address]- [place] Name: Nayeli Quintana RN Position: [facility] RN Member Role: Primary Care Nurse Name: Tamica Vernon RN Position: [facility] RN Member Role: Primary Care Nurse Name: Deyanira Schwartz Position: [facility] manager agricultural Member Role: Boot And Shoe Laborer Name: Arjun Hampton DO Position: [facility] Physician - Primary Care Member Role: PCP Address: Address: [address] [place] [address] Primary Care Feeding [place], [place] - [place] Name: Jeromy Rivero RN Position: [facility] AMB Nurse Member Role: Primary Care Nurse Name: Deyanira Douglas RN Position: [facility] Onco RN Member Role: Primary Care Nurse Name: Taisha Anguiano Position: [facility] Nurse Member Role: Lifetime Consulting Physician Name: Kali Roberts Jr Position: [facility] ED RN W/OE and Tasks Member Role: Primary Care Nurse Name: Melissa Jordan RN Position: [facility] RN Member Role: Primary Care Nurse Name: Erin Pagan RN Position: [facility] Gas Well Drilling Manager Member Role: Primary Care Nurse Name: Jeromy Estrella RN Position: [facility] RN Member Role: Primary Care Nurse Name: Edmodn Bingham RN Position: [facility] Onco RN Member Role: Primary Care Nurse Name: Nora Guerrero RN Position: [facility] RN Member Role: Primary Care Nurse Name: Jacklyn Machado RN Position: [facility] Nurse Member Role: Primary Care Nurse Name: Keyon Justin RN Position: [facility] RN Member Role: Primary Care Nurse Address: Address: [address] [place] [address]- [place] Care Team Related Persons Name: DEMOND JAMESON Address: home [address] [place], [place] Name: SCARLETT JAMESON Address: [address] [place], [place] Name: VIDHI JAMESON Address: [address] [place] [address]
--- OUTSIDE RECORDS SUMMARY | 2023-08-06 10:11 | XMS_ITS | Continuity of Care Document ---
Author Name Unknown Organization [facility] Address [address] [place] [address]- Care Team Providers Care Librarian Name Role Phone Arjun Hampton DO Primary Care Physician [place] [facility] [place] 02/25/23 - 04/22/23 [facility] [address] [place] [address]- Attending Physician: Arjun Hampton DO Admitting Physician: Arjun Hampton DO Referring Physician: Clint Hunt MD Allergies, Adverse [...] 23-valent vaccine 1 08/04/14 Recorded 1Result Comment: [facility] [address]31 Medications albuterol-ipratropium 3 mg-0.5 mg/3 ml inhalation [...] # 225 mL, 0 Refills, [facility], 20, APPLY TOPICALLY DAILY TO THE LEGS [...] Unknown, 1 Refills, 07/10/22 6:58:00 EST, [facility]/pharmacy #[id number], 180, cm, 04/18/22 11:39:00 EDT, Height [...] 0 Refills, Maintenance, 09/11/22 7:42:00 EST, [facility]/pharmacy #[id number], Partial fill upon patient request if [...] 04/24/23 11:32:00 EDT, 04/14/23 11:32:00 EDT, Tablet, [facility]/pharmacy #[id number], Partial fill upon patient request if the [...] AM, 0 Refills, Maintenance, 03/27/20 21:59:00 EDT, [place] Start Date: 03/27/20 Status: Ordered FREESTYLE LITE [...] tablet, 3 Refills, 04/17/22 17:59:00 EDT, [facility]/pharmacy #[id number], 180, cm, 02/21/22 11:07:00 EDT, Height [...] tablet, 1 Refills, Maintenance, 01/13/23 14:16:00 EDT, [facility]/pharmacy #[id number], Partial fill upon patient request if [...] 2 Refills, Maintenance, 02/17/23 14:19:00 EDT, Cream, [facility]/pharmacy #[id number], Partial fill upon patient request if [...] 4Neuro, Dr Dalton Perry, [facility]. 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 Nitin Social History Social History Type Response Smoking Status Former smoker entered on: 09/23/15 Sex Patient Care team information Care Team Personnel Name: Lucina Shah RN Position: [facility] SN RN Member Role: Primary Care Nurse Name: Isaias Aparicio RN Position: [facility] RN Member Role: Primary Care Nurse Name: Sabina Simpson RN Position: [facility] RN Member Role: Primary Care Nurse Name: Olimpia Wallis RN Position: [facility] SN RN Member Role: Primary Care Nurse Name: Miguel Munoz MD Position: [facility] Renal MD Member Role: Lifetime Consulting Physician Address: Address: [address] [place] [address], [address] [facility] [address] Name: Naz Fleming MD Position: [facility] Physician - Primary Care Member Role: Lifetime Consulting Physician Address: Address: [address] [place] [address] Geriatric & [place] [address]- [place] Name: Nayeli Quintana RN Position: [facility] RN Member Role: Primary Care Nurse Name: Tamica Vernon RN Position: [facility] RN Member Role: Primary Care Nurse Name: Deyanira Schwartz Position: [facility] home care companion Member Role: Flue Dust Laborer Name: Arjun Hampton DO Position: [facility] Physician - Primary Care Member Role: PCP Address: Address: [address] [place] [address] Primary Care Feeding [place], [place] - [place] Name: Jeromy Rivero RN Position: [facility] AMB Nurse Member Role: Primary Care Nurse Name: Deyanira Douglas RN Position: [facility] Onco RN Member Role: Primary Care Nurse Name: Taisha Anguiano Position: [facility] Nurse Member Role: Lifetime Consulting Physician Name: Kali Roberts Jr Position: [facility] ED RN W/OE and Tasks Member Role: Primary Care Nurse Name: Mleissa Jordan RN Position: [facility] RN Member Role: Primary Care Nurse Name: Erin Pagan RN Position: [facility] Hospital Blocker Polishing Member Role: Primary Care Nurse Name: Jeromy Estrella RN Position: [facility] RN Member Role: Primary Care Nurse Name: Edmond Bingham RN Position: [facility] Onco RN Member Role: Primary Care Nurse Name: Nora Guerrero RN Position: [facility] RN Member Role: Primary Care Nurse Name: Jacklyn Machado RN Position: [facility] Nurse Member Role: Primary Care Nurse Name: Keyon Justin RN Position: [facility] RN Member Role: Primary Care Nurse Address: Address: [address] [place] [address]- [place] Care Team Related Persons Name: DEMOND JAMESON Address: home [address] [place], [place] Name: SCARLETT JAMESON Address: [address] [place], [place] Name: VIDHI JAMESON Address: home [address] [place] [address]
--- OUTSIDE RECORDS SUMMARY | 2023-08-06 10:11 | XMS_ITS | Continuity of Care Document ---
Author Name Unknown Organization [facility] Address [address] [place] [address]- Care Team Providers Care Crucible Furnace Tender Name Role Phone Arjun Hampton DO Primary Care Physician En[place] [facility] [place] Date(s): 11/06/22 - 12/06/22 [facility] [address] [place], [place] [address] Attending Physician: AdmDelmi ying Admitting Physician: AdmtrDelmi Referring Physician: Admtr, Ar8 [...] # 225 mL, 0 Refills, [facility], 20, APPLY TOPICALLY DAILY TO THE LEGS [...] AM, 0 Refills, Maintenance, 03/27/20 21:59:00 EDT, [place] Start Date: 03/27/20 Status: Ordered FREESTYLE 28G [...] ECCapsule Start Date: 02/29/20 Status: Ordered Pen Aurora, 30 G x 8 mm BD Ultra Fine II See Instructions, # 100 each, Refills 5, Tot. Refills 5, Maintenance, use as directed for Type 2 Diabetes Mellitus, 06/18/20 10:35:00 EDT, Supply, 180, cm, 04/03/20 15:28:00 EDT, Height, 90, kg, 07/26/18 17:05:00 EST, Dry Weight Start Date: 06/18/20 Stop Date: 12/15/20 Status: Ordered Pen Aurora, 30 G x 8 mm BD Ultra [...] 4Neuro, Dr Dalton Perry, [facility]. 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 Taveras Social History Social History Type Response Smoking Status Former smoker entered on: 09/23/15 Sex Cardiology Consult note * Event Display: Consult Note Cardiology Authored Date: Patient Care team information Care Team Personnel Name: Lucina Shah RN Position: [facility] RN Member Role: Primary Care Nurse Name: Sabina Simpson RN Position: [facility] RN Member Role: Primary Care Nurse Name: Olimipa Wallis RN Position: [facility] RN Member Role: Primary Care Nurse Name: Miguel Munoz MD Position: [facility] Renal MD Member Role: Lifetime Consulting Physician Address: Address: [address] [place] [address], [address] [facility] [address] Name: Naz Fleming MD Position: [facility] Physician -Physician Practices Member Role: Lifetime Consulting Physician Address: Address: [address] [facility] Geriatric & [place] [address]- [place] Name: Myla Olivas RN Position: [facility] RN Member Role: Primary Care Nurse Name: Nayeli Quintana RN Position: [facility] RN Member Role: Primary Care Nurse Name: Tamica Vernon RN Position: [facility] RN Member Role: Primary Care Nurse Name: Arjun Hampton DO Position: [facility] Primary Care Physician Member Role: PCP Address: Address: [address] [facility] [place] [address]- [place] Name: Jeormy Rivero RN Position: [facility] PCO RN Member Role: Primary Care Nurse Name: Taisha Anguiano Position: [facility] PCO RN Member Role: Lifetime Consulting Physician Name: Kali Roberts Jr Position: [facility] ED RN W/OE and Tasks Member Role: Primary Care Nurse Name: Melissa Jordan RN Position: [facility] RN Member Role: Primary Care Nurse Name: Erin Pagan RN Position: [facility] Sea Kayaking Guide Member Role: Primary Care Nurse Name: Jeromy Estrella RN Position: [facility] RN Member Role: Primary Care Nurse Name: Nora Guerrero RN Position: [facility] RN Member Role: Primary Care Nurse Name: Jacklyn Machado RN Position: [facility] AMB Nurse Member Role: Primary Care Nurse Name: Keyon Justin RN Position: [facility] RN Member Role: Primary Care Nurse Address: Address: [address] [place] [address]- [place] Care Team Related Persons Name: SCARLETT JAMESON Address: [address] [place], [place] Name: VDIHI JAMESON Address: home [address] [place] [address]
--- OUTSIDE RECORDS SUMMARY | 2023-08-06 10:11 | XMS_ITS | Continuity of Care Document ---
Author Name Unknown Organization [facility] parminder Address [address] [place] [address] [address] [place] [address]- Care Team Providers Care Rig Builder Helper Name Role Phone Arjun Hampton DO Primary Care Physician Encounter [facility] Date(s): 11/17/22 - 12/17/22 [facility] [address] [place], [place] [address] Allergies, Adverse Reactions, Alerts No Known Allergies [...] LEGS DIREDTED, # 225 mL, 0 Refills, [facility] STORE [id number], 20, APPLY TOPICALLY DAILY TO THE LEGS [...] 15 Unknown, 1 Refills, 07/10/22 6:58:00 EST, [facility]/pharmacy #[id number], 180, cm, 04/18/22 11:39:00 EDT, [...] mL, 0 Refills, Maintenance, 09/11/22 7:42:00 EST, [facility]/pharmacy #[id number], Partial fill upon patient request [...] AM, 0 Refills, Maintenance, 03/27/20 21:59:00 EDT, [place] Start Date: 03/27/20 Status: Ordered FREESTYLE 28G [...] 90 tablet, 3 Refills, 04/17/22 17:59:00 EDT, [facility]/pharmacy #[id number], 180, cm, 02/21/22 11:07:00 EDT, [...] ECCapsule Start Date: 02/29/20 Status: Ordered Pen [place], 30 G x 8 mm BD Ultra Fine II See Instructions, # 100 each, Refills 5, Tot. Refills 5, Maintenance, use as directed for Type 2 Diabetes Mellitus, 06/18/20 10:35:00 EDT, Supply, 180, cm, 04/03/20 15:28:00 EDT, Height, 90, kg, 07/26/18 17:05:00 EST, Dry Weight Start Date: 06/18/20 Stop Date: 12/15/20 Status: Ordered Pen [place], 30 G x 8 mm BD Ultra [...] 01/08/23 11:34:00 EDT, 12/09/22 11:33:00 EDT, Cream, [facility]/pharmacy #[id number], Partial fill upon patient request if the [...] 4Neuro, Dr Dalton Perry, [facility] 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 Nitin Social History Social History Type Response Smoking Status Former smoker entered on: 09/23/15 Sex Patient Care team information Care Team Personnel Name: Lucina Shah RN Position: [facility] RN Member Role: Primary Care Nurse Name: Sabina Simpson RN Position: [facility] RN Member Role: Primary Care Nurse Name: Olimpia Wallis RN Position: [facility] RN Member Role: Primary Care Nurse Name: Miguel Munoz MD Position: [facility] Renal MD Member Role: Lifetime Consulting Physician Address: Address: [address], [address] [facility] [place] [address]- [place] Name: Naz Fleming MD Position: [facility] Physician -Physician Practices Member Role: Lifetime Consulting Physician Address: Address: [address] [place] [address] [facility] [place] [address]- [place] Name: Myla Olivas RN Position: [facility] RN Member Role: Primary Care Nurse Name: Nayeli Quintana RN Position: [facility] RN Member Role: Primary Care Nurse Name: Tamica Vernon RN Position: [facility] RN Member Role: Primary Care Nurse Name: Arjun Hampton DO Position: [facility] Primary Care Physician Member Role: PCP Address: Address: [address] [place] [address] Primary Care [place], [place] - [place] Name: Jeromy Rivero RN Position: [facility] PCO RN Member Role: Primary Care Nurse Name: Taisha Anguiano Position: [facility] PC[facility] RN Member Role: Lifetime Consulting Physician Name: Kali Roberts Jr Position: [facility] ED RN W/OE and Tasks Member Role: Primary Care Nurse Name: Melissa Jordan RN Position: [facility] RN Member Role: Primary Care Nurse Name: Erin Pagan RN Position: [facility] Home Theater Installer Member Role: Primary Care Nurse Name: Jeromy Estrella RN Position: [facility] RN Member Role: Primary Care Nurse Name: Nora Guerrero RN Position: [facility] RN Member Role: Primary Care Nurse Name: Jacklyn Machado RN Position: [facility] AMB Nurse Member Role: Primary Care Nurse Name: Keyon Justin RN Position: [facility] RN Member Role: Primary Care Nurse Address: Address: [address] [place] [address]- [place] Care Team Related Persons Name: SCARLETT JAMESON Address: home [address] [place], [place] Name: VIDHI JAMESON Address: home [address] [place] [address]
--- OUTSIDE RECORDS SUMMARY | 2023-08-06 10:11 | XMS_ITS | Continuity of Care Document ---
Author Name Unknown Organization [facility] ter Address [address] [place] [id number]- Care Team Providers Care Adult Care Manager Name Role Phone Arjun Hampton DO Primary Care Physician Encounter [facility] Date(s): 05/30/23 - 06/08/[address] [address]- Encounter Diagnosis Hypoxia(Final) - 05/30/23 Discharge Disposition: A-Transfer VNA/Home Health Attending Physician: Rama Ayala MD Admitting Physician: Bobo Linder MD Referring Physician: Not on Staff, Referring [...] Recorded 1Result Comment: [facility] [id number] Medications albuterol-ipratropium 3 mg-0.5 mg/3 ml inhalation [...] # 225 mL, 0 Refills, [id number], 20, APPLY TOPICALLY DAILY TO THE LEGS [...] oral tablet 3.125 mg, Tablet, By Mouth, 06/08/23 9:00:00 EDT Start Date: 06/08/23 Stop Date: 06/08/23 Status: Completed Claritin 10 mg oral tablet [...] 07/07/23 12:20:00 EST, 06/07/23 12:20:00 EDT, Capsule, [facility]/pharmacy #[id number], Partial fill [...] AM, 0 Refills, Maintenance, 03/27/20 21:59:00 EDT, [place] Start Date: 03/27/20 Status: Ordered gabapentin 100 mg oral capsule 200 mg, Capsule, By Mouth, 06/08/23 9:00:00 EDT Start Date: 06/08/23 Stop Date: 06/08/23 Status: Completed gabapentin 100 mg oral capsule 200 mg, [...] 90 tablet, 1 Refills, 05/19/23 11:42:00 EDT, [facility]/pharmacy #[id number], 183, cm, 05/16/23 8:59:00 EDT, Height, [...] tablet, 1 Refills, Maintenance, 01/13/23 14:16:00 EDT, [id number], Partial fill upon patient request if the prescription is for a schedule II opioid drug., 180, cm, 12/26/22... Start Date: 01/13/23 Status: Ordered Silvadene 1% cream 1 application, Topically, 2 times a day, for 30 days, # 50 Gm, 0 Refills, Acute 06/15/23 9:39:00 EDT, 05/16/23 9:39:00 EDT, Cream, [id number], Partial fill upon patient request if the prescription is for a schedule II opioid drug., 1 applicati... Start Date: 05/16/23 Stop Date: 06/15/23 Status: Ordered SilvaSorb 1 applicator, Topically, Daily, [...] 2 Refills, Maintenance, 02/17/23 14:19:00 EDT, Cream, [id number], Partial fill upon [...] 5Neuro, Dr Dalton Perry, [facility] 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 Nitin Results Orders for Microbiology Reports Name Date Blood Culture 05/30/23 Blood Culture #2 05/30/23 Microbiology Reports TEST:Blood Culture STATUS:Auth (Verified) BODY SITE: SOURCE:Blood COLLECTED DATE/TIME:05/30/23 12:18 PM Blood Culture SPECIMEN DESCRIPTION : BLOOD NS SPECIAL REQUESTS : NONE CULTURE : NO GROWTH 5 DAYS. REPORT STATUS : FINAL 06/04/2023 TEST:Blood Culture, Second Order STATUS:Auth (Verified) BODY SITE: SOURCE:Blood COLLECTED DATE/TIME:05/30/23 10:59 AM Blood Culture, Second Order SPECIMEN DESCRIPTION : BLOOD NONE SPECIAL REQUESTS : NONE CULTURE : NO GROWTH 5 DAYS. REPORT STATUS : FINAL 06/04/2023 Radiology Reports * Exam Date Time Procedure Performing Provider Status 06/06/23 2:[address] Head/Brain W/O Contrast Akin , Tiffany wood; Auth (Verified) Notes: (CT Head/Brain W/O Contrast) Reason For Exam: Behavior Problem RESULT: CT Head/Brain W/O Contrast CT Head/Brain W/O Contrast INDICATION: Reason: Behavior Problem; Clinical Question(s): Infarction; Order Comment: TECHNIQUE: Noncontrast head CT using axial technique and reconstructed in axial and coronal planes.Iterative reconstruction techniques are used to optimize dose and image quality. CTDIvol Head: 48.30 mGy, DLP Head: 773 mGy*cm. COMPARISON: 05/13/2023None. FINDINGS: Environmental Attorney view findings, lines and tubes: None. BRAIN AND EXTRA-AXIAL SPACES: No parenchymal hemorrhage, midline shift, or mass effect. Henry-white matter differentiation is wellpreserved. No acute infarct. Large area of encephalomalacia within the left frontal lobe. Small area of encephalomalacia within the left frontal lobe. Area of encephalomalacia within the left occipital lobe. Old bilateral cerebellar infarctions. Ventricles, sulci, and basilar cisterns are normal. No white matter lesions. No subarachnoid hemorrhage. No subdural or epidural collection. CALVARIUM, SKULL BASE, AND SOFT TISSUES: No fractures or suspicious bony lesions. Status post right frontal craniectomy and craniotomy with multiple luna holes within the frontal skull bilaterally. The paranasal sinuses and mastoid air cells are clear. Status-post bilateral lens extraction. The extracranial soft tissues are unremarkable. IMPRESSION: No acute intracranial pathology. Status post right frontal craniotomy and craniectomy. Old bifrontal infarcts, left greater than right. Mild chronic small vessel ischemic changes. Old left occipital lobe infarct. Old bilateral cerebellar infarctions. Stable exam. WSN: [id number] Ordering Physician: Siena Bowman Dictated By: Sulaiman Jon MD Dictated Date/Time: 06/06/23 3:47 pm Reviewed By: Sulaiman Jon MD Signed By: Sulaiman Jon MD Signed Date/Time: 06/06/23 3:47 pm Transcribed By: ANGELA Transcribed Date/Time: 06/06/23 3:44 pm * Exam Date Time Procedure Performing Provider Status 05/30/23 11:58 AM Toe 2nd Left Foot Jahaira Lucio; Alejandrina (Verified) Notes: (Toe 2nd Left Foot) Reason For Exam: Osteomyelitis;Other: RESULT: Toe 2nd Left Foot PROCEDURE: Toe 2nd Left Foot CLINICAL INDICATION: 88 years old Male with acute change in mental status, obtunded, soft tissue infection 2nd LEFT toe, evaluate for Osteomyelitis; Clinical Question(s): Osteomyelitis. TECHNIQUE: Three views of the LEFT 2nd toe are obtained. COMPARISONS: LEFT foot radiographs May 14, 2023. FINDINGS: Bones and joints: Severe osteopenia limiting the exam. No definite periosteal reaction or erosion to suggest acute osteomyelitis. 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 No definite acute fracture or dislocation. Hammertoe deformity 2nd toe. Mild degenerative changes of the 1st metatarsophalangeal joint. Soft Tissues: Moderate arterial calcifications. No evidence of radiopaque foreign body. IMPRESSION: 1. Limited exam due to severe osteopenia. No definite radiographic evidence of acute bony injuries or osteomyelitis. Thank you for allowing me to participate in the care of this patient. WSN: [id number] Ordering Physician: Mitul Kilgore Dictated By: Arnoldo Saleem MD Dictated Date/Time: 05/30/23 12:22 p Reviewed By: Arnoldo Saleem MD Signed By: Arnoldo Saleem MD Signed Date/Time: 05/30/23 12:22 pm Transcribed By: ANGELA Transcribed Date/Time: 05/30/23 12:18 pm * Exam Date Time Procedure Performing Provider Status 05/30/23 11:58 AM Chest 2 Views Frontal and Lat Jahaira Kingsley; Auth (Verified) Notes: (Chest 2 Views Frontal and Lat) Reason For Exam: Cough RESULT: Chest 2 Views Frontal and Lat Chest 2 Views Frontal and Lat Reason: Cough; Clinical Question(s): Pneumonia COMPARISON: 05/13/2023 and several earlier FINDINGS: LINES AND TUBES: Right jugular Port-A-Cath unchanged. LUNGS AND PLEURA: Low lung volumes. Focal consolidation left lower lobe. Clear upper lungs without edema. Small bilateral pleural effusions. No pneumothorax. HEART, MEDIASTINUM AND CESAR: Heart is normal in size. Normal mediastinal and hilar contour. BONES AND SOFT TISSUES: No acute abnormality. IMPRESSION: Left lower lobe consolidation consistent with either atelectasis or pneumonia. Bilateral small effusions. WSN: [id number] Ordering Physician: Mitul Kilgore Dictated By: Crow Shepard MD Dictated Date/Time: 05/30/23 12:01 p Reviewed By: Crow Shepard MD Signed By: Crow Shepard MD Signed Date/Time: 05/30/23 12:01 pm Transcribed By: ANGELA Transcribed Date/Time: 05/30/23 11:59 am Vital Signs Most recent to oldest [Reference Range]: 1 2 3 Height 183 cm (06/08/23 7:25 AM) 183 cm (06/07/23 4:14 PM) 183 cm (06/07/23 4:35 AM) Weight 91 kg (05/30/23 6:17 PM) 91 kg (05/30/23 1:52 PM) 91 kg (05/30/23 11:50 AM) Oxygen Saturation [94-100 %] 98 % (06/08/23 7:25 AM) 99 % (06/08/23 4:00 AM) 98 % (06/07/23 11:00 PM) Pulse Rate [55-90 bpm] 81 bpm (06/08/23 9:35 AM) 81 bpm (06/08/23 7:25 AM) 75 bpm (06/08/23 4:00 AM) Body Mass Index [18.5-24.99 kg/m2] 27.17 kg/m2 *H* (05/30/23 6:17 PM) 27.17 kg/m2 *H* (05/30/23 1:52 PM) Blood Pressure [90-138/55-84 mm Hg] 146/71mm Hg *H* (06/08/23 9:35 AM) 146/71mm Hg *H* (06/08/23 7:25 AM) 135/60mm Hg (06/08/23 4:00 AM) Respiratory Rate [16-30 br/min] 18 br/min (06/08/23 9:35 AM) 20 br/min (06/08/23 7:25 AM) 18 br/min (06/08/23 4:00 AM) Temperature [96.8-100.4 DegF] 97.4 DegF (06/08/23 7:25 AM) 98.7 DegF (06/08/23 4:00 AM) 98.1 DegF (06/07/23 11:00 PM) Liters per Minute 1 L/min (06/08/23 7:25 AM) 3 L/min (06/07/23 11:00 AM) 3 L/min (06/07/23 7:00 AM) Mode of Delivery (Oxygen) Nasal cannula (06/08/23 7:25 AM) Room air (06/08/23 4:00 AM) Room air (06/07/23 11:00 PM) Blood pressure sites Arm, left (06/08/23 7:25 AM) Arm, right (06/08/23 4:00 AM) Arm, right (06/07/23 11:00 PM) Temperature Route Oral (06/08/23 7:25 AM) Oral (06/08/23 4:00 AM) Oral (06/07/23 11:00 PM) Dry Weight 91 kg (05/30/23 6:17 PM) 91 kg (05/30/23 1:52 PM) 91 kg (05/30/23 11:50 AM) Social History Social History Type Response Smoking Status Former smoker entered on: 09/23/15 Sex Admission evaluation note * Mario Medellin DO: PERFORM, MODIFY, MODIFY Event Display: Admission Note Authored Date: Patient: ??JENNIFER RODAS ? Age:??88 Years?Sex:??Male?:??1935?? Chief Complaint/Reason for Consultation pt unarousable this AM, able to follow commands, nonverbal. Pt hypocapnic, tachypnic. Profound oralsecretions, drooling. History of Present Illness Per mPage: 88-year-old gentleman presenting for concerns of productive cough and increased generalized weakness. hypoxia, pna on 8L [place]. ?? 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 ??History obtained primarily from patient's , Scarlett Rodas as well as his sons, and chart review as the patient himself communicates primarily by shaking head yes/no. ?? Mr. Rodas was recently admitted to [facility] from 05/13 - 05/16 in setting of COVID-19 and acute superimposed on chronic hypoxic respiratory failure. ??During that admission, there was concern for hypotension. ??His Coreg was decreased. ??Prior to that hospitalization, was chronically wearing supplemental oxygen at night, discharged on 1-2 L during the day, has continued to utilize 3 L at night as per his . Of note, he does have superficial small pressure ulcers, a swab of this was concerning for MRSA, attributed to contamination. ??Following this, had returned home and appears to have been generally doing well as per hematology/oncology note from 05/27. ??He was started on doxycycline for MRSA toe infection apparently at his wound care clinic. ??Reviewing micro in [facility], there is no evidence of MRSA bacteremia recently. ??On the day of his presentation, he was found to be more weak and lethargic, off of his baseline. ??His endorses that he could not even swallow (typically is on a dysphagia diet with minimally thickened liquids???no recent aspiration).??It is documented that he also had a cough, which appears to have been brewing over the last several days. ??Likewise, on the night prior to his presentation, his noted that she had to increasehis oxygen up to 4 L from 3 L.? Soon after I had assumed care of Mr. Rodas, was paged to come to bedside for increased work of breathing. He did have substantial secretions with coarse, wet breath sounds and diffuse wheezing. He appeared uncomfortable. I confirmed with him that he is DNI as per his MOLST (amenable to CPR/chest compressions- addressed further below).?Did confirm that he would be amenable to??BiPAP/CPAP if needed. ??On evaluation, appeared uncomfortable,??with increased work of breathing.?? Diffuse wheezing present??with decreased breath sounds in lower left lung field.?? Did attempt to suction, with minimal output. ??Patient endorsed that this did not help.?? Nursing was very concerned??regarding??the level of care that the patient would require. ??Ordered DuoNebs, patient actually seem to improve with this.?? Discussed further with the respiratory therapist,??recommended??using??high flow with humidified heat??to possibly??break up secretions and mobilize them.?? [place] that this would be better than BiPAP.?? For HFNC, patient will need to be transferred to??medical intercare.?? Subsequently transferred him to medical intercare. ?? In the emergency department, vitals stable with exception of hypoxia, down to 88%. ??This was reported on room air. ??At 1 point was requiring up to 8 L via nasal cannula, though this has improvedby time of admission and is now down to 5 L. ??EKG with NSR at 78 bpm. ??QTc 4 and 65 ms. ??CBC with anemia???hemoglobin 9.7, consistent with prior. ??No leukocytosis nor neutrophilia. ??Metabolic hamilton el with mildly elevated glucose at 142, BUN 27/creatinine 0.8. ??Urinalysis not concerning. ??Plainfilm of chest with left lower lobe pneumonia. ??Plain film of toe with limited exam due to severe osteopenia, however no definite radiographic evidence of acute bony injuries or osteomyelitis. ??While in the emergency department, received azithromycin, ceftriaxone, and vancomycin. ?? Review of Systems A full review of systems was completed and is otherwise negative except as mentioned in history of present illness. Objective Vital Signs?? Temperature: 98 DegF (05/30/23 18:17:00) Temperature Route: Oral (05/30/23 18:17:00) Pulse Rate: 90 bpm (05/30/23 18:17:00) Respiratory Rate: 24 br/min (05/30/23 18:17:00) Systolic Blood Pressure: 121 mm Hg (05/30/23 18:17:00) Diastolic Blood Pressure: 65 mm Hg (05/30/23 18:17:00) Blood pressure sites: Arm, right (05/30/23 18:17:00) Mean Arterial Pressure: 84 mm Hg (05/30/23 18:17:00) Pulse Pressure: 56 mm Hg (05/30/23 18:17:00) Oxygen Saturation: 94 % (05/30/23 18:17:00) Liters per Minute: 5 L/min (05/30/23 18:17:00) Mode of Delivery (Oxygen): Nasal cannula (05/30/23 18:17:00) Early Warning Score: 4 (05/30/23 18:20:20) ? Physical Exam General:??Alert, appears uncomfortable with increased work of breathing. Mental Status:??Uncomfortable appearing, interactive, though nonverbal at baseline.?? Does shake head yes/no appropriately. HEENT:??Substantial secretions,??very wet sounding. Respiratory:??Diffuse, audible wheezing through all lung velasquez bilaterally. ??Decreased breath sounds??lower??left lung field. Cardiovascular:??Regular rate and rhythm, no murmurs, rubs, or gallops.?? Gastrointestinal:??Abdomen soft, nontender, nondistended, bowel tones present. No hepatosplenomegaly appreciated. Neurologic:??Cranial nerves II-XII grossly intact. Moves all extremities spontaneously. Extremities:??No edema.?? Diffuse bruising.?? Number of wounds on extremity, including??left??second toe. Musculoskeletal:??No gross deformities. Assessment/Plan Assessment:??Mr. 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 ?? Hypoxia (R09.02):?? Pneumonia (J18.9):?? COPD with exacerbation (J44.1):?? Presented with acute superimposed on chronic hypoxemic respiratory failure??due to??what appears speedy a bacterial??lobar pneumonia. Does have a mild COPD exacerbation associated with this, has responded??to Duo- Nebs.?? Notable secretions as well. Discussed with respiratory therapy,??recommended trialing??humidified high flow nasal cannula, though will need to go to intercare for that. Does have history of aspiration, though states there has been no recent aspiration events.?? --Certainly may be silently aspirating, also has substantial secretions, which he may be aspirating. ?? Plan: ?Continue azithromycin ?Transition to??Unasyn ??? Sputum culture ?Urine??Legionella ??? Urine strep pneumoniae ?Speech therapy evaluation ?Strict??aspiration precautions ?HFNC, humidified ??? DuoNebs scheduled/PRN ??? Frequent suctioning ?? Open leg wound (S81.074N):?? Does have peripheral vascular disease, concern for??ulcerations. In particular,??right??second toe ulcer grew??MRSA during last??admission. --The thought was that this was likely contamination??at that time. Outpatient, was started on doxycycline??apparently at wound clinic. --Family states that he has a MRSA infection in his foot. No evidence of osteomyelitis on plain film,??no leukocytosis??nor fever. Likely immunosuppressed due to cancer treatments, however as well. Started on vancomycin in the emergency department, will obtain??ID consult ?? Plan: ??? Continue vancomycin ?Follow-up??blood cultures from emergency department ??? Infectious disease consult ??? Wound care consult ?? Dysphagia (R13.10):?? Nonverbal (R47.01):?? History of CVA with residual deficit (I69.30):?? Prior CVA with ICH in 2008. ??Has residual right-sided deficits as well as dysphagia.?? Also essentially nonverbal. Mental status appears to have improved from??the morning of his presentation. Is answering yes/no questions appropriately??with head nods. ?? Plan: ?Dysphagia diet/spoon thick liquids -- Confirmed??diet with ?? Diabetes mellitus (E11.9): Longstanding, chronic condition, on 10 units glargine nightly. Poor oral intake??on day of presentation, will decrease glargine. ?? Plan: ?Glargine 6 units nightly ??? Insulin sliding scale/POC glucose ??? Hypoglycemia emergency measures ?? Chronic and/or Stable Medical Conditions: Hypertension (I10):??Stable. Vitals per unit standard. Home regimen. Hyperlipidemia (E78.5):??Home atorvastatin. Hypothyroid (E03.9):??Home regimen of levothyroxine. Heart failure with mid-range ejection fraction (I50.22):??Not in acute exacerbation. Home regimen. Skin cancer (C44.90): Outpatient follow up. Wound care as above. ?? VTE Prophylaxis:??Lovenox Code Status:??Limited resuscitation.??Patient is??amenable to??resuscitation attempts??with CPR, however??does not wish for??intubation/mechanical ventilation. This is listed on his MOLST form.??I clarified this with his , who confirmed.??Discussed that??in the event of??a cardiac arrest, oftentimes patients are not able to breathe on their own following this, recommended??considering??further his current CODE STATUS??as it may result in significant morbidity??following a??resuscitation attempt??in the setting of respiratory failure??or??depressed??mental status during which the patient would not be able to breathe on his own. Ongoing Medical Necessity:??Multiple active concerns Discharge Planning:??Pending further evaluation Family: Multiple family members updated. Spoke with over the phone on admission, as well as his two sons later when they came to bedside. Patient seen and evaluated 05/30/2023. ? Histories Allergies Allergies ?(Active and Proposed [...] History of Umbilical Hernia Repair Unknown ? Family History Unable to obtain from patient. ? Social History Lives with his who does most of his care.? Generally sedentary but able to sit up during day and with assistance walk short distances in house.?? Stopped smoking cigarettes 45 years ago. Medications Home Medications Albuterol/Ipratropium (albuterol-ipratropium 3 mg-0.5 [...] and cover with gauze dressing Carvedilol (carvedilol 3.125 mg oral tablet)?3.125?Milligram?By Mouth?2 times a day?for 30?Days Cholecalciferol (Vitamin D3 1000 intl units oral tablet)?1?tab(s)?1,000?International Unit?By Mouth?Daily Clonazepam (clonazePAM 0.5 mg oral tablet)?0.5?tab(s)?0.25?Milligram?By Mouth?Daily at bedtime diosmiplex (diosmiplex 630 mg oral tablet)?1?tab(s)?630?Milligram?By Mouth?Daily Docusate (docusate sodium 150 mg/15 ml oral liquid)?10?Milliliter?100?Milligram?By Mouth?2 times a day Doxycycline (doxycycline hyclate 100 mg oral tablet)?1?capsule?By Mouth?Every 12 hours?for 14?Days Fluticasone Nasal (fluticasone 50 mcg/inh nasal spray)?2?spray(s)?Nares, [...] mg oral tablet)?10?Milligram?1?tablet?By Mouth?Daily Multivitamin?1 tab?By Mouth?Daily [place]-3 Polyunsaturated Fatty Acids (Fish Oil 1000 mg oral capsule)?1?capsule?1,000?Milligram?By Mouth?Daily Omeprazole (omeprazole 40 mg oral enteric coated capsule)?1?capsule?40?Milligram?By Mouth?Daily Ondansetron (ondansetron 4 mg oral tablet)?1?tab(s)?4?Milligram?By Mouth?Every 8 hours?as needed?Nausea & Vomiting Primidone (primidone 50 mg oral tablet)?TAKE 2 TABLETS BY MOUTH 3 TIMES A DAY Silver SulfADIAZINE Topical (Silvadene 1% cream)?1?wilfredo?Topically?2 times a day?for 30?Days Sodium Hypochlorite Topical (Dakins Half Strength 0.25% topical solution)?See Instructions?Use for dressing changes as directed Sucralfate (sucralfate 1 gm oral tablet)?1?gram?1?tablet?By Mouth?2 times a day Tamsulosin (tamsulosin 0.4 mg oral capsule)?TAKE 1 CAPSULE BY MOUTH EVERY DAY Thiamine?100?Milligram?By Mouth?Daily Triamcinolone Topical (triamcinolone 0.1% topical cream)?1?wilfredo?Topically?3 times a day?apply a thin filmto affected area Ubiquinone (Co Q-10)?100?Milligram?By Mouth?Daily ? * Mario Medellin DO W: PERFORM Event Display: Admission Note Authored Date: Patient required??35 additional minutes of critical care time, including direct bedside evaluation/intervention, medical??decision making, and coordination of care. On arrival to??medical intercare,??patient was requiring up to 10 L via [place], though??was eventually titrated down. On reassessment,??he appeared much more comfortable??and was watching television with his son. Cardiology * Event Display: Cardiac Rhythm Strips Authored Date: * Event Display: Cardiac Rhythm Strips Authored Date: EKG study * Event Display: EKG Authored Date: Hospital Progress note * Alida MCQUEEN, Sole: VERIFY, PERFORM, SIGN Event Display: Progress Note Hospital Authored Date: [id number] Patient: JENNIFER RODAS Age: 88 years Sex: Male : 1935 Associated Diagnoses: None Author: Alida MCQUEEN, Sole Findings Problem Related to Alteration in Integumentary : Alteration in Integumentary/new 06/07/2023 18:00 EDT Alteration in Integumentary Related to Other: Feet and heels Goals & Outcomes, Integumentary Nutritional intake is adequate for metabolic needs, Wound will progress towards healing Interventions, Integumentary Cleanse all wounds with Normal Saline BH Goals/Interventions, Integumentary Yes Integumentary, Problem Start 06/06/2023 19:29 Reviewed plan with, Integumentary Spouse/significant other Patient Progression, Integumentary Plan Initiation . Evaluation Patient alert and oriented to self. Redirections and prompts has been provided throughout the shift. Patient responds well to directions and participate in care and make his needs known. At this timepatient has confirmed no additional issues. Nursing will continue to monitor and treat accordingly.. Discharge Information Case Management Discharge Plan : Case Management Discharge Plan Data 06/04/2023 14:07 EDT Discharge Level of Care at Discharge Homehealth/VNA Discharge VNA/Hospice/Home Care [facility] [place] [facility] Certified Peer Specialist #1 intake Service Categories #1 Custodial Service Comments #1 the visiting nurse will call to set up a time to see you 1-2 days after discharge Rehabilitation Discharge : Rehab Discharge Index 06/04/2023 8:56 EDT Comments on treatment indicated 88yo M presented with AMS, cough, increased O2 requirements. Found LLL PNA complicated by mild COPD exacerbation. PT for bed mobility, ther-ex. Rechome. Full chart review completed Yes Other findings Per comment: Plan of care PT Gait training, Transfer training, Therapeutic exercise, Functional Activities, Balance training, Neuromuscular education * Siena Bowman MD: PERFORM Event Display: Progress Note Hospital Authored Date: Patient: ??JENNIFER RODAS ? Age:??88 Years?Sex:??Male?:??1935?? Subjective Patient was seen and examined at bedside. Improved to baseline will be discharged tomorrow. ?? Review of Systems unobtainable Objective Vital Signs?? Temperature: 97.8 DegF (06/07/23 07:00:00) Temperature Route: Oral (06/07/23 07:00:00) Pulse Rate: 80 bpm (06/07/23 07:00:00) Respiratory Rate: 16 br/min (06/07/23 07:00:00) Systolic Blood Pressure:??139 mm Hg??High (06/07/23 07:00:00) Diastolic Blood Pressure: 67 mm Hg (06/07/23 07:00:00) Blood pressure sites: Arm, left (06/07/23 07:00:00) Mean Arterial Pressure: 101 mm Hg (06/07/23 04:35:00) Pulse Pressure: 72 mm Hg (06/07/23 07:00:00) Oxygen Saturation: 100 % (06/07/23 07:00:00) Liters per Minute: 3 L/min (06/07/23 07:00:00) Mode of Delivery (Oxygen): Nasal cannula (06/07/23 07:00:00) Early Warning Score: 2 (06/07/23 11:31:13) ? Intake/Output? 05/30 13:57 06/07 07:00 06/06 07:00 06/05 07:00 06/04 07:00 ?? 06/07 11:52 06/07 11:52 06/07 06:59 06/06 06:59 06/05 06:59 Intake ?75040 ?0 ? 2880 ? 1980 ? 2300 Output ? 7625 ?300 ? 1050 ? 1300 ?425 Net Total ? 2535 ? -300 ? 1830 ?680 ? 1875 ? Urine Count ?7 ?1 ?2 ?0 ?0 ? Physical Exam General: Lying comfortably in bed, no evident distress Cardiac: S1 + S2 + 0, no murmurs heard Respiratory: CTA, No wheezes, Rales or crackles heard Abdomen: soft, nondistended, nontender Extremities: No edema or cyanosis present Neurological: non verbal Results Recent Labs CHEM GENERAL Glucose, POC 177 mg/dL (High)?? 06/07/2023 11:28 ? Assessment/Plan Diagnoses COPD with exacerbation ??(J44.1) Diabetes mellitus ??(E11.9) Dysphagia ??(R13.10) Heart failure with mid-range ejection fraction ??(I50.22) History of CVA with residual deficit ??(I69.30) Hyperlipidemia ??(E78.5) Hypertension ??(I10) Hypothyroid ??(E03.9) Hypoxia ??(R09.02) Nonverbal ??(R47.01) Open leg wound ??(S81.809A) Pneumonia ??(J18.9) Skin cancer ??(C44.90) Squamous cell carcinoma lung ??(C34.90) ?? 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 ??In the ER was noted to be significantly hypoxic concern for aspiration pneumonia. ?? Acute on chronic hypoxic respiratory failure??currently improving Aspiration versus bacterial lobar pneumonia Patient noted to be significantly hypoxic upon admission initially minimally responsive, requiring up to 8 L of nasal cannula oxygen which has significantly improved down to 2 L and has remained stable this morning since yesterday Chest x-ray evident for left lower lobe consolidation concerning for bacterial versus aspiration pneumonia On physical exam patient does have copious oral secretions Home oxygen requirement appears to be 1 to 2 L mostly at nighttime Patient is essentially bedbound and nonverbal due to his prior strokes,??has VNA set up at home andappears to also have an oxygen set up at home Swallow evaluation was done on 05/31/2023 with re-eval daily and recommended that patient was very high risk for aspiration and recommended to keep strict n.p.o. without any exceptions, now on Pureed diet. continue with vancomycin, Unasyn , per ID??he does have risk of MRSA pneumonia, and course to be continued for 5-7 days, after which home doxy can be resumed for toe infection. MRSA nasal swab nneg , vanc dced , one more day of unasyn today to complete 7 day course for pneumonia. He has completed 3 days of azithromycin. Continue DuoNebs Chest physical therapy via therapeutic bed ? Second toe wound Patient with longstanding history of peripheral vascular disease with prior history of colonizing/growing MRSA Toe x-ray does not show obvious osteomyelitis but does not appear to be a good study ID was consulted and recommended??on discharge to resume p.o. doxycycline for 6 weeks??and outpatient follow-up with wound care ?? Hypernatremia Likely from being npo and??active infection causing dehydration.?? resolved ?? Hypokalemia: poor PO intake replacing K improving ?? History of CVA with residual dysphagia Patient is essentially nonverbal Swallow eval done as explained above Strict n.p.o. for now ?? Type 2 diabetes mellitus with nephropathy Patient sugars are within acceptable range is on reduced dose Lantus of 6 units nightly, home dose is 10 units nightly we will continue with the same given that he is n.p.o.??Starting D5W hence, we may??have to adjust this tomorrow based on Na levels. ?? Hypertension???hyperlipidemia???heart failure with reduced ejection fraction/ischemic cardiomyopathy Hold p.o. Meds until safe to swallow Appears euvolemic at this point No need for IV diuresis ?? Hypothyroidism: patient takes 50 mcg of levothyroxine from Thursday to Thursday and 100 mcg on Thursday and Thursday, after discussion with pharmacy have changed to appropriate IV dose formulation ?? Squamous cell carcinoma of scalp??? wound care consult done?? Recs as follows ?? 1.) Frontal/Parietal: Apply Vashe moistened gauze to wound bed, leave in place for 10mins. Allow todry. Apply Silvadene to wound bed (not bone). Cover with DSG (Abdominal pad). Apply Tetra net. Change daily or as needed with saturation. 2.) Left 2nd and 3rd toe: Cleanse with normal saline. Apply thin layer of Silvasorb to wound bed. Cover with DSG. Wrap with Kerlix. Change daily or as needed with saturation.?? 3.) Right Heel and Toes: Apply Betadine paint wound bed. Air dry. Leave BALDOMERO daily.?? Patient's family only wants wound care orders per Dr. Hunt ( note reviewed from 05/26/23 ) ? Was discussed with patient's and daughter at bedside, discussed about CODE STATUS they confirmed ??it to be DNI but okay for CPR??. ?? Discharge Planning:??Dc tomorrow. ?Order Date/Time ??Order Action ??Order Name ??Order Detail ??06/07/2023 11:30 ??Order ??Glucose POC ??Routine, 06/07/23 11:28:00 EDT ??06/07/2023 08:12 ??Order ??Glucose POC ??Routine, 06/07/23 7:35:00 EDT ? * Alida MCQUEEN, Sole: VERIFY, PERFORM, SIGN Event Display: Progress Note Hospital Authored Date: [id number] Patient: JENNIFER RODAS Age: 88 years Sex: Male : 1935 Associated Diagnoses: None Author: Alida MCQUEEN, Sole Findings Problem Related to Alteration in Integumentary : Alteration in Integumentary/new 06/06/2023 19:00 EDT Alteration in Integumentary Related to Other: Feet and heels Goals & Outcomes, Integumentary Nutritional intake is adequate for metabolic needs, Wound will progress towards healing Interventions, Integumentary Cleanse all wounds with Normal Saline BH Goals/Interventions, Integumentary Yes Integumentary, Problem Start 06/06/2023 19:29 Reviewed plan with, Integumentary Patient, Spouse/significant other Patient Progression, Integumentary Plan Initiation . Evaluation Patient alert to self. Patient is able to make his needs known however takes his time. Patient remained afebrile with intermit coughs non productive and with prn interventions implemented. Patient reported no additional discomfort upon assessment. Nursing will continue to monitor and treat accordingly. . Discharge Information Case Management Discharge Plan : Case Management Discharge Plan Data 06/04/2023 14:07 EDT Discharge Level of Care at Discharge Homehealth/VNA Discharge VNA/Hospice/Home Care [facility] Certified Peer Specialist #1 intake Service Categories #1 Custodial Service Comments #1 the visiting nurse will call to set up a time to see you 1-2 days after discharge Rehabilitation Discharge : Rehab Discharge Index 06/04/2023 8:56 EDT Comments on treatment indicated 88yo M presented with AMS, cough, increased O2 requirements. Found LLL PNA complicated by mild COPD exacerbation. PT for bed mobility, ther-ex. Rechome. Full chart review completed Yes Other findings Per comment: Plan of care PT Gait training, Transfer training, Therapeutic exercise, Functional Activities, Balance training, Neuromuscular education Consult note * Alejandro Ibrahim RN: VERIFY, PERFORM, SIGN Event Display: Consultation Note Authored Date: Patient: JENNIFER RODAS Age: 88 years Sex: Male : 1935 Associated Diagnoses: None Author: Alejandro Ibrahim RN History of Presenting Problem Date of Service 06/01/2023 Wound RN consult entered to assess multiple, toes and head wounds and make topical recommendations. Patient presented with AMS/cough and increase O2 requirements. Patient was admitted for hypoxia. Patient has PMH of HF with EF, hypothyroid, CVA with right sided deficits, dysphagia, non-verbal, advanced squamous cell cancer, HTN, HLD, COPD and PVD, please see PMH for further detail. Patient is being followed by outpatient wound care with MD Hunt and was last seen on 05/26/23, please see note for details. Upon entering the room patient is lying in bed with at the bedside. Wound RN role explained and patient's refused consultation. Patient's states, the nurse just did his wound care for his head and his legs, I don't want the dressings removed. I asked them to follow the wound care that MD Hunt ordered from our previous visit. Patient's asked to have MD Hunt's orders placed instead of new wound care orders. Please refer to MD Hunt's Physician wound care note from 05/26/23 at 1000 for further details for wound care orders. Patient's agreeable to changing wound cleanser to Vashe. Recommendations given to direct care RN and [employer] message sent to MD Stephanie Schrader as well. Recommendations: 1.) Frontal/Parietal: Apply Vashe moistened gauze to wound bed, leave in place for 10mins. Allow todry. Apply Silvadene to wound bed (not bone). Cover with DSG (Abdominal pad). Apply Tetra net. Change daily or as needed with saturation. 2.) Left 2nd and 3rd toe: Cleanse with normal saline. Apply thin layer of Silvasorb to wound bed. Cover with DSG. Wrap with Kerlix. Change daily or as needed with saturation. 3.) Right Heel and Toes: Apply Betadine paint wound bed. Air dry. Leave SKI EDGE PAINTER daily. 4.) Continue use of specialty bed/low air loss mattress 5.) Turn and reposition every 2 hours and PRN 6.) Continue incontinence care as well as moisture management; do not utilize Mepilex foam dressingwith incontinence. 7.) Continue to offload bony prominences 8.) Float heels on Z-BOOTS 9.) Continue to provide optimal nutritional support 10.) Provide Gaymar cushion to chair when patient OOB Plan Time spent 46-60 minutes * Tamica Whitney MD: MODIFY, PERFORM Event Display: Consultation Note Authored Date: Patient: ??JENNIFER RODAS ? Age:??88 Years?Sex:??Male?:??1935?? Provider Clinical Summary 88 year old man with multiple medical problems admitted with pneumonia following COVID-19, also haslong-standing PVD with infection of two toes on left foot, being managed on Doxycycline as an outpatient. Chief Complaint pt unarousable this AM, able to follow commands, nonverbal. Pt hypocapnic, tachypnic. Profound oralsecretions, drooling. Reason for Consultation Patient admitted with pneumonia, but also has toe wounds, question of need??for antibiotic therapy for the toe wounds. ?? History of Present Illness History obtained from the patient's who was at bedside, as patient is non- verbal currently, and has limited speech ability at baseline. She reports that his baseline is ability to utter one word, and nod or shake his head to make his needs known and communicate. 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 He had COVID-19 about three weeks ago but seemed to be getting better and was doing OK at home??until he developed inability to manage his secretions and became somnolent. He was brought to the emergency department and found to have a LLL pneumonia on chest x ray. He was started on multiple antibiotics empirically including ampicillin-sulbactam, azithromycin, and vancomycin. The patient's says that she doesn't think he is getting much better yet from the perspective of his mentation, but his swallowing & ability to manage secretions has improved,and his toe wounds look better to her. Review of Systems unable to obtain because the??patient is non-verbal, apart from what the patient's described, outlined above. Physical Exam Vitals & Measurements T:??98.3?F?? TMIN:??98.0?F?? TMAX:??98.9?F?? HR:??85??(Monitored)?? RR:??20?? BP:??125/58?? SpO2:??100%?? WT:??91??kg?? General: somnolent elderly man, occasionally grunts, occasionally awakens and makes eye contact butthen falls back asleep Head: large scalp wound covered lightly by bandage Ear, Nose and Throat: Oropharynx: unable to get full exam, due to patient's inability to cooperate,visualized portion of tongue appeared normal. Not drooling currently Respiratory: Unable to auscultate fully because patient could not cooperate with taking breaths. dull breath sounds at both bases, scattered crackles throughout, no wheezing heard. Cardiovascular: S1 S2 regular, distant heart tones Gastrointestinal: Abdomen soft, non-tender, non-distended. Normal bowel sounds. Genitourinary: [place] catheter draining dark yellow urine Neurologic: somnolent Skin: No rashes or lesions. Musculoskeletal: left foot second and third toes both??have small eschar on the dorsal surface, there is very pale redness of the toes and no edema, indicating no active cellulitis of these areas. They have the appearance of being in the healing phase??from a prior infection Assessment/Plan 88 year old man with multiple medical problems, aphasia at baseline, likely immunocompromised from SCC of the scalp being treated with??6 cycles of cemiplimab, who had COVID-19 three weeks ago. Now admitted with LLL pneumonia and somnolence and inability to manage oral secretions. It is unclear if the pneumonia is due to a post-viral bacterial infection, aspiration, or community- acquired pneumonia in the setting of a patient with underlying COPD, but he appears to have stabilized on the currentantibiotic regimen. The toe infections are not of major significance at this point and are certainly not the cause of his acute decompensation. Local wound care and oral doxycycline appear to have been making a positive impact, but the current antibiotic regimen for pneumonia treatment is providingeven broader coverage to what was already working for the toe infections.? Recommendations: The current regimen is adequately covering??for Community-acquired pneumonia, aspiration pneumonia,and the potential for MRSA pneumonia in a patient who is known to be??a carrier of this organism,??and should be continued for 5-7 days.?? The current regimen is also adequately treating the toe wounds. When otherwise ready to de-escalateantibiotics for pneumonia, would re-start the doxycycline to complete the planned 6 week course forinfected toe wounds as outlined in the wound center's clinic notes. Problem List/Past Medical History Ongoing Anemia At [...] Fracture???History of Umbilical Hernia Repair???Unknown Medications Inpatient Azithromycin IVPB, 500 mg, IVPB, Every 24 hours Dextrose 50% Inj Syringe (25Gm), 12.5 Gm, IV Push Slowly, Every 20 minutes, PRN Dextrose 50% Inj Syringe (25Gm), 25 Gm, IV Push Slowly, Every 15 minutes, PRN Duoneb Inhalation Solution, 1 vials, BAND Nebulizer, 4 times a day Duoneb Inhalation Solution, 1 vials, BAND Nebulizer, Every 4 hours, PRN Enoxaparin Inj, 40 mg= 0.4 mL, Subcutaneous Injection, Daily fluticasone 50 mcg/inh nasal spray, 100 mcg= 2 sprays, Nares, Both, Daily in AM Glucagon Inj, 1 mg, Intramuscular, Once, PRN Glucose Gel, 15 Gm, By Mouth, Every 20 minutes, PRN Glucose Gel, 30 Gm, By Mouth, Every 20 minutes, PRN Heparin Flush 100 units/mL Inj, 500 units= 5 mL, IV Push Slowly, Chemo To Be Scheduled, PRN Insulin Glargine Inj, 6 units= 0.06 mL, Subcutaneous Injection, Daily at bedtime Insulin LISPRO Sliding Scale, 2-10 units, Subcutaneous Injection, 3 times a day before meals MiraLax Powder, 17 Gm= 1 pack/packet, By Mouth, Daily, PRN NaCL 0.9% Flush, 3 mL, IV Push, Every 8 hours NaCL 0.9% Flush, 3 mL, IV Push, Every 8 hours, PRN Pantoprazole Inj, 40 mg, IV Push Slowly, Daily Unasyn IVPB, 3 Gm, IVPB, Every 6 hours Vancomycin IVPB, 1250 mg, 15 mg/kg, IVPB, Every 24 hours Home albuterol-ipratropium 3 mg-0.5 mg/3 ml inhalation [...] 0.25 mg= 0.5 tablet, By Mouth, Daily at bedtime Co Q-10, 100 mg, By Mouth, Daily Dakins Half Strength 0.25% topical solution, See Instructions diosmiplex 630 mg oral tablet, 630 mg= 1 tablet, By Mouth, Daily docusate sodium 150 mg/15 ml oral liquid, 100 mg= 10 mL, By Mouth, 2 times a day doxycycline hyclate 100 mg oral tablet, 1 capsule, By Mouth, Every 12 hours Fish Oil 1000 mg oral capsule, 1000 mg= 1 capsule, By Mouth, Daily fluticasone 50 mcg/inh nasal spray, 2 sprays, Nares, Both, Daily in AM gabapentin 100 mg oral capsule, 200 mg= 2 capsule, By Mouth, 3 times a day Iodosorb 0.9% topical gel, See Instructions, 1 refills Lasix 20 mg oral tablet, 20 mg, By Mouth, Daily levothyroxine 0.05 mg oral tablet, See Instructions, 1 refills Multivitamin, 1 tab, By Mouth, Daily omeprazole 40 mg oral enteric coated capsule, 40 mg= 1 capsule, By Mouth, Daily ondansetron 4 mg oral tablet, 4 mg= 1 tablet, By Mouth, Every 8 hours, PRN, 1 refills primidone 50 mg oral tablet Silvadene 1% cream, 1 application, Topically, 2 times a day sucralfate 1 gm oral tablet, 1 Gm= 1 tablet, By Mouth, 2 times a day tamsulosin 0.4 mg oral capsule Thiamine, 100 [...] pneumococcal 23-valent vaccine 08/04/2014 Recorded Comments : [employer] [id number] Lab Results Test Name Test Result Date/Time WBC 11.2 k/mm3 05/31/2023 01:18 EDT Hgb 10.7 Gm/dL 05/31/2023 01:18 EDT Platelet Count 325 k/mm3 05/31/2023 01:18 EDT Creatinine-Blood 0.7 mg/dL 05/31/2023 01:25 EDT Diagnostic Results 05/30/2023: RESULT: Toe 2nd Left Foot PROCEDURE: ??Toe 2nd Left Foot? CLINICAL INDICATION: 88 years old Male with ??acute change in mental status, obtunded, soft tissue infection 2nd LEFT toe, evaluate for Osteomyelitis; Clinical Question(s): Osteomyelitis. ?? TECHNIQUE: Three views of the ??LEFT 2nd toe are obtained. ?? COMPARISONS: LEFT foot radiographs May 14, 2023. ?? FINDINGS: ?? Bones and joints: Severe osteopenia limiting the exam. No definite periosteal reaction or erosion to suggest acute osteomyelitis. 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 No definite acute fracture or dislocation. Hammertoe deformity 2nd toe. Mild degenerative changes of the 1st metatarsophalangeal joint. ? Soft Tissues: Moderate arterial calcifications. ??No evidence of radiopaque foreign body. ?? IMPRESSION: ?? 1. ??Limited exam due to severe osteopenia. No definite radiographic evidence of acute bony injuries or osteomyelitis. ? 05/30/2023: RESULT: Chest 2 Views Frontal and Lat Chest 2 Views Frontal and Lat? Reason: Cough; Clinical Question(s): Pneumonia ?? COMPARISON: 05/13/2023 and several earlier ?? FINDINGS: ?? LINES AND TUBES:?? Right jugular Port-A-Cath unchanged. ?? LUNGS AND PLEURA: Low lung volumes. Focal consolidation left lower lobe.?? Clear upper lungs without edema. Small bilateral pleural effusions.?? No pneumothorax. ?? HEART, MEDIASTINUM AND CESAR:?? Heart is normal in size. Normal mediastinal and hilar contour. ?? BONES AND SOFT TISSUES:?? No acute abnormality. ?? IMPRESSION: ?? Left lower lobe consolidation consistent with either atelectasis or pneumonia. ?? Bilateral small effusions. ? Toe culture 05/12/2023: MRSA ?? Note * Yessenia Gee RN: PERFORM Event Display: Discharge/Transfer Note Hospital Authored Date: [id number] Nursing Discharge Note Entered On: 06/08/2023 12:23 EDT Performed On: 06/08/2023 12:22 EDT by Yessenia Gee RN Nursing Discharge Note 2 Discharge Time : 06/08/2023 12:20 EDT Discharge Level of Care at Discharge : Homehealth/VNA [facility]charge [facility] Left Unit Via : Ambulance Patient Accompanied Off Unit with : Ambulance/Chair Van Personnel Handover Given to Transport Personnel : Yes DC Instructions Provided & Signed by Pt : Unable Patient Understands D/C Instructions : Unable Verbalized Understanding of D/C Plan By : Caregiver Patient Instructions Discharge Signed : Yes Did Pt have Specialty Bed or Wound Vac : Yes Yessenia Gee RN - 06/08/2023 12:22 EDT * Jamie DSOUZA, Rama H: PERFORM, MODIFY Event Display: Discharge/Transfer Note Hospital Authored Date: [id number] Patient: ??EJNNIFER RODAS ? Age:??88 Years?Sex:??Male?:??1935?? Patient Information Discharge Location: W4 Primary Care Physician: Arjun Hampton DO Admit Date/Time: 05/30/23 13:57 Discharge Disposition Discharge Disposition: Home with Home Health Discharge Diagnosis Aspiration of food (T17.928A) COPD with exacerbation (J44.1) Diabetes mellitus (E11.9) Dysphagia (R13.10) Heart failure with mid-range ejection fraction (I50.22) History of CVA with residual deficit (I69.30) Hyperlipidemia (E78.5) Hypertension (I10) Hypothyroid (E03.9) Hypoxia (R09.02) Nonverbal (R47.01) Open leg wound (S81.809A) Pneumonia (J18.9) Skin cancer (C44.90) Squamous cell carcinoma lung (C34.90) ?? _ Discharge Medications Albuterol/Ipratropium (albuterol-ipratropium 3 mg-0.5 [...] and cover with gauze dressing Carvedilol (carvedilol 3.125 mg oral tablet)?3.125?Milligram?By Mouth?2 times a day?for 30?Days Cholecalciferol (Vitamin D3 1000 intl units oral tablet)?1?tab(s)?1,000?International Unit?By Mouth?Daily Docusate (docusate sodium 150 mg/15 ml oral liquid)?10?Milliliter?100?Milligram?By Mouth?2 times a day Doxycycline (doxycycline hyclate 100 mg oral tablet)?1?capsule?By Mouth?Every 12 hours?for 30?Days Fluticasone Nasal (fluticasone 50 mcg/inh nasal spray)?2?spray(s)?Nares, [...] mg oral tablet)?10?Milligram?1?tablet?By Mouth?Daily Multivitamin?1 tab?By Mouth?Daily [place]-3 Polyunsaturated Fatty Acids (Fish Oil 1000 mg oral capsule)?1?capsule?1,000?Milligram?By Mouth?Daily Omeprazole (omeprazole 40 mg oral enteric coated capsule)?1?capsule?40?Milligram?By Mouth?Daily Ondansetron (ondansetron 4 mg oral tablet)?1?tab(s)?4?Milligram?By Mouth?Every 8 hours?as needed?Nausea & Vomiting Silver SulfADIAZINE Topical (Silvadene 1% cream)?1?wilfredo?Topically?2 times a day?for 30?Days silver topical (SilvaSorb)?1?applicator?Topically?Daily Sodium Hypochlorite Topical (Dakins Half Strength 0.25% topical solution)?See Instructions?Use for dressing changes as directed Sucralfate (sucralfate 1 gm oral tablet)?1?gram?1?tablet?By Mouth?2 times a day Tamsulosin (tamsulosin 0.4 mg oral capsule)?TAKE 1 CAPSULE BY MOUTH EVERY DAY Thiamine?100?Milligram?By Mouth?Daily Triamcinolone Topical (triamcinolone 0.1% topical cream)?1?wilfredo?Topically?3 times a day?apply a thin filmto affected area Ubiquinone (Co Q-10)?100?Milligram?By Mouth?Daily ? Future Appointments Thursday 10:00 AM EDT ?? With: Clint Hunt MD Where: [facility] [address] [place] [address]- Status: Pending Hospital Course ? 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 Completed antibiotics for PNA and seen by ID on 6 weeks PO antibiotics for foot infection. Discharged home??with services on PO antibiotics. Poor baseline functioning. ? Acute on chronic hypoxic respiratory failure, improved to chronic O2 Aspiration versus bacterial lobar pneumonia Patient noted to be significantly hypoxic upon admission initially minimally responsive, requiring up to 8 L of nasal cannula oxygen which has significantly improved down to 2 L and has remained stable on this baseline O2 level Chest x-ray evident for left lower lobe consolidation concerning for bacterial versus aspiration pneumonia Home oxygen requirement appears to be 1 to 2 L Patient is essentially bedbound and nonverbal due to his prior strokes,??has VNA set up at home andappears to also have an oxygen set up at home Swallow evaluation was done on 05/31/2023 with re-eval daily and recommended that patient was very high risk for aspiration but ultimately imprved to Pureed diet. Was on vancomycin, Unasyn , per ID, weaned down MRSA nasal swab nneg , vanc dced , unasyn??did complete 7 day course for pneumonia. He has completed 3 days of azithromycin. ? Left foot Second toe wound Patient with longstanding history of peripheral vascular disease with prior history of colonizing/growing MRSA Toe x-ray does not show obvious osteomyelitis but does not appear to be a good study ID was consulted and recommended??on discharge to resume p.o. doxycycline for 6 weeks??and outpatient follow-up with wound care ?? Hypernatremia Resolved ?? Hypokalemia: poor PO intake Improved ?? History of CVA with residual dysphagia Patient is essentially nonverbal Swallow eval done and cleared for Pureed diet now ?? Type 2 diabetes mellitus with nephropathy Patient sugars are within acceptable range?? home dose is 10 units nightly we will continue with the same? Hypertension???hyperlipidemia???heart failure with reduced ejection fraction/ischemic cardiomyopathy Tolerating PO meds now, stable pressures ?? Hypothyroidism: 50 mcg of levothyroxine from Thursday to Thursday and 100 mcg on Thursday and Thursday ?? Squamous cell carcinoma of scalp??? wound care consult done?? Recs as follows ?? 1.) Frontal/Parietal: Apply Vashe moistened gauze to wound bed, leave in place for 10mins. Allow todry. Apply Silvadene to wound bed (not bone). Cover with DSG (Abdominal pad). Apply Tetra net. Change daily or as needed with saturation. 2.) Left 2nd and 3rd toe: Cleanse with normal saline. Apply thin layer of Silvasorb to wound bed. Cover with DSG. Wrap with Kerlix. Change daily or as needed with saturation.?? 3.) Right Heel and Toes: Apply Betadine paint wound bed. Air dry. Leave BALDOMERO daily.?? Patient's family only wants wound care orders per Dr. Hunt ( note reviewed from 05/26/23 ) ? Objective Measurements?? Height: 183 cm (06/08/23) Weight: 91 kg (05/30/23) Dry Weight: 91 kg (05/30/23) Body Mass Index:??27.17 kg/m2??High (05/30/23) ? Vital Signs?? Temperature: 97.4 DegF (06/08/23 07:25:00) Temperature Route: Oral (06/08/23 07:25:00) Pulse Rate: 81 bpm (06/08/23 07:25:00) Respiratory Rate: 20 br/min (06/08/23:25:00) Systolic Blood Pressure:??146 mm Hg??High (06/08/23 07:25:00) Diastolic Blood Pressure: 71 mm Hg (06/08/23 07:25:00) Blood pressure sites: Arm, left (06/08/23:25:00) Mean Arterial Pressure: 96 mm Hg (06/08/23:25:00) Pulse Pressure: 75 mm Hg (06/08/23:25:00) Oxygen Saturation: 98 % (06/08/23:25:00) Liters per Minute: 1 L/min (06/08/23:25:) Mode of Delivery (Oxygen): Nasal cannula (06/08/23:25:00) Early Warning Score: 2 (06/08/23 08:17:58) ? . Physical Exam ?? General: Lying comfortably in bed, no evident distress Cardiac: S1 + S2 + 0, no murmurs heard Respiratory: CTA, No wheezes, Rales or crackles heard Abdomen: soft, nondistended, nontender Extremities: No edema or cyanosis present Neurological: non verbal ?? Pending Results MRSA PCR Nasal Swab ordered on 06/02/2023 Sputum Culture w/ Gram Smear ordered on 05/30/2023 Patient Education Titles Dysphagia (Adult)?? Follow-Up Appointments Added Follow Up ?Time Frame ?Comments Memo LISA, Arjun Nieves?Within one week Patient Instructions ?? - Admitted due to aspiration pneumonia due to poor swallowing in setting of previous stroke - back to his baseline state - Will continue doxycycline antibiotics for 6 weeks for foot infection - Please follow with your primary care physician ? Post Discharge Care Diet: ??Dysphagia Pureed (Level 1) Diet ?? Activity: ??As tolerated ?? Wound Care: ??Wound Site: Left 2nd and 3rd toe Daily Yes. Wound Site: Right Heel and Toes FLOAT HEELS ON Z-BOOTS (No Mepilex) Daily. ?? Code Status: ??Limited Resuscitation No Intubation & Mechanical Ventilation ?? Condition: ??Stable ?? Prognosis: ??Poor ?? Discharge ?06/08/23 9:28:00 EDT Discharge Prescriptions ?ePrescribed, 06/08/23 9:28:00 EDT Home Health Face to Face *Denotes mandatory velasquez ?? *I certify that this patient is under my care and that I or an allowed non- physician working with me had a face to face encounter with the patient on this date:??06/08/2023 09:32 ?? *The encounter with the patient was in whole, or in part, for the following medical condition, which is the primary diagnosis(es) for home health care:??Aspiration of food (T17.928A) COPD with exacerbation (J44.1) Diabetes mellitus (E11.9) Dysphagia (R13.10) Heart failure with mid-range ejection fraction (I50.22) History of CVA with residual deficit (I69.30) Hyperlipidemia (E78.5) Hypertension (I10) Hypothyroid (E03.9) Hypoxia (R09.02) Nonverbal (R47.01) Open leg wound (S81.809A) Pneumonia (J18.9) Skin cancer (C44.90) Squamous cell carcinoma lung (C34.90) ? *Select the indications for the discipline/s that are being arranged for this patient. Nursing (select all that apply): [_] None [X] Medication management (reconciliation, teaching)?? [_] Chronic disease management?? [_] Wound care and treatment?? [_] Home safety evaluation [_] Administer SQ/IM/IV medications?? [_] Cath care?? [_] Drain care?? [_] Trach or GT care?? Other _ Occupation Therapy (select all that apply): [_] None [_] ADL Management [_] Fall prevention training [_] Energy conservation [X] Cognitive training Other _ Physical Therapy (select all that apply): [_] None [_] Functional mobility training [X] Home exercise program to strengthen [_] Increase ROM?? [_] Falls prevention training [_] Home maintenance program for chronic disease Other _ Speech Therapy (select all that apply): [_] None [_] Swallow evaluation and training [_] Speech and language training [_] Cognitive training to process, organize, and/or recall information Other _ ? *Homebound due to (select all that apply): [_] Inability to leave home without assistance/supervision [_] Inability to ambulate without assistance [_] Pain [X] Decreased strength and endurance [_] Unsteady gait [_] Severe SOB and fatigue [_] Impaired transfers [_] Inability to negotiate stairs [_] Limited weight bearing [_] Mental status change? *Physician Signature: _Rama Ayala MD ?? *By signing this, I certify that I have personally evaluated the patient and agree with the findings and recommendations as documented above. ? Results Discharge Labs BACTERIOLOGY MRSA PCR Result Negative, MRSA target DNA not detected. ()?? 06/02/2023 11:00 S Aureus ??PCR Result Negative, SA target DNA not detected. ()?? 06/02/2023 11:00 ?? BLOOD COUNT & DIFF WBC 6.2 k/mm3 ()?? 06/05/2023 05:50 RBC 3.54 m/mm3 (Low)?? 06/05/2023 05:50 Hgb 9.4 Gm/dL (Low)?? 06/05/2023 05:50 Hct 30.7 % (Low)?? 06/05/2023 05:50 MCV 86.7 femtoliters ()?? 06/05/2023 05:50 MCH 26.6 pg (Low)?? 06/05/2023 05:50 MCHC 30.6 g/dL (Low)?? 06/05/2023 05:50 Platelet Count 236 k/mm3 ()?? 06/05/2023 05:50 RDW-SD 52.7 femtoliters (High)?? 06/05/2023 05:50 MPV 10.5 femtoliters ()?? 06/05/2023 05:50 Nucleated RBC (Automated) 0.0 #/100 WBC'S ()?? 06/05/2023 05:50 Abs. NRBC 0.0 k/mm3 ()?? 06/05/2023 05:50 Abs. Neut 10.0 k/mm3 (High)?? 05/31/2023 01:18 Abs. Lymph 0.4 k/mm3 (Low)?? 05/31/2023 01:18 Abs. Rutherford 0.8 k/mm3 ()?? 05/31/2023 01:18 Abs. Eo 0.0 k/mm3 ()?? 05/31/2023 01:18 Abs. Baso 0.0 k/mm3 ()?? 05/31/2023 01:18 Neut % 89.7 % (High)?? 05/31/2023 01:18 Lymph % 3.4 % (Low)?? 05/31/2023 01:18 [place]utherford % 6.9 % ()?? 05/31/2023 01:18 Eos % 0.0 % ()?? 05/31/2023 01:18 Baso % 0.0 % ()?? 05/31/2023 01:18 RBC Morphology MODERATE ()?? 05/31/2023 01:18 Platelet Estimate ADEQUATE ()?? 05/31/2023 01:18 Imm Gran 0.5 % ()?? 05/30/2023 10:59 Abs. Imm Gran 0.0 k/mm3 ()?? 05/30/2023 10:59 ?? CHEM GENERAL Sodium 139 mmol/L ()?? 06/05/2023 05:50 Potassium 3.5 mmol/L (Low)?? 06/05/2023 05:50 Chloride 105 mmol/L ()?? 06/05/2023 05:50 Bicarbonate Level 24 mmol/L ()?? 06/05/2023 05:50 Anion Gap 10 ()?? 06/05/2023 05:50 Glucose Level 155 mg/dL (High)?? 06/05/2023 05:50 Glucose, POC 190 mg/dL (High)?? 06/08/2023 08:04 BUN 13 mg/dL ()?? 06/05/2023 05:50 Creatinine-Blood 0.7 mg/dL ()?? 06/05/2023 05:50 Estimated GFR Creatinine 91 ML/MIN/1.73 M2 ()?? 06/05/2023 05:50 Calcium 8.5 mg/dL (Low)?? 06/05/2023 05:50 Magnesium 1.9 mg/dL ()?? 06/03/2023 05:32 Protein, Total 5.8 Gm/dL (Low)?? 05/30/2023 10:59 Albumin 3.2 Gm/dL (Low)?? 05/30/2023 10:59 AG Ratio 1.2 ()?? 05/30/2023 10:59 Alkaline Phosphatase 120 units/L ()?? 05/30/2023 10:59 AST (SGOT) 28 units/L ()?? 05/30/2023 10:59 ALT (SGPT) 21 units/L ()?? 05/30/2023 10:59 Bilirubin, Total 0.2 mg/dL ()?? 05/30/2023 10:59 Lactate 1.5 mmol/L ()?? 05/30/2023 12:03 ?? HEME OTHER Hold Blue Top SPECIMEN DISCARDED AFTER 4 HOURS. ()?? 05/30/2023 10:59 ? MISC. CHEMISTRY Hold Green Top SPECIMEN DISCARDED AFTER 1 WEEK ()?? 05/30/2023 10:59 ? SEROLOGY INF DISEASE Legionella pneumophila Antigen NEGATIVE ()?? 06/01/2023 05:25 S. Pneumococcus Urinary Ag NEGATIVE ()?? 06/01/2023 05:25 ?? UA/URINALYSIS Appear/Color, Urine LIGHT YELLOW ()?? 05/30/2023 11:14 Clarity CLEAR ()?? 05/30/2023 11:14 Specific [place], Urine 1.012 ()?? 05/30/2023 11:14 pH, Urine 6.5 ()?? 05/30/2023 11:14 Albumin, Urine 1+ ()?? 05/30/2023 11:14 Glucose, Urine NEGATIVE ()?? 05/30/2023 11:14 Ketones, Urine NEGATIVE ()?? 05/30/2023 11:14 Bilirubin, Urine NEGATIVE ()?? 05/30/2023 11:14 Hemoglobin, Urine NEGATIVE ()?? 05/30/2023 11:14 Nitrite, Urine NEGATIVE ()?? 05/30/2023 11:14 Leukocyte, Urine NEGATIVE ()?? 05/30/2023 11:14 Urobilinogen NORMAL mg/dL ()?? 05/30/2023 11:14 WBC's, Urine 1 /HPF ()?? 05/30/2023 11:14 RBC's, Urine 1 /HPF ()?? 05/30/2023 11:14 Mucus SLIGHT /LPF ()?? 05/30/2023 11:14 Culture Indication CULTURE NOT INDICATED ()?? 05/30/2023 11:14 ?? URINE OTHER Protein, Total Urine Random 38 mg/dL ()?? 05/30/2023 11:14 TP/Cr Ratio 0.92 (High)?? 05/30/2023 11:14 Creatinine, Urine 41.8 mg/dL ()?? 05/30/2023 11:14 Est Creatinine Clearance 83.26 mL/min ()?? 06/05/2023 06:42 ? Microbiology ?? Blood Culture?? Completed?? Source: Blood Body Site: ?? Collected Dt/Tm: 05/30/2023 10:54 Last Updated Dt/Tm: 05/30/2023 10:56 ?SPECIMEN DESCRIPTION : BLOOD NSSPECIAL REQUESTS : NONECULTURE : NO GROWTH 5 DAYS.REPORT STATUS : FINAL 06/04/2023 Blood Culture #2?? Completed?? Source: Blood Body Site: ?? Collected Dt/Tm: 05/30/2023 10:54 Last Updated Dt/Tm: 05/30/2023 10:56 ?SPECIMEN DESCRIPTION : BLOOD NONESPECIAL REQUESTS : NONECULTURE : NO GROWTH 5 DAYS.REPORT STATUS : FINAL 06/04/2023 MRSA PCR Nasal Swab?? Collected?? Source: Swab Body Site: Nares Both Collected Dt/Tm: 06/02/2023 11:06 Last Updated Dt/Tm: 06/02/2023 08:24 MRSA PCR Nasal Swab?? Completed?? Source: Swab Body Site: ?? Collected Dt/Tm: 06/02/2023 11:00 Last Updated Dt/Tm: 06/02/2023 14:45 ? Imaging(s) ?CT Head/Brain W/O Contrast ?? 06/06/2023 14:19??by Dontrell DSOUZA, Sulaiman Gresham ?No acute intracranial pathology. Status post right frontal craniotomy and craniectomy. Old bifrontal infarcts, left greater than right. Mild chronic small vessel ischemic changes. Old left occipital lobe infarct. Old bilateral cerebellar infarctions. ?Chest 2 Views Frontal and Lat ?? 05/30/2023 11:58??by Crow Shepard MD ?Left lower lobe consolidation consistent with either atelectasis or pneumonia. ?? Bilateral small effusions. ?Toe 2nd Left Foot ?? 05/30/2023 11:58??by Arnoldo Saleem MD ?1. Limited exam due to severe osteopenia. No definite radiographic evidence of acute bony injuries or osteomyelitis. ? 43_ minutes spent on discharge * Arely Prieto RN: PERFORM, SIGN, VERIFY Event Display: Case Management Discharge Plan Authored Date: [id number] Patient: JENNIFER RODAS Age: 88 years Sex: Male : 1935 Associated Diagnoses: None Author: Arely Prieto RN Discharge Plan Case Management Discharge Plan : Case Management Discharge Plan Data 06/08/2023 10:22 EDT Discharge Level of Care at Discharge Homehealth/VNA Discharge VNA/Hospice/Home Care [facility] Name of Agency #1 [facility] Categories #1 Custodial Service Start Date and Time #1 06/08/2023 18:00 Service Comments #1 The above agency will be providing visiting home services. They should contact you within 24 ??? 48 hours of returning home. If they do not, please contact the company at the above number. 06/04/2023 14:07 EDT Discharge Level of Care at Discharge Homehealth/VNA Discharge VNA/Hospice/Home Care [facility] Certified Peer Specialist #1 intake Service Categories #1 Custodial Service Comments #1 the visiting nurse will call to set up a time to see you 1-2 days after discharge * Yessenia Gee RN: PERFORM Event Display: Patient Education/Instruction Authored Date: [id number] Inpatient Adult Discharge Instructions [address] [address] Name: JENNIFER RODAS : 1935 Visit: 05/30/2023 13:57:00 Current Date: 06/08/2023 10:38 Account: [id number] Inpatient Adult Discharge Instructions We would like [...] and their families. Surveys are administered by [employer] ?? If further treatment with your primary care physician or another doctor is recommended, it is important for you to keep the appointment. Call your primary care physician or return to the Emergency Department immediately if your condition worsens, fails to improve, or new symptoms develop. If you need to find a doctor, you can call [facility] Link for a referral at [phone] or toll free at [phone] ([phone]) or log in to [email or web address].. ?? [facility], in keeping with [facility] guidance, no longer requires face masks [...] a health care wilfredo of your choosing. [employer] is a website that allows you to securely view your medical information including your hospital discharge summary, office visit summaries, medications and follow-up visits. You can also request appointments, renew medications, and request access to your medical information using a health care wilfredo of your choosing, or just ask a question. You can enroll at [email or web address] or register during your next office visit. You have been discharged from [facility], Patient Care Unit: W4. If you have any questions regarding these instructions after you leave, please call us and we will be happy to assist you. [facility] Your Care Team Attending Physician Jamie DSOUZA, Rama Bedolla Consulting Providers Calderon DSOUZA, Brooks Elena; Sallie Hurt; Martha DSOUZA, Merritt; Chelo DSOUZA, Tamica Discharging Providers Jamie DSOUZA, Rama Bedolla Reason for Admission pt unarousable this AM, able to follow commands, nonverbal. Pt hypocapnic, tachypnic. Profound oralsecretions, drooling. Your Diagnosis Hypoxia Nonverbal History of CVA with residual deficit Squamous cell carcinoma lung Hypertension COPD with exacerbation Pneumonia Hyperlipidemia Open leg wound Hypothyroid Heart failure with mid-range ejection fraction Dysphagia Skin cancer Diabetes mellitus Aspiration of food Tests Performed Below is a partial list of the tests performed during your hospitalization. You may have had other tests and procedures not included in this list. Please discuss all test results with your provider. Basic Metabolic Panel BUN Calcium Level CBC CBC w/ Differential Comprehensive Metabolic Panel Creatinine Electrolytes Glucose Level GLUCOSE POC HOLD BLUE TUBE HOLD GREEN TUBE Lactate Level Magnesium Level MRSA PCR Nasal Swab?-- Results Pending -- Strep Pneumoniae Urinary Ag TP/CR RATIO, URINE UA W/Reflex Culture & Renal Urine Legionella Antigen CT Head/Brain W/O Contrast XR Chest 2 Views Frontal and Lat XR Toe 2nd Left Foot You will be contacted within 72 hours with your results. Primary Care Provider Arjun Hampton DO Advance Directive Health Care Proxy on File Yes - Health Care Proxy Yes - MOLST Discharge Vitals Temperature: 97.4 DegF Height: 183 cm Pulse Rate: 81 bpm Weight: 91 kg Respiratory Rate: 18 br/min Body Mass Index:??27.17 kg/m2??High Systolic Blood Pressure:??146 mm Hg??High Body surface area: 2.15 Diastolic Blood Pressure: 71 mm Hg ?? Oxygen Saturation: 98 % ?? Studies Pending All tests and labs ordered during this hospital stay have been completed unless listed below. Please discuss all pending results with your provider listed above in these instructions. ?? MRSA PCR Nasal Swab Sputum Culture w/ Gram Smear What to do next Instructions From Your Doctor ?? - Admitted due to aspiration pneumonia due to poor swallowing in setting of previous stroke - back to his baseline state - Will continue doxycycline antibiotics for 6 weeks for foot infection - Please follow with your primary care physician ? Discharge Orders Diet:??Dysphagia Pureed (Level 1) Diet Activity:??As tolerated Wound Care:??Wound Site: Left 2nd and 3rd toe Daily Yes. Wound Site: Right Heel and Toes FLOAT HEELS ON Z-BOOTS (No Mepilex) Daily. Code Status:??Limited Resuscitation No Intubation & Mechanical Ventilation Condition:??Stable Prognosis:??Poor Scheduled Follow-Up Appointments Thursday 10:00 AM EDT ?? With: Clint Hunt MD Where: [facility] [address] [place] [address]- Status: Pending You Need to Schedule the Following Appointments Follow Up with??Arjun Hampton DO When:??Within Within one week Where: ?? Discharge Medications JENNIFER RODAS :1935 Visit Date:05/30/2023 Medications: Please continue your medications until treatment is completed or stopped by your provider. Medications not listed below should be discontinued. Discuss any questions related to medications with your provider. What How Much When Why Instructions Next Dose Changed Doxycycline (doxycycline hyclate 100 mg oral tablet) 1 capsule Oral Every 12 hours Duration: 30 Days Pickup at [facility]/pharmacy #[id number] 9pm tonight 06/08 Changed Sucralfate (sucralfate 1 gm oral tablet) 1 tab(s) Oral Twice a day tonight 06/08 Unchanged Albuterol/ Ipratropium (albuterol-ipratropium 3 mg-0.5 mg/ 3 ml inhalation solution) 3 Milliliter Inhalation 4 times a day as ordered Unchanged Allopurinol (allopurinol 300 mg oral tablet) 1 tab(s) Oral Daily tomorrow morning 06/09 Unchanged Ammonium Lactate 12% (ammonium lactate 12% topical lotion) See instructions APPLY TOPICALLY DAILY TO THE LEGS DIREDTED ?? as ordered Unchanged Aspirin (aspirin 81 mg oral tablet) 1 tab(s) Oral Daily tomorrow morning 06/09 Unchanged Atorvastatin (atorvastatin 80 mg oral tablet) 1 tab(s) Oral Daily tomorrow morning 06/09 Unchanged Benzonatate (benzonatate 200 mg oral capsule) 1 capsule Oral 3 times a day as needed for as needed for cough as ordered Unchanged Budesonide (budesonide 0.5 mg/ 2 mL inhalation suspension) 2 Milliliter Nebulized inhalation Twice a day tonight 06/08 Unchanged Cadexomer-Iodine Topical (Iodosorb 0.9% topical gel) See instructions Apply to left toe ulcer every other day and cover with gauze dressing ?? as ordered Unchanged Carvedilol (carvedilol 3.125 mg oral tablet) 3.125 Milligram Oral Twice a day Duration: 30 Days tonight 06/08 Unchanged Cholecalciferol (Vitamin D3 1000 intl units oral tablet) 1 tab(s) Oral Daily tomorrow morning 06/09 Unchanged Clonazepam (clonazePAM 0.5 mg oral tablet) 0.5 tab(s) Oral Daily at Bedtime tonight 06/08 Unchanged Docusate (docusate sodium 150 mg/ 15 ml oral liquid) 10 Milliliter Oral Twice a day tonight 06/08 Unchanged Fluticasone Nasal (fluticasone 50 mcg/ inh nasal spray) 2 spray(s) Nares, Both Daily in the morning tomorrow morning 06/09 Unchanged Furosemide (Lasix 20 mg oral tablet) 20 Milligram Oral Daily tomorrow morning 06/09 Unchanged Gabapentin (gabapentin 100 mg oral capsule) 2 capsule Oral 3 times a day this afternoon 3pm 06/08 Unchanged Insulin Glargine (Basaglar KwikPen 100 units/ mL subcutaneous solution) See instructions INJECT 10 UNITS SUBCUTANEOUSLY DAILY AT BEDTIME ?? tonight 06/08 Unchanged Levothyroxine (levothyroxine 0.05 mg oral tablet) See instructions 1 tablet By Mouth Thursday-Thursday 2 tabs po Thu-Thursday ?? as ordered Unchanged Loratadine (Claritin 10 mg oral tablet) 1 tab(s) Oral Daily tomorrow morning 06/09 Unchanged Multivitamin 1 tab Oral Daily tomorrow morning 06/09 Unchanged [place]-3 Polyunsaturated Fatty Acids (Fish Oil 1000 mg oral capsule) 1 capsule Oral Daily tomorrow morning 06/09 Unchanged Omeprazole (omeprazole 40 mg oral enteric coated capsule) 1 capsule Oral Daily tomorrow morning 06/09 Unchanged Ondansetron (ondansetron 4 mg oral tablet) 1 tab(s) Oral Every 8 hours as needed for Nausea & Vomiting as ordered Unchanged Primidone (primidone 50 mg oral tablet) TAKE 2 TABLETS BY MOUTH 3 TIMES A DAY ?? 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 as ordered Unchanged Tamsulosin (tamsulosin 0.4 mg oral capsule) TAKE 1 CAPSULE BY MOUTH EVERY DAY ?? tomorrow morning 06/09 Unchanged Thiamine 100 Milligram Oral Daily tomorrow morning 06/09 Unchanged Triamcinolone Topical (triamcinolone 0.1% topical cream) 1 wilfredo Topically 3 times a day apply a thin film to affected area ?? this afternoon 06/08 Unchanged Ubiquinone (Co Q-10) 100 Milligram Oral Daily tomorrow morning 06/09 Pharmacy Information [facility]/pharmacy #[id number]: [address], [place] [phone] ?? What How Much When Comments Stop Taking diosmiplex (diosmiplex 630 mg oral tablet) 1 tab(s) Oral Daily Test Results Below is a partial list of the most recent Laboratory test results done prior to this discharge. You may have had other tests and procedures not included in this list. Please discuss all test resultswith your provider. Est Creatinine Clearance - 83.26 mL/min (06/05/2023) Basic Metabolic Panel (06/03/2023) ???Sodium - 148 mmol/L???Potassium - 3.2 mmol/L???Chloride - 113 mmol/L???Bicarbonate Level - 26 mmol/L???Anion Gap - 9???Glucose Level - 142 mg/dL???BUN - 19 mg/dL???Creatinine-Blood - 0.7 mg/dL???Estimated GFR Creatinine - 90 ML/MIN/1.73 M2???Calcium - 8.6 mg/dL BUN (06/05/2023) ???BUN - 13 mg/dL Calcium Level (06/05/2023) ???Calcium - 8.5 mg/dL CBC (06/05/2023) ???WBC - 6.2 k/mm3???RBC - 3.54 m/mm3???Hgb - 9.4 Gm/dL???Hct - 30.7 %???MCV - 86.7 femtoliters???MCH - 26.6 pg???MCHC - 30.6 g/dL???Platelet Count - 236 k/mm3???RDW-SD - 52.7 femtoliters???MPV - 10.5 femtoliters???Nucleated RBC (Automated) - 0.0 #/100 WBC'S???Abs. NRBC - 0.0 k/mm3 CBC w/ Differential (05/31/2023) ???WBC - 11.2 k/mm3???RBC - 3.97 m/mm3???Hgb - 10.7 Gm/dL???Hct - 36.4 %???MCV - 91.7 femtoliters???MCH - 27.0 pg???MCHC - 29.4 g/dL???Platelet Count - 325 k/mm3???RDW-SD - 57.5 femtoliters???MPV - 9.4 femtoliters???Nucleated RBC (Automated) - 0.0 #/100 WBC'S???Abs. NRBC - 0.0 k/mm3???Abs. Neut - 10.0 k/mm3???Abs. Lymph - 0.4 k/mm3???Abs. [place] - 0.8 k/mm3???Abs. Eo - 0.0 k/mm3???Abs. Baso - 0.0 k/mm3???Neut % - 89.7 %???Lymph % - 3.4 %???[place] % - 6.9 %???Eos % - 0.0 %???Baso % - 0.0 %???RBC Morphology - MODERATE???Platelet Estimate - ADEQUATE Comprehensive Metabolic Panel (05/30/2023) ???Sodium - 138 mmol/L???Potassium - 4.4 mmol/L???Chloride - 103 mmol/L???Bicarbonate Level - 24 mmol/L???Anion Gap - 11???Glucose Level - 142 mg/dL???BUN - 27 mg/dL???Creatinine-Blood - 0.8 mg/dL???Estimated GFR Creatinine - 86 ML/MIN/1.73 M2???Calcium - 9.2 mg/dL???Protein, Total - 5.8 Gm/dL???Alb umin - 3.2 Gm/dL???AG Ratio - 1.2???Alkaline Phosphatase - 120 units/L???AST (SGOT) - 28 units/L???ALT (SGPT) - 21 units/L???Bilirubin, Total - 0.2 mg/dL Creatinine (06/05/2023) ???Creatinine-Blood - 0.7 mg/dL???Estimated GFR Creatinine - 91 ML/MIN/1.73 M2 Electrolytes (06/05/2023) ???Sodium - 139 mmol/L???Potassium - 3.5 mmol/L???Chloride - 105 mmol/L???Bicarbonate Level - 24 mmol/L???Anion Gap - 10 Glucose Level (06/05/2023) ???Glucose Level - 155 mg/dL GLUCOSE POC (06/08/2023) ???Glucose, POC - 190 mg/dL HOLD BLUE TUBE (05/30/2023) ???Hold Blue Top - SPECIMEN DISCARDED AFTER 4 HOURS. HOLD GREEN TUBE (05/30/2023) ???Hold Green Top - SPECIMEN DISCARDED AFTER 1 WEEK Lactate Level (05/30/2023) ???Lactate - 1.5 mmol/L Magnesium Level (06/03/2023) ???Magnesium - 1.9 mg/dL Strep Pneumoniae Urinary Ag (06/01/2023) ???S. Pneumococcus Urinary Ag - NEGATIVE TP/CR RATIO, URINE (05/30/2023) ???Protein, Total Urine Random - 38 mg/dL???TP/Cr Ratio - 0.92???Creatinine, Urine - 41.8 mg/dL UA W/Reflex Culture & Renal (05/30/2023) ???Appear/Color, Urine - LIGHT YELLOW???Clarity - CLEAR???Specific [place], Urine - 1.012???pH, Urine - 6.5???Albumin, Urine - 1+???Glucose, Urine - NEGATIVE???Ketones, Urine - NEGATIVE???Bilirubin, Urine - NEGATIVE???Hemoglobin, Urine - NEGATIVE???Nitrite, Urine - NEGATIVE???Leukocyte, Urine - NEGA TIVE???Urobilinogen - NORMAL???WBC's, Urine - 1 /HPF???RBC's, Urine - 1 /HPF???Mucus - SLIGHT???Culture Indication - CULTURE NOT INDICATED Urine Legionella Antigen (06/01/2023) ???Legionella pneumophila Antigen - NEGATIVE Allergies (NKA means No Known Allergies) NKA [...] Educational Leaflet Providered with your Discharge Instructions. Dysphagia (Adult)?? Valuables and Belongings I fully understand and agree that [facility] accepts no responsibility for all [...] Review of Valuable and Belonging List: With patient, With witness Date for Pt to Sign Valuables/Belongings: 06/05/23 18:52:00 ?? Other Discharge Information ?? Wound Assessment?? Wound Assessment?? Wound Location I: Head Wound Type I: Unknown Etiology Wound I, Present on Admission: Yes Wound Location II: Toes, left Wound Type II: Unknown Etiology Wound II, Present on Admission: Yes Wound Location III: Toes, right Wound Type III: Unknown Etiology Wound III, Present on Admission: Yes ? Case Management Discharge Plan?? Discharge Plan?? Discharge Agency Information?? Discharge Level of Care at Discharge: Homehealth/VNA Name of Agency #1: [facility] Discharge VNA/Hospice/Home Care: [facility] [place] [facility] Certified Peer Specialist #1: intake ?? Service Start Date and Time #1: 06/08/23 18:00:00 ?? Service Categories #1: Custodial ?? Service Comments #1: The above agency will be providing visiting home services. They should contactyou within 24 ??? 48 hours of returning home. If they do not, please contact the company at the above number. ?? Pulmonary Rehab Status?? Pulmonary Rehab Discharge Status?? Respiratory Rate: 18 br/min ? Common Emergency Awareness Tips IS [...] are strongly encouraged to quit. Please call [facility] [employer] Link at [phone] or [phone] ([phone]) or log in to [email or web address] for referrals to smoking cessation programs. ?? 440 Suicide & Crisis Lifeline is available 16/03 if you or someone you know needs to find a reason to keep living. By calling 580 you'll be connected to a skilled, trained counselor at a crisis center in your area. INPATIENT DISCHARGE INSTRUCTIONS SIGNATURE JENNIFER MACKAY Location:[facility] Registration Date and Time:05/30/2023 13:57 EDT Primary Care Physician: Arjun Hampton DO, Attending Physician: Rama Ayala MD, I JENNIFER RODAS, have received the above patient education materials/instructions and have verbalized understanding. If ambulance or transport services are being used I further acknowledge being givena choice of service. ?? If you need to contact me, please call me at this number: . Patient/Medical Laboratory Manager Name: Patient/Medical Laboratory Manager Signature: Relationship to Patient: Witness Name/Signature: Date: * Jamie DSOUZA, Rama H: PERFORM Event Display: Patient Education Leaflets Authored Date: Dysphagia (Adult) ?? [id number] Dysphagia (Adult) Dysphagia is??trouble swallowing.??If you have dysphagia, you may have symptoms that include: ??? Choking or coughing when you eat or drink ??? Food getting stuck ??? Drooling ??? Inability to swallow ??? Pain behind the breastbone after swallowing ??? Vomiting after you eat or drink ??? Inhaling into the lungs (aspirating) foods or liquids when you swallow The main causes of dysphagia are problems that affect the mouth, throat or tongue. Dysphagia may becaused by a problem with the tube (esophagus) that carries food from the mouth to the stomach. These include blockage, swelling, or irritation from acid reflux or injury. An infection of the esophagus or an allergic reaction in the esophagus can also cause dysphagia. Problems in the brain, such as a stroke or Parkinson disease, can affect the muscles that coordinate swallowing. Dysphagia is treated by treating the cause. Your healthcare provider may assess you using X-ray, special esophagus monitors, a fiber optic look at swallowing, or an upper endoscopy. This test uses a thin, lighted tube (catheter) sent through your mouth to the esophagus. You may be given medicine toreduce stomach acid or control muscle spasms. If the problem doesn't go away, you may have a procedure to widen (dilate) the esophagus.??If you have muscle or nerve problems, you may be advised to see a speech or occupational therapist. They??may give you exercises and instructions to help make eating safer. If you have an infection or allergic condition, your healthcare provide will prescribe medicine for it. Home care To help ease the symptoms of dysphagia: ??? Take any medicine you???ve been given exactly as directed. Ask for thickened liquid medicines if you need them. ??? To make eating easier: o Eat slowly.?? o Eat in a relaxed setting. o Don???t talk while you eat. o Take small bites. Chew slowly and completely before you swallow. o Sit upright during and after meals. Chewing food releases enzymes in yourmouth that start the digestive process. Chew soft foods at least 5 to10 times. Chew more dense foodsuch as meats and vegetables up to 30 times before swallowing. Count the number of times you chew until you get a sense of how soft the food needs to be before swallowing. o Don't eat dry bread products or meat fibers. o Puree solid foods if needed. Thicken liquids with milk, juice, broth, gravy, or starch to make them easier to swallow. o Ask your healthcare provider if a liquid diet may be better for you. o Ask for a referral to a excavating machine operator if you are losing weight or having trouble getting enough food each day ?? Follow-up care Follow up with your healthcare provider or as directed. Your healthcare provider can give you information about tests you may need.? When to seek medical advice Call your healthcare provider right away for any of the following: ??? Inability to keep down food or liquid ??? Symptoms get worse quickly ??? Coughing that won't stop ??? Continuing to lose weight ??? Fever of 100.4??F (38??C) or higher, or as directed by your provider ??? Other symptoms as directed by your provider ?? Call 911 Call 911 for any of the following: ??? Trouble breathing ??? Inability to talk ??? Drooling, inability to control secretions ??? Loss of consciousness ?? Last Reviewed Date: 2021 ?? 0134-4272 The [employer]. All rights reserved. This information is not intended as a substitute for professional medical care. Always follow your healthcare professional's instructions. ?? * Katie Mendez RN: VERIFY, PERFORM, SIGN Event Display: Case Management Discharge Plan Authored Date: [id number] Patient: JENNIFER RODAS Age: 88 years Sex: Male : 1935 Associated Diagnoses: None Author: Katie Mendez RN Discharge Plan Case Management Discharge Plan : Case Management Discharge Plan Data 06/04/2023 14:07 EDT Discharge Level of Care at Discharge Homehealth/VNA Discharge VNA/Hospice/Home Care [facility] [place] [facility] Certified Peer Specialist #1 intake Service Categories #1 Custodial Service Comments #1 the visiting nurse will call to set up a time to see you 1-2 days after discharge Patient Care team information Care Team Personnel Name: Lucina Shah RN Position: [facility] SN RN Member Role: Primary Care Nurse Name: Isaias Aparicio RN Position: [facility] RN Member Role: Primary Care Nurse Name: Suyapa Schmitz RN Position: [facility] RN Member Role: Primary Care Nurse Name: Sabina Simpson RN Position: [facility] RN Member Role: Primary Care Nurse Name: Olimpia Wallis RN Position: [facility] SN RN Member Role: Primary Care Nurse Name: Miguel Munoz MD Position: [facility] Renal MD Member Role: Lifetime Consulting Physician Address: Address: [address] [place] [address], [address] [facility] [place] [address]- Name: Naz Fleming MD Position: [facility] Physician - Primary Care Member Role: Lifetime Consulting Physician Address: Address: [address] [place] [address] Geriatric & [place] [address]- Name: Gladys Garvin RN Position: [facility] RN Member Role: Primary Care Nurse Name: Nayeli Quintana RN Position: [facility] RN Member Role: Primary Care Nurse Name: Tamica Vernon RN Position: [facility] RN Member Role: Primary Care Nurse Name: Lucina Ugalde RN Position: [facility] RN Member Role: Primary Care Nurse Name: Deyanira Schwartz Position: [facility] vat skimmer Member Role: Retail Representative Name: Arjun Hampton DO Position: [facility] Physician - Primary Care Member Role: PCP Address: Address: [address] [place] [address] [place] [address]- Name: Tonya Watkins Position: [facility] RN Member Role: Primary Care Nurse Name: Jeromy Rivero RN Position: [facility] AMB Nurse Member Role: Primary Care Nurse Name: Deyanira Douglas RN Position: [facility] Onco RN Member Role: Primary Care Nurse Name: Brittney Sanchez RN Position: [facility] RN Member Role: Primary Care Nurse Name: Taisha Anguiano Position: [facility] AMB Nurse Member Role: Lifetime Consulting Physician Name: Kali Roberts Jr Position: [facility] ED RN W/OE and Tasks Member Role: Primary Care Nurse Name: Melissa Jordan RN Position: [facility] RN Member Role: Primary Care Nurse Name: Blaine Cotter RN Position: [facility] RN Member Role: Primary Care Nurse Name: Erin Pagan RN Position: [facility] Meters Superintendent Member Role: Primary Care Nurse Name: Jeromy Estrella RN Position: [facility] RN Member Role: Primary Care Nurse Name: Edmond Bingham RN Position: [facility] Onco RN Member Role: Primary Care Nurse Name: Nora Guerrero RN Position: [facility] RN Member Role: Primary Care Nurse Name: Mitali Webb RN Position: [facility] RN Member Role: Primary Care Nurse Name: Jacklyn Machado RN Position: [facility] Nurse Member Role: Primary Care Nurse Name: Keyon Justin RN Position: [facility] RN Member Role: Primary Care Nurse Address: Address: [address] [place] [address]- Name: Cora Hernandez RN Position: [facility] Onco RN Member Role: Primary Care Nurse Name: Shadi Frazier RN Position: [facility] RN Member Role: Primary Care Nurse Name: Messi SMITH Attending Position: [facility] ED Medicine MD Name: Osito Mora Position: [facility] ED TA [facility] Member Role: Patient Care Provider Name: Mitul Kilgore DO Position: [facility] Resident Member Role: ED Resident Address: Address: [address] [place] [address] [place] [address]- Name: Alma Rosa Wilkinson RN Position: [facility] ED RN W/OE and Tasks Member Role: Patient Care Provider Name: Randi Gomes Position: [facility] ED OA Charge Member Role: ED Paper Baling Machine Operator Name: Kuldip Vance RN Position: [facility] ED RN W/OE and Tasks Member Role: Patient Care Provider Care Team Related Persons Name: HOUSTON THOMPSON Address: [address] [place] [address] Name: SCARLETT RODAS Address: [address] [place] [address]
--- OUTSIDE RECORDS SUMMARY | 2023-08-06 10:11 | XMS_ITS | Continuity of Care Document ---
Author Name Unknown Organization W[facility] Care Address [address] [place] [address]- Care Team Providers Care Game Breeding Farm Manager Name Role Phone Arjun Hampton DO Primary Care Physician Encounter [facility] [place] [id number] Date(s): 04/22/23 - 05/28/23 Wound Care [address] [place] [id number] Attending Physician: Clint Hunt MD Admitting Physician: [...] 1 08/04/14 Recorded 1Result Comment[facility] Medications albuterol-ipratropium 3 mg-0.5 mg/3 ml inhalation [...] # 225 mL, 0 Refills, [facility], 20, APPLY TOPICALLY DAILY TO THE LEGS [...] 15 Unknown, 1 Refills, 07/10/22 6:58:00 EST, [facility]/pharmacy #[id number], 180, cm, 04/18/22 11:39:00 EDT, [...] 05/16/23 9:38:00 EDT, Route to Pharmacy Electronically, [facility]/pharmacy #[id number], Partial fill upon patient request [...] mL, 0 Refills, Maintenance, 09/11/22 7:42:00 EST, [facility]/pharmacy #[id number], Partial fill upon patient request [...] capsule, By Mouth, Every 12 hours, for 14 days, # 28 capsule, 0 Refills, Acute 06/09/23 10:47:00 EDT, 05/26/23 10:47:00 EDT, Capsule, [facility]/pharmacy #[id number], Partial fill upon patient request if the prescription is for a schedule II opioid drug., 183, c... Start Date: 05/26/23 Stop Date: 06/09/23 Status: Ordered Fish Oil 1000 mg oral capsule 1 capsule = 1,000 mg, By Mouth, Daily, 0 Refills, Maintenance, 07/28/18 21:41:44 EST Start Date: 07/28/18 Status: Ordered fluticasone 50 mcg/inh nasal spray 2 sprays, Nares, Both, Daily in AM, 0 Refills, Maintenance, 03/27/20 21:59:00 EDT, [place] Start Date: 03/27/20 Status: Ordered gabapentin 100 [...] 90 tablet, 1 Refills, 05/19/23 11:42:00 EDT, [id number], 183, cm, 05/16/23 8:59:00 EDT, Height, [...] tablet, 1 Refills, Maintenance, 01/13/23 14:16:00 EDT, [facility]/pharmacy #[id number], Partial fill upon patient request [...] 06/15/23 9:39:00 EDT, 05/16/23 9:39:00 EDT, Cream, [facility]/pharmacy #[id number], Partial fill upon patient request [...] 2 Refills, Maintenance, 02/17/23 14:19:00 EDT, Cream, [facility]/pharmacy #[id number], Partial fill upon patient request [...] 5Neuro, Dr Dalton Perry, [facility]. 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 Nitin Social History Social History Type Response Smoking Status Former smoker entered on: 09/23/15 Sex Patient Care team information Care Team Personnel Name: Lucina Shah RN Position: [facility] RN Member Role: Primary Care Nurse Name: Isaias Aparicio RN Position: S RN Member Role: Primary Care Nurse Name: Sabina Simpson RN Position: S RN Member Role: Primary Care Nurse Name: Olimpia Wallis RN Position: [facility] RN Member Role: Primary Care Nurse Name: Miguel Munoz MD Position: [facility] Renal MD Member Role: Lifetime Consulting Physician Address: Address: [address] [place] [address], [address] [facility] [address] Name: Naz Fleming MD Position: [facility] Physician - Primary Care Member Role: Lifetime Consulting Physician Address: Address: [address] [facility] Pall[facility] Care [place], [place] - [place] Name: Nayeli Quintana RN Position: [facility] RN Member Role: Primary Care Nurse Name: Tamica Vernon RN Position: [facility] RN Member Role: Primary Care Nurse Name: Lucina Ugalde RN Position: [facility] RN Member Role: Primary Care Nurse Name: Deyanira Schwartz Position: [facility] nutrition services aide Member Role: Pumping Plant Operator Name: Arjun Hampton DO Position: [facility] Physician - Primary Care Member Role: PCP Address: Address: [address] [facility] Care [place], [place] - [place] Name: Jeromy Rivero RN Position: [facility] AMB Nurse Member Role: Primary Care Nurse Name: Deyanira Douglas RN Position: [facility] Onco RN Member Role: Primary Care Nurse Name: Brittney Sanchez RN Position: [facility] RN Member Role: Primary Care Nurse Name: Taisha Anguiano Position: [facility] AMB Nurse Member Role: Lifetime Consulting Physician Name: Kali Roberts Jr Position: [facility] ED RN W/OE and Tasks Member Role: Primary Care Nurse Name: Melissa Jordan RN Position: [facility] RN Member Role: Primary Care Nurse Name: Erin Pagan RN Position: [facility] Hospital Log Grader Member Role: Primary Care Nurse Name: Jreomy Estrella RN Position: [facility] RN Member Role: Primary Care Nurse Name: Edmond Bingham RN Position: [facility] Onco RN Member Role: Primary Care Nurse Name: Nora Guerrero RN Position: [facility] RN Member Role: Primary Care Nurse Name: Jacklyn Machado RN Position: [facility] AMB Nurse Member Role: Primary Care Nurse Name: Keyon Justin RN Position: [facility] RN Member Role: Primary Care Nurse Address: Address: [address] [place] [address]- [place] Name: Cora Hernandez RN Position: [facility] Onco RN Member Role: Primary Care Nurse Name: Shadi Frazier RN Position: [facility] RN Member Role: Primary Care Nurse Care Team Related Persons Name: DEMOND JAMESON Address: [address] [place], [place] Name: SCARLETT JAMESON Address: [address] [place] [address] Name: VIDHI JAMESON Address: [address] [place] [address]
--- OUTSIDE RECORDS SUMMARY | 2023-08-06 10:12 | XMS_ITS | Continuity of Care Document ---
Author Name Unknown Organization [facility] ter Address [address] [place] [id number]- Care Team Providers Care Police Dispatcher Name Role Phone Arjun Hampton DO Primary Care Physician Encounter [facility] [id number] Date(s): 12/19/22 - 01/31/[address] [address] Attending Physician: Adrian Carty MD Admitting Physician: Adrian Carty MD Referring Physician: Adrian Carty MD Allergies, Adverse Reactions, Alerts No Known [...] 23-valent vaccine 1 08/04/14 Recorded 1Result Comment: [facility] store [id number] Medications albuterol-ipratropium 3 mg-0.5 mg/3 ml inhalation [...] # 225 mL, 0 Refills, [id number], 20, APPLY TOPICALLY DAILY TO THE LEGS [...] 15 Unknown, 1 Refills, 07/10/22 6:58:00 EST, [facility]/pharmacy #[id number], 180, cm, 04/18/22 11:39:00 EDT, [...] mL, 0 Refills, Maintenance, 09/11/22 7:42:00 EST, [facility]/pharmacy #[id number], Partial fill upon patient request [...] AM, 0 Refills, Maintenance, 03/27/20 21:59:00 EDT, [place] Start Date: 03/27/20 Status: Ordered furosemide 20 [...] 1 Refills, Maintenance, 12/26/22 14:55:00 EDT, Tablet, [facility], Partial fill upon patient request if the prescription is for a schedule II opioid drug., 180, cm, 12/26/22 11:39:... Start Date: 12/26/22 Stop Date: 02/24/23 Status: Ordered levothyroxine 0.05 mg oral tablet See Instructions, 1 tablet By Mouth Thursday-Thursday 2 tabs po Thu-Thursday, # 90 tablet, 3 Refills, 04/17/22 17:59:00 EDT, [facility]/pharmacy #[id number], 180, cm, 02/21/22 11:07:00 EDT, [...] tablet, 1 Refills, Maintenance, 01/13/23 14:16:00 EDT, [facility]/pharmacy #[id number], Partial fill upon patient request [...] 4Neuro, Dr Dalton Perry, [facility]. 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 Nitin Social History Social History Type Response Smoking Status Former smoker entered on: 09/23/15 Sex Patient Care team information Care Team Personnel Name: Lucina Shah RN Position: [facility] SN RN Member Role: Primary Care Nurse Name: Isaias Aparicio RN Position: [facility] RN Member Role: Primary Care Nurse Name: Sabina Simpson RN Position: [facility] RN Member Role: Primary Care Nurse Name: Olimpia Wallis RN Position: [facility] SN RN Member Role: Primary Care Nurse Name: Miguel Munoz MD Position: [facility] Renal MD Member Role: Lifetime Consulting Physician Address: Address: [address] [place] [address], [address] [facility] [place] [place] [address] Name: Naz Fleming MD Position: [facility] Physician - Primary Care Member Role: Lifetime Consulting Physician Address: Address: [address] [place] [address] [facility] [place] [address]- [place] Name: Nayeli Quintana RN Position: [facility] RN Member Role: Primary Care Nurse Name: Tamica Vernon RN Position: [facility] RN Member Role: Primary Care Nurse Name: Arjun Hampton DO Position: [facility] Physician - Primary Care Member Role: PCP Address: Address: [address] [place] [address] [place] [address]- Name: Jeromy Rivero RN Position: [facility] Nurse Member Role: Primary Care Nurse Name: Taisha Anguiano Position: [facility] AMB Nurse Member Role: Lifetime Consulting Physician Name: Kali Roberts Jr Position: [facility] ED RN W/OE and Tasks Member Role: Primary Care Nurse Name: Melissa Jordan RN Position: [facility] RN Member Role: Primary Care Nurse Name: Erin Pagan RN Position: [facility] Hospital Hot Dip Plating Supervisor Member Role: Primary Care Nurse Name: Jeromy Estrella RN Position: [facility] RN Member Role: Primary Care Nurse Name: Nora Guerrero RN Position: [facility] RN Member Role: Primary Care Nurse Name: Jacklyn Machado RN Position: [facility] AMB Nurse Member Role: Primary Care Nurse Name: Keyon Justin RN Position: [facility] RN Member Role: Primary Care Nurse Address: Address: [address] [place] [address]- Care Team Related Persons Name: LISSETTEKODAKSCARLETT Address: home [address] [place] [address] Name: VIDHI JAMESON Address: home [address] [place] [address]
--- OUTSIDE RECORDS SUMMARY | 2023-08-06 10:12 | XMS_ITS | Continuity of Care Document ---
Author Name Unknown Organization [facility] Address [address] [facility], [address] Floor, [address] [place] [address]- Care Team Providers Care Sewing Machine Repairer Name Role Phone Arjun Hampton DO Primary Care Physician Encounter [facility] Date(s): 02/03/23 - 03/05/23 [facility] [address], [address], [address] [place] [id number] Attending Physician: AdmDelmi ying Admitting Physician: [...] 23-valent vaccine 1 08/04/14 Recorded 1Result Comment: [facility] store [address] Medications albuterol-ipratropium 3 mg-0.5 mg/3 ml inhalation [...] # 225 mL, 0 Refills, [id number], 20, APPLY TOPICALLY DAILY TO THE LEGS [...] 15 Unknown, 1 Refills, 07/10/22 6:58:00 EST, [facility]/pharmacy #[id number], 180, cm, 04/18/22 11:39:00 EDT, [...] mL, 0 Refills, Maintenance, 09/11/22 7:42:00 EST, [facility]/pharmacy #[id number], Partial fill upon patient request [...] AM, 0 Refills, Maintenance, 03/27/20 21:59:00 EDT, [place] Start Date: 03/27/20 Status: Ordered furosemide 20 [...] 1 Refills, Maintenance, 12/26/22 14:55:00 EDT, Tablet, [facility], Partial fill upon patient request if the prescription is for a schedule II opioid drug., 180, cm, 12/26/22 11:39:... Start Date: 12/26/22 Stop Date: 02/24/23 Status: Ordered levothyroxine 0.05 mg oral tablet See Instructions, 1 tablet By Mouth Thursday-Thursday 2 tabs po Thu-Thursday, # 90 tablet, 3 Refills, 04/17/22 17:59:00 EDT, [facility]/pharmacy #[id number], 180, cm, 02/21/22 11:07:00 EDT, [...] tablet, 1 Refills, Maintenance, 01/13/23 14:16:00 EDT, [facility]/pharmacy #[id number], Partial fill upon patient request [...] 2 Refills, Maintenance, 02/17/23 14:19:00 EDT, [place], [facility]/pharmacy #[id number], Partial fill upon patient request [...] 4Neuro, Dr Dalton Perry, [facility]. 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 Nitin Social History Social History Type Response Smoking Status Former smoker entered on: 09/23/15 Sex Patient Care team information Care Team Personnel Name: Lucina Shah RN Position: [facility] SN RN Member Role: Primary Care Nurse Name: Isaias Aparicio RN Position: [facility] RN Member Role: Primary Care Nurse Name: Sabina Simpson RN Position: [facility] RN Member Role: Primary Care Nurse Name: Olimpia Wallis RN Position: [facility] SN RN Member Role: Primary Care Nurse Name: Miguel Munoz MD Position: [facility] Renal MD Member Role: Lifetime Consulting Physician Address: Address: [address] [place] [address], [address] [facility] [place], [place] [address] Name: Naz Fleming MD Position: [facility] Physician - Primary Care Member Role: Lifetime Consulting Physician Address: Address: [address] [place] [address] [facility] [address] Name: Nayeli Quintana RN Position: [facility] RN Member Role: Primary Care Nurse Name: Tamica Vernon RN Position: [facility] RN Member Role: Primary Care Nurse Name: Arjun Hampton DO Position: [facility] Physician - Primary Care Member Role: PCP Address: Address: [address] [place] [address] [place] [address]- [place] Name: Jeromy Rivero RN Position: [facility] AMB Nurse Member Role: Primary Care Nurse Name: Deyanira Douglas RN Position: [facility] Onco RN Member Role: Primary Care Nurse Name: Taisha Anguiano Position: [facility] AMB Nurse Member Role: Lifetime Consulting Physician Name: Kali Roberts Jr Position: [facility] ED RN W/OE and Tasks Member Role: Primary Care Nurse Name: Melissa Jordan RN Position: [facility] RN Member Role: Primary Care Nurse Name: Erin Pagan RN Position: [facility] Hospital Fisher Purse Seine Member Role: Primary Care Nurse Name: Jeromy Estrella RN Position: [facility] RN Member Role: Primary Care Nurse Name: Edmond Bingham RN Position: [facility] Onco RN Member Role: Primary Care Nurse Name: Nora Guerrero RN Position: [facility] RN Member Role: Primary Care Nurse Name: Jacklyn Machado RN Position: [facility] Nurse Member Role: Primary Care Nurse Name: Keyon Justin RN Position: [facility] RN Member Role: Primary Care Nurse Address: Address: [address] [place] [address]- [place] Care Team Related Persons Name: DEMOND JAMESON Address: home [address] [place], [place] Name: SCARLETT JAMESON Address: home [address] [place], [place] Name: VIDHI JAMESON Address: [address] [place] [address]
--- OUTSIDE RECORDS SUMMARY | 2023-08-06 10:12 | XMS_ITS | Continuity of Care Document ---
Author Name Unknown Organization [facility] ter Address [address] [place] [address]- Care Team Providers Care Production Supervisor Off Shift Name Role Phone Arjun Hampton DO Primary Care Physician Encounter [facility] Date(s): 04/29/23 - 04/29/[address] [address]- Encounter Diagnosis Fall with no injury(Final) - 04/29/23 Discharge Disposition: A-D/C Home Attending Physician: Bobby Carty MD Admitting Physician: Bobby Carty MD Referring Physician: Not on Staff, Referring [...] 23-valent vaccine 1 08/04/14 Recorded 1Result Comment: [facility] store [id number] Medications albuterol-ipratropium 3 mg-0.5 mg/3 ml inhalation [...] # 225 mL, 0 Refills, [id number], 20, APPLY TOPICALLY DAILY TO THE LEGS [...] AM, 0 Refills, Maintenance, 03/27/20 21:59:00 EDT, [place] Start Date: 03/27/20 Status: Ordered FREESTYLE LITE [...] tablet, 1 Refills, Maintenance, 01/13/23 14:16:00 EDT, [facility]/pharmacy #[id number], Partial fill upon [...] 2 Refills, Maintenance, 02/17/23 14:19:00 EDT, [place], [facility]/pharmacy #[id number], Partial [...] 4Neuro, Dr Dalton Perry, [facility] 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 Taveras Results Radiology Reports * Exam Date Time Procedure Performing Provider Status 04/29/23 10:[address] Cervical Spine W/O Contrast Soo Mcnamara; Auth (Verified) Notes: (CT Cervical Spine W/O Contrast) Reason For Exam: Neck trauma, dangerous injury mechanism;Other: RESULT: CT Cervical Spine W/O Contrast CT Head/Brain W/O Contrast, CT Cervical Spine W/O Contrast INDICATION: Hx of Present Illness: pt found next to bed this AM after fall. lives with ; Reason: Trauma; Clinical Question(s): Hematoma; Order Comment: TECHNIQUE: Noncontrast head CT using axial technique was reconstructed in axial and coronal planes.Noncontrast spiral CT through the cervical spine was formatted in 3 planes. Automatic tube modulation was used for the cervical spine and iterative dose reconstruction was used for both the head and cervical spine to optimize scan parameters and image quality. CTDIvol Body: 13.72 mGy, DLP Body: 333 mGy*cm. CTDIvol Head: 38.54 mGy, DLP Head: 694 mGy*cm. 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 BRAIN AND EXTRA-AXIAL SPACES: No acute intracranial hemorrhage. Severe chronic white matter changes including large area of encephalomalacia left frontal, and moderate right frontotemporal. Additional areas of white matter chronic changes, severe in multifocal, also unchanged. 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 Moderate prominence of the ventricles and sulci consistent with parenchymal volume loss. Severe low-density white matter changes. Extra-axial intermediate density is seen, right parietal, up to 3 mm, representing nonacute or chronic trace subdural. There is no mass effect. No acute extra-axial hemorrhage. CALVARIUM, SKULL BASE, AND SOFT TISSUES: Post surgical changes of prior craniectomies and craniotomies. Fluid opacification of the right mastoid air cells diffusely which is new from the previous exam. Status-post bilateral lens extraction. The extracranial soft tissues are unremarkable. CERVICAL SPINE: No fracture. No acute osseous abnormalities. Normal alignment. No locked or perched facet. Kvrz-wn-msjfejfd multilevel degenerative disc space narrowing and end plate irregularity. OTHER BONES: No acute abnormality. CERVICAL SOFT TISSUES AND LUNG APICES: Upper lung severe pulmonary emphysema. Left apical nodules, the largest of which is 8 x 5 mm. Additional less well-defined cluster of nodules at series 602 image 177. This is new from the previous exam. These measure up to 5 mm Aortic arch and carotid vascular atherosclerosis. IMPRESSION: No acute abnormality of the head or cervical spine. 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 No mass effect. 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 Unchanged compared to CT of 07/26/2018 up to 8 mm solid nodule in the left apex. Cluster of additional new nodules, up to 5 mm, at the left apex. These could be postinfectious but are indeterminate. Recommend short interval CT chest, such as in 1-3 months to assess for resolution or persistence and completely evaluate the lungs. New fluid opacification of the right mastoid air cells without coalescence. WSN: [id number] Ordering Physician: Bobby Carty Dictated By: Kemi Dodd MD Dictated Date/Time: 04/29/23 11:26 a Reviewed By: Kemi Dodd MD Signed By: Kemi Dodd MD Signed Date/Time: 04/29/23 11:26 am Transcribed By: ANGELA Transcribed Date/Time: 04/29/23 10:57 am * Exam Date Time Procedure Performing Provider Status 04/29/23 10:[address] Head/Brain W/O Contrast Anders Dolores; Auth (Verified) Notes: (CT Head/Brain W/O Contrast) Reason For Exam: Trauma RESULT: CT Head/Brain W/O Contrast CT Head/Brain W/O Contrast, CT Cervical Spine W/O Contrast INDICATION: Hx of Present Illness: pt found next to bed this AM after fall. lives with ; Reason: Trauma; Clinical Question(s): Hematoma; Order Comment: TECHNIQUE: Noncontrast head CT using axial technique was reconstructed in axial and coronal planes.Noncontrast spiral CT through the cervical spine was formatted in 3 planes. Automatic tube modulation was used for the cervical spine and iterative dose reconstruction was used for both the head and cervical spine to optimize scan parameters and image quality. CTDIvol Body: 13.72 mGy, DLP Body: 333 mGy*cm. CTDIvol Head: 38.54 mGy, DLP Head: 694 mGy*cm. 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 BRAIN AND EXTRA-AXIAL SPACES: No acute intracranial hemorrhage. Severe chronic white matter changes including large area of encephalomalacia left frontal, and moderate right frontotemporal. Additional areas of white matter chronic changes, severe in multifocal, also unchanged. 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 Moderate prominence of the ventricles and sulci consistent with parenchymal volume loss. Severe low-density white matter changes. Extra-axial intermediate density is seen, right parietal, up to 3 mm, representing nonacute or chronic trace subdural. There is no mass effect. No acute extra-axial hemorrhage. CALVARIUM, SKULL BASE, AND SOFT TISSUES: Post surgical changes of prior craniectomies and craniotomies. Fluid opacification of the right mastoid air cells diffusely which is new from the previous exam. Status-post bilateral lens extraction. The extracranial soft tissues are unremarkable. CERVICAL SPINE: No fracture. No acute osseous abnormalities. Normal alignment. No locked or perched facet. Abbi-qp-ixkccbtp multilevel degenerative disc space narrowing and end plate irregularity. OTHER BONES: No acute abnormality. CERVICAL SOFT TISSUES AND LUNG APICES: Upper lung severe pulmonary emphysema. Left apical nodules, the largest of which is 8 x 5 mm. Additional less well-defined cluster of nodules at series 602 image 177. This is new from the previous exam. These measure up to 5 mm Aortic arch and carotid vascular atherosclerosis. IMPRESSION: No acute abnormality of the head or cervical spine. 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 No mass effect. 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 Unchanged compared to CT of 07/26/2018 up to 8 mm solid nodule in the left apex. Cluster of additional new nodules, up to 5 mm, at the left apex. These could be postinfectious but are indeterminate. Recommend short interval CT chest, such as in 1-3 months to assess for resolution or persistence and completely evaluate the lungs. New fluid opacification of the right mastoid air cells without coalescence. WSN: [id number] Ordering Physician: Bobby Carty Dictated By: Kemi Dodd MD Dictated Date/Time: 04/29/23 11:26 a Reviewed By: Kemi Dodd MD Signed By: Kemi Dodd MD Signed Date/Time: 04/29/23 11:26 am Transcribed By: ANGELA Transcribed Date/Time: 04/29/23 10:57 am Vital Signs Most recent to oldest [Reference Range]: 1 2 Oxygen Saturation [94-100 %] 95 % (04/29/23 1:00 PM) 90 % *L* (04/29/23 10:00 AM) Pulse Rate [55-90 bpm] 63 bpm (04/29/23 1:00 PM) 72 bpm (04/29/23 10:00 AM) Blood Pressure [90-138/55-84 mm Hg] 179/ 86mm Hg *H* (04/29/23 1:00 PM) 173/77mm Hg *H* (04/29/23 10:00 AM) Respiratory Rate [16-30 br/min] 20 br/mi n (04/29/23 1:00 PM) 18 br/min (04/29/23 10:00 AM) Temperature [96.8-100.4 DegF] 98.1 DegF (04/29/23 1:00 PM) 98.1 DegF (04/29/23 10:00 AM) Liters per Minute 2 L/min (04/29/23 1:00 PM) 2 L/min (04/29/23 10:00 AM) Mode of Delivery (Oxygen) Nasal cannula (04/29/23 1:00 PM) Nasal cannula (04/29/23 10:00 AM) Temperature Route Oral (04/29/23 1:00 PM) Oral (04/29/23 10:00 AM) Social History Social History Type Response Smoking Status Former smoker entered on: 09/23/15 Sex EKG study * Event Display: ECG 12-Lead Authored Date: Please click on pdf link to open report * Event Display: ECG 12-Lead Authored Date: Ventricular Rate: 63 BPM Atrial Rate: 63 BPM P-R Interval: 228 ms QRS Duration: 120 ms Q-T Interval: 394 ms QTC Calculation(Bazett): 403 ms P Iron Station: 58 degrees R Iron Station: 7 degrees T Iron Station: -22 degrees Sinus rhythm with 1st degree A-V block Minimal voltage criteria for LVH, may be normal variant ( Damien product ) 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 [id number] After a Fall You have had a fall today. That means that you slipped, tripped, or lost your balance. If your fallwas because of fainting or a seizure,??you might need other??tests. It is normal to feel sore and tight in your muscles and back the next day, and not just the musclesyou injured. Remember, all the parts of your body are connected, so while one area hurts now, the next day another may hurt. Also, when you injure yourself, it causes inflammation. This then causes the muscles to tighten up and hurt more. After the initial worsening symptoms, they should slowly improve over the next few days. Tell your healthcare provider if you have more severe pain. Even without a definite head injury, you can still get a concussion from your head suddenly jerkingforward, backward, or sideways when you fall. This is especially true if you have had concussions in the past. Concussions and even bleeding can still happen, especially if you had a recent injury ortake blood thinner medicine. It is not unusual to have a mild headache and feel tired and even nauseous or dizzy.?? Home care ??? Rest today and return to your normal activities when you are feeling back to normal. ??? If you were injured during the fall, follow the advice from your healthcare provider about how to care for your injury. ??? At first, don't try to stretch out the sore spots. If there is a strain,stretching may make it worse. Massage may help relax the muscles without stretching them. ??? Use an ice pack or cold compress on and off at the sore spots for 10 to 20 minutes at a time, as often asyou feel comfortable. This may help reduce the inflammation, swelling, and pain. ??? Know that if you have any scrapes (abrasions), they often heal within??10 days. Keep the scrapes clean while they start to heal. But an infection may happen even with correct care. So watch for early signs of infection (such as warmth, redness, or swelling). ?? Medicines ??? Talk with your healthcare provider before taking new medicines, especially if you have other health problems or are taking other medicines. ??? If you need anything for pain, use acetaminophen or ibuprofen, unless you were given a different pain medicine to use.??Talk with your healthcare provider before using these medicines if you: o Have chronic liver or kidney disease o Ever hada stomach ulcer or??gastrointestinal bleeding o Are taking blood-thinner medicines ??? Be careful if you are given prescription pain medicines, narcotics, or medicine for muscle spasms. They can makeyou sleepy and dizzy. And they can affect your coordination, reflexes, and judgment. Don't drive ordo work where you can hurt yourself when taking them. ?? Fall prevention ??? Fix, remove, or replace anything that caused your fall. ??? Make your home safeby keeping walkways clear of objects you could trip over. ??? Use nonslip pads under rugs. Don't use small??area rugs or throw rugs. ??? Don't walk in poorly lit areas. ??? Don't stand on chairs or wobbly ladders. ??? Be careful when reaching overhead or looking upward. This position can cause a loss of balance. ??? Be sure your shoes fit correctly, have nonslip bottoms, and are in good condition. ??? Be careful when going up and down curbs, and walking on uneven sidewalks. ??? If your balance is poor, think about using a cane or walker. ??? Stay as active as you can. Balance, flexibility, strength, and endurance all come from exercise. They all play a role in preventing falls. ??? If you have pets, know where they are before you stand up or walk so you don't trip over them. ??? Limit alcohol intake. Alcohol can cause balance problems and increase the risk for falls. ??? Use night-lights. ??? Have your eyes tested to be sure you are seeing well, even if you already wear glasses.? Follow-up Follow up with your healthcare provider, or as advised. If X-rays or CT scans were done, you will be told if there is a change in the reading, especially if it affects treatment. ?? Call 911 Call 911 if any of these happen: ??? Trouble breathing ??? Confusion ??? Trouble waking up ??? Fainting or loss of consciousness ??? Fast or very slow heart rate ??? Seizure ??? Trouble with speech or vision, weakness of an arm or leg ??? Trouble walking or talking, loss of balance, numbness or weakness on one side of your body, or facial droop ?? When to get medical advice Call your healthcare provider right away if any of these happen: ??? Repeated falls, including falls that seem to happen for no reason ??? Dizziness ??? Severe headache ??? Blood in vomit or stools (look black or red in color) ?? Last Reviewed Date: 2022 ?? [id number] [employer]. All rights reserved. This information is not intended as a substitute for professional medical care. Always follow your healthcare professional's instructions. ?? Patient Care team information Care Team Personnel Name: Lucina Shah RN Position: [facility] RN Member Role: Primary Care Nurse Name: Isaias Aparicio RN Position: [facility] RN Member Role: Primary Care Nurse Name: Sabina Simpson RN Position: [facility] RN Member Role: Primary Care Nurse Name: Olimpia Wallis RN Position: [facility] SN RN Member Role: Primary Care Nurse Name: Miguel Munoz MD Position: [facility] Renal MD Member Role: Lifetime Consulting Physician Address: Address: [address] [place] [address], [address] [facility] [place] [address]- Name: Naz Fleming MD Position: [facility] Physician - Primary Care Member Role: Lifetime Consulting Physician Address: Address: [address] [place] [address] [facility] [place] [address]- [place] Name: Nayeli Quintana RN Position: [facility] RN Member Role: Primary Care Nurse Name: Tamica Vernon RN Position: [facility] RN Member Role: Primary Care Nurse Name: Deyanira Schwartz Position: [facility] product safety expert Member Role: Round Cutter Operator Name: Arjun Hampton DO Position: [facility] Physician - Primary Care Member Role: PCP Address: Address: [address] [place] [address] [place] [address]- [place] Name: Jeromy Rivero RN Position: [facility] AMB Nurse Member Role: Primary Care Nurse Name: Deyanira Douglas RN Position: [facility] Onco RN Member Role: Primary Care Nurse Name: Taisha Anguiano Position: [facility] AMB Nurse Member Role: Lifetime Consulting Physician Name: Kali Roberts Jr Position: [facility] ED RN W/OE and Tasks Member Role: Primary Care Nurse Name: Melissa Jordan RN Position: [facility] RN Member Role: Primary Care Nurse Name: Erin Pagan RN Position: [facility] Hospital Retail Loss Prevention Officer Member Role: Primary Care Nurse Name: Jeromy Estrella RN Position: [facility] RN Member Role: Primary Care Nurse Name: Edmond Bingham RN Position: [facility] Onco RN Member Role: Primary Care Nurse Name: Nora Guerrero RN Position: [facility] RN Member Role: Primary Care Nurse Name: Jacklyn Machado RN Position: [facility] AMB Nurse Member Role: Primary Care Nurse Name: Keyon Justin RN Position: [facility] RN Member Role: Primary Care Nurse Address: Address: [address] [place] [address], [place] [address]- [place] Name: *[facility], ED Attending Position: [facility] ED Attendings Patient Name: Modesta COYNE, Noemi Position: [facility] ED RN W/OE and Tasks Member Role: Patient Care Provider Name: Bobby Carty MD Position: [facility] ED Medicine MD Member Role: Admitting Physician Address: Address: [address] [place] [address] Palliative [place] [address]- Name: Chhaya Sahni Position: [facility] ED TA [facility] Member Role: Golf Course Architect Care Team Related Persons Name: DEMOND JAMESON Address: [address] [place] [address] Name: SCARLETT JAMESON Address: home [address], [place] Name: VIDIH JAMESON Address: home [address] [place] [address]
--- OUTSIDE RECORDS SUMMARY | 2023-08-06 10:12 | XMS_ITS | Continuity of Care Document ---
Author Name Unknown Organization [facility] parminder Address [address] [place] [address] [address] [place] [address]- Care Team Providers Care Inspector Welded Parts Name Role Phone Arjun Hampton DO Primary Care Physician Encounter [facility] Date(s): 11/05/22 - 12/05/22 [facility] [address] [place], [place] [address] Allergies, Adverse Reactions, Alerts No Known [...] LEGS DIREDTED, # 225 mL, 0 Refills, [id number], 20, APPLY TOPICALLY DAILY TO THE LEGS [...] 15 Unknown, 1 Refills, 07/10/22 6:58:00 EST, [facility]/pharmacy #[id number], 180, cm, 04/18/22 11:39:00 [...] mL, 0 Refills, Maintenance, 09/11/22 7:42:00 EST, [facility]/pharmacy #[id number], Partial fill upon patient [...] AM, 0 Refills, Maintenance, 03/27/20 21:59:00 EDT, [place] Start Date: 03/27/20 Status: Ordered FREESTYLE 28G [...] 90 tablet, 3 Refills, 04/17/22 17:59:00 EDT, [facility]/pharmacy #[id number], 180, cm, 02/21/22 11:07:00 EDT, [...] ECCapsule Start Date: 02/29/20 Status: Ordered Pen [place], 30 G x 8 mm BD Ultra Fine II See Instructions, # 100 each, Refills 5, Tot. 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 Nitin Social History Social History Type Response Smoking Status Former smoker entered on: 09/23/15 Sex Patient Care team information Care Team Personnel Name: Lucina Shah RN Position: [facility] SN RN Member Role: Primary Care Nurse Name: Sabina Simpson RN Position: [facility] RN Member Role: Primary Care Nurse Name: Olimpia Wallis RN Position: [facility] RN Member Role: Primary Care Nurse Name: Miguel Munoz MD Position: [facility] Renal MD Member Role: Lifetime Consulting Physician Address: Address: [address] [place] [address], [address] [facility] [place], [place] [address] Name: Naz Fleming MD Position: [facility] Physician -Physician Practices Member Role: Lifetime Consulting Physician Address: Address: [address] [place] [address] Geriatric & Palliative Care [place], [place] [address] Name: Myla Olivas RN Position: [facility] RN Member Role: Primary Care Nurse Name: Nayeli Quintana RN Position: [facility] RN Member Role: Primary Care Nurse Name: Tamica Vernon RN Position: [facility] RN Member Role: Primary Care Nurse Name: Arjun Hampton DO Position: [facility] Primary Care Physician Member Role: PCP Address: Address: [address] [place] [address] [place] [address]- [place] Name: Jeromy Rivero RN Position: [facility] PCO RN Member Role: Primary Care Nurse Name: Taisha Anguiano Position: [facility] PCO RN Member Role: Lifetime Consulting Physician Name: Kali Roberts Jr Position: [facility] ED RN W/OE and Tasks Member Role: Primary Care Nurse Name: Melissa Jordan RN Position: [facility] RN Member Role: Primary Care Nurse Name: Erin Pagan RN Position: [facility] Manager Web Member Role: Primary Care Nurse Name: Jeromy Estrella RN Position: [facility] RN Member Role: Primary Care Nurse Name: Nora Guerrero RN Position: [facility] RN Member Role: Primary Care Nurse Name: Jacklyn Machado RN Position: [facility] AMB Nurse Member Role: Primary Care Nurse Name: Keyon Justin RN Position: [facility] RN Member Role: Primary Care Nurse Address: Address: [address] [place] [address]- [place] Care Team Related Persons Name: GISELL SCARLETT Address: [address] [place] [address] Name: VIDHI JAMESON Address: home [address] [place] [address]
--- OUTSIDE RECORDS SUMMARY | 2023-08-06 10:12 | XMS_ITS | Continuity of Care Document ---
Author Name Unknown Organization [facility] ter Address [address] [place] [id number]- Care Team Providers Care Occupational Health And Safety Adviser Name Role Phone Arjun Hampton DO Primary Care Physician Encounter [facility] Date(s): 01/07/23 - 02/14/[address] [id number] Attending Physician: Adrian Carty MD [...] 23-valent vaccine 1 08/04/14 Recorded 1Result Comment: [facility] [address] Medications albuterol-ipratropium 3 mg-0.5 mg/3 ml inhalation [...] # 225 mL, 0 Refills, [facility], 20, APPLY TOPICALLY DAILY TO THE LEGS [...] BY MOUTH TWICE A DAY Start Date: 8/11/20 Status: Ordered Claritin 10 mg oral tablet [...] AM, 0 Refills, Maintenance, 03/27/20 21:59:00 EDT, [place] Start Date: 03/27/20 Status: Ordered furosemide 20 [...] 1 Refills, Maintenance, 12/26/22 14:55:00 EDT, Tablet, [facility], Partial fill upon patient request if the prescription is for a schedule II opioid drug., 180, cm, 12/26/22 11:39:... Start Date: 12/26/22 Stop Date: 02/24/23 Status: Ordered levothyroxine 0.05 mg oral tablet See Instructions, 1 tablet By Mouth Thursday-Thursday 2 tabs po Thu-Thursday, # 90 tablet, 3 Refills, 04/17/22 17:59:00 EDT, [facility]/pharmacy #[id number], 180, cm, 02/21/22 11:07:00 EDT, [...] 4Neuro, Dr Dalton Perry, [facility]. 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 Nitin Social History Social History Type Response Smoking Status Former smoker entered on: 09/23/15 Sex Patient Care team information Care Team Personnel Name: Lucina Shah RN Position: [facility] SN RN Member Role: Primary Care Nurse Name: Isaias Aparicio RN Position: [facility] RN Member Role: Primary Care Nurse Name: Sabina Simpson RN Position: [facility] RN Member Role: Primary Care Nurse Name: Olimpia Wallis RN Position: [facility] SN RN Member Role: Primary Care Nurse Name: Miguel Munoz MD Position: [facility] Renal MD Member Role: Lifetime Consulting Physician Address: Address: [address] [place] [address], [address] [facility] [place], [place] [address] Name: Naz Fleming MD Position: [facility] Physician - Primary Care Member Role: Lifetime Consulting Physician Address: Address: [address] [place] [address] [facility] [place] [address]- [place] Name: Nayeli Quintana RN Position: [facility] RN Member Role: Primary Care Nurse Name: Tamica Vernon RN Position: [facility] RN Member Role: Primary Care Nurse Name: Arjun Hampton DO Position: [facility] Physician - Primary Care Member Role: PCP Address: Address: [address] [place] [address] [place] [address]- Name: Jeromy Rivero RN Position: [facility] AMB Nurse Member Role: Primary Care Nurse Name: Taisha Anguiano Position: [facility] AMB Nurse Member Role: Lifetime Consulting Physician Name: Kali Roberts Jr Position: [facility] ED RN W/OE and Tasks Member Role: Primary Care Nurse Name: Melissa Jordan RN Position: [facility] RN Member Role: Primary Care Nurse Name: Erin Pagan RN Position: [facility] Hospital Clinical Informatics Physician Member Role: Primary Care Nurse Name: Jeromy Estrella RN Position: [facility] RN Member Role: Primary Care Nurse Name: Nora Guerrero RN Position: [facility] RN Member Role: Primary Care Nurse Name: Jacklyn Machado RN Position: [facility] AMB Nurse Member Role: Primary Care Nurse Name: Keyon Justin RN Position: [facility] RN Member Role: Primary Care Nurse Address: Address: [address] [place] [id number]- [place] Care Team Related Persons Name: DEMOND JAMESON Address: home [address] [place] [address] Name: SCARLETT JAMESON Address: home [address] [place] [address] Name: VIDHI JAMESON Address: [address] [place] [address]
--- OUTSIDE RECORDS SUMMARY | 2023-08-06 10:13 | XMS_ITS | Continuity of Care Document ---
Author Name Unknown Organization [facility] parminder Address [address] [place] [address] [address] [place] [address]- Care Team Providers Care Wire Bender Hand Name Role Phone Arjun Hampton DO Primary Care Physician Encounter [facility] Date(s): 11/07/22 - 12/07/22 [facility] [address] [place], [place] [address] Attending Physician: Admtr, Ar8 Admitting Physician: Admtr, Ar8 Referring Physician: Admtr, Ar8 Allergies, Adverse Reactions, [...] # 225 mL, 0 Refills, [facility], 20, APPLY TOPICALLY DAILY TO THE LEGS [...] 15 Unknown, 1 Refills, 07/10/22 6:58:00 EST, [facility]/pharmacy #[id number], 180, cm, 04/18/22 11:39:00 EDT, [...] mL, 0 Refills, Maintenance, 09/11/22 7:42:00 EST, [facility]/pharmacy #[id number], Partial fill upon patient request [...] AM, 0 Refills, Maintenance, 03/27/20 21:59:00 EDT, [place] Start Date: 03/27/20 Status: Ordered FREESTYLE 28G [...] 90 tablet, 3 Refills, 04/17/22 17:59:00 EDT, [facility]/pharmacy #[id number], 180, cm, 02/21/22 11:07:00 EDT, [...] ECCapsule Start Date: 02/29/20 Status: Ordered Pen [place], 30 G x 8 mm BD Ultra Fine II See Instructions, # 100 each, Refills 5, Tot. Refills 5, Maintenance, use as directed for Type 2 Diabetes Mellitus, 06/18/20 10:35:00 EDT, Supply, 180, cm, 04/03/20 15:28:00 EDT, Height, 90, kg, 07/26/18 17:05:00 EST, Dry Weight Start Date: 06/18/20 Stop Date: 12/15/20 Status: Ordered Pen [place], 30 G x 8 mm BD Ultra [...] 4Neuro, Dr Dalton Perry, [facility]. 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 Nitin Social History Social History Type Response Smoking Status Former smoker entered on: 09/23/15 Sex Note * Event Display: Non Lab Results Authored Date: Patient Care team information Care Team Personnel Name: Lucina Shah RN Position: [facility] RN Member Role: Primary Care Nurse Name: Sabina Simpson RN Position: S RN Member Role: Primary Care Nurse Name: Olimpia Wallis RN Position: [facility] RN Member Role: Primary Care Nurse Name: Miguel Munoz MD Position: [facility] Renal MD Member Role: Lifetime Consulting Physician Address: Address: [address] [place] [address], [address] [facility] [address] Name: Naz Fleming MD Position: [facility] Physician -Physician Practices Member Role: Lifetime Consulting Physician Address: Address: [address] [facility] [place] [address]- [place] Name: Myla Olivas RN Position: [facility] RN Member Role: Primary Care Nurse Name: Nayeli Quintana RN Position: [facility] RN Member Role: Primary Care Nurse Name: Tamica Vernon RN Position: [facility] RN Member Role: Primary Care Nurse Name: Arjun Hampton DO Position: [facility] Primary Care Physician Member Role: PCP Address: Address: [address] [facility] [place] [address]- [place] Name: Jeromy Rivero RN Position: [facility] PCO RN Member Role: Primary Care Nurse Name: Taisha Anguiano Position: [facility] PCO RN Member Role: Lifetime Consulting Physician Name: Kali Roberts Jr Position: [facility] ED RN W/OE and Tasks Member Role: Primary Care Nurse Name: Melissa Jordan RN Position: [facility] RN Member Role: Primary Care Nurse Name: Erin Pagan RN Position: [facility] Hospital Neonatal Social Worker Member Role: Primary Care Nurse Name: Jeromy Estrella RN Position: [facility] RN Member Role: Primary Care Nurse Name: Nora Guerrero RN Position: [facility] RN Member Role: Primary Care Nurse Name: Jacklyn Machado RN Position: [facility] AMB Nurse Member Role: Primary Care Nurse Name: Keyon Justin RN Position: [facility] RN Member Role: Primary Care Nurse Address: Address: [address] [place] [address]- [place] Care Team Related Persons Name: SCARLETT JAMESON Address: home [address] [place] Name: VIDHI JAMESON Address: home [address] [place] [address]
[2023-08-06 10:16] VITALS: BMI 21.7
--- NOTE | 2023-08-06 10:16 | HO.NEPHOV ---
HPI HPI Comments History of Present Illness Details Julián was seen as a Telehealth consultation. He recently had multiple hospitalizations with aspiration pneumonia. During his last hospitalization, he had pulmonary embolism, pneumonia as well as RUPERTO. His renal functions are back to baseline. He is on anticoagulation. His pneumonia was treated with antibiotics. He underwent a G-tube insertion. He does not have any fever, chills, rigor, nausea, vomiting or diarrhea, shortness of breath or pedal edema. He has not had any medication changes since hospital discharge. [facility] Medical History (Updated 08/06/23 @ 21:13 by Miguel Munoz MD) Atelectasis Infection of scalp Dysphagia Abnormal chest x-ray Chronic respiratory failure COPD (chronic obstructive pulmonary disease) Cough Surgical History (Updated 08/06/23 @ 10:17 by Taisha Anguiano MA) History of brain surgery History of open heart surgery Social History Patient Tobacco Use Status: Former Tobacco user Tobacco use type: Cigarette Years Smoked: 40 years Vital Signs 08/06/23 10:16 Height 6 ft Weight 160 lb BMI 21.7 Physical Exam Vital Signs: BMI result Body Mass Index 21.7 Assessment & Plan Assessment & Plan (1) Hypertension: Code(s): I10 - Essential (primary) hypertension Qualifiers: Hypertension type: primary hypertension Qualified Code(s): I10 - Essential (primary) hypertension Plan Julián was seen in follow-up by [employer] [facility]. His was there during this conversation. All his recent hospitalization records including all data, imaging and progress notes were reviewed. He does not have any edema. His blood pressure is at goal. He is being fed by G-tube. He is followed by wound care and has an appointment with Plastic surgery. He does not take any nonsteroidal anti-inflammatory medications and maintain good hydration. I did not make any medication changes today. All questions were answered. No follow-up given. Agreed to see him as needed basis. Telehealth Telehealth Location of provider rendering services: practice address Location of patient: address on file Patient Identification confirmed using: Name, : Yes Telehealth method: voice only Patient verbally consented to treatment: Yes Patient verbally consented to billing insurance company: Yes Patient informed of any privacy concerns related to visit: Yes Minutes spent on Phone/Video with Pt.: 10 Coding Level of Care Code Est Pt Level 2 (72324) Diagnoses Primary hypertension I10 Hypertension type: primary hypertension Results Reviewed Nephrology Results: No Data to Display
== END 2023-08-06 10:46 | disposition home or self-care (01) ==
PROVIDERS: PCP Family Medicine; Visit Provider Internal Medicine Nephrology
DX: I10 Essential (primary) hypertension (principal)
CPT/HCPCS: 99212

== ENCOUNTER → 2023-08-06 10:07 | Outpatient (BNVA) | payer MEDICARE, SELFPAY | PROVIDERS: PCP Family Medicine; Visit Provider Internal Medicine Nephrology | DX: I10 Essential (primary) hypertension (principal) | CPT/HCPCS: 99212 ==